=== PATIENT | male | born 1940 | race Caucasian/White ===

== ENCOUNTER 2017-07-24 12:54 | Inpatient (IN) | payer MEDICARE, BC ==
[2017-07-24 13:23] LABS: #Eosinphils 0.1 thou/uL (0.0-0.7); #Lymphocytes 0.9 thou/uL (1.20-3.40); #Monocytes 0.2 thou/uL (0.11-0.59); #Neutrophils 3.3 thou/uL (1.40-6.50); %Basophils 0.4 % (0.0-1.0); %Eosinophils 1.6 % (0.0-10.0); %Lymphocytes 19.2 % (21.0-51.0); %Monocytes 4.7 % (0.0-10.0); %Neutrophils 74.1 % (42.0-75.0); Hemoglobin 14.8 g/dL (14.0-18.0); Mean Corpuscular HGB CONC 33.1 g/dL (32.0-36.0); Mean Corpuscular Hemoglobin 32.1 pg (27.0-31.0); Mean Corpuscular Volume 96.9 fl (80.0-94.0); Platelet Count 197 thou/uL (130-400); RBC Distribution Width 14.1 % (11.5-14.5); Red Blood Cell (RBC) Count 4.61 mill/uL (4.70-6.10); White Blood Cell (WBC) Count 4.5 thou/uL (4.8-10.8)
[2017-07-24 13:32] LABS: INR-International Normal Ratio 1.9; Prothrombin Time 22.5 SEC (12.0-14.7)
[2017-07-24 13:47] LABS: ALT (SGPT) 16 U/L (8-55); AST (SGOT) 19 U/L (5-34); Albumin 3.9 g/dL (3.4-4.8); Alkaline Phosphatase 110 U/L (40-150); Anion Gap 15 mmol/L (10-20); BUN (Urea Nitrogen) 23 mg/dL (8.4-25.7); Bilirubin, Total 0.8 mg/dL (0.2-1.2); Calc. Creatinine Clearance 0 mL/min (70-130); Calcium 9.4 mg/dL (7.8-10.44); Carbon Dioxide 24 mmol/L (23-31); Chloride 103 mmol/L (98-107); Estimated GFR-MDRD 66; Globulin 3.8 g/dL (2.4-3.5); Glucose 106 mg/dL (83-110); Potassium 4.1 mmol/L (3.5-5.1); Protein, Total 7.7 g/dL (5.8-8.1); Sodium 138 mmol/L (136-145)
[2017-07-24] MEDS ORDERED: Phytonadione 10 MG/ML AMP ONE (13:48)
--- NOTE | 2017-07-24 13:53 | RAD ---
AP VIEW PELVIS: FINDINGS: AP view pelvis is obtained. There is a comminuted proximal right femoral fracture. Multiple fracture fragments are seen. The le sser trochanter is avulsed. There is also partially impacted fracture involving the subtrochanteric portion of the right femur. IMPRESSION: Comminuted proximal right femoral fracture. POS: [facility]
--- NOTE | 2017-07-24 13:55 | RAD ---
AP VIEW OF THE CHEST: HISTORY: History of preop. COMPARISON: Prior exam dated 11/01/16. FINDINGS: Nodular opacity within the right upper lobe consistent with patient's known arteriovenous malformatio n is stable. Cardiomegaly persists. Tortuosity of the aorta is similar. The patient's dual-lead pa cemaker is unchanged. Osseous structures are similar. IMPRESSION: 1. Stable exam. There is stable cardiomegaly. 2. Nodular opacity right upper lobe consistent with the patient's known arteriovenous malformation i s stable. POS: [facility]
--- NOTE | 2017-07-24 13:57 | RAD ---
THREE VIEWS OF THE RIGHT FEMUR: INDICATION: Fall with right hip pain. FINDINGS: There is an obliquely oriented comminuted right hip intertrochanteric fracture with apex lateral angu lation at the fracture site. No additional fracture is seen involving the right femur. There is dif fuse osteopenia. There is partial visualization of a right total knee prosthesis. There is scattere d vascular calcification within the adjacent soft tissues. IMPRESSION: Comminuted right intertrochanteric hip fracture. POS: [facility]
--- NOTE | 2017-07-24 13:59 | RAD ---
AP AND FROG LEG VIEWS RIGHT HIP: FINDINGS: AP and frog-leg views right hip demonstrate a comminuted intertrochanteric fracture. The lesser troc hanter is displaced medially. There are some sclerotic changes seen involving the right acetabulum compatible with old healed aceta bular fracture. IMPRESSION: 1. Comminuted displaced intertrochanteric fracture right femur. 2. Old healed right acetabular fracture. POS: [facility]
[2017-07-24] MEDS ORDERED: Morphine 4 MG/ML VIAL ONE (14:17)
[2017-07-24] MEDS ORDERED: HYDROcodone/Acetaminophen 5/325 mg Tablet PO PRN ×2 (15:19)
[2017-07-24] MEDS ORDERED: Ondansetron HCl/PF 4 MG/2 ML Vial IVP PRN ×2 (15:19→15:32)
[2017-07-24] MEDS ORDERED: Ondansetron ODT 4 MG TAB SL PRN (15:19)
[2017-07-24] MEDS ORDERED: Acetaminophen 325 MG TAB PO PRN (15:19)
[2017-07-24] MEDS ORDERED: Sodium Chloride 0.9% 1,000 ML IV SCH (15:19)
[2017-07-24] MEDS ORDERED: Dextrose 50% Abboject 50 ML SYRINGE SLOW IVP PRN (15:32)
[2017-07-24] MEDS ORDERED: hydrALAZINE 20 MG/ML VIAL SLOW IVP PRN (15:32)
[2017-07-24] MEDS ORDERED: Ondansetron ODT 4 MG TAB PO PRN (15:32)
[2017-07-24] MEDS ORDERED: HYDROcodone/Acetaminophen 10/325 mg Tablet PO PRN (15:32)
[2017-07-24] MEDS ORDERED: Dextrose 5% in Water 1,000 ML IV PRN (15:32)
[2017-07-24 15:34] VITALS: BMI 37.4
[2017-07-24] MEDS: HYDROcodone/Acetaminophen 10/325 mg Tablet PO PRN ×2 (16:39→23:19)
--- NOTE | 2017-07-24 16:53 | HP ---
DATE OF ADMISSION: 07/24/2017 REQUESTING PHYSICIAN: Jesse Cowart M.D. ATTENDING PHYSICIAN: Gary Rayo M.D. CONSULTATIONS: Orthopedics, Livan Dumont M.D. HISTORY OF PRESENT ILLNESS: The patient is a 76-year-old man who was going from his house into his g arage when he fell in the doorway. The patient had immediate right hip pain and was unable to get up . He was able to summon help who called 911. The patient was brought by ground EMS to the Emergency Department and was noted to have a right proximal femur fracture, at which time we were asked to amol luate the patient for admission and obtain orthopedic consultation. Of note, patient is on Coumadin. The patient denies chest pain, shortness of breath or dizziness. He states that he just tripped go ing up the door. ALLERGIES: None. CURRENT MEDICATIONS: Amlodipine, lisinopril, allopurinol, warfarin, torsemide, atorvastatin and malika min D3. PAST MEDICAL HISTORY: Atrial fibrillation, coronary artery disease, hyperlipidemia and hypertension. PAST SURGICAL HISTORY: Bilateral knee replacement and cardiac pacemaker placement. FAMILY MEDICAL HISTORY: Hypertension. SOCIAL HISTORY: The patient denies alcohol use. Quit smoking greater than 40 years ago. Denies chela g use. 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 REVIEW OF SYSTEMS: Ten-point review of systems negative, unless otherwise stated. PHYSICAL EXAMINATION: VITAL SIGNS: Blood pressure 114/63, heart rate 67, respirations 14, oxygen saturation is 96% on room air and temperature is 97.6. GENERAL: The patient is resting comfortably in the emergency room bed. He is awake, alert, and orie nted x3. [place] Coma Scale is 15. HEENT: Head is normocephalic and atraumatic. Eyes: Extraocular motion intact. PERRLA bilaterally. Ears are atraumatic without discharge. Nose is atraumatic without discharge. Oropharynx is clear. NECK: Nontender. Trachea is midline. No JVD. CHEST: Clear to auscultation with good inspiratory and expiratory effort. HEART: Regular rate and rhythm. ABDOMEN: Soft, flat and nontender with active bowel sounds. Pelvis is stable with tenderness to the right proximal femur area consistent with his fracture. EXTREMITIES: The patient is noted to have a skin tear on his left fifth metacarpal in the dorsum of his hand. Right upper extremity is unremarkable. Lower extremities show significant skin changes du e to his peripheral vascular disease, which he states is unchanged for many months. The patient has decreased sensation and capillary refill is approximately 4 seconds. Upper extremities are neurovasc ularly intact. BACK: By report is atraumatic and nontender. LABORATORY FINDINGS: White blood cell count 4.5, hemoglobin 14.8, hematocrit 44.6 and platelets 197. Sodium 138, potassium 4.1, chloride 103, CO2 of 24, BUN 23, creatinine is 1.09 and glucose 106. LF Ts are unremarkable. PTT 41, PT 23 and INR 1.9. RADIOGRAPHIC FINDINGS: Right femur radiographs showed a right proximal femur fracture with significa nt displacement. ASSESSMENT AND PLAN: 1. Status post ground level fall. 2. Right proximal femur fracture. 3. History of hypertension. 4. History of atrial fibrillation with pacemaker. 5. History of coronary artery disease and peripheral vascular disease. Plan will be to admit the patient to the surgical floor. He will be placed in bucks traction, made n .p.o. after midnight. We will do pain control, pulmonary toilet, gastritis, mechanical DVT prophylax is. Dr. Dumont has reviewed the case and he will plan on taking the patient to the operating room to sawyer some time. The patient was given vitamin K in the Emergency Department. We will recheck his labs to include his coags in the morning this case. Laboratory radiographic findings were discussed with Dr. Rayo at the time of dictation.
[2017-07-24] MEDS ORDERED: CEFAZOLIN/Water 2 GM/20 ML SYRINGE SLOW IVP SCH (17:30)
[2017-07-24] MEDS: Ketorolac Tromethamine 30 MG/ML VIAL IVP SCH ×2 (18:15→23:21)
[2017-07-24] MEDS: Senokot S 8.6-50 MG TAB PO SCH (19:49)
[2017-07-24] MEDS: Famotidine 20 MG TAB PO SCH (19:49)
[2017-07-24] MEDS: Sodium Chloride 0.9% 1,000 ML IV SCH (23:26)
--- NOTE | 2017-07-25 01:54 | CON ---
DATE OF CONSULTATION: 07/24/2017 REASON FOR CONSULTATION: Right subtrochanteric hip fractures. HISTORY OF PRESENT ILLNESS: This is a very pleasant gentleman well known to me. He was walking to h is garage today, fell, suffering a fracture of his right proximal femur. PAST MEDICAL HISTORY: Significant from orthopedic point of view, where he has pelvis fracture and he has bilateral total knees, currently complains of pain in the proximal femur. He complains of pain with any manipulation of the leg, otherwise he is very comfortable in the bed. PHYSICAL EXAMINATION: On examination today, he has swollen right side, trace palpable pulses, he was visualized with some dependent edema and a mild rotational deformity. Radiographs show a comminuted fracture of the right proximal femur. The proximal fragment is flexed. There is a long spike. The lesser trochanter is off. ASSESSMENT: Subtrochanteric hip fracture. PLAN: Open reduction and internal fixation. I discussed with him at length and I explained use of m etal jose. I explained the risk of infection, stiffness, nerve or blood vessel damage, expected lengt h of healing time. He understands all this and would like to proceed with surgery.
[2017-07-25] MEDS: Sodium Chloride 0.9% 1,000 ML IV SCH ×2 (02:18→19:31)
[2017-07-25 04:53] LABS: INR-International Normal Ratio 1.6; PTT 44.3 SEC (22.9-36.1); Prothrombin Time 19.4 SEC (12.0-14.7)
[2017-07-25 04:58] LABS: #Lymphocytes 0.7 thou/uL (1.20-3.40); #Monocytes 0.3 thou/uL (0.11-0.59); #Neutrophils 3.4 thou/uL (1.40-6.50); %Basophils 0.1 % (0.0-1.0); %Eosinophils 0.8 % (0.0-10.0); %Lymphocytes 16.2 % (21.0-51.0); %Monocytes 6.9 % (0.0-10.0); Mean Corpuscular HGB CONC 34.2 g/dL (32.0-36.0); Mean Corpuscular Hemoglobin 33.3 pg (27.0-31.0); Mean Corpuscular Volume 97.4 fl (80.0-94.0); Mean Platelet Volume 7.2 fL (7.4-10.4); Platelet Count 182 thou/uL (130-400); RBC Distribution Width 13.8 % (11.5-14.5); Red Blood Cell (RBC) Count 3.61 mill/uL (4.70-6.10); White Blood Cell (WBC) Count 4.5 thou/uL (4.8-10.8)
[2017-07-25 05:02] LABS: Anion Gap 6 mmol/L (10-20); BUN (Urea Nitrogen) 26 mg/dL (8.4-25.7); Calc. Creatinine Clearance 110 mL/min (70-130); Calcium 8.5 mg/dL (7.8-10.44); Carbon Dioxide 30 mmol/L (23-31); Chloride 105 mmol/L (98-107); Estimated GFR-MDRD 70; Glucose 108 mg/dL (83-110); Potassium 4.3 mmol/L (3.5-5.1); Sodium 137 mmol/L (136-145)
[2017-07-25] MEDS: Ketorolac Tromethamine 30 MG/ML VIAL IVP SCH ×4 (05:24→23:17)
[2017-07-25] MEDS ORDERED: Sodium Chloride 0.9% 500 ML IV SCH (07:00)
[2017-07-25] MEDS ORDERED: CEFAZOLIN/Water 2 GM/20 ML SYRINGE ONE (09:37)
[2017-07-25] MEDS ORDERED: Ondansetron HCl/PF 4 MG/2 ML Vial IVP PRN ×3 (09:42→10:22)
[2017-07-25] MEDS ORDERED: Fleet Enema 133 ML BOT PR PRN (09:42)
[2017-07-25] MEDS ORDERED: Milk Of Magnesia 30 ML UDCUP PO PRN (09:42)
[2017-07-25] MEDS ORDERED: Cepastat Lozenges 1 LOZ PO PRN (09:42)
[2017-07-25] MEDS ORDERED: Bisacodyl 10 MG SUPP PR PRN (09:42)
[2017-07-25] MEDS ORDERED: Ondansetron ODT 4 MG TAB PO PRN (09:42)
[2017-07-25] MEDS ORDERED: Fentanyl 100 MCG/2 ML VIAL ONE (10:43)
[2017-07-25] MEDS ORDERED: Albumin 25% 100 ML ONE (11:06)
--- NOTE | 2017-07-25 12:28 | RAD ---
SIX FLUOROSCOPIC SPOT IMAGES OF THE RIGHT FEMUR: INDICATION: Open reduction internal fixation. FINDINGS: Since the comparison examination, there has been interval placement of a long cephalomedullary device with associated cerclage bands involving the proximal femur. The instrumentation projects in the ex pected position. Fracture alignment is near anatomic. IMPRESSION: Open reduction internal fixation of comminuted right intertrochanteric hip fracture. POS: [facility]
[2017-07-25] MEDS: Polyethylene Glycol 3350 17 GM Packet PO SCH (12:50)
[2017-07-25] MEDS: Famotidine 20 MG TAB PO SCH ×2 (12:50→20:54)
[2017-07-25] MEDS: Senokot S 8.6-50 MG TAB PO SCH ×2 (12:51→20:54)
[2017-07-25] MEDS ORDERED: Lidocaine 1% PF 5 ML VIAL ONE (15:42)
[2017-07-25] MEDS ORDERED: PROPOFOL 200 MG/20 ML VIAL ONE (15:42)
[2017-07-25] MEDS ORDERED: PHENYLEPHRINE-NS 100 MCG/ML 10 ML SYRINGE ONE (15:42)
--- NOTE | 2017-07-25 16:21 | OP ---
PREOPERATIVE DIAGNOSIS: Fracture of the right femur including the proximal shaft and subtrochanteric region extending proximally. POSTOPERATIVE DIAGNOSIS: Fracture of the right femur including the proximal shaft and subtrochanteri c region extending proximally. SURGEON: Livan Dumont M.D. ANESTHESIA: EVGENY Rose BLOOD LOSS: About 800 mL SPECIMEN: None. DRAINS: None. COMPLICATIONS: None. DESCRIPTION OF PROCEDURE: The patient was taken to the operating room where general anesthesia was i nduced. She was placed on the fracture table, prepped and draped in a usual sterile fashion. The fr acture could not be reduced by close means. I made a separate approach to the femur shaft. I dissec kirill down through the vastus lateralis. I elevated the vastus lateralis off of the lateral intermuscu lar septum and ligated perforating vessels through a combination of traction, reduction, rotation and manipulation, I was able to anatomically reduce the fracture and fixed the fracture using two cercla ge cables. Attention was then turned back up to the proximal femur. A separate incision was made. I made an opening through the skin and fascia, palpated the greater trochanter and entered the femur with awl and then passed a ball-tip guide jose across the fracture, reamed up to sequentially to size 15.5 and put a size 14 mm Synthes trochanteric femoral nail across the fracture and then locked it pr oximally with a 120 mm screw in the head and neck fragment and 80 mm screw distally. Irrigation was performed. Hemostasis was obtained. The vastus was repaired with #2 Vicryl and #2 Quill, subcutaneo us closed with 2-0 Vicryl, and the skin was closed with omari. Distally, omari used to close the locking screw hole and proximally somewhat closure was used. Sterile dressings applied. There were no complications.
[2017-07-25] MEDS: CEFAZOLIN/Water 2 GM/20 ML SYRINGE SLOW IVP SCH (17:40)
[2017-07-25] MEDS ORDERED: Sodium Chloride 0.9% 500 ML IVPB SCH (20:45)
[2017-07-25] MEDS ORDERED: Hydrocortisone Sod Succ/PF 100 mg/2 ml Vial IVP SCH (23:00)
[2017-07-26] MEDS: Sodium Chloride 0.9% 1,000 ML IV SCH ×3 (00:25→18:36)
[2017-07-26] MEDS: CEFAZOLIN/Water 2 GM/20 ML SYRINGE SLOW IVP SCH (01:44)
[2017-07-26 04:32] LABS: #Lymphocytes 0.3 thou/uL (1.20-3.40); #Monocytes 0.2 thou/uL (0.11-0.59); #Neutrophils 4.5 thou/uL (1.40-6.50); %Eosinophils 0.6 % (0.0-10.0); %Lymphocytes 6.8 % (21.0-51.0); %Monocytes 3.8 % (0.0-10.0); %Neutrophils 88.9 % (42.0-75.0); Hemoglobin 9.5 g/dL (14.0-18.0); Mean Corpuscular HGB CONC 33.9 g/dL (32.0-36.0); Mean Corpuscular Hemoglobin 32.6 pg (27.0-31.0); Mean Corpuscular Volume 96.1 fl (80.0-94.0); Platelet Count 153 thou/uL (130-400); RBC Distribution Width 13.7 % (11.5-14.5); White Blood Cell (WBC) Count 5.1 thou/uL (4.8-10.8)
[2017-07-26 04:55] LABS: Anion Gap 11 mmol/L (10-20); BUN (Urea Nitrogen) 31 mg/dL (8.4-25.7); Calc. Creatinine Clearance 94 mL/min (70-130); Calcium 8.1 mg/dL (7.8-10.44); Carbon Dioxide 26 mmol/L (23-31); Chloride 106 mmol/L (98-107); Estimated GFR-MDRD 59; Glucose 149 mg/dL (83-110); Magnesium 2.2 mg/dL (1.6-2.6); Phosphorus 3.5 mg/dL (2.3-4.7); Potassium 4.9 mmol/L (3.5-5.1); Sodium 138 mmol/L (136-145)
[2017-07-26] MEDS: Ketorolac Tromethamine 30 MG/ML VIAL IVP SCH ×3 (05:16→18:38)
--- NOTE | 2017-07-26 07:50 | ADD-HP ---
ADDENDUM This is an addendum to the H&P dictated by Luis Hernandez, Trauma PA. For full details, please see his r eport. HISTORY: Mr. Lin is a 76-year-old man, who fell walking into his garage. He tripped on something landing on his right hip on a hard surface, and had immediate pain in his right hip area. He was un able to get up on his own, so, his called for help and he was brought to the emergency room, whe re he was found to have a right intertrochanteric fracture. Of note, he suffered a fall about a year ago and had an acetabular fracture. He denies any other injuries or any other problems and did not lose consciousness. PHYSICAL EXAMINATION: Complete physical examination was performed by myself. With the exception of pain in his right lateral thigh area, his examination was unremarkable. EXTREMITIES: He does have chronic venous stasis changes of bilateral lower extremities, as well as m [id number] edema, which is chronic. HEART: He has occasional early heart beats. LUNGS: Clear. PAST MEDICAL HISTORY: Notable for atrial fibrillation, for which he takes Coumadin. He also has hyp erlipidemia, heart disease, and high blood pressure, which are well controlled. He has had both knee s replaced and he has a pacemaker. He has distant history of tobacco use, but quit many years ago. DIAGNOSTIC DATA: Images are reviewed and I agree with the written report. He has a healed right melania tabular fracture and a right intertrochanteric fracture. ASSESSMENT: Right intertrochanteric femur fracture. He received vitamin K in the emergency room for an INR of 1.9. He does take Coumadin chronically. We will recheck his coags in the morning. Dr. Karine walker is planning to take him to the operating room for ORIF of his fracture. Following his operatio n, we will plan to mobilize him quickly with physical therapy. I expect he will be able to be discha rged to home, but if inpatient rehabilitation is recommended, then we will refer him for that. Rafael echeverria, his pain is well controlled and his medical issues are all stable.
[2017-07-26] MEDS: Ferrous Gluconate 324 MG TAB PO SCH ×2 (08:53→20:52)
[2017-07-26] MEDS: Senokot S 8.6-50 MG TAB PO SCH ×2 (08:53→20:52)
[2017-07-26] MEDS: Multivitamin W/ Minerals 1 TAB PO SCH (08:53)
[2017-07-26] MEDS: Famotidine 20 MG TAB PO SCH ×2 (08:54→20:53)
[2017-07-26] MEDS: Polyethylene Glycol 3350 17 GM Packet PO SCH (08:54)
[2017-07-26] MEDS: Hydrocortisone Sod Succ/PF 100 mg/2 ml Vial IVP SCH ×2 (08:54→15:16)
[2017-07-26 09:32] LABS: INR-International Normal Ratio 1.5; Prothrombin Time 18.1 SEC (12.0-14.7)
[2017-07-26 09:39] LABS: CKMB 2.1 ng/mL (0-6.6); Troponin I Less than 0.010 ng/mL (< 0.028)
--- NOTE | 2017-07-26 15:59 | PRG ---
DATE OF SERVICE: 07/26/2017 ATTENDING PHYSICIAN: Dr. Vogt. SUBJECTIVE: The patient is a 76-year-old man, who was admitted on 07/24/2017 after suffering a groun d-level fall. He was evaluated and found to have a right proximal femur fracture. Patient was on wa rfarin and so received vitamin K for warfarin reversal. He went to the OR yesterday with Dr. Dumont for surgical fixation of his right hip. Postoperatively, his blood pressure was low. A serum cortis ol was drawn and measured 11.60. He was given 100 mg of hydrocortisone and started on hydrocortisone 50 mg q.8 hours. This morning, his blood pressure has rebounded somewhat and he is stable on the [facility] rg[facility] floor without any complaints. OBJECTIVE: VITAL SIGNS: BP 114/64, pulse 61, temperature 98.5, respirations 16, O2 sat 92% on room air. GENERAL APPEARANCE: Patient is an elderly, obese male, resting in bed. He is in no acute distress. HEENT: Normocephalic and atraumatic. RESPIRATORY: Breath sounds are clear to auscultation bilaterally with normal effort. CARDIOVASCULAR: He has a regular rate and rhythm. ABDOMEN: Soft, nontender, and nondistended. His bowel sounds are somewhat hypoactive. EXTREMITIES: The patient has significant changes to his skin bilaterally in his lower extremities, w hich is consistent with peripheral vascular disease. Sensation and capillary refill are both decreas ed in lower extremities bilaterally. NEUROLOGIC: The patient's GCS is 15 this morning. He has no focal deficits. LABORATORY DATA: Hematology: WBC is 5.1, hemoglobin 9.5, hematocrit 27.8, platelets 153. Coagulati on: PT 18.1 and INR 1.5. Chemistry: Sodium 138, potassium 4.9, chloride 106, bicarbonate 26, BUN 3 1, creatinine 1.20, glucose 149, calcium 8.1, phosphorus 3.5, magnesium 2.2. Cardiac panel, CK-MB 2. 1, troponin I less than 0.010, serum cortisol 11.60. IMAGING: There are no images to review. ASSESSMENT: 1. Status post ground-level fall. 2. Warfarin-induced coagulopathy. 3. Right proximal femur fracture, status post open reduction internal fixation. 4. History of hypertension. 5. History of atrial fibrillation with pacemaker. 6. History of coronary artery disease. 7. History of peripheral vascular disease. 8. Postoperative hypotension. PLAN: 1. Pain control and other supportive care measures. 2. Mobilization with PT and OT. 3. Patient had an EKG and cardiac enzymes drawn this morning to rule out cardiac cause of hypotensio n. The patient's blood pressure has rebounded somewhat since yesterday after administration of hydro cortisone, so I suspect this may be the cause. Continue hydrocortisone 50 mg q.8 hours. 4. Measure INR daily. We will restart warfarin when appropriate per Orthopedic Surgery. 5. Case management following for help with discharge planning, rehab screen today. This patient was seen and examined along with Dr. Juwan Vogt on rounds, who agrees with the assess ment and plan.
[2017-07-26] MEDS ORDERED: Torsemide 10 MG TAB PO SCH (21:45)
[2017-07-27] MEDS: Hydrocortisone Sod Succ/PF 100 mg/2 ml Vial IVP SCH ×2 (00:05→08:49)
--- NOTE | 2017-07-27 01:51 | PRG ---
DATE OF SERVICE: 07/26/2017 SUBJECTIVE: The patient is hospital day #2, postop day #1, status post ground level fall in which he sustained a right hip fracture. The patient underwent open reduction and internal fixation of same and reportedly tolerated this well. The patient has not had any issues today other than a low urine output, which the patient states due to the fact that he has not had his diuretic, specifically his t orsemide. The patient was then tolerating p.o. Denies any nausea and states that his pain is very w ell controlled. PHYSICAL EXAMINATION: VITAL SIGNS: Temperature is 98.5, heart rate 60, blood pressure 112/64, respirations 16, oxygen satu ration 93% on room air. GENERAL: The patient is resting comfortably in bed. He is awake, alert, and oriented x3. [place] c ursula scale is 15. LUNGS: Clear to auscultation bilaterally with good inspiratory and expiratory effort. HEART: Regular rate and rhythm. ABDOMEN: Soft, flat, nontender with active bowel sounds. EXTREMITIES: Neurovascularly intact x4. Right thigh dressing is clean, dry, and intact. ASSESSMENT AND PLAN: 1. Status post ground level fall. 2. Status post open reduction and internal fixation of a right proximal femur fracture. Plan will be to continue supportive care. I will give him half dose torsemide tonight, recheck his u rinary output and repeat labs in the morning. Of note, the patient was started on hydrocortisone whe n it was noted that he was hypotensive and had a low cortisol level. This appears to have improved, but his systolic blood pressure is maintaining in the one teens. The patient will continue physical and occupational therapy and await final placement.
[2017-07-27 05:32] LABS: INR-International Normal Ratio 1.4; Prothrombin Time 17.1 SEC (12.0-14.7)
[2017-07-27 05:34] LABS: #Eosinphils 0.1 thou/uL (0.0-0.7); #Lymphocytes 0.4 thou/uL (1.20-3.40); #Monocytes 0.3 thou/uL (0.11-0.59); #Neutrophils 3.4 thou/uL (1.40-6.50); %Basophils 0.2 % (0.0-1.0); %Eosinophils 1.2 % (0.0-10.0); %Lymphocytes 9.1 % (21.0-51.0); %Neutrophils 83.5 % (42.0-75.0); Hemoglobin 8.2 g/dL (14.0-18.0); Mean Corpuscular HGB CONC 33.6 g/dL (32.0-36.0); Mean Corpuscular Hemoglobin 32.2 pg (27.0-31.0); Mean Corpuscular Volume 95.8 fl (80.0-94.0); Mean Platelet Volume 7.1 fL (7.4-10.4); Platelet Count 140 thou/uL (130-400); RBC Distribution Width 13.8 % (11.5-14.5); Red Blood Cell (RBC) Count 2.53 mill/uL (4.70-6.10); White Blood Cell (WBC) Count 4.1 thou/uL (4.8-10.8)
[2017-07-27 06:17] LABS: Anion Gap 11 mmol/L (10-20); BUN (Urea Nitrogen) 29 mg/dL (8.4-25.7); Calc. Creatinine Clearance 111 mL/min (70-130); Calcium 7.9 mg/dL (7.8-10.44); Carbon Dioxide 24 mmol/L (23-31); Chloride 108 mmol/L (98-107); Estimated GFR-MDRD 71; Glucose 134 mg/dL (83-110); Magnesium 2.2 mg/dL (1.6-2.6); Phosphorus 2.3 mg/dL (2.3-4.7); Potassium 3.9 mmol/L (3.5-5.1); Sodium 139 mmol/L (136-145)
[2017-07-27] MEDS: Polyethylene Glycol 3350 17 GM Packet PO SCH ×2 (08:49→08:55)
[2017-07-27] MEDS: Ferrous Gluconate 324 MG TAB PO SCH (08:50)
[2017-07-27] MEDS: Multivitamin W/ Minerals 1 TAB PO SCH (08:50)
[2017-07-27] MEDS: Senokot S 8.6-50 MG TAB PO SCH (08:51)
[2017-07-27] MEDS ORDERED: Torsemide 10 MG TAB PO SCH (09:00)
[2017-07-27] MEDS: Famotidine 20 MG TAB PO SCH (09:23)
[2017-07-27] MEDS ORDERED: traMADol HCl 50 MG TAB PO PRN (10:36)
[2017-07-27] MEDS: Sodium Chloride 0.9% 1,000 ML IV SCH ×2 (10:40→12:18)
[2017-07-27] MEDS ORDERED: traMADol HCl 50 MG TAB PO SCH (12:00)
[2017-07-27] MEDS ORDERED: Acetaminophen 500 MG TAB PO SCH (12:00)
[2017-07-27 15:53] VITALS: BP 105/64; TEMP 98.5
[2017-07-27] MEDS ORDERED: Warfarin Sodium 7.5 MG TAB PO SCH (17:00)
[2017-07-27] MEDS ORDERED: Lisinopril 20 MG TAB PO SCH (21:00)
[2017-07-27] MEDS ORDERED: Atorvastatin Calcium 20 MG TAB PO SCH (21:00)
[2017-07-28] MEDS ORDERED: Amlodipine 5 MG TAB PO SCH (09:00)
[2017-07-28] MEDS ORDERED: Allopurinol 100 MG TAB PO SCH (09:00)
--- NOTE | 2017-07-28 13:01 | DIS ---
DATE OF ADMISSION: 07/24/2017 DATE OF DISCHARGE: 07/27/2017 ADMITTING PHYSICIAN: Dr. Rayo. DISCHARGING PHYSICIAN: Dr. Vogt. ADMISSION DIAGNOSES: 1. Status post ground-level fall. 2. Right proximal femur fracture. DISCHARGE DIAGNOSES: 1. Status post ground-level fall. 2. Right proximal femur fracture. PROCEDURES PERFORMED: Open reduction and internal fixation of the right proximal and subtrochanteric femur. HOSPITAL COURSE: Patient is a 76-year-old man who was going from his house to his garage when he fel l in the doorway. He landed on his right hip and was unable to get up. He was brought in by ground EMS to the [facility] ED, where he was noted to have a right proximal femur fracture. Orthopedic Irish mikel was consulted and Trauma Services was asked to admit. At the time of injury, the patient was on warfarin with an INR of 1.9. The patient was given vitamin K in the emergency room. The following morning, his INR was rechecked at 1.6. The patient went to the OR with Dr. Dumont on 07/25/2017. Po stoperatively, the patient was transferred to the surgical floor, where he remained hemodynamically s table for the remainder of his stay. He was discharged to inpatient rehab on 07/27/2017 in good cond ition. DISCHARGE MEDICATIONS: The patient was discharged with all of his inpatient medications. Please see electronic medical record for details. ACTIVITY INSTRUCTIONS: Orthopedic limitations including 25% weightbearing on the right leg. NOURISHMENT INSTRUCTIONS: Heart healthy diet with supplemental Ensure high protein. THERAPY INSTRUCTIONS: Physical and occupational therapy. FOLLOWUP INSTRUCTIONS: The patient is instructed to follow up with his primary care doctor in 7 days . The patient also instructed to follow up with Dr. Dumont in 10-14 days.
[2017-07-28] MEDS ORDERED: Warfarin Sodium 5 MG TAB PO SCH (17:00)
--- NOTE | 2017-08-01 08:38 | EKG ---
Test Reason : Blood Pressure : / mmHG Vent. Rate : 080 BPM Atrial Rate : 277 BPM P-R Int : 000 ms QRS Dur : 138 ms QT Int : 134 ms P-R-T Axes : 000 -83 000 degrees QTc Int : 154 ms Demand pacemaker; interpretation is based on intrinsic rhythm Undetermined rhythm Abnormal ECG Confirmed by TIA RICE MD ([id number]) on 08/01/2017 8:37:38 AM Referred By: TOM Confirmed By:TIA RICE MD
== END 2017-07-27 16:00 | DRG 482 ==
LOC: ERS 12:54 → SURG A 13:56
PROVIDERS: ADMIT Surgery; ATTEND Surgery
PROC: 0QS604Z Reposition Right Upper Femur with Internal Fixation Device, Open Approach (ICD-10-PCS; principal; 2017-07-25)
PROC: 0QS804Z Reposition Right Femoral Shaft with Internal Fixation Device, Open Approach (ICD-10-PCS; 2017-07-25)
DX: S72.21XA Displaced subtrochanteric fracture of right femur, initial encounter for closed fracture (principal); I48.91 Unspecified atrial fibrillation; S72.301A Unspecified fracture of shaft of right femur, initial encounter for closed fracture; I10 Essential (primary) hypertension; E78.5 Hyperlipidemia, unspecified; I87.8 Other specified disorders of veins; I25.10 Atherosclerotic heart disease of native coronary artery without angina pectoris; I73.9 Peripheral vascular disease, unspecified; Z87.891 Personal history of nicotine dependence; Z79.01 Long term (current) use of anticoagulants; Z79.899 Other long term (current) drug therapy; Z95.0 Presence of cardiac pacemaker; Z96.653 Presence of artificial knee joint, bilateral; W01.0XXA Fall on same level from slipping, tripping and stumbling without subsequent striking against object, initial encounter; Y92.015 Private garage of single-family (private) house as the place of occurrence of the external cause
CPT/HCPCS: 36415; 71045; 72170; 76001; 80048; 80053; 82533; 82553; 83735; 84100; 84484; 85025; 85610; 85730; 86850; 86900; 86901; 93005; 93010; 96374; 96375; C1713; C1769; G8978-GP-CM; G8979-GP-CI; G8987-GO-CM; G8988-GO-CK; J1720; J1885; J2001; J2270; J2704; J3010; J3430; J7050; P9047; Q0162

== ENCOUNTER 2017-10-21 16:58 | Inpatient (IN) | payer MEDICARE ==
--- NOTE | 2017-10-21 18:55 | RAD ---
FIVE VIEWS OF THE RIGHT HIP 10/21/17 COMPARISON: None. HISTORY: Possible pelvic fracture, prior surgery . FINDINGS: There is evidence of prior open reduction and internal fixation of a proximal right femoral shaft fra cture. This fracture was treated with a screw traversing the femoral neck as well as an intramedullar y jose within the proximal mid and distal right femoral shaft with a distal interlocking screw and two proximal cerclage wires. There is a fracture through the intramedullary ojse at the level of the femo ral neck nail with medial angulation of the distal fracture fragment. This fractured hardware is thro ugh the area of the previously noted femoral fracture, which is thus now not stabilized. IMPRESSION: Fractured intramedullary jose proximally within the right femoral shaft through the area of previously noted femoral fracture. Thus, orthopedic consultation is required as this fracture is now not stabil ized. POS: [facility]
[2017-10-21 20:19] LABS: #Lymphocytes 0.7 thou/uL (1.20-3.40); #Monocytes 0.3 thou/uL (0.11-0.59); #Neutrophils 4.1 thou/uL (1.40-6.50); %Basophils 0.3 % (0.0-1.0); %Eosinophils 0.8 % (0.0-10.0); %Lymphocytes 13.3 % (21.0-51.0); %Monocytes 5.9 % (0.0-10.0); %Neutrophils 79.6 % (42.0-75.0); Hemoglobin 13.6 g/dL (14.0-18.0); Mean Corpuscular HGB CONC 33.7 g/dL (32.0-36.0); Mean Corpuscular Hemoglobin 30.6 pg (27.0-31.0); Mean Corpuscular Volume 90.9 fL (78.0-98.0); Mean Platelet Volume 6.8 fL (7.4-10.4); Platelet Count 184 thou/uL (130-400); RBC Distribution Width 14.9 % (11.5-14.5); Red Blood Cell (RBC) Count 4.45 mill/uL (4.70-6.10); White Blood Cell (WBC) Count 5.2 thou/uL (4.8-10.8)
[2017-10-21 20:29] LABS: INR-International Normal Ratio 1.9; Prothrombin Time 21.8 SEC (12.0-14.7)
[2017-10-21 20:41] LABS: ALT (SGPT) 7 U/L (8-55); AST (SGOT) 11 U/L (5-34); Albumin 3.5 g/dL (3.4-4.8); Alkaline Phosphatase 122 U/L (40-150); Anion Gap 13 mmol/L (10-20); BUN (Urea Nitrogen) 15 mg/dL (8.4-25.7); Bilirubin, Total 1.2 mg/dL (0.2-1.2); Calc. Creatinine Clearance 0 mL/min (70-130); Calcium 9.3 mg/dL (7.8-10.44); Carbon Dioxide 24 mmol/L (23-31); Chloride 105 mmol/L (98-107); Estimated GFR-MDRD 80; Globulin 3.5 g/dL (2.4-3.5); Glucose 99 mg/dL (83-110); Potassium 4.1 mmol/L (3.5-5.1); Sodium 138 mmol/L (136-145)
[2017-10-21] MEDS ORDERED: HYDROcodone/Acetaminophen 10/325 mg Tablet PO PRN ×2 (21:16)
[2017-10-21] MEDS ORDERED: hydrALAZINE 20 MG/ML VIAL SLOW IVP PRN (21:16)
[2017-10-21] MEDS ORDERED: Dextrose 5% in Water 1,000 ML IV PRN (21:16)
[2017-10-21] MEDS ORDERED: Ondansetron HCl/PF 4 MG/2 ML Vial IVP PRN (21:16)
[2017-10-21] MEDS ORDERED: Dextrose 50% Abboject 50 ML SYRINGE SLOW IVP PRN (21:16)
[2017-10-21] MEDS ORDERED: Ondansetron ODT 4 MG TAB PO PRN (21:16)
[2017-10-21] MEDS ORDERED: Phytonadione 10 MG/ML AMP SLOW IVP SCH (22:00)
[2017-10-21 22:16] VITALS: BMI 37.6
[2017-10-21] MEDS ORDERED: Sodium Chloride 0.9% 1,000 ML IV SCH (23:55)
--- NOTE | 2017-10-22 03:42 | CON ---
DATE OF CONSULTATION: 10/21/2017 CHIEF COMPLAINT: Right hip pain. HISTORY OF PRESENT ILLNESS: Mr. Lin is a 76-year-old male who fractured his femur approximately o ne year ago. He sustained a subtrochanteric fracture. He was treated with Dr. Dumont at that time w ith intramedullary nail. He initially did well and has been recovering. He has been living independ [facility] once again. He has been ambulatory with full weightbearing. He initially went to inpatient re habilitation, but has been home since then. He was getting up this morning walking just out of bed w hen he felt a pop and pain. This caused him to fall. He was unable to put full on the leg. He was seen in the [facility] earlier today and was found to have a fracture through his previously injure d area with a fracture of the intramedullary nail. This was thought to be consistent with nonunion. He was transferred over to the emergency department. He has been admitted to the hospital now. REVIEW OF SYSTEMS: Positive for mild right hip pain, otherwise negative 10-point review of systems. PAST MEDICAL HISTORY: Obesity, previous cirrhosis of the liver, coronary artery disease with history of pacemaker placement, hyperlipidemia, hypercholesterolemia, and hypertension. PAST SURGICAL HISTORY: Previous right femur intramedullary nail, bilateral total knee arthroplasty, history of pacemaker placement. SOCIAL HISTORY: The patient denies tobacco, alcohol, or drug use. He does have a remote history of smoking. ALLERGIES: No known drug allergies. PHYSICAL EXAMINATION: VITAL SIGNS: Pulse is 80, respiratory rate 18, 96% on room air, blood pressure 158/89. GENERAL: He is lying supine, alert, oriented, no apparent distress. HEENT: Normocephalic, atraumatic. RESPIRATORY: Breathing comfortably. ABDOMEN: Soft, nontender, nondistended. MUSCULOSKELETAL: The patient's right lower extremity is approximately 2 cm shortened compared to the left. He has a well healed wound laterally on the thigh. No erythema, no warmth. Good range of mo tion passively, although he cannot actively elevate the leg. He has poor skin condition distally wit h venous stasis and some weeping of his skin. Decreased sensation in the foot and ankles. Pulses ar e poorly palpable. IMAGES: X-rays of the right hip and femur demonstrate a fractured intramedullary nail at the subtroc hanteric region of the femur with nonunion of the subtrochanteric femur fracture. He has a total kne e arthroplasty in place distally. 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 PLAN: At this point, the patient had a difficult problem. We will need to take him to surgery to re move his broken hardware. We will need to perform bone graft of his proximal femur and then open red uction and internal fixation of the proximal femur. He will be at risk given his obesity and age for infection, wound problems, further problems with healing such as nonunion and hardware failure. Zhang pérez reviewed this with him. We have ordered the appropriate implants and we will proceed with syedar y once equipment is available. He will have care of his medical problems, pain control and appropria te DVT prophylaxis.
[2017-10-22 04:28] LABS: #Eosinphils 0.1 thou/uL (0.0-0.7); #Lymphocytes 0.6 thou/uL (1.20-3.40); #Monocytes 0.3 thou/uL (0.11-0.59); #Neutrophils 2.7 thou/uL (1.40-6.50); %Basophils 0.4 % (0.0-1.0); %Eosinophils 3.7 % (0.0-10.0); %Monocytes 7.4 % (0.0-10.0); %Neutrophils 72.5 % (42.0-75.0); Hemoglobin 13.2 g/dL (14.0-18.0); Mean Corpuscular HGB CONC 33.5 g/dL (32.0-36.0); Mean Corpuscular Hemoglobin 30.5 pg (27.0-31.0); Mean Corpuscular Volume 91.1 fL (78.0-98.0); Mean Platelet Volume 6.8 fL (7.4-10.4); Platelet Count 177 thou/uL (130-400); Red Blood Cell (RBC) Count 4.31 mill/uL (4.70-6.10); White Blood Cell (WBC) Count 3.8 thou/uL (4.8-10.8)
[2017-10-22 04:34] LABS: INR-International Normal Ratio 1.7; PTT 47.1 SEC (22.9-36.1); Prothrombin Time 20.1 SEC (12.0-14.7)
[2017-10-22 04:49] LABS: Anion Gap 11 mmol/L (10-20); BUN (Urea Nitrogen) 15 mg/dL (8.4-25.7); Calc. Creatinine Clearance 137 mL/min (70-130); Calcium 8.9 mg/dL (7.8-10.44); Carbon Dioxide 25 mmol/L (23-31); Chloride 106 mmol/L (98-107); Estimated GFR-MDRD 90; Glucose 90 mg/dL (83-110); Phosphorus 3.6 mg/dL (2.3-4.7); Potassium 3.9 mmol/L (3.5-5.1); Sodium 138 mmol/L (136-145)
--- NOTE | 2017-10-22 06:01 | HP ---
DATE OF ADMISSION: 10/21/2017 REQUESTING PHYSICIAN: Dr. Kramer. ATTENDING PHYSICIAN: Dr. Vogt. CONSULTATIONS: Orthopedics, Dr. Castle. HISTORY OF PRESENT ILLNESS: Patient is a 76-year-old man who was walking into his house wh en he felt and heard a loud pop in his right hip. He was unable to bear weight at that time. He mad e an appointment to go to the [facility] in [place], where x-rays revealed a periprosthetic prox imal femur fracture. Patient was noted to have fractures along his hip prosthesis from a previous pr oximal femur fracture, at which time, he was sent to the emergency department to undergo evaluation f or admission and obtain Orthopedic consultations. The patient denied hitting his head, loss of consc iousness, dizziness, or syncopal type symptoms associated with his fall. ALLERGIES: None. CURRENT MEDICATIONS: Coumadin, allopurinol, Norvasc, atorvastatin, lisinopril, and torsemide. PAST MEDICAL HISTORY: Hypertension, coronary artery disease, hyperlipidemia, hypercholesterolemia, l iver cirrhosis. PAST SURGICAL HISTORY: Pacemaker placement, right femur IM nail, bilateral total knee arthroplasty. SOCIAL HISTORY: Patient lives at home with his who smoked many many years ago. Denies drug or alcohol use. FAMILY MEDICAL HISTORY: High blood pressure. REVIEW OF SYSTEMS: Ten-point review of systems negative unless otherwise stated. PHYSICAL EXAMINATION: VITAL SIGNS: Blood pressure 158/89, heart rate 80, respiratory rate 18, oxygen saturation is 96% on room air, temperature is 98.5. GENERAL: Patient is resting comfortably in bed. He is awake, alert, and oriented x3. Idania coma scale is 15. HEENT: Normocephalic, atraumatic. Eyes: Extraocular muscles intact. PERRLA bilaterally. Ears are atraumatic without discharge. Oropharynx is clear. NECK: Nontender. Trachea is midline. No JVD. CHEST: Clear to auscultation with good inspiratory and expiratory effort. HEART: Regular rate and rhythm. ABDOMEN: Soft, flat, nontender with active bowel sounds. EXTREMITIES: Neurovascularly intact x4. Bilateral lower extremities showed 2+ pitting edema. Right hip is tender to palpation consistent with his fracture. BACK: By report is atraumatic and nontender. LABORATORY FINDINGS: White blood cell count 5.2, hemoglobin 13.6, hematocrit 40.4, platelets 184. S odium 138, potassium 4.1, chloride 105, CO2 of 24, BUN 15, creatinine 0.92, glucose 93. LFTs are unr emarkable. PT 22, INR 1.9, PTT 46. RADIOGRAPHIC REPORTS: Radiographs of the right hip show a fractured intramedullary jose proximally wi th the right femoral shaft through the area of the previously noted femoral fracture. ASSESSMENT AND PLAN: 1. Status post ground level fall. 2. Right periprosthetic femur fracture. 3. History of coronary artery disease. 4. History of hyperlipidemia. 5. History of hypertension. 6. History of pacemaker placement. 7. Pain secondary to acute trauma. 8. Currently on Coumadin. Plan will be to admit the patient to the surgical floor after consultation with Orthopedics. The pat ient will likely have surgery on Wednesday, we will make him n.p.o. after midnight on Wednesday. We will do his comfort measures, physical and occupational therapy, vitamin K tonight. Repeat labs in the [facility]. The evaluation, examination, laboratory, and radiographic findings were discussed with Dr. Katy yee in the emergency department at the time of the admission.
--- NOTE | 2017-10-22 08:50 | RAD ---
CHEST 1 VIEW: HISTORY: A 76-year-old male for preoperative evaluation. COMPARISON: 07/24/17. FINDINGS: Left ICD. Heart size is borderline. Nodular opacities in the right mid and upper lung zone and full ness of the right hilar and paratracheal region, evidence for known AVM. Stable from 07/24/17. IMPRESSION: Stable-appearing chest. No pneumonia, edema, pleural effusion, or other acute process. POS: TPC
[2017-10-22] MEDS ORDERED: Amlodipine 10 MG TAB PO SCH ×2 (09:00→14:30)
[2017-10-22] MEDS: Famotidine 20 MG TAB PO SCH ×2 (09:28→20:31)
[2017-10-22] MEDS: Lisinopril 20 MG TAB PO SCH ×2 (09:30→20:31)
[2017-10-22] MEDS: Allopurinol 100 MG TAB PO SCH (09:30)
[2017-10-22] MEDS: Torsemide 10 MG TAB PO SCH (09:31)
--- NOTE | 2017-10-22 10:07 | PRG ---
DATE OF SERVICE: 10/22/2017 SUBJECTIVE: This is a 76-year-old male with a past medical history of CHF, CAD, atrial fibrillation status post permanent pacemaker, on chronic Coumadin who was admitted overnight to our service after sustaining a periprosthetic fracture. Per the patient, he was walking and heard a loud pop in his hi p which resulted in right knee pain and discomfort. Patient was recently admitted to our hospital on 07/2017 status post fall and right hip fracture. Orthopedic Surgery has seen and evaluated the carlos ent and plans for operative intervention tomorrow, pending equipment delivery necessary for the surge ry. Upon our evaluation this morning, the patient states that his pain has been well controlled and he vocalized no complaint. OBJECTIVE: VITAL SIGNS: Temperature 98.4, pulse 63, respirations 16, O2 sat 95% on room air, blood pressure 175 /92. GENERAL: Well-developed elderly male in no acute distress, resting in bed. PULMONARY: Normal work of breathing. Symmetric rise. CARDIOVASCULAR: Regular rate and rhythm. GASTROINTESTINAL: Abdomen is soft, nontender and nondistended. MUSCULOSKELETAL: Moves all extremities with range of motion of the right lower extremity limited sec ondary to pain. There is bilateral lower extremity edema. NEUROLOGIC: No focal deficit is noted. LABORATORY DATA: WBC 3.8, hemoglobin 13.2, hematocrit 39.3 and platelet count 177. INR 1.7. Sodium 138, potassium 3.9, chloride 106, carbon dioxide 25, BUN 15, creatinine 0.83, glucose 90, phosphorus 3.6, magnesium 2.0. RADIOGRAPHIC FINDINGS: Chest x-ray with no acute cardiopulmonary process. Stable nodular opacities from 07/2017 secondary to patient's known AVM per radiology read. ASSESSMENT: 1. Right periprosthetic femur fracture. 2. History of coronary artery disease. 3. History of congestive heart failure and pulmonary hypertension on daily diuretics. 4. History of hypertension. 5. History of atrial fibrillation, status post permanent pacemaker, on chronic anticoagulation. 6. Acute traumatic pain. 7. Pulmonary arteriovenous malformation, stable. PLAN: Patient will be n.p.o. after midnight. Postoperative PT and OT. Perioperative pain managemen t with p.o. and IV analgesics. Continue to hold Coumadin at this time. We will order echocardiogram as patient's last echo was over a year ago. The patient has been seen and evaluated this morning wi Dr. Vogt. All questions were answered at the time of this dictation.
[2017-10-22] MEDS: Atorvastatin Calcium 20 MG TAB PO SCH (20:31)
[2017-10-22] MEDS: Lactated Ringer's 1,000 ML IV SCH (23:08)
[2017-10-23] MEDS ORDERED: CEFAZOLIN/Water 2 GM/20 ML SYRINGE SLOW IVP SCH ×2 (08:00→11:45)
[2017-10-23] MEDS ORDERED: Phenylephrine HCL 10 MG/ML VIAL ONE (08:18)
[2017-10-23] MEDS ORDERED: CEFAZOLIN/Water 2 GM/20 ML SYRINGE ONE (08:23)
[2017-10-23] MEDS ORDERED: Fentanyl 100 MCG/2 ML VIAL ONE ×2 (08:26→11:29)
[2017-10-23] MEDS ORDERED: Albumin 5% 0 ML ONE (08:29)
[2017-10-23] MEDS ORDERED: Albumin 25% 100 ML ONE (08:31)
[2017-10-23 08:41] LABS: INR-International Normal Ratio 1.3; PTT 35.9 SEC (22.9-36.1); Prothrombin Time 15.8 SEC (12.0-14.7)
[2017-10-23] MEDS ORDERED: HYDROmorphone 0.5 MG/0.5 ML SYRINGE ONE (12:16)
[2017-10-23] MEDS ORDERED: PROPOFOL 200 MG/20 ML VIAL ONE (13:03)
[2017-10-23] MEDS ORDERED: PHENYLEPHRINE-NS 100 MCG/ML 10 ML SYRINGE ONE (13:03)
[2017-10-23] MEDS ORDERED: Ondansetron HCl/PF 4 MG/2 ML Vial ONE (13:03)
[2017-10-23] MEDS ORDERED: Lidocaine 1% PF 5 ML VIAL ONE (13:03)
[2017-10-23] MEDS ORDERED: Glycopyrrolate 0.2 MG/ML 5 ML SYRINGE ONE (13:03)
[2017-10-23] MEDS ORDERED: Dexamethasone 20 MG/5 ML VIAL ONE (13:03)
[2017-10-23] MEDS: Famotidine 20 MG TAB PO SCH ×2 (16:20→21:04)
[2017-10-23] MEDS: Allopurinol 100 MG TAB PO SCH (16:21)
[2017-10-23] MEDS: Lactated Ringer's 1,000 ML IV SCH ×2 (16:21→22:25)
[2017-10-23] MEDS: Lisinopril 20 MG TAB PO SCH (16:21)
[2017-10-23] MEDS ORDERED: traMADol HCl 50 MG TAB PO PRN (16:36)
[2017-10-23] MEDS ORDERED: Hydrocortisone Sod Succ/PF 100 mg/2 ml Vial IVP SCH (16:45)
[2017-10-23] MEDS: CEFAZOLIN/Water 2 GM/20 ML SYRINGE SLOW IVP SCH ×2 (18:16→23:26)
[2017-10-23] MEDS: Acetaminophen 500 MG TAB PO SCH ×2 (18:17→22:26)
[2017-10-23] MEDS: Ketorolac Tromethamine 30 MG/ML VIAL IVP SCH ×2 (18:17→22:26)
[2017-10-23] MEDS: traMADol HCl 50 MG TAB PO SCH ×2 (18:18→22:27)
[2017-10-23] MEDS: Atorvastatin Calcium 20 MG TAB PO SCH (21:04)
[2017-10-24] MEDS: Acetaminophen 500 MG TAB PO SCH ×4 (04:33→23:39)
[2017-10-24] MEDS: traMADol HCl 50 MG TAB PO SCH ×4 (04:33→23:38)
[2017-10-24] MEDS: Ketorolac Tromethamine 30 MG/ML VIAL IVP SCH ×4 (04:34→23:39)
[2017-10-24 05:24] LABS: #Lymphocytes 0.3 thou/uL (1.20-3.40); #Monocytes 0.3 thou/uL (0.11-0.59); #Neutrophils 5.4 thou/uL (1.40-6.50); %Basophils 0.2 % (0.0-1.0); %Eosinophils 0.1 % (0.0-10.0); %Lymphocytes 5.6 % (21.0-51.0); %Monocytes 5.4 % (0.0-10.0); %Neutrophils 88.8 % (42.0-75.0); Hemoglobin 11.7 g/dL (14.0-18.0); Mean Corpuscular HGB CONC 32.8 g/dL (32.0-36.0); Mean Corpuscular Hemoglobin 29.6 pg (27.0-31.0); Mean Corpuscular Volume 90.1 fL (78.0-98.0); Mean Platelet Volume 6.8 fL (7.4-10.4); Platelet Count 193 thou/uL (130-400); RBC Distribution Width 14.8 % (11.5-14.5); Red Blood Cell (RBC) Count 3.95 mill/uL (4.70-6.10); White Blood Cell (WBC) Count 6.1 thou/uL (4.8-10.8)
[2017-10-24 05:34] LABS: Anion Gap 11 mmol/L (10-20); BUN (Urea Nitrogen) 27 mg/dL (8.4-25.7); Calc. Creatinine Clearance 112 mL/min (70-130); Calcium 8.5 mg/dL (7.8-10.44); Carbon Dioxide 25 mmol/L (23-31); Chloride 104 mmol/L (98-107); Estimated GFR-MDRD 71; Glucose 139 mg/dL (83-110); Magnesium 1.8 mg/dL (1.6-2.6); Phosphorus 4.4 mg/dL (2.3-4.7); Potassium 4.4 mmol/L (3.5-5.1); Sodium 136 mmol/L (136-145)
[2017-10-24] MEDS: Lactated Ringer's 1,000 ML IV SCH (06:29)
[2017-10-24] MEDS: Torsemide 10 MG TAB PO SCH (09:02)
[2017-10-24] MEDS: Polyethylene Glycol 3350 17 GM Packet PO SCH (09:02)
--- NOTE | 2017-10-24 09:02 | PRG ---
DATE OF SERVICE: 10/23/2017 SUBJECTIVE: A 76-year-old male who sustained a periprosthetic fracture while walking. He is now pos top day 0 status post repair. The patient is seen postoperatively and is drowsy, but appropriate. U leslye my evaluation, he vocalized right leg pain that has been controlled with pain medication. OBJECTIVE: VITAL SIGNS: Pulse 60, respirations 14, and blood pressure 107/71. GENERAL: Elderly appearing male in no acute distress, lying in bed. HEENT: Normocephalic, atraumatic. Eyes: Pupils are PERRL. Extraocular movements are intact. NECK: Supple. Trachea is midline. PULMONARY: Normal work of breathing. Symmetric rise. CARDIOVASCULAR: Regular rate and rhythm. GASTROINTESTINAL: Soft, nontender, nondistended. MUSCULOSKELETAL: Moves all extremities x4. NEUROLOGIC: No focal deficit noted. ASSESSMENT: 1. Right periprosthetic femur fracture, postop day 0. 2. History of coronary artery disease. 3. History of congestive heart failure and pulmonary hypertension on daily diuretics. 4. History of hypertension. 5. History of atrial fibrillation, status post permanent pacemaker, on chronic anticoagulation. 6. Acute traumatic pain normal. 7. Pulmonary AV malformation, stable. PLAN: Change analgesics to p.o. The patient has been relatively hypotensive since surgery and has r eceived 2 units of PRBC. He now has a systolic blood pressure of greater than 100; however, he was a drenal insufficiency on his last admission. We will check a random cortisol level and give 100 of hy drocortisone and follow up appropriately. A.m. labs. Follow urine output. PT, OT in the a.m. We wi ll discuss with case management for eventual disposition. Plan of care was discussed with the patien t and family at bedside. All questions were answered at the time of this dictation. The patient was discussed with trauma attending.
[2017-10-24] MEDS: Senokot S 8.6-50 MG TAB PO SCH ×2 (09:03→20:59)
[2017-10-24] MEDS: Allopurinol 100 MG TAB PO SCH (09:03)
[2017-10-24] MEDS: Famotidine 20 MG TAB PO SCH ×2 (09:05→20:59)
--- NOTE | 2017-10-24 11:08 | RAD ---
RIGHT HIP RADIOGRAPHS TWO VIEWS: Date: 10-23-17 Provided Clinical History: ORIF. FINDINGS: Comparison 10-21-17. Interval placement of a dynamic compression screw transfixing a subtrochanteric right proximal femora l fracture. Two spot fluoroscopic images submitted. IMPRESSION: As above. POS: BONY
[2017-10-24] MEDS: Hydrocortisone Sod Succ/PF 100 mg/2 ml Vial IVP SCH ×2 (11:28→17:13)
--- NOTE | 2017-10-24 12:11 | OP ---
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 SURGICAL PROCEDURES: 1. Open reduction and internal fixation with valgus medializing osteotomy for right subtrochanteric femur nonunion. 2. Removal of hardware from right femur. 3. Reamed, irrigated, aspirated bone graft harvest from right femur. ANESTHESIA: General. SURGEON: Jose Guadalupe Cobb M.D. FRUIT PRESERVER: Dr. James. BLOOD LOSS: 300 mL. IMPLANTS: The [employer] DHS system was used with 145-degree 6-hole sideplate and 85-mm hip screw in ad dition to infuse bone morphogenic protein graft as well as cancellous bone chips. COMPLICATIONS: None. DRAINS: None. SPECIMEN: Swab sent for Gram stain culture and sensitivity. OUTCOME: Satisfactory. INDICATIONS: Mr. Lin is a 76-year-old gentleman, status post high subtrochanteric femur fracture, who, unfortunately, has gone on to a nonunion and is now broken the TFN device that was placed follo wing his initial injury. After discussion with patient including risks and benefits, we decided to p roceed with a valgus medializing osteotomy in hopes of improving the biomechanics at the subtrochante naga region in achieving osteosynthesis. Informed consent has been obtained. I believe all questions answered. Risks and benefits have been discussed with risks including, but not limited to bleeding, infection, nerve injury, DVT, PE, nonunion, loss of limb or life. Patient appears to understand and does wish to proceed. PROCEDURE IN DETAIL: The patient was brought to the operating room and a timeout performed followed by induction of general anesthesia. Next, patient was positioned in a left lateral decubitus positio n on a Biju table and then a sterile prep and drape was performed of the right lower extremity. H is 2 previous incisions were incorporated into one long incision extending from proximal to the great er trochanter down to include the proximal third of the femur. A second incision was then made dista lly just lateral to the knee. Through this distal most incision, the distal cross lock screw was rem carmencita from the nail. Next, the proximal incision was further developed through the skin and subcutane ous tissue down to the level of the tensor fascia. The tensor fascia was incised in line with the sk in incision. Next, the vastus lateralis was identified. The fascia also divided and this passed. T his was split to gain access to where the hip screw had been placed. Using blunt dissection through the gluteus, the starting point of the femoral nail, could also be eventually visualized. This was l ocalized with C-arm during the approach. Next, the nonunion site was further developed with fibrinou s exudate, removed with a rongeur. This was then followed by removal of the hip screw. The nail was then removed through this fracture nonunion site with the broken proximal segment removed first foll owed by removal of the nail distally. At the completion of this, there was found to be a spike of ric ne that did extend below the lesser trochanter. The two cables were removed from the spike of bone a nd then the spike of bone was trimmed to allow for valgus alignment of the fracture. Some further de bris was removed laterally and then a swab taken deep to be sent for Gram stain culture and sensitivi ty given the nonunion. Next, an 85-mm hip screw was inserted following the path of the original hip screw from the TFN device. This was then inserted into the femoral neck and head and then attached t o 145-degree sideplate. The sideplate was then affixed to the proximal femur getting compression ux ng the medial calcar and improved biomechanical alignment of the neck, removing it from the more varu s alignment to 145-degree valgus alignment. The plate was then affixed to the proximal femur and the n the compression screw used to further compress the medial calcar. It should be noted that prior to insertion of the DHS, the DALI system was used to harvest bone graft from the intramedullary canal of the right femur for grafting of the nonunion site. Once the hardware had been fully affixed, the RI A graft along with some cancellous chips was mixed together and then packed in the void down to the l evel of the calcar and coming all the way out to the lateral defect of the proximal femur. The great er trochanter was felt to be firmly affixed to the neck fragment and segment and not felt to be in ne ed of surgical stabilization. Following application of the bone graft, the infuse bone morphogenic p rotein was mixed appropriately and then overlaid on top of the nonunion site. It should be noted elle t prior to graft application, the wound was thoroughly irrigated with 3 liters of normal saline using Pulsavac. Following grafting, the wound was closed in layers with the fascia of the vastus laterali s closed with a running #1 Vicryl followed by #1 Vicryl for the fascia debby and tensor fascia followe d by 0 Vicryl for Kathrine's fascia, 2-0 Vicryl subcutaneously, and omari for the skin. A Xeroform g auze tape dressing was applied to the thigh and then patient was transferred to recovery room in stab le condition. There were no complications. He tolerated the procedure well.
--- NOTE | 2017-10-24 15:17 | PRG ---
DATE OF SERVICE: 10/24/2017 SUBJECTIVE: Mr. Lin is a 76-year-old male with periprosthetic femur fracture. There were no acut e overnight events. This morning, the patient's blood pressures in the low 100s. He vocalized the p ain has been well controlled. He worked with physical therapy. OBJECTIVE: VITAL SIGNS: Temperature 97.8, pulse 66, respiration rate 18, O2 sat 93%-95% on room air, blood pres sure 106/67. GENERAL: Elderly appearing male in no acute distress, resting in bed. PULMONARY: Normal work of breathing. Symmetric rise. CARDIOVASCULAR: Regular rate and rhythm. GASTROINTESTINAL: Abdomen is soft, nontender, nondistended. MUSCULOSKELETAL: Moves all extremities x4. NEUROLOGIC: No focal deficit noted. LABORATORY DATA: WBC 6.1, hemoglobin 11.7, hematocrit 35.6, platelet count 193. Sodium 136, potassi um 4.4, chloride 104, carbon dioxide 25, BUN 27, creatinine 1.02, glucose 139. phosphorus 4.4, magne sium 1.8 serum cortisol 14.5. ASSESSMENT: 1. Right periprosthetic femur fracture, postop day #1. 2. History of coronary artery disease. 3. History of congestive heart failure and pulmonary hypertension, on diuretics. 4. History of hypertension, now relatively hypotensive. 5. History of atrial fibrillation on chronic anticoagulation. 6. Acute traumatic pain. 7. Pulmonary AV malformation, stable. 8. Adrenal insufficiency. PLAN: Continue IV steroids for adrenal insufficiency. Hold antihypertensives until systolic pressur e greater than 120. Continue PT and OT. Inpatient rehabilitation eval placed. Continue pain manage ment as ordered. Incentive spirometry and pulmonary toileting. We will need to discuss with the pat ient's risk of anticoagulation in the setting a history of falls. If patient continue anticoagulatio n, we will resume Coumadin. Chemical DVT prophylaxis to be initiated today. Plan of care was discus sed with the patient at bedside. All questions were answered at the time of this dictation. The pat ient has been discussed with trauma attending.
[2017-10-24] MEDS: Atorvastatin Calcium 20 MG TAB PO SCH (20:59)
[2017-10-24] MEDS ORDERED: Enoxaparin Sodium 40 MG/0.4 ML SYRINGE SC SCH (21:00)
[2017-10-25] MEDS: Hydrocortisone Sod Succ/PF 100 mg/2 ml Vial IVP SCH ×3 (02:58→16:56)
[2017-10-25] MEDS: Acetaminophen 500 MG TAB PO SCH ×3 (04:29→16:56)
[2017-10-25] MEDS: traMADol HCl 50 MG TAB PO SCH ×3 (04:29→16:57)
[2017-10-25] MEDS: Ketorolac Tromethamine 30 MG/ML VIAL IVP SCH ×3 (05:58→16:56)
[2017-10-25] MEDS: Torsemide 10 MG TAB PO SCH (08:41)
[2017-10-25] MEDS: Allopurinol 100 MG TAB PO SCH (08:41)
[2017-10-25] MEDS: Famotidine 20 MG TAB PO SCH (08:41)
[2017-10-25] MEDS: Senokot S 8.6-50 MG TAB PO SCH (08:41)
[2017-10-25] MEDS: Polyethylene Glycol 3350 17 GM Packet PO SCH (08:41)
--- NOTE | 2017-10-25 10:54 | PRG ---
DATE OF SERVICE: 10/25/2017 SUBJECTIVE: Clement Lin is a 76-year-old male status post repair of perioperative femur fracture. There were no acute overnight events. The patient has been working with physical therapy, but is s omewhat hesitant given recent fracture while walking. He vocalizes this morning that his pain has be en well controlled. OBJECTIVE: VITAL SIGNS: Temperature 98.2, pulse 61, respirations 22, O2 sat 95% on room air, blood pressure 112 /70. GENERAL: Elderly appearing male in no acute distress. Normal work of breathing. Symmetric rise. CARDIOVASCULAR: Regular rate and rhythm. GASTROINTESTINAL: The abdomen is soft, nontender, nondistended. MUSCULOSKELETAL: Moves all extremities x4. NEUROLOGIC: No focal deficit is noted. ASSESSMENT: 1. Right periprosthetic femur fracture, postop day #1. 2. History of coronary artery disease. 3. History of congestive heart failure and pulmonary hypertension on daily diuretics. 4. History of hypertension, now hypotensive. 5. Adrenal insufficiency. 6. History of atrial fibrillation on chronic anticoagulation. 7. Acute traumatic pain. 8. Pulmonary AV malformation, stable. PLAN: Continue IV steroids for adrenal insufficiency. Continue to hold antihypertensives, but okay to resume daily diuretics. Continue PT and OT. Inpatient rehab evaluation pending. Continue pain m anagement as ordered. Incentive spirometry and pulmonary toileting. Discontinue Sanders. Saline lock . The patient was seen and evaluated with Dr. Vogt. Plan of care was discussed with the patient at [facility]. All questions were answered at the time of this dictation.
--- NOTE | 2017-10-25 12:38 | PQF ---
CLINICAL DOCUMENTATION IMPROVEMENT CLARIFICATION FORM: ICD-10 Updated PLEASE DO AN ADDENDUM TO THE PROGRESS NOTE WITH ANY DOCUMENTATION UPDATES OR ADDITIONS AND CARRY THROUGH TO DC SUMMARY. THANK YOU. DATE: 10/25/17 ATTN: Dr. Vogt Please exercise your independent, professional judgment in responding to the clarification form. Clinical indicators are provided on the bottom of this form for your review Please check appropriate box(s): HEART FAILURE: A. TYPE: [ x] Systolic / HFrEF [ ] Diastolic / HFpEF [ ] Combined Systolic / Diastolic B. ACUITY [ ] Acute [ x] Acute on Chronic [ ] Chronic [ ] Other diagnosis [ ] Unable to determine In addition, please specify: Present on Admission (POA): [ x ] Yes [ ] No [ ] Unable to determine For continuity of documentation, please document condition throughout progress notes and discharge summary. Thank You. CLINICAL INDICATORS - SIGNS / SYMPTOMS / LABS ECHO 10/23: EF VISUALLY ESTIMATED AT 50-55% PN 10/25: HISTORY OF CONGESTIVE HEART FAILURE & PULMONARY HYPERTENSION ON DAILY DIURETICS. RISKS: H&P 10/21: HX HTN, CAD. HX OF PACEMAKER PLACEMENT: PN 10/22: HX OF CONGESTIVE HEART FAILURE & PULMONARY HTN ON DAILY DIURETICS. TREATMENT: CPOE 10/22: ECHO CPOE 10/22: LISINOPRIL 20 MG PO BID CPOE 10/22: DEMADEX 10 MG PO DAILY Thank you, Lela (This form is maintained as a part of the permanent medical record) 2014 [employer]. All Rights Reserved Lela Rodriguez RN, BSN [email or web address] Office: [phone] [facility]
[2017-10-25] MEDS ORDERED: Warfarin Sodium 5 MG TAB PO SCH (17:00)
[2017-10-25 17:10] VITALS: BP 103/63; TEMP 97.8
--- NOTE | 2017-10-26 02:03 | DIS ---
DATE OF ADMISSION: 10/21/2017 DATE OF DISCHARGE: 10/25/2017 ADMISSION DIAGNOSES: 1. Right periprosthetic femur fracture that occurred while walking. 2. History of coronary artery disease. 3. History of atrial fibrillation on chronic anticoagulation. 4. History of hypertension. 5. History of hyperlipidemia. 6. History of pacemaker placement. 7. Acute traumatic pain. DISCHARGE DIAGNOSES: 1. Right periprosthetic femur fracture that occurred while walking. 2. History of coronary artery disease. 3. History of atrial fibrillation on chronic anticoagulation. 4. History of hypertension. 5. History of hyperlipidemia. 6. History of pacemaker placement. 7. Acute traumatic pain. 8. Adrenal insufficiency. CONSULTANTS: Dr. Castle and Dr. Cobb, orthopedic surgery. PROCEDURES: On 10/24/2017, open reduction and internal fixation of periprosthetic fracture with Dr. Cobb and Dr. Castle. HOSPITAL COURSE: This is a 76-year-old male who presented to [place] [facility] after noticing right lowe r extremity pain, after he heard a pop while he was walking. The patient did not fall or have any tr aumatic injury. He was evaluated in the emergency room and found to have the above injury. Given th e patient's anticoagulation status, he was given vitamin K and his INR was reversed. Because of the need for specialized equipment, his surgery was delayed until 10/23/2017. Postoperatively, the patie nt did well; however, he was noted to have relative hypotension in the setting of a history of adrena l insufficiency, which is noted on a previous admission in 07/2017. He was started on IV steroids. His blood pressure stabilized. His antihypertensives were held. Postop day #2, he was restarted on his home Coumadin. He worked with physical therapy and occupational therapy. He was medically stabl e for discharge and accepted to inpatient rehabilitation on 10/25/2017. DISCHARGE DISPOSITION: Inpatient rehabilitation. DISCHARGE CONDITION: Fair. Physical examination as documented in daily progress note dated 10/26/19 18. DISCHARGE INSTRUCTIONS: Discharge instructions were provided to the patient and the accepting facili ty. He is nonweightbearing on the right lower extremity. He should continue to work with physical t herapy and occupational therapy. He should keep his wound clean and dry. DISCHARGE MEDICATIONS: Patient was discharged on medications as documented in the electronic medical record. Of note, an importance of the patient's antihypertensives have been held at this time. As his blood pressure improved, the steroids should be weaned and his home antihypertensives should be r esumed. He was also recently restarted on his Coumadin and will need follow PT and INR for this reas on. FOLLOWUP APPOINTMENTS: Patient should follow up with his primary care provider as needed. He is to follow up with Dr. Castle or Dr. Cobb once discharged from inpatient rehabilitation. He does not need to follow up with Trauma services formally, but may call our office with any questions. Thi s is merely a summary of the patient's hospitalization. For more in depth information, please see ma s medical record in its entirety.
[2017-10-26] MEDS ORDERED: Warfarin Sodium 7.5 MG TAB PO SCH (17:00)
== END 2017-10-25 17:10 | DRG 480 ==
LOC: ERS 16:58 → SURG B 19:39
PROVIDERS: ADMIT Surgery; ATTEND Surgery
PROC: 0QS604Z Reposition Right Upper Femur with Internal Fixation Device, Open Approach (ICD-10-PCS; principal; 2017-10-24)
PROC: 0QU607Z Supplement Right Upper Femur with Autologous Tissue Substitute, Open Approach (ICD-10-PCS; 2017-10-24)
PROC: 0QP604Z Removal of Internal Fixation Device from Right Upper Femur, Open Approach (ICD-10-PCS; 2017-10-24)
DX: S72.21XK Displaced subtrochanteric fracture of right femur, subsequent encounter for closed fracture with nonunion (principal); Q25.72 Congenital pulmonary arteriovenous malformation; I50.23 Acute on chronic systolic (congestive) heart failure; T84.114A Breakdown (mechanical) of internal fixation device of right femur, initial encounter; E27.40 Unspecified adrenocortical insufficiency; I11.0 Hypertensive heart disease with heart failure; Y83.4 Other reconstructive surgery as the cause of abnormal reaction of the patient, or of later complication, without mention of misadventure at the time of the procedure; I25.10 Atherosclerotic heart disease of native coronary artery without angina pectoris; E78.00 Pure hypercholesterolemia, unspecified; K74.60 Unspecified cirrhosis of liver; Z95.0 Presence of cardiac pacemaker; E66.9 Obesity, unspecified; I27.20 Pulmonary hypertension, unspecified; Z87.891 Personal history of nicotine dependence; Z79.01 Long term (current) use of anticoagulants; Z68.37 Body mass index [BMI] 37.0-37.9, adult
CPT/HCPCS: 36415; 36430; 71045; 76001; 80048; 80053; 82533; 83735; 84100; 85025; 85610; 85730; 86850; 86900; 86901; 87070; 87205; 93005; 93306; A4216; C1713; C1769; G8978-GP-CL; G8979-GP-CJ; G8987-GO-CM; G8988-GO-CK; J1100; J1170; J1650; J1720; J1885; J2001; J2370; J2405; J2704; J3010; J3430; P9016; P9045; P9047

== ENCOUNTER 2017-12-14 11:09 | Outpatient (CLI) | payer MEDICARE, BC | END 2017-12-14 11:10 | disposition home or self-care (01) | LOC: BICRAD 11:09 | PROVIDERS: ATTEND Orthopaedic Surgery | DX: S72.21XA Displaced subtrochanteric fracture of right femur, initial encounter for closed fracture (principal); S72.301A Unspecified fracture of shaft of right femur, initial encounter for closed fracture ==

== ENCOUNTER 2018-04-27 07:54 | Outpatient (CLI) | payer MEDICARE, BC ==
--- NOTE | 2018-04-27 10:29 | PRG ---
DATE OF SERVICE: 04/27/2018 HISTORY: Mr. Clement Lin is a very pleasant 77-year-old gentleman, who [facility] for evaluation of a venous ulceration of the left anterior lower leg. The patient states that the ulceration has been present for approximately 2 weeks. The patient states that he is presently receiving physical therapy. Since the patient was last seen in the [facility], Mr. Lin states he fell in July of 2017 and suffered a right femur fracture. The patient, however, required surgery, a second procedure, in October of 2017 for failure of the TFN nail. Mr. Lin has no other complaints today. He denies any fever or chills. Presently, the patient's medications consist of torsemide, amlodipine, atorvastatin, lisinopril, warfarin, and allopurinol. PHYSICAL EXAMINATION: VITAL SIGNS: Temperature 97.7, pulse 90, respirations 21, and blood pressure 149/73. EXTREMITIES: An ulceration of the left anterior lower leg is present, which measures approximately 4.5 x 5.0 cm. Nonviable tissue present within the wound margins was debrided with an excisional full-thickness debridement. No purulent drainage is associated with the wound. No erythema of the skin surrounding the wound is present. No maceration of the skin of the periwound is noted. A dorsalis pedis pulse is palpable on the left. Edema of the left foot and lower leg is present on exam today. Hyperpigmentation of the skin of the left lower leg is present secondary to hemosiderin deposition. ASSESSMENT AND PLAN: 1. Chronic venous hypertension with ulcer. Silverlon, ABD, Webril, and the 3M Coban 2 Layer Compression System will be applied to the ulceration today. No antibiotics will be prescribed today based upon the appearance of the wound. I will see Mr. Lin again in 1 week. 2. Lymphedema tarda. Arrangements will be made for the initiation of in-home lymphedema therapy with a pneumatic pump. 3. Hypertension. 4. Thrombocytopenia. 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 6. History of rheumatic fever as a child. 7. Atrial fibrillation. 8. Diverticular disease. 9. Osteoarthritis. Job ID: [id number]
[2018-04-28] MEDS ORDERED: Sodium Chloride 0.9% 15 ML NEB ONE (13:33)
== END 2018-04-27 07:55 | disposition home or self-care (01) ==
LOC: WCC 07:54
PROVIDERS: ATTEND Family Medicine
DX: I87.312 Chronic venous hypertension (idiopathic) with ulcer of left lower extremity (principal); I89.0 Lymphedema, not elsewhere classified; D69.6 Thrombocytopenia, unspecified; K74.69 Other cirrhosis of liver; K76.6 Portal hypertension; I85.10 Secondary esophageal varices without bleeding; I48.91 Unspecified atrial fibrillation; K57.90 Diverticulosis of intestine, part unspecified, without perforation or abscess without bleeding; M19.90 Unspecified osteoarthritis, unspecified site

== ENCOUNTER 2018-10-26 11:01 | Emergency (ER) | payer MEDICARE, BC ==
--- NOTE | 2018-10-26 12:41 | RAD ---
XR Knee Lt 4 View STANDARD: 10/26/2018 11:40 AM CLINICAL INDICATION: Fall with left knee pain COMPARISON: None. FINDINGS: Bones: There is diffuse osteopenia. No acute fracture or subluxation demonstrated. Joints: There is a left total knee prosthesis in place. The prosthetic components project in the expe cted position.. Soft Tissue: There are moderate vascular calcifications seen involving the visualized vasculature.. IMPRESSION: Left total knee prosthesis. No acute fracture or subluxation demonstrated..
--- NOTE | 2018-10-26 13:28 | RAD ---
EXAM: XR Femur Rt 2 View STANDARD DATE: 10/26/2018 11:41 AM INDICATION: Fall with right leg pain COMPARISON: Right hip radiograph dated December 14, 2017 FINDING: The laterally displaced right-sided trochanteric femur fracture with hip screw and sideplat e instrumentation is unchanged. There is diffuse osteopenia. There are scattered vascular calcifications. There is a right total knee prosthesis. IMPRESSION:No acute osseous abnormality. Stable ununited right subtrochanteric instrumented femur fra cture. There is diffuse osteopenia.
[2018-10-26] MEDS ORDERED: Ketorolac Tromethamine 30 MG/ML VIAL ONE (14:26)
== END 2018-10-26 13:40 | disposition home or self-care (01) ==
LOC: ERS 11:01
DX: S41.112A Laceration without foreign body of left upper arm, initial encounter (principal); M25.462 Effusion, left knee; I25.10 Atherosclerotic heart disease of native coronary artery without angina pectoris; E78.5 Hyperlipidemia, unspecified; I10 Essential (primary) hypertension; Z87.891 Personal history of nicotine dependence; Z79.899 Other long term (current) drug therapy; W19.XXXA Unspecified fall, initial encounter
CPT/HCPCS: 96372; J1885

== ENCOUNTER 2019-10-20 10:00 | Inpatient (IN) | payer MEDICARE, BC ==
[2019-10-20 10:31] LABS: #Basophils 0.1 thou/uL (0.0-0.2); #Eosinphils 0.1 thou/uL (0.0-0.7); #Lymphocytes 0.6 thou/uL (1.20-3.40); #Monocytes 0.4 thou/uL (0.11-0.59); #Neutrophils 7.1 thou/uL (1.40-6.50); %Basophils 0.7 % (0.0-1.0); %Eosinophils 0.7 % (0.0-10.0); %Lymphocytes 6.9 % (21.0-51.0); %Monocytes 5.3 % (0.0-10.0); %Neutrophils 86.3 % (42.0-75.0); Hemoglobin 16.9 g/dL (14.0-18.0); Mean Corpuscular HGB CONC 32.6 g/dL (32.0-36.0); Mean Corpuscular Hemoglobin 31.5 pg (27.0-31.0); Mean Corpuscular Volume 96.8 fL (78.0-98.0); Platelet Count 178 thou/uL (130-400); Red Blood Cell (RBC) Count 5.36 mill/uL (4.70-6.10); White Blood Cell (WBC) Count 8.3 thou/uL (4.8-10.8)
[2019-10-20 10:59] LABS: ALT (SGPT) 19 U/L (8-55); AST (SGOT) 25 U/L (5-34); Albumin 3.9 g/dL (3.4-4.8); Alkaline Phosphatase 98 U/L (40-110); Anion Gap 13 mmol/L (10-20); BUN (Urea Nitrogen) 23 mg/dL (8.4-25.7); Bilirubin, Total 1.6 mg/dL (0.2-1.2); Calc. Creatinine Clearance 0 mL/min (70-130); Calcium 8.9 mg/dL (7.8-10.44); Carbon Dioxide 28 mmol/L (23-31); Chloride 101 mmol/L (98-107); Estimated GFR-MDRD 48; Globulin 3.4 g/dL (2.4-3.5); Glucose 154 mg/dL (83-110); Lipase 38 U/L (8-78); Potassium 3.8 mmol/L (3.5-5.1); Protein, Total 7.3 g/dL (5.8-8.1); Sodium 138 mmol/L (136-145)
--- NOTE | 2019-10-20 11:02 | RAD ---
EXAM: CHEST ONE VIEW HISTORY: Upper abdominal pain with nausea and dizziness. COMPARISON: 10/22/2017 FINDINGS: Dual lead left subclavian cardiac pacemaking device remains in place. Cardiac silhouette is enlarged. Pulmonary vasculature is within normal limits. There are nodular masslike opacities seen in the right hilar region and right midlung zone which appear larger when compared to the prior study, but t his may be projectional as these opacities appear similar in size to a study on 11/02/2016. Patient has known arteriovenous malformations which were seen on CT thorax in 2007. Lungs are otherwise clear . Vascular calcifications are seen in thoracic aorta. No other interval change. IMPRESSION: 1. Stable chest with persistent nodular opacities right lung. Patient is known to have arteriovenous malformations. 2. No acute cardiopulmonary process.
[2019-10-20 11:21] LABS: CKMB 1.1 ng/mL (0-6.6)
--- NOTE | 2019-10-20 13:00 | CT ---
CT ABDOMEN AND PELVIS WITH IV CONTRAST 10/20/2019 CLINICAL INFORMATION: Epigastric and right upper quadrant abdominal pain COMPARISON: 07/28/2010 Technique: Multiple contiguous axial CT images are obtained through the abdomen and pelvis with IV contrast. Cor onal reformatted images are provided. FINDINGS: Lower Chest: Calcified subcarinal and right hilar lymph nodes are identified. Minimal bibasilar atele ctasis is present. Partial visualization of cardiac pacemaking leads are again seen with coronary artery calcifications present as well. Vessels: Vascular calcifications are seen in the abdominal aorta and iliac arteries. Mild focal aneur ysmal dilatation of the infrarenal abdominal aorta is present measuring 3.1 cm. Abdomen: Portal vein:Patent Gallbladder: Within normal limits for CT imaging. Liver: Multiple calcified granulomata. There is a lobulated heterogeneously enhancing mass in the ant erior aspect of the lateral segment left hepatic lobe. This was not seen on prior study and [address] of the thorax in 2007. This could potentially represent a hemangioma, but this is difficult t o definitively determine based on this examination. A follow-up CT scan of the abdomen with 3 phase imaging is recommended for further evaluation of this finding. Spleen: Multiple calcified granulomata are again present. Pancreas: Fatty replaced. Adrenals: within normal limits. Kidneys: Subcentimeter too small to characterize hypodense lesions in the midportion each kidney. The re is no hydronephrosis. Bowel: Colonic diverticulosis with multiple colonic diverticuli seen involving the descending and sig moid colon. Appendix: The appendix is visualized and normal in caliber. Peritoneum: No ascites or free air; no fluid collection. Mesentery and Retroperitoneum: No enlarged mesenteric or retroperitoneal lymph nodes. Abdominal Wall: within normal limits. Pelvis: Reproductive Organs: No pelvic masses. Pelvis within normal limits. Bladder: within normal limits. Bones: Postoperative changes right hip are present. There is a wedge-shaped compression fracture T12 vertebral body with greater than 50% loss of height anteriorly. This compression fracture was seen on a chest x-ray on 05/08/2014, but the degree of height loss anteriorly the appear mildly increased w hen compared to the prior study with greater than 50% height loss involving the anterior T12 vertebral body. Prominent Schmorl's node is seen in the superior endplate of the L4 vertebral body. M ultilevel degenerative changes are seen in the spine. IMPRESSION: 1. Heterogeneously enhancing lobulated mass anterior left hepatic lobe. This may represent a hemangio ma, but this was not seen on prior studies. A follow-up CT abdomen with 3 phase imaging following hemangioma protocol is recommended for further evaluation. 2. Dense atherosclerotic vascular calcifications with a small focal infrarenal abdominal aortic aneur ysm. 3. Colonic diverticulosis. 4. Wedge-shaped compression fracture T12 vertebral body. The degree of height loss does appear slight ly increased from prior exam.
[2019-10-20] MEDS ORDERED: Iopamidol 370 76% 100 ML VIAL ONE (14:32)
[2019-10-20 14:55] LABS: INR-International Normal Ratio 1.4; PTT 36.4 sec (22.9-36.1); Prothrombin Time 17.1 sec (12.0-14.7)
[2019-10-20] MEDS ORDERED: HYDROcodone/Acetaminophen 5/325 mg Tablet PO PRN (14:58)
[2019-10-20] MEDS ORDERED: Acetaminophen 325 MG TAB PO PRN (14:58)
[2019-10-20] MEDS ORDERED: traMADol HCl 50 MG TAB PO PRN (15:02)
--- NOTE | 2019-10-20 15:12 | PDOC.HHP ---
Hospitalist HPI - History of Present Illness Near syncope dizziness History of Present Illness: 78 years old white male with past medical history of hypertension coronary artery disease hyperlipidemia and liver cirrhosis CHF status post pacemaker placement who follows with Dr. Leiva presented to the emergency room with epigastric pain and near syncope at home. According to the patient he follows with his flight attendant last week who recommended cardiac catheterization next week in the outpatient setting however today while he was having a bowel movement he started having epigastric pain which was 5 out of 10 nonradiating however he had symptoms of diaphoresis and and dizziness therefore called EMS who brought him into the emergency room first cardiac enzymes and EKGs unremarkable initially patient did not want to come in however after discussing case with his flight attendant who recommended monitor him over the weekend with cardiac catheterization on Wednesday patient currently denying any chest pain shortness of breath fever chills nausea vomiting fever chills Past medical history hypertension coronary artery disease hyperlipidemia liver cirrhosis and CHF, atrial fibrillation Past surgical history pacemaker placement right femoral nail bilateral total knee arthroplasty Social history patient denies any smoking drugs or alcohol use Allergies none Family history reviewed patient denies any significant family history Hospitalist ROS - Review of Systems All other systems reviewed; all pertinent +/- noted in HPI/Subj - Medication Medications: Medication Instructions Recorded Confirmed Type Atorvastatin Calcium 20 mg PO HS 07/17/13 10/22/17 History Torsemide 10 mg PO DAILY 07/17/13 10/22/17 History Warfarin Sodium 7.5 mg PO ASDIR 10/29/16 10/22/17 History Warfarin Sodium [Coumadin] 1.5 tab PO ASDIR 10/29/16 10/22/17 History Allopurinol 100 mg PO DAILY 10/30/16 10/22/17 History Acetaminophen [Tylenol Extra 1,000 mg PO Q6HR tab 07/27/17 Rx Strength] Famotidine [Pepcid] 20 mg PO BID tab 07/27/17 Rx Ferrous Gluconate [Fergon] 324 mg PO BID tab 07/27/17 Rx Multivitamin W/ Minerals 1 tab PO DAILY tab 07/27/17 Rx [Theragran M] Polyethylene Glycol 3350 [Miralax] 17 gm PO DAILY pk 07/27/17 Rx Sennosides/Docusate Sodium 2 tab PO BID tab 07/27/17 Rx [Senokot S] traMADol HCl [Ultram] 50 mg PO Q6H PRN tab 07/27/17 Rx traMADol HCl [Ultram] 50 mg PO Q6HR tab 07/27/17 Rx Cholecalciferol [Vitamin D3] 1,000 unit PO DAILY 10/22/17 10/22/17 History Hydrocortisone Sod Succ/PF 50 mg IVP Q8H vial 10/25/17 Rx [Solu-Cortef] Polyethylene Glycol 3350 [Miralax] 17 gm PO DAILY pk 10/25/17 Rx Sennosides/Docusate Sodium 2 tab PO BID tab 10/25/17 Rx [Senokot S] - Exam General Appearance: NAD, awake alert Eye: PERRL, anicteric sclera ENT: normocephalic atraumatic Neck: supple, symmetric Heart: RRR, no murmur Respiratory: CTAB, no wheezes Gastrointestinal: soft, non-tender Extremities: no clubbing, clubbing Skin: normal turgor Neurological: cranial nerve grossly intact Musculoskeletal: normal tone, normal strength Psychiatric: normal affect, normal behavior Hospitalist Results - Labs Result Diagrams: 10/20/19 10:22 10/20/19 10:22 Lab results: WBC 8.3 thou/uL (4.8-10.8) 10/20/19 10:22 Hgb 16.9 g/dL (14.0-18.0) 10/20/19 10:22 Hct 51.8 % (42.0-52.0) 10/20/19 10:22 MCV 96.8 fL (78.0-98.0) 10/20/19 10:22 Plt Count 178 thou/uL (130-400) 10/20/19 10:22 Neutrophils % 86.3 % (42.0-75.0) H 10/20/19 10:22 Sodium 138 mmol/L (136-145) 10/20/19 10:22 Potassium 3.8 mmol/L (3.5-5.1) 10/20/19 10:22 Chloride 101 mmol/L (98-107) 10/20/19 10:22 Carbon Dioxide 28 mmol/L (23-31) 10/20/19 10:22 BUN 23 mg/dL (8.4-25.7) 10/20/19 10:22 Creatinine 1.42 mg/dL (0.7-1.3) H 10/20/19 10:22 Glucose 154 mg/dL (83-110) H 10/20/19 10:22 Calcium 8.9 mg/dL (7.8-10.44) 10/20/19 10:22 Total Bilirubin 1.6 mg/dL (0.2-1.2) H 10/20/19 10:22 AST 25 U/L (5-34) 10/20/19 10:22 ALT 19 U/L (8-55) 10/20/19 10:22 Alkaline Phosphatase 98 U/L (40-110) 10/20/19 10:22 CK-MB (CK-2) 1.1 ng/mL (0-6.6) 10/20/19 10:22 Troponin I 0.032 ng/mL (< 0.028) H 10/20/19 10:22 Serum Total Protein 7.3 g/dL (5.8-8.1) 10/20/19 10:22 Albumin 3.9 g/dL (3.4-4.8) 10/20/19 10:22 Lipase 38 U/L (8-78) 10/20/19 10:22 - EKG Interpretation EKG: EKGs reviewed by me showing no acute ST or T wave changes - Radiology Interpretation CT scan - abdomen Status: report reviewed by me Hospitalist H&P A/P - Problem (1) Chest pain Code(s): R07.9 - CHEST PAIN, UNSPECIFIED Status: Acute (2) CAD (coronary artery disease) Code(s): I25.10 - ATHSCL HEART DISEASE OF [place] CORONARY ARTERY W/O ANG PCTRS Status: Acute (3) H/O cardiac pacemaker Code(s): Z95.0 - PRESENCE OF CARDIAC PACEMAKER Status: Chronic (4) Hypertension Code(s): I10 - ESSENTIAL (PRIMARY) HYPERTENSION Status: Chronic (5) Obesity (BMI 30-39.9) Code(s): E66.9 - OBESITY, UNSPECIFIED Status: Chronic - Plan Plan: Patient will be admitted under hospitalist services Chest pain rule out ACS, patient was scheduled for cardiac catheterization next week by his flight attendant After discussing case with cardiology in the emergency room recommendation to admit monitor over the weekend and cardiac cath on Wednesday We will cycle cardiac enzymes and EKGs continue with medical management, during hospitalization Hold on Coumadin as per cardiology recommendations We will send for echocardiogram Check lipid panel and A1c Hypertension: We will restart home medications Hydralazine IV as needed Adjust medication for better control Monitor electrolytes and replace as needed DVT prophylaxis with Lovenox GI prophylaxis Patient is full code Plan discussed with patient and all questions has been answered Patient will be admitted under hospitalist services with alps however patient need to stay till Wednesday for cardiac catheterization as per flight attendant recommendation
[2019-10-20 15:36] LABS: Bilirubin Negative (Negative); Blood, Urine Negative (Negative); Clarity Clear (Clear); Glucose, Urine (Dipstick) Normal (Negative); Ketone, Urine Negative (Negative); Leukocyte Negative Leu/uL (Negative); Nitrite Negative (Negative); Protein, Urine (Dipstick) 20 mg/dL (Neg-Trace)
[2019-10-20 16:07] LABS: Troponin I 0.034 ng/mL (< 0.028)
[2019-10-20 18:56] LABS: Troponin I 0.035 ng/mL (< 0.028)
[2019-10-20] MEDS ORDERED: Atorvastatin Calcium 20 MG TAB PO SCH (21:00)
[2019-10-20] MEDS: Ferrous Gluconate 324 MG TAB PO SCH (21:21)
[2019-10-21 04:46] LABS: #Eosinphils 0.1 thou/uL (0.0-0.7); #Lymphocytes 0.9 thou/uL (1.20-3.40); #Monocytes 0.3 thou/uL (0.11-0.59); #Neutrophils 3.7 thou/uL (1.40-6.50); %Basophils 0.1 % (0.0-1.0); %Lymphocytes 17.8 % (21.0-51.0); %Monocytes 6.8 % (0.0-10.0); %Neutrophils 73.3 % (42.0-75.0); Hemoglobin 16.2 g/dL (14.0-18.0); Mean Corpuscular HGB CONC 33.7 g/dL (32.0-36.0); Mean Corpuscular Hemoglobin 32.6 pg (27.0-31.0); Mean Corpuscular Volume 96.7 fL (78.0-98.0); Mean Platelet Volume 7.9 fL (7.4-10.4); Platelet Count 132 thou/uL (130-400); RBC Distribution Width 13.5 % (11.5-14.5); Red Blood Cell (RBC) Count 4.97 mill/uL (4.70-6.10); White Blood Cell (WBC) Count 5.1 thou/uL (4.8-10.8)
[2019-10-21 04:51] LABS: INR-International Normal Ratio 1.4; Prothrombin Time 16.7 sec (12.0-14.7)
[2019-10-21 04:52] LABS: Hemoglobin A1c 5.5 % (4.0-6.0)
[2019-10-21 05:07] LABS: Anion Gap 12 mmol/L (10-20); BUN (Urea Nitrogen) 18 mg/dL (8.4-25.7); Calc. Creatinine Clearance 113 mL/min (70-130); Calcium 8.7 mg/dL (7.8-10.44); Carbon Dioxide 28 mmol/L (23-31); Chloride 103 mmol/L (98-107); Estimated GFR-MDRD 72; Glucose 99 mg/dL (83-110); Magnesium 2.1 mg/dL (1.6-2.6); Potassium 3.8 mmol/L (3.5-5.1); Sodium 139 mmol/L (136-145)
[2019-10-21] MEDS ORDERED: Enoxaparin Sodium 40 MG/0.4 ML SYRINGE SC SCH (09:00)
[2019-10-21] MEDS: Cholecalciferol 1,000 UNITS (25 MCG) TAB PO SCH (09:27)
[2019-10-21] MEDS: Allopurinol 100 MG TAB PO SCH (09:27)
[2019-10-21] MEDS: Ferrous Gluconate 324 MG TAB PO SCH ×2 (09:27→18:34)
[2019-10-21] MEDS: Aspirin 81 mg Enteric Coated Tablet PO SCH (09:27)
[2019-10-21] MEDS: Polyethylene Glycol 3350 17 GM Packet PO SCH (09:28)
[2019-10-21] MEDS: Torsemide 10 MG TAB PO SCH (09:38)
--- NOTE | 2019-10-21 10:05 | PDOC.HOSPP ---
- Subjective Encounter Date: 10/21/19 Subjective: Patient was seen and examined bedside this morning resting in bed no acute distress denies any chest pain shortness of breath fever chills nausea vomiting no significant overnight events patient currently awaiting cardiac cath on Wednesday - Objective Vital Signs & Weight: Vital Signs (12 hours) Temp Pulse Resp BP Pulse Ox 10/21/19 09:23 98.6 F 80 16 144/79 H 95 10/21/19 05:13 98.1 F 70 16 131/71 94 L 10/20/19 23:58 99.7 F H 65 20 140/63 99 Weight Weight 285 lb 1.6 oz I&O: 10/20/19 10/21/19 10/22/19 06:59 06:59 06:59 Intake Total 300 Output Total 375 Balance -75 Result Diagrams: 10/21/19 04:16 10/21/19 04:16 Hospitalist ROS - Medication Medications: Active Medications Generic Name Dose Route Start Last Admin Trade Name Freq PRN Reason Stop Dose Admin Allopurinol 100 mg 10/21/19 09:00 10/21/19 09:27 Zyloprim PO 100 mg DAILY BRAN Administration Aspirin 81 mg 10/21/19 09:00 10/21/19 09:27 Ecotrin PO 81 mg DAILY BRAN Administration Atorvastatin Calcium 20 mg 10/20/19 21:00 10/20/19 21:21 Lipitor PO 20 mg HS BRAN Administration Cholecalciferol 1,000 units 10/21/19 09:00 10/21/19 09:27 Vitamin D3 PO 1,000 units DAILY BRAN Administration Enoxaparin Sodium 40 mg 10/21/19 09:00 10/21/19 09:27 Lovenox SC 40 mg 899 BRAN Administration Ferrous Gluconate 324 mg 10/20/19 17:00 10/21/19 09:27 Fergon PO 324 mg BID-WM BRAN Administration Metoprolol Succinate 25 mg 10/21/19 09:00 10/21/19 09:27 Toprol Xl PO 25 mg DAILY BRAN Administration Pantoprazole Sodium 40 mg 10/21/19 09:00 10/21/19 09:27 Protonix PO 40 mg DAILY BRAN Administration Polyethylene Glycol 17 gm 10/21/19 09:00 10/21/19 09:28 Miralax PO Not Given DAILY BRAN Torsemide 10 mg 10/21/19 09:00 10/21/19 09:38 Demadex PO 10 mg DAILY BRAN Administration - Exam General Appearance: NAD, awake alert Eye: PERRL ENT: normocephalic atraumatic Neck: supple Heart: RRR Respiratory: CTAB, no wheezes Gastrointestinal: soft Extremities: no cyanosis Skin: normal turgor Psychiatric: normal affect Hosp A/P (1) Chest pain Code(s): R07.9 - CHEST PAIN, UNSPECIFIED Status: Acute (2) CAD (coronary artery disease) Code(s): I25.10 - ATHSCL HEART DISEASE OF [place] CORONARY ARTERY W/O ANG PCTRS Status: Acute (3) H/O cardiac pacemaker Code(s): Z95.0 - PRESENCE OF CARDIAC PACEMAKER Status: Chronic (4) Hypertension Code(s): I10 - ESSENTIAL (PRIMARY) HYPERTENSION Status: Chronic (5) Obesity (BMI 30-39.9) Code(s): E66.9 - OBESITY, UNSPECIFIED Status: Chronic - Plan Patient will be admitted under hospitalist services Chest pain rule out ACS, patient was scheduled for cardiac catheterization next week by his primary care nurse After discussing case with cardiology in the emergency room recommendation to admit monitor over the weekend and cardiac cath on Wednesday No significant spike in troponin patient has remained asymptomatic overnight we will continue telemetry monitoring continue with medical management for now Hold on Coumadin as per cardiology recommendations Echocardiogram pending Hypertension: We will restart home medications Hydralazine IV as needed Adjust medication for better control Monitor electrolytes and replace as needed DVT prophylaxis with Lovenox GI prophylaxis Patient is full code Plan discussed with patient and all questions has been answered Patient patient will remain in hospital until Wednesday for cardiac catheterization
[2019-10-21] MEDS ORDERED: Enoxaparin Sodium 100 MG/ML SYRINGE SC SCH (10:30)
[2019-10-21 10:46] LABS: Troponin I 0.031 ng/mL (< 0.028)
--- NOTE | 2019-10-21 13:33 | CON ---
DATE OF CONSULTATION: 10/21/2019 PRIMARY CARE DOCTOR: PRIMARY OILER HELPER: Dr. Escobar. REASON FOR CARDIOLOGY CONSULT: Chest pain. HISTORY OF PRESENT ILLNESS: Mr. Lin is a 78-year-old, very pleasant male with significant history of chronic atrial fibrillation, peripheral vascular disease, hypertension, hyperlipidemia, CAD, obesity, and status post pacemaker placement and generator change out in 2011. The patient is Dr. Escobar's patient and the patient had a stress test by Dr. Escobar, which was abnormal and the patient is supposed to undergo cardiac catheterization next week Wednesday; however, 3 days ago, when he sneezed very hard, he started having upper bilateral abdominal pain, which was sharp and whenever the patient moves and takes a deep breath, the pain increased. Due to that reason, the patient decided to present to the emergency department for further evaluation and treatment. Actually, the patient denied any actual chest pain or discomfort, heaviness, tightness in the chest or the left upper chest or numbness or tingling to the left extremities. He had chronic shortness of breath, and torsemide was prescribed on October [address] Escobar. Since then, he reports that his breathing status is stable. Now, he can lie on supine position for sleep. The patient denied chest pain, heaviness, tightness, shortness of breath, or any other cardiac complaints at this moment. The patient underwent a stress test on October 09, 2019, which shows large area of myocardium involving anterior apical area at rest and more pronounced with stress, suggested previous injury with coby-infarct ischemia. The patient was recommend to have a cardiac catheterization. The patient had echocardiogram done in August 2018 with EF 55% to 60%, mild LAE, mild tricuspid regurgitation, mildly elevated RVSP, and chronic atrial fibrillation. The patient had a pacemaker placement and generator change in 2011. The patient had a cardiac cath in 2010, with mild nonobstructive CAD with normal EF. PAST MEDICAL HISTORY: 1. Chronic atrial fibrillation. 2. Hemorrhoid bleeding in 2003. 3. Peripheral vascular disease, rheumatic fever at the age of [age] years old, arthritis, hypertension, hyperlipidemia, mild CAD, obesity, bradycardia, sick sinus syndrome with status post pacemaker placement. PAST SURGICAL HISTORY: Pacemaker placement and generator change out in 2011, right GSV ablation in 2010, bilateral cataract surgery, bilateral knee replacement, and right fem fracture and repair. FAMILY HISTORY: The patient's father had medical history of cancer and heart disease. However, according the patient, the patient's father due to complication from EtOH abuse. The patient's brother has stomach cancer, but there is no significant cardiac related family medical history in the maternal side. SOCIAL HISTORY: He is . He is living with his . He has 2 children , who are living well. He is an ex-smoker. He used to smoke 2 packs a day, but quit 30 years ago. He denied EtOH or illicit drug abuse now. Now, he can sleep on the supine position comfortably. He does not exercise due to the chronic pain to the right femur and back pain. ALLERGIES: NO KNOWN DRUG ALLERGIES. MEDICATIONS: 1. Crestor 20 mg once a day. 2. Vitamin D3, 1000 units once a day. 3. Eliquis 5 mg twice a day. 4. Allopurinol 100 mg once a day. 5. Lisinopril 20 mg once a day. 6. Amlodipine 5 mg once a day. REVIEW OF SYSTEMS: A 12-point review of systems negative unless otherwise mentioned in HPI. PHYSICAL EXAMINATION: VITAL SIGNS: Blood pressure 144/79; temperature 98.6; pulse is 80, the patient is in sinus rhythm; respiratory rate 16; O2 saturation 95% on room air. GENERAL: The patient is alert and oriented x4, not in acute distress. HEAD: Normocephalic and atraumatic. EYES: Extraocular muscle movements are intact. He wears eyeglasses. NECK: Supple. Normal range of motion. No JVD. No bruit or thrill at the carotid area. RESPIRATORY: Clear to auscultate bilaterally, but very diminished at the bases. CARDIOVASCULAR: Regular rate and rhythm. Normal S1 and S2. No S3 or S4. No significant murmur, heaves, or thrill noted. 2+ pulses in bilateral upper extremities, but diminished at the bilateral lower extremities. The patient had a discoloration in bilateral lower extremities also, but no edema. ABDOMEN: Soft, nontender. No mass to palpate. Bowel sounds are present. MUSCULOSKELETAL: The patient is able to move all extremities. The patient denied claudication. SKIN: Warm and dry. No lesion, rash, or erythema noted except discoloration in the bilateral lower extremities. The patient had some scar on the left forehead, which patient had the biopsy from possible skin cancer, which was benign. NEUROLOGIC: The patient is alert and oriented x4. Nonfocal. PSYCHIATRIC: The patient's mood is appropriate. LABORATORY DATA: WBCs 5.1, hemoglobin 16.2, hematocrit 48.0, and platelets 132. INR is 1.4. Sodium 138, potassium 3.8, BUN 18, creatinine 1.0, glucose 99. Hemoglobin A1c is 5.5. Calcium 8.7, magnesium 2.1. AST 25, ALT 19. CK-MB is 1.1. Troponin 0.032, 0.034, and 0.035. UA is negative. Chest x-ray showed no acute cardiopulmonary process, and the patient had an abdomen and pelvis CT scan, which shows mid focal aneurysm and dilation of the infrarenal abdominal aorta, measures 3.1 cm, and the patient has a mass in anterior left hepatic lobe and the patient was recommended to have hemangioma protocol recommended for further evaluation, and colonic diverticulosis. ASSESSMENT AND PLAN: 1. Abnormal stress test. The patient will undergo cardiac catheterization this coming Wednesday instead of the next Wednesday by Dr. Escobar. At this moment, the patient can be on the supine position for yhe procedure more than 30 minutes per the patient. At this moment, the patient does not have any chest pain, heaviness, tightness, shortness of breath, or any other cardiac complaints. We would like to continue to monitor on the patient on telemetry. 2. Chronic atrial fibrillation. The patient's dimensional integration engineer has showed the patient is in sinus rhythm with well-controlled heart rate. The patient is on Lovenox instead of Eliquis due to cardiac cath on this coming Wednesday. The patient's Eliquis dose is going to be changed to twice a day for atrial fibrillation prophylactic dose for CVA prevention. 3. Hypertension. The patient's blood pressure has been stable at this moment. He is on metoprolol succinate 25 mg once a day instead of lisinopril 20 mg once a day at this moment. 4. Hyperlipidemia. The patient's Lipitor dosage is going to be changed to 40 from tonight. 5. Possible hemangioma, which we would like to defer to the primary care doctor. The patient might need a GI consult, depends on further evaluation. Thank you very much for Cardiology consult request to participate in the care of this patient. We will follow along the patient's care team and make further recommendations as appropriate. Job ID: [id number]
--- NOTE | 2019-10-21 20:05 | CON ---
DATE OF CONSULTATION: 10/21/2019 INDICATION FOR CONSULTATION: A 78-year-old gentleman with history of known coronary artery disease and recent abnormal stress test, who presented to the hospital emergency room complaining of some abdominal discomfort. However, due to his history of coronary artery disease and abnormal stress test, he was advised to undergo admission and will have a planned cardiac catheterization on Wednesday by Dr. Escobar. He also was found to have some type of liver mass. This will also possibly need to be evaluated. The patient does have a history of chronic atrial fibrillation. He has undergone pacemaker insertion, actually had a change out also in 2011 and this has been doing stable. He denied any recent chest pain. A week or two ago, he was having some chest tightness and some discomfort, but this is no longer been issue. He was given some medication in the office he said and since that time, the pain has improved. However, with his history of abnormal stress test, then he was advised to undergo an admission and cardiac catheterization. Due to his chronic atrial fibrillation, he had been placed on Eliquis. This medication will be held in anticipation of the cardiac catheterization on Wednesday. Otherwise, he has no complaints and I would agree with the assessment and plan by the nurse practitioner, please review her notes. PHYSICAL EXAMINATION: GENERAL: Reveals an elderly gentleman, who is in no acute distress at this time. He is alert. He is oriented. He is very pleasant. VITAL SIGNS: Blood pressure is 132/75, heart rate is 63, shows pacing in the ventricle with underlying atrial fibrillation and occasional PVCs. Respiratory rate is 16, O2 saturation 94%, and temperature is 98.3. HEENT: Shows head to be normocephalic and atraumatic. Carotid pulses are present. I did not hear any bruits. CHEST: Clear to auscultation without rales, rhonchi, or wheezing. CARDIOVASCULAR: Reveals what appears to be a regular rhythm at this time. He has a well-healed surgical incision over the pacemaker site. There were no gross murmurs, heaves, thrills, bruits, or rubs noted. ABDOMEN: Shows morbid obesity. Positive bowel sounds are present. EXTREMITIES: Show no clubbing or cyanosis. He does have some discoloration with chronic skin changes in the lower legs, which is very dark color, which most likely due to previous venous insufficiency. His pedal pulses are difficult to palpate, but popliteal pulses are present. NEUROLOGIC: I do not elicit any gross focal motor deficits. LABORATORY DATA: Shows a WBC of 5.1, hemoglobin 16.2, and hematocrit was 48 with a platelet count of a 132,000. His sodium was 139, potassium is 3.8, his BUN was 18 with a creatinine of 1, and his blood sugar was 99. Hemoglobin A1c was 5.5. Troponin I is actually stable, on admission it was 0.032 and the highest of that was 0.035, it is now today was 0.031. He denies any chest pain. His CPK-MB was only 1.1. His INR was 1.4. IMPRESSION AND PLAN: 1. Coronary artery disease with abnormal stress test. Plan is for him to undergo a cardiac catheterization on Wednesday. We will hold his Eliquis in the meantime, and he can be started on Lovenox subcu, which has already been started at 1 mg/kg. 2. Dyslipidemia. We will continue on his atorvastatin for his cholesterol. 3. Hypertension. We will continue his metoprolol. 4. Lower extremity edema, which is chronic. He is on Demadex. We will continue this medication. We will continue to monitor the patient over the weekend and hopefully, he will remain stable and will undergo cardiac catheterization on Wednesday. We will hold Lovenox after midnight Wednesday. Please refer to the notes dictated by my nurse practitioner. I would agree with the assessment and plan on this patient. Job ID: [id number]
[2019-10-21] MEDS: Enoxaparin Sodium 120 MG/0.8 ML SYRINGE SC SCH (21:01)
[2019-10-21] MEDS: Atorvastatin Calcium 40 MG TAB PO SCH (21:01)
[2019-10-22 04:46] LABS: INR-International Normal Ratio 1.3; Prothrombin Time 15.9 sec (12.0-14.7)
[2019-10-22] MEDS: Ondansetron PF 4 MG/2 ML Vial IVP PRN ×2 (05:06→11:14)
[2019-10-22] MEDS ORDERED: Metoclopramide HCl 10 MG/2 ML VIAL IVP PRN ×2 (08:32→11:25)
[2019-10-22] MEDS: Cholecalciferol 1,000 UNITS (25 MCG) TAB PO SCH (08:48)
[2019-10-22] MEDS: Aspirin 81 mg Enteric Coated Tablet PO SCH (08:48)
[2019-10-22] MEDS: Allopurinol 100 MG TAB PO SCH (08:48)
[2019-10-22] MEDS: Torsemide 10 MG TAB PO SCH (08:48)
[2019-10-22] MEDS: Ferrous Gluconate 324 MG TAB PO SCH ×2 (08:48→17:13)
[2019-10-22] MEDS: Enoxaparin Sodium 120 MG/0.8 ML SYRINGE SC SCH (08:49)
[2019-10-22] MEDS: Polyethylene Glycol 3350 17 GM Packet PO SCH ×2 (08:49→09:34)
[2019-10-22 10:46] LABS: Hemoglobin 17.2 g/dL (14.0-18.0); Platelet Count 179 thou/uL (130-400)
[2019-10-22] MEDS ORDERED: Sodium Chloride 0.9% 1,000 ML IV SCH ×2 (11:15→20:08)
--- NOTE | 2019-10-22 11:18 | PDOC.HOSPP ---
- Subjective Encounter Date: 10/22/19 (f/u vomiting) Encounter Time: 11:17 Subjective: Pt admitted for abd pain - possible chest pain with a known recent abnormal stress test. He was evaluated by Cardiology with plan for catheterization tomorrow. Pt reports he's been nauseous and vomiting since last night. Last BM yesterday , denies flatus today. He denies any abd pain, chest pain or difficulty breathing - Objective Vital Signs & Weight: Vital Signs (12 hours) Temp Pulse Resp BP Pulse Ox 10/22/19 11:07 97.8 F 60 16 146/76 H 93 L 10/22/19 07:37 98 F 60 14 143/67 H 10/22/19 04:00 98.3 F 64 20 156/83 H 92 L Weight Weight 283 lb 8 oz I&O: 10/21/19 10/22/19 10/23/19 06:59 06:59 06:59 Intake Total 300 800 Output Total 375 1155 Balance -75 -355 Result Diagrams: 10/22/19 10:14 10/22/19 11:35 EKG Reviewed by me: Yes (tele - v paced with underlying a fib, rate 68, occ pvc) Hospitalist ROS - Medication Medications: Active Medications Generic Name Dose Route Start Last Admin Trade Name Freq PRN Reason Stop Dose Admin Allopurinol 100 mg 10/21/19 09:00 10/22/19 08:48 Zyloprim PO 100 mg DAILY BRAN Administration Aspirin 81 mg 10/21/19 09:00 10/22/19 08:48 Ecotrin PO 81 mg DAILY BRAN Administration Atorvastatin Calcium 40 mg 10/21/19 21:00 10/21/19 21:01 Lipitor PO 40 mg HS BRAN Administration Cholecalciferol 1,000 units 10/21/19 09:00 10/22/19 08:48 Vitamin D3 PO 1,000 units DAILY BRAN Administration Enoxaparin Sodium 120 mg 10/21/19 21:00 10/22/19 08:49 Lovenox SC 120 mg 0900,2100 BRAN Administration Ferrous Gluconate 324 mg 10/20/19 17:00 10/22/19 08:48 Fergon PO 324 mg BID-WM BRAN Administration Metoclopramide HCl 5 mg 10/22/19 08:32 10/22/19 08:47 Reglan IVP 5 mg Q6H PRN Administration Nausea/Vomiting Metoprolol Succinate 25 mg 10/21/19 09:00 10/22/19 08:48 Toprol Xl PO 25 mg DAILY BRAN Administration Ondansetron HCl 4 mg 10/22/19 04:44 10/22/19 11:14 Zofran IVP 4 mg Q6H PRN Administration Nausea/Vomiting Pantoprazole Sodium 40 mg 10/21/19 09:00 10/22/19 08:48 Protonix PO 40 mg DAILY BRAN Administration Polyethylene Glycol 17 gm 10/21/19 09:00 10/22/19 09:34 Miralax PO Not Given DAILY BRAN Torsemide 10 mg 10/21/19 09:00 10/22/19 08:48 Demadex PO 10 mg DAILY BRAN Administration - Exam General Appearance: NAD Heart: RRR, no murmur Respiratory - other findings: faint left basilar rales, no audible wheezing/ rhonchi Gastrointestinal: soft, non-tender Gastrointestinal - other findings: absent bowel sounds, protuberant abd but not distended by exam Extremities - other findings: hyperpigmentation/thickened skin of LE bilateral distal to knee, no edema Psychiatric: normal affect Hosp A/P (1) Nausea and vomiting Code(s): R11.2 - NAUSEA WITH VOMITING, UNSPECIFIED Status: Acute Qualifiers: Vomiting type: bilious vomiting Qualified Code(s): R11.14 - Bilious vomiting (2) Chest pain Code(s): R07.9 - CHEST PAIN, UNSPECIFIED Status: Acute (3) CAD (coronary artery disease) Code(s): I25.10 - ATHSCL HEART DISEASE OF [place] CORONARY ARTERY W/O ANG PCTRS Status: Chronic (4) Dyslipidemia Code(s): E78.5 - HYPERLIPIDEMIA, UNSPECIFIED Status: Chronic (5) H/O cardiac pacemaker Code(s): Z95.0 - PRESENCE OF CARDIAC PACEMAKER Status: Chronic (6) Hypertension Code(s): I10 - ESSENTIAL (PRIMARY) HYPERTENSION Status: Chronic (7) Obesity (BMI 30-39.9) Code(s): E66.9 - OBESITY, UNSPECIFIED Status: Chronic - Plan New onset N/V - reviewed CT a/p on October 19 - no acute significant findings - f/ u CT is needed to re-evaluate liver - check AAS - consider NGT if persists or obstruction/ileus on imaging - continue anti-emetics as needed - check labs including a set of troponins - NPO and start IVF for hydration - CAD with abnormal stress test - Cardiology following with plan for stress test tomorrow Atrial fibrillation - on full dose lovenox for stroke risk reduction and to plan for cath dvt prophy - fully anticoagulated with lovenox gi prophy - on PPI.at home - this has been continued code status full reviewed plan of care with patient/nurse, no questions or further needs at end of eval. Addendum - both images and report reviewed for AAS - no obstruction, mildly dilated stomach with air-fluid levels. Requested RN offer and NGT to help relieve the intractable n/v that has been ongoing since last night. Due to these sx, pt will be placed in inpatient status - he is not safe to go home, the n/v are not relieved by medications.
[2019-10-22 12:12] LABS: ALT (SGPT) 18 U/L (8-55); AST (SGOT) 24 U/L (5-34); Albumin 3.9 g/dL (3.4-4.8); Alkaline Phosphatase 104 U/L (40-110); Anion Gap 20 mmol/L (10-20); BUN (Urea Nitrogen) 25 mg/dL (8.4-25.7); Bilirubin, Total 1.8 mg/dL (0.2-1.2); Calc. Creatinine Clearance 91 mL/min (70-130); Calcium 9.3 mg/dL (7.8-10.44); Carbon Dioxide 22 mmol/L (23-31); Chloride 101 mmol/L (98-107); Estimated GFR-MDRD 57; Globulin 3.9 g/dL (2.4-3.5); Glucose 122 mg/dL (83-110); Protein, Total 7.8 g/dL (5.8-8.1); Sodium 139 mmol/L (136-145)
[2019-10-22 12:15] LABS: Troponin I 0.033 ng/mL (< 0.028)
--- NOTE | 2019-10-22 12:26 | RAD ---
RADIOGRAPH CHEST ONE VIEW RADIOGRAPH ABDOMEN 2 VIEWS: DATE: 10/22/2019 HISTORY: 78-year-old male with nausea and vomiting COMPARISON: 10/20/2019 Chest radiograph FINDINGS: Air-fluid level in mildly dilated stomach. Large amount of gas in ascending and transverse colon. Sca ttered gas in nondilated small bowel loops. No pneumoperitoneum. ORIF hardware fixating a significantly displaced right intertrochanteric fracture, with dynamic compression screw at femoral h ead and metallic sideplate with multiple screws at shaft. No signs of organomegaly. Right hilar mass and several right upper lobe pulmonary masses. No consolidation, cardiomegaly, pulmo nary edema, or pneumothorax. No interval change in the chest. Left subclavian pacemaker. IMPRESSION: 1) air and fluid-filled stomach. 2.) No convincing evidence of small bowel obstruction. 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 4) no acute intrathoracic findings.
--- NOTE | 2019-10-22 14:55 | RAD ---
ABDOMEN ONE VIEW: History: Verify NG tube placement. Comparison: 10-22-2019 prior exam. FINDINGS: The tip of the NG tube extends just into the fundus of the stomach. This should probably be advanced 8-10 cm to more completely enter the stomach. Minimal increased markings in the visualized lower lung zones. IMPRESSION: NG tube tip in the fundus of the stomach although the side hole is above the GE junction. This should be advanced somewhat to allow the side hole to completely enter into the stomach. POS: [facility]
--- NOTE | 2019-10-22 15:35 | PDOC.CPN ---
- Subjective Date: 10/22/19 Time: 15:43 Interval history: The pt seen and examined. No overnight events. No cardiac complaints. - Objective Allergies/Adverse Reactions: Allergies Allergy/AdvReac Type Severity Reaction Status Date / Time No Known Allergies Allergy Verified 10/20/19 21:50 Visit Medications: Current Medications Acetaminophen (Tylenol) 650 mg PO Q4H PRN PRN Reason: Headache/Fever/Mild Pain (1-3) Hydrocodone Bitart/Acetaminophen ([place] 5/325) 1 tab PO Q4H PRN PRN Reason: Moderate Pain (4-6) Allopurinol (Zyloprim) 100 mg PO DAILY [facility] Last Admin: 10/22/19 08:48 Dose: 100 mg Aspirin (Ecotrin) 81 mg PO DAILY [facility] Last Admin: 10/22/19 08:48 Dose: 81 mg Atorvastatin Calcium (Lipitor) 40 mg PO HS [facility] Last Admin: 10/21/19 21:01 Dose: 40 mg Cholecalciferol (Vitamin D3) 1,000 units PO DAILY [facility] Last Admin: 10/22/19 08:48 Dose: 1,000 units Enoxaparin Sodium (Lovenox) 120 mg SC 0900,2100 [facility] Last Admin: 10/22/19 08:49 Dose: 120 mg Ferrous Gluconate (Fergon) 324 mg PO BID-WM [facility] Last Admin: 10/22/19 08:48 Dose: 324 mg Sodium Chloride (Normal Saline 0.9%) 1,000 mls @ 100 mls/hr IV .Q10H [facility] Last Admin: 10/22/19 12:26 Dose: 1,000 mls Metoclopramide HCl (Reglan) 10 mg IVP Q6H PRN PRN Reason: Nausea/Vomiting Metoprolol Succinate (Toprol Xl) 25 mg PO DAILY [facility] Last Admin: 10/22/19 08:48 Dose: 25 mg Ondansetron HCl (Zofran) 4 mg IVP Q6H PRN PRN Reason: Nausea/Vomiting Last Admin: 10/22/19 11:14 Dose: 4 mg Pantoprazole Sodium (Protonix) 40 mg IVP DAILY [facility] Polyethylene Glycol (Miralax) 17 gm PO DAILY [facility] Last Admin: 10/22/19 09:34 Dose: Not Given Sodium Chloride (Flush - Normal Saline) 10 ml IVF Q12HR [facility] Sodium Chloride (Flush - Normal Saline) 10 ml IVF PRN PRN PRN Reason: Saline Flush Torsemide (Demadex) 10 mg PO DAILY [facility]AN Last Admin: 10/22/19 08:48 Dose: 10 mg Tramadol HCl (Ultram) 50 mg PO Q6H PRN PRN Reason: Breakthrough Pain Vital Signs & Weight: Vital Signs Temp Pulse Resp BP Pulse Ox 10/22/19 11:07 97.8 F 60 16 146/76 H 93 L 10/22/19 07:37 98 F 60 14 143/67 H 10/22/19 04:00 98.3 F 64 20 156/83 H 92 L Weight 283 lb 8 oz - Physical Exam General: alert & oriented x3 HEENT: mucus membranes moist Neck: supple neck Cardiac: regular rate and rhythm, S1/S2 Lungs: decreased breath sounds Extremities: no edema - Labs Result Diagrams: 10/22/19 10:14 10/22/19 11:35 Troponin/CKMB CK-MB (CK-2) 1.1 ng/mL (0-6.6) 10/20/19 10:22 Troponin I 0.033 ng/mL (< 0.028) H 10/22/19 11:35 - Telemetry Sinus rhythms and dysrhythmias: sinus rhythm - Assessment/Plan Assessment/Plan: 1. abnormal stress test - plan for cardiac cath on 10/23/[address] Escobar 2. N&V 3. Chronic Afib 4. HTN 5. HLD 6. possible hemangioma 7. Hx of PM placement 8. Obese MAR reviewed * the pt stated Dr Escobar explained to the pt about the procedure and the risk of Cardiac cath. He denied any questions or concerns at this time. * Dr Dr Escobar's pt Pt. seen and eval. by me. I agree with the A/P by the AIRFIELD ENGINEER OFFICER. NG tube draining 500ml of bilious fluid. Chest clear. Regular paced rhythm. Pt. was scheduled for cath in AM. Will inform Dr. Escobar of GI problem. [facility]
[2019-10-22] MEDS ORDERED: Communication Order-Pharmacy FS SCH (15:45)
[2019-10-22 16:20] LABS: Troponin I 0.038 ng/mL (< 0.028)
--- NOTE | 2019-10-22 17:20 | RAD ---
KUB: Date: 10-22-2019 Comparison: Prior study, 10-22-2019. History: Evaluate nasogastric tube. FINDINGS: Supine imaging of the upper abdomen provided, limiting assessment for bowel obstruction and for intra peritoneal air. The nasogastric tube is difficult to definitely visualize on this examination. There are two lines horizontally oriented overlying the upper abdomen, which may represent monitoring leads . The cephalad wire may represent the nasogastric tube. If so, it overlies the gastric fundus. Recomm end advancing the nasogastric tube and repeat imaging. IMPRESSION: Supine radiographic abdomen as above. POS: [facility]
--- NOTE | 2019-10-22 17:31 | PDOC.EVN ---
Event Note - Event Note Event Note: Recent report and imaging after re-positioning of NG tube - does not appear to be in the correct position. D/w Charge nurse [place] - requested assistance with repositioning and re-imaging prior to change of shift. Addendum 18:39 - pt re-evaluated and he reports feeling better. Stomach feels flatter, he's had a small amount of flatus, no bm's. He denies any further n/v , and continues to deniy abd pain. NG tube output 500 ml of dark brown/green material. Abd exam - present bowel sounds, no ttp, heart - no audible murmurs. spoke with Radiologist/Dr. Zuñiga about abd xray taken at 17:29 - NG tube in gastric fundus - appropriate placement Assessment - intractable n/v with small amount of gastric distension on initial AAS, now sx resolved with NGT. Recommend having this in place overnight and re- assess in AM both sx, and any further NG tube output-> may need repeat imaging. Discussed plan of care with patient, no questions or further needs at end of evaluation. given no obstruciton on initial XR - NGT can be removed tonight if discomfort or any other concerns.
--- NOTE | 2019-10-22 18:55 | RAD ---
KUB: Date: 10-22-2019 History: Evaluate nasogastric tube. FINDINGS: Radiograph centered over the lower chest and upper abdomen demonstrates a nasogastric tube extending into the region of the gastric fundus within the left upper quadrant. There is pulmonary vascular con gestion and perihilar interstitial prominence. The supine nature of the exam and field of view limits assessment for free intraperitoneal air and bowel obstruction. IMPRESSION: Nasogastric tube in place, terminating over the left upper quadrant, likely in the region of the melissa naga fundus. POS: [facility]
[2019-10-22 19:27] LABS: Troponin I 0.052 ng/mL (< 0.028)
[2019-10-22] MEDS: Atorvastatin Calcium 40 MG TAB PO SCH (22:02)
[2019-10-23 04:33] LABS: #Basophils 0.1 thou/uL (0.0-0.2); #Eosinphils 0.1 thou/uL (0.0-0.7); #Lymphocytes 0.9 thou/uL (1.20-3.40); #Monocytes 0.5 thou/uL (0.11-0.59); #Neutrophils 4.8 thou/uL (1.40-6.50); %Basophils 0.8 % (0.0-1.0); %Eosinophils 1.1 % (0.0-10.0); %Lymphocytes 14.2 % (21.0-51.0); %Monocytes 7.3 % (0.0-10.0); %Neutrophils 76.6 % (42.0-75.0); Hemoglobin 16.2 g/dL (14.0-18.0); Mean Corpuscular HGB CONC 33.1 g/dL (32.0-36.0); Mean Corpuscular Hemoglobin 32.3 pg (27.0-31.0); Mean Corpuscular Volume 97.4 fL (78.0-98.0); Mean Platelet Volume 7.9 fL (7.4-10.4); Platelet Count 176 thou/uL (130-400); RBC Distribution Width 13.7 % (11.5-14.5); Red Blood Cell (RBC) Count 5.02 mill/uL (4.70-6.10); White Blood Cell (WBC) Count 6.2 thou/uL (4.8-10.8)
[2019-10-23 04:40] LABS: INR-International Normal Ratio 1.2; Prothrombin Time 14.9 sec (12.0-14.7)
[2019-10-23 04:53] LABS: Anion Gap 14 mmol/L (10-20); BUN (Urea Nitrogen) 33 mg/dL (8.4-25.7); Calc. Creatinine Clearance 88 mL/min (70-130); Calcium 8.7 mg/dL (7.8-10.44); Carbon Dioxide 24 mmol/L (23-31); Chloride 104 mmol/L (98-107); Estimated GFR-MDRD 54; Glucose 92 mg/dL (83-110); Potassium 3.8 mmol/L (3.5-5.1); Sodium 138 mmol/L (136-145)
[2019-10-23] MEDS: Pantoprazole 40 MG VIAL IVP SCH (08:12)
[2019-10-23] MEDS: Allopurinol 100 MG TAB PO SCH (08:18)
[2019-10-23] MEDS: Ferrous Gluconate 324 MG TAB PO SCH ×2 (08:18→16:08)
[2019-10-23] MEDS: Aspirin 81 mg Enteric Coated Tablet PO SCH (08:20)
[2019-10-23] MEDS: Cholecalciferol 1,000 UNITS (25 MCG) TAB PO SCH (08:21)
[2019-10-23] MEDS: Polyethylene Glycol 3350 17 GM Packet PO SCH (08:22)
[2019-10-23] MEDS ORDERED: Sodium Chloride 0.9% 1,000 ML IV SCH ×2 (08:30→10:44)
[2019-10-23] MEDS ORDERED: Communication Order-Pharmacy FS SCH (08:30)
[2019-10-23] MEDS ORDERED: Sodium Chloride 0.9% 200 ML IV PRN (10:44)
[2019-10-23] MEDS ORDERED: Nitroglycerin 0.4 MG TAB (25 Tab Bottle) SL PRN (10:44)
[2019-10-23] MEDS ORDERED: Acetaminophen/Codeine 30-300mg Tablet PO PRN ×2 (10:44)
[2019-10-23 12:58] LABS: Lactic Acid 1.1 mmol/L (0.5-2.2)
[2019-10-23 13:05] LABS: ALT (SGPT) 17 U/L (8-55); AST (SGOT) 20 U/L (5-34); Albumin 3.5 g/dL (3.4-4.8); Alkaline Phosphatase 90 U/L (40-110); Anion Gap 17 mmol/L (10-20); Bilirubin, Total 1.8 mg/dL (0.2-1.2); Carbon Dioxide 23 mmol/L (23-31); Chloride 103 mmol/L (98-107); Lipase 49 U/L (8-78); Potassium 3.7 mmol/L (3.5-5.1); Protein, Total 6.8 g/dL (5.8-8.1); Sodium 139 mmol/L (136-145)
--- NOTE | 2019-10-23 16:16 | PDOC.HOSPP ---
- Subjective Encounter Date: 10/23/19 Encounter Time: 14:13 Subjective: Patient states he has no new complaints and no issues overnight. Reports mouth dryness due to being NPO. He does continue with bilious output via NGT. Denies any abdominal pain aside from right sided abdominal discomfort that is superficial which is what brought him to the ED initially. Patient states he had sneezed and felt a sudden severe pain to the RUQ that radiating across the abdomen. Since then he has had a localized superficial numbness to the RUQ. States the vomiting happened once while he was at home and persisted until he had the NGT placed. - Objective Vital Signs & Weight: Vital Signs (12 hours) Temp Pulse Resp BP BP Pulse Ox 10/23/19 16:06 98 F 77 14 151/72 H 94 L 10/23/19 12:00 97.8 F 63 15 130/69 93 L 10/23/19 10:50 98.1 F 67 16 134/67 92 L 10/23/19 08:18 93 L 10/23/19 07:11 98.1 F 62 14 132/68 93 L 10/23/19 05:30 94 L Weight Weight 283 lb 8 oz I&O: 10/22/19 10/23/19 10/24/19 06:59 06:59 06:59 Intake Total 800 1261 Output Total 1155 1575 Balance -355 -314 Result Diagrams: 10/23/19 03:58 10/23/19 12:24 Radiology Reviewed by me: Yes EKG Reviewed by me: Yes Hospitalist ROS - Review of Systems Constitutional: denies: fever, chills, sweats, weakness, malaise, other Eyes: denies: pain, vision change, conjunctivae inflammation, eyelid inflammation, redness, other ENT: reports: other (dry mouth). denies: ear pain, ear discharge, nose pain, nose discharge, nose congestion, mouth pain, mouth swelling, throat pain, throat swelling Respiratory: denies: cough, dry, shortness of breath, hemoptysis, SOB with excertion, pleuritic pain, sputum, wheezing, other Cardiovascular: denies: chest pain, palpitations, orthopnea, paroxysmal noc. dyspnea, edema, light headedness, other Gastrointestinal: reports: vomiting (has settled with NGT), abdominal pain ( mikal area of superficial firmness with mild tenderness in the RUQ abdominal wall ). denies: nausea, diarrhea, constipation, melena, hematochezia, other Genitourinary: denies: dysuria, frequency, incontinence, hematuria, retention, other Musculoskeletal: denies: neck pain, shoulder pain, arm pain, back pain, hand pain, leg pain, foot pain, other Skin: denies: rash, lesions, siria, bruising, other Neurological: denies: weakness, numbness, incoordination, change in speech, confusion, seizures, other - Medication Medications: Active Medications Generic Name Dose Route Start Last Admin Trade Name Freq PRN Reason Stop Dose Admin Allopurinol 100 mg 10/21/19 09:00 10/23/19 08:18 Zyloprim PO Not Given DAILY [facility] Aspirin 81 mg 10/21/19 09:00 10/23/19 08:20 Ecotrin PO 81 mg DAILY BRAN Administration Atorvastatin Calcium 40 mg 10/21/19 21:00 10/22/19 22:02 Lipitor PO Not Given HS [facility] Cholecalciferol 1,000 units 10/21/19 09:00 10/23/19 08:21 Vitamin D3 PO Not Given DAILY [facility] Ferrous Gluconate 324 mg 10/20/19 17:00 10/23/19 16:08 Fergon PO Not Given BID-WM [facility] Metoprolol Succinate 25 mg 10/21/19 09:00 10/23/19 08:21 Toprol Xl PO Not Given DAILY [facility] Ondansetron HCl 4 mg 10/22/19 04:44 10/22/19 11:14 Zofran IVP 4 mg Q6H PRN Administration Nausea/Vomiting Pantoprazole Sodium 40 mg 10/23/19 09:00 10/23/19 08:12 Protonix IVP 40 mg DAILY [facility] Administration Polyethylene Glycol 17 gm 10/21/19 09:00 10/23/19 08:22 Miralax PO Not Given DAILY [facility] Sodium Chloride 10 ml 10/22/19 21:00 10/23/19 08:22 Flush - Normal Saline IVF Not Given Q12HR [facility] Torsemide 10 mg 10/21/19 09:00 10/22/19 08:48 Demadex PO 10 mg DAILY BRAN Administration - Exam General Appearance: NAD, awake alert (resting comfortably while in bed) Eye: PERRL, anicteric sclera ENT: normocephalic atraumatic, no oropharyngeal lesions, moist mucosa Neck: supple, symmetric, no lymphadenopathy Heart: RRR, no murmur, no gallops, no rubs Heart - other findings: Faint pedal pulses Respiratory: CTAB, no wheezes, normal chest expansion, no tachypnea Gastrointestinal: soft, normal bowel sounds Gastrointestinal - other findings: obese, small area of firmness over RUQ that is mildly tender, no guarding, Extremities - other findings: Chronic skin hyperpigmentation due to peripheral vascular disease Skin: normal turgor, no rashes Neurological: cranial nerve grossly intact, normal sensation to touch, no weakness Musculoskeletal: normal tone, normal strength, no muscle wasting Psychiatric: normal affect, normal behavior, A&O x 3 Hosp A/P (1) Abnormal stress test Status: Acute (2) CAD (coronary artery disease) Code(s): I25.10 - ATHSCL HEART DISEASE OF [place] CORONARY ARTERY W/O ANG PCTRS Status: Chronic (3) Hyperlipidemia Code(s): E78.5 - HYPERLIPIDEMIA, UNSPECIFIED Status: Chronic (4) Liver hemangioma Code(s): D18.03 - HEMANGIOMA OF INTRA-ABDOMINAL STRUCTURES Status: Suspected (5) Nausea and vomiting Code(s): R11.2 - NAUSEA WITH VOMITING, UNSPECIFIED Status: Suspected Qualifiers: Vomiting type: bilious vomiting Qualified Code(s): R11.14 - Bilious vomiting (6) Physical deconditioning Code(s): R53.81 - OTHER MALAISE Status: Acute (7) Atrial fibrillation Code(s): I48.91 - UNSPECIFIED ATRIAL FIBRILLATION Status: Chronic (8) Chronic anticoagulation Code(s): Z79.01 - BULB INSPECTOR (CURRENT) USE OF ANTICOAGULANTS Status: Chronic (9) Dyslipidemia Code(s): E78.5 - HYPERLIPIDEMIA, UNSPECIFIED Status: Chronic (10) H/O cardiac pacemaker Code(s): Z95.0 - PRESENCE OF CARDIAC PACEMAKER Status: Chronic (11) Hypertension Code(s): I10 - ESSENTIAL (PRIMARY) HYPERTENSION Status: Chronic (12) DANIEL (obstructive sleep apnea) Code(s): G47.33 - OBSTRUCTIVE SLEEP APNEA (ADULT) (PEDIATRIC) Status: Chronic (13) Obesity (BMI 30-39.9) Code(s): E66.9 - OBESITY, UNSPECIFIED Status: Chronic - Plan old records reviewed/req Status post cardiac cath, continue as per Cardiology team. Awaiting results. Repeat KUB, upright once able, to assess for bowel obstruction. Repeat LFTs including direct bili mcmanus. Obtain RUQ US. Continue NGT for now. ADDENDUM: RUQ US limited due to gas/distention. KUB no obstruction. GI consult placed, as per discussion with Dr. Escobar. Patient s/p cath, will need CABG.
[2019-10-23] MEDS ORDERED: Iopamidol 370 76% 50 ML VIAL FS ONE (16:22)
[2019-10-23] MEDS ORDERED: Iopamidol 370 76% 100 ML VIAL ONE (16:22)
--- NOTE | 2019-10-23 17:34 | RAD ---
KUB: History: Small bowel obstruction. Comparison: 10-22-2019 FINDINGS: There is air within both small and large bowel. No definite evidence for an obstruction. An NG tube i s present, the tip in the fundus of the stomach. Bones are demineralized. Atherosclerotic change is s een. IMPRESSION: Air in both small and large bowel without signs of obstruction. Residual contrast from a previous CT is present within the bladder. POS: [facility]
[2019-10-23] MEDS: Sodium Chloride 0.9% 1,000 ML IV SCH (17:39)
--- NOTE | 2019-10-23 18:30 | ULT ---
GALLBLADDER ULTRASOUND: History: Elevated bilirubin. Nausea, vomiting, and abdominal pain. FINDINGS: Real-time imaging of the upper abdomen was performed. There is gas which obscures detail. The gallbla dder shows no definite signs of any gallstones. Technologist describes a negative ultrasound Garduno's sign. The common duct is 5 mm. Visualized liver parenchyma shows no focal findings. The right kidney is not obstructed. The pancreas is completely obscured. IMPRESSION: Somewhat limited examination due to bowel gas. No gallstones demonstrated. POS: [facility]
[2019-10-23] MEDS: Atorvastatin Calcium 40 MG TAB PO SCH (21:38)
[2019-10-24] MEDS: Sodium Chloride 0.9% 1,000 ML IV SCH ×2 (03:22→14:19)
[2019-10-24] MEDS: Pantoprazole 40 MG VIAL IVP SCH (08:51)
[2019-10-24] MEDS ORDERED: Bisacodyl 10 MG SUPP PR SCH (09:00)
--- NOTE | 2019-10-24 09:08 | PRG ---
DATE OF SERVICE: 10/24/2019 SUBJECTIVE: Mr. Lin underwent cardiac catheterization today revealing single-vessel coronary artery disease with a proximal LAD lesion, which was severe with a heavily calcified vessel. The patient still has a lot of NG output, which looks like bile. OBJECTIVE: VITAL SIGNS: Blood pressure 147/71, pulse 70 and it is currently regular, it is paced on the monitor. LUNGS: Clear. CARDIAC: No new murmur, rub, or gallop. ABDOMEN: Obese, nontender. Dr. Payton saw the patient this morning and apparently ordered some suppositories. ASSESSMENT: 1. Abdominal pain with increased nasogastric output. 2. Coronary artery disease. At some point, will need to have a single-vessel bypass surgery. 3. Chronic atrial fibrillation. PLAN: We will go back on Lovenox, at least a reduced dose this morning prior to going back to full dose tomorrow. We will continue to follow up with you. Job ID: [id number]
[2019-10-24] MEDS: Aspirin 81 mg Enteric Coated Tablet PO SCH (09:42)
[2019-10-24] MEDS: Allopurinol 100 MG TAB PO SCH (09:42)
[2019-10-24] MEDS: Cholecalciferol 1,000 UNITS (25 MCG) TAB PO SCH (09:43)
[2019-10-24] MEDS: Polyethylene Glycol 3350 17 GM Packet PO SCH (09:44)
[2019-10-24] MEDS: Metoclopramide HCl 10 MG/2 ML VIAL IVP SCH ×3 (09:48→21:17)
[2019-10-24] MEDS: Ferrous Gluconate 324 MG TAB PO SCH (09:59)
--- NOTE | 2019-10-24 12:41 | RAD ---
XR Small Bowel STANDARD History: Nausea and vomiting Comparison: CT examination October 20, 2019 Findings: Patient was given Gastrografin contrast to the enteric tube. Contrast transited throughout the small bowel into the transverse and descending colon after one hour. Impression: Rapid transit of contrast. No evidence for bowel obstruction.
--- NOTE | 2019-10-24 14:36 | PDOC.HOSPP ---
- Subjective Encounter Date: 10/24/19 Subjective: Denies nausea or vomiting. The patient had a bowel movement today. - Objective Vital Signs & Weight: Vital Signs (12 hours) Temp Pulse Resp BP BP Pulse Ox 10/24/19 12:50 97.1 F L 62 20 136/65 93 L 10/24/19 08:55 93 L 10/24/19 08:00 98.3 F 68 18 147/71 H 93 L 10/24/19 03:16 98.2 F 72 16 130/68 96 Weight Weight 283 lb 8 oz I&O: 10/23/19 10/24/19 10/25/19 06:59 06:59 06:59 Intake Total 1261 1628 Output Total 1575 1625 550 Balance -314 3 -550 Result Diagrams: 10/23/19 03:58 10/23/19 12:24 Hospitalist ROS - Medication Medications: Active Medications Generic Name Dose Route Start Last Admin Trade Name Freq PRN Reason Stop Dose Admin Allopurinol 100 mg 10/21/19 09:00 10/24/19 09:42 Zyloprim PO Not Given DAILY [facility] Aspirin 81 mg 10/21/19 09:00 10/24/19 09:42 Ecotrin PO Not Given DAILY BRAN Atorvastatin Calcium 40 mg 10/21/19 21:00 10/23/19 21:38 Lipitor PO Not Given HS BRAN Bisacodyl 10 mg 10/24/19 09:00 10/24/19 09:48 Dulcolax GA 10 mg Q8H BRAN Administration Cholecalciferol 1,000 units 10/21/19 09:00 10/24/19 09:43 Vitamin D3 PO Not Given DAILY [facility] Sodium Chloride 1,000 mls @ 100 mls/hr 10/23/19 17:30 10/24/19 14:19 Normal Saline 0.9% IV Not Given .Q10H BRAN Metoclopramide HCl 10 mg 10/24/19 09:00 10/24/19 09:48 Reglan IVP 10 mg 0300,0900,1500,2100 BRAN Administration Metoprolol Succinate 25 mg 10/21/19 09:00 10/24/19 09:44 Toprol Xl PO Not Given DAILY BRAN Ondansetron HCl 4 mg 10/22/19 04:44 10/22/19 11:14 Zofran IVP 4 mg Q6H PRN Administration Nausea/Vomiting Pantoprazole Sodium 40 mg 10/23/19 09:00 10/24/19 08:51 Protonix IVP 40 mg DAILY BRAN Administration Polyethylene Glycol 17 gm 10/21/19 09:00 10/24/19 09:44 Miralax PO Not Given DAILY BRAN Sodium Chloride 10 ml 10/22/19 21:00 10/24/19 09:44 Flush - Normal Saline IVF Not Given Q12HR BRAN Torsemide 10 mg 10/21/19 09:00 10/22/19 08:48 Demadex PO 10 mg DAILY BRAN Administration - Exam General Appearance: awake alert ENT: normocephalic atraumatic Neck: supple, no JVD Heart: RRR Respiratory: normal chest expansion, no tachypnea Neurological: cranial nerve grossly intact, no focal deficits Hosp A/P (1) CAD (coronary artery disease) Code(s): I25.10 - ATHSCL HEART DISEASE OF [place] CORONARY ARTERY W/O ANG PCTRS Status: Chronic (2) Nausea and vomiting Code(s): R11.2 - NAUSEA WITH VOMITING, UNSPECIFIED Status: Suspected Qualifiers: Vomiting type: bilious vomiting Qualified Code(s): R11.14 - Bilious vomiting (3) Atrial fibrillation Code(s): I48.91 - UNSPECIFIED ATRIAL FIBRILLATION Status: Chronic (4) DANIEL (obstructive sleep apnea) Code(s): G47.33 - OBSTRUCTIVE SLEEP APNEA (ADULT) (PEDIATRIC) Status: Chronic (5) Obesity (BMI 30-39.9) Code(s): E66.9 - OBESITY, UNSPECIFIED Status: Chronic - Plan No evidence of bowel obstruction on small bowel series today. The patient had multiple bowel movements after returning from the x-ray. No nausea or vomiting. Tolerating clear liquid diet. Coronary artery disease. CV surgery planning CABG at some point. GI on board. Atrial fibrillation is rate controlled and currently on anticoagulation.
[2019-10-24] MEDS ORDERED: MD-Gastroview 120 ML BOT ONE (16:39)
[2019-10-24] MEDS ORDERED: Enoxaparin Sodium 40 MG/0.4 ML SYRINGE SC SCH (21:00)
[2019-10-24] MEDS: Enoxaparin Sodium 120 MG/0.8 ML SYRINGE SC SCH (21:15)
[2019-10-24] MEDS: Atorvastatin Calcium 40 MG TAB PO SCH (21:17)
[2019-10-25 04:26] LABS: #Eosinphils 0.1 thou/uL (0.0-0.7); #Lymphocytes 0.6 thou/uL (1.20-3.40); #Monocytes 0.4 thou/uL (0.11-0.59); #Neutrophils 4.5 thou/uL (1.40-6.50); %Basophils 0.3 % (0.0-1.0); %Eosinophils 1.6 % (0.0-10.0); %Lymphocytes 11.1 % (21.0-51.0); %Monocytes 7.4 % (0.0-10.0); %Neutrophils 79.5 % (42.0-75.0); Hemoglobin 15.1 g/dL (14.0-18.0); Mean Corpuscular Hemoglobin 31.6 pg (27.0-31.0); Mean Corpuscular Volume 98.6 fL (78.0-98.0); Mean Platelet Volume 8.1 fL (7.4-10.4); Platelet Count 159 thou/uL (130-400); RBC Distribution Width 13.6 % (11.5-14.5); White Blood Cell (WBC) Count 5.6 thou/uL (4.8-10.8)
[2019-10-25 04:41] LABS: Anion Gap 12 mmol/L (10-20); BUN (Urea Nitrogen) 23 mg/dL (8.4-25.7); Calc. Creatinine Clearance 104 mL/min (70-130); Calcium 8.7 mg/dL (7.8-10.44); Carbon Dioxide 26 mmol/L (23-31); Chloride 108 mmol/L (98-107); Estimated GFR-MDRD 66; Glucose 106 mg/dL (83-110); Potassium 3.4 mmol/L (3.5-5.1); Sodium 143 mmol/L (136-145)
[2019-10-25] MEDS: Metoclopramide HCl 10 MG/2 ML VIAL IVP SCH ×4 (06:17→20:48)
--- NOTE | 2019-10-25 06:23 | CON ---
DATE OF CONSULTATION: ADDITIONAL REFERRING PHYSICIAN: Ms. Irene. REASON FOR CONSULTATION: Abdominal pain, nausea, and vomiting. HISTORY OF PRESENT ILLNESS: Clement Lin is a very pleasant 78-year-old male with hypertension, coronary artery disease, obesity, and history of cryptogenic cirrhosis. The patient does not drink any alcohol. The patient was diagnosed with liver cirrhosis probably about 15 years ago. In fact he had esophageal varices and has been banded at least 3 or 4 times. The patient has a history of colon polyp , polypectomy. Last colonoscopy done in 2013. The patient apparently has been having some chest discomfort off and on, which is . The symptoms are relieved with nitroglycerin. The patient was scheduled to have a cardiac cath on 10/20/2019 and was supposed to see Dr. Melodie Escobar. The patient apparently had abnormal stress testing done in the past. The patient was sneezing very hard on Wednesday and he felt something really pulling away and rupturing in the upper abdomen. The pain was across the abdomen. The pain was very severe. Apparently, he sneezed very violently before the pain started. The pain got slowly better and better, but has not completely gone. He came to the ER because of abdominal pain. An abdominal CAT scan done showed a lobulated liver mass. The radiologist felt that he should have triphasic CAT scan to rule out hemangioma/advanced cholesteatoma. The patient had no nausea or vomiting on admission. Apparently, starting in the evening, he started having severe nausea and vomiting and vomited large amount of bilious material. It went on through the night. Subsequently, an NG tube inserted, which drained bilious material. Abdominal series done on the weekend showed no evidence of bowel obstruction. CAT scan of abdomen done normal. No evidence of bowel obstruction. The patient has had no prior abdominal surgery. The patient is having abdominal pain, but it is more of an NG aspirate putting a large amount of bilious material. When I saw him this morning at 9:00, he had about 300 mL of clear bile in the canister. As per nurses, he put out 300 mL overnight. He is not passing any flatus. He is not passing any stool. The last BM was probably on Wednesday. However, he has had nothing to eat or drink a whole lot over the past three days. He appears very comfortable. He has no distress. Denies any abdominal pain. He is not passing any flatus. He had no chest pain, no dyspnea at the present time. He has no relevant history. ALLERGIES: NONE. SOCIAL HISTORY: He is . 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 Does not smoke or drink alcohol. MEDICAL ILLNESS: 1. Obesity. 2. Hypertension. 3. Cardiac arrhythmia, status post pacemaker placement. 4. Liver cirrhosis, felt to be cryptogenic. 5. Esophageal varices banding in the past, many years ago. 6. Colon polyp. 7. Constipation. PAST SURGICAL HISTORY: 1. Pacemaker placement. 2. Cardiac cath. 3. Has had femoral neck fracture on the right side and surgery x2, one in [address] Dumont, another time by Dr. Cobb subsequently. FAMILY HISTORY: Father had cancer and heart disease. Brother with stomach cancer. MEDICATIONS: List reviewed, this includes; 1. Crestor. 2. Vitamin D3. 3. Eliquis. 4. Allopurinol. 5. Lisinopril. 6. Amlodipine. REVIEW OF SYSTEMS: A 10-point system reviewed. CONSTITUTIONAL: He has had no weight loss. No fever or chills. His exercise tolerance is not well known as he is not ambulating because of the fractures and surgeries. He was having physical therapy to ambulate before the COVID pandemic. Due to COVID pandemic, he is not actually walking around. HEAD: No chronic headache. EYES: No diplopia. No impaired vision. EARS: No hearing loss. No discharge. NOSE: No nose bleed. THROAT: No sore throat. No dysphagia. NECK: No stiffness or limitation of movement. CARDIOVASCULAR: Chest pain, relieved with nitroglycerin and has had a cardiac cath showing 90% occlusion. No dyspnea. No palpitation. No orthopnea or PND. LUNGS: No chronic coughing. No hemoptysis. No dyspnea. ABDOMEN: Abdominal pain, which has resolved. History of nausea and vomiting, which seemed to be resolved since the NG insertion. History of constipation. No hematochezia. No melena. GENITOURINARY: No dysuria, hematuria, or frequency of urination. MUSCULOSKELETAL: History of hip pain and knee pains. NEUROLOGIC: No weakness or any neurological symptoms. NEUROPSYCHIATRY: No depression or anxiety. PHYSICAL EXAMINATION: GENERAL: He is obese, appears comfortable, in no acute distress. VITAL SIGNS: Actually very stable. Afebrile. Pulse is 62, blood pressure is 136/68. HEENT: Conjunctivae are clear. NECK: Supple. No adenitis or thyromegaly noted. CARDIOVASCULAR: First and second heart sounds are normal. LUNGS: Clear to auscultation. ABDOMEN: Soft and nondistended. Abdomen is actually nontender except slightly over the epigastric area . There is some induration or some fullness noted in the upper abdomen close to the epigastric area. No organomegaly. No masses. Bowel sounds are active. EXTREMITIES: Revealed stasis dermatitis. No edema. LABORATORY DATA: Show CBC with WBC is 6200, hemoglobin 16.2, hematocrit 48.9, MCV is 97.4, platelet count is 176,000, polymorphs 76, lymphocytes 14. Serum chemistries, lytes are normal. BUN is 33 on admission, creatinine is 1.28, glucose 92. Bilirubin 1.8 total, direct is 1; AST 20; ALT 17, alkaline phosphatase 90. Troponin 0.052. Albumin 3.5. AFP done today is markedly elevated to 1757.5. Abdominal CAT scan did show a lobulated mass in the liver, which is something new. He also has lung AVMs. Abdominal CAT scan reviewed with Dr. Murray Perez and also abdominal series reviewed. Abdominal series did not show any evidence of bowel obstruction. The CAT scan of abdomen did show a liver mass, possibly hepatoma versus hemangioma. CLINICAL IMPRESSION: 1. Nausea and vomiting, most likely representing ileus, has had no evidence of bowel obstruction at this time on the CAT scan or x-ray studies. 2. Liver mass, pending evaluation, needs repeat triphasic CAT scan. 3. I ordered alpha fetoprotein level this morning, which already came back, showing a very high level. 4. Obesity. 5. Atrial fibrillation. 6. Coronary artery disease, pending coronary artery bypass graft. 7. Liver cirrhosis, status post banding many years ago. 8. Colon polyp. RECOMMENDATIONS: Order alpha fetoprotein level, I will go ahead and order a small bowel series to see whether he has any bowel obstruction._ If the small bowel series comes negative, we will recommend removing the NG tube and starting p.o. fluids. He probably needs a triphasic abdominal CAT scan for further evaluation. Job ID: [id number] MTDD
[2019-10-25 09:01] LABS: Hemoglobin 15.6 g/dL (14.0-18.0); Platelet Count 144 thou/uL (130-400)
[2019-10-25] MEDS: Polyethylene Glycol 3350 17 GM Packet PO SCH (09:16)
[2019-10-25] MEDS: Allopurinol 100 MG TAB PO SCH (09:17)
[2019-10-25] MEDS: Enoxaparin Sodium 120 MG/0.8 ML SYRINGE SC SCH ×2 (09:17→20:48)
[2019-10-25] MEDS: Aspirin 81 mg Enteric Coated Tablet PO SCH (09:17)
[2019-10-25] MEDS: Cholecalciferol 1,000 UNITS (25 MCG) TAB PO SCH (09:17)
[2019-10-25] MEDS: Pantoprazole 40 MG VIAL IVP SCH (09:18)
[2019-10-25] MEDS ORDERED: Communication Order-Pharmacy FS SCH (11:14)
--- NOTE | 2019-10-25 11:41 | PRG ---
DATE OF SERVICE: 10/25/2019 SUBJECTIVE: Mr. Lin is overall doing better. He said he had a bowel movement. The small bowel follow-through showed no obstruction. He feels much better. He is back on Lovenox. OBJECTIVE: VITAL SIGNS: Blood pressure 136/70, pulse 70, it is paced. LUNGS: Clear. CARDIAC: Normal S1, normal S2. ABDOMEN: Obese and nontender. ASSESSMENT: 1. Single-vessel coronary artery disease with calcified proximal left anterior descending artery with critical lesion. 2. Atrial fibrillation, longstanding, persistent. 3. Previous pacemaker. PLAN: Proceed with surgery soon. Dr. Mcgrath will see the patient. He is back on Lovenox. Job ID: [id number]
--- NOTE | 2019-10-25 12:26 | CON ---
DATE OF CONSULTATION: HISTORY OF PRESENT ILLNESS: This is a 78-year-old gentleman followed by Dr. Escobar for many years for atrial fibrillation. He was admitted at this time for right-sided abdominal pain that may or may have not been related to pulling a muscle, but was associated with some nausea and vomiting. The patient had an NG tube placed and had significant NG output; however, a small-bowel follow-through was normal and the patient's symptoms abated and he is back eating. In regard to his cardiac history, he did have a recent stress test done last month showing a large area of anterior ischemia and he was to have cardiac catheterization prior to this unexpected admission. His most recent echo was a year ago showing normal systolic function. He had a pacemaker and had a generator change in the past. He has history of peripheral vascular disease. He has a history of right femur fracture and then recurrent fracture being treated locally as well as bilateral knee replacements. He may have had a greater saphenous vein ablation in 2010. SOCIAL HISTORY: He is , living with his for 51 years. He is a nonsmoker at the present time having stopped 30 years ago. He does not drink. He does not exercise regularly, but does walk around his house. He did do rehab after his second femur fracture repair. HOME MEDICATIONS: 1. Crestor. 2. Eliquis. 3. Allopurinol. 4. Lisinopril. 5. Amlodipine. He was also placed on torsemide by Dr. Escobar recently for shortness of breath, which seemed to have improved his breathing. His current echo shows probably normal left ventricular systolic function with severely dilated left atrium and pacemaker leads. LABORATORY VALUES: Include hemoglobin of 15, creatinine of 1.08. He has also had an alpha fetoprotein of 1800. PHYSICAL EXAMINATION: VITAL SIGNS: Overweight gentleman at 285 pounds. NECK: No carotid bruits. CARDIAC: His heart sounds are distant. I do not appreciate any murmurs. ABDOMEN: He does have obese abdomen that is nontender with normal bowel sounds. EXTREMITIES: He has bilateral skin pigmentation changes in his lower legs consistent with chronic venous insufficiency. He has no palpable pedal pulses, but does have popliteal pulses as well as scars over his knees. PLAN: At this time is for coronary bypass grafting to the LAD. He has a probably normal Jaime's test on the left arm. If that vessel was needed for possible obtuse marginal, and he does have potentially saphenous veins in his thighs, although I will have to discuss further with Dr. Escobar, whether both were only single greater saphenous vein ablation was carried out. Job ID: [id number]
--- NOTE | 2019-10-25 14:11 | PDOC.HOSPP ---
- Subjective Encounter Date: 10/25/19 Subjective: The patient was seen and examined. He denies chest pain, shortness of breath, or abdominal pain. - Objective Vital Signs & Weight: Vital Signs (12 hours) Temp Pulse Resp BP BP Pulse Ox 10/25/19 11:31 97.5 F L 62 18 137/70 100 10/25/19 07:22 98.0 F 69 19 136/70 99 10/25/19 04:00 98.2 F 83 19 136/80 98 Weight Weight 283 lb 8 oz I&O: 10/24/19 10/25/19 10/26/19 06:59 06:59 06:59 Intake Total 1628 2374 Output Total 1625 1110 Balance 3 1264 Result Diagrams: 10/25/19 08:29 10/25/19 08:28 Hospitalist ROS - Medication Medications: Active Medications Generic Name Dose Route Start Last Admin Trade Name Freq PRN Reason Stop Dose Admin Allopurinol 100 mg 10/21/19 09:00 10/25/19 09:17 Zyloprim PO 100 mg DAILY BRAN Administration Aspirin 81 mg 10/21/19 09:00 10/25/19 09:17 Ecotrin PO 81 mg DAILY BRAN Administration Atorvastatin Calcium 40 mg 10/21/19 21:00 10/24/19 21:17 Lipitor PO Not Given HS BRAN Cholecalciferol 1,000 units 10/21/19 09:00 10/25/19 09:17 Vitamin D3 PO 1,000 units DAILY BRAN Administration Enoxaparin Sodium 120 mg 10/24/19 21:00 10/25/19 09:17 Lovenox SC 120 mg 0900,2100 BRAN Administration Metoclopramide HCl 10 mg 10/24/19 09:00 10/25/19 09:17 Reglan IVP 10 mg 0300,0900,1500,2100 BRAN Administration Metoprolol Succinate 25 mg 10/21/19 09:00 10/25/19 09:18 Toprol Xl PO 25 mg DAILY BRAN Administration Ondansetron HCl 4 mg 10/22/19 04:44 10/22/19 11:14 Zofran IVP 4 mg Q6H PRN Administration Nausea/Vomiting Pantoprazole Sodium 40 mg 10/23/19 09:00 10/25/19 09:18 Protonix IVP 40 mg DAILY BRAN Administration Polyethylene Glycol 17 gm 10/21/19 09:00 10/25/19 09:16 Miralax PO Not Given DAILY BRAN Sodium Chloride 10 ml 10/22/19 21:00 10/25/19 09:18 Flush - Normal Saline IVF 10 ml Q12HR BRAN Administration Torsemide 10 mg 10/21/19 09:00 10/22/19 08:48 Demadex PO 10 mg DAILY BRAN Administration - Exam General Appearance: awake alert ENT: normocephalic atraumatic Neck: supple Respiratory: normal chest expansion, no tachypnea Neurological: cranial nerve grossly intact, no focal deficits Hosp A/P (1) CAD (coronary artery disease) Code(s): I25.10 - ATHSCL HEART DISEASE OF [place] CORONARY ARTERY W/O ANG PCTRS Status: Chronic (2) Nausea and vomiting Code(s): R11.2 - NAUSEA WITH VOMITING, UNSPECIFIED Status: Suspected Qualifiers: Vomiting type: bilious vomiting Qualified Code(s): R11.14 - Bilious vomiting (3) Atrial fibrillation Code(s): I48.91 - UNSPECIFIED ATRIAL FIBRILLATION Status: Chronic (4) DANIEL (obstructive sleep apnea) Code(s): G47.33 - OBSTRUCTIVE SLEEP APNEA (ADULT) (PEDIATRIC) Status: Chronic (5) Obesity (BMI 30-39.9) Code(s): E66.9 - OBESITY, UNSPECIFIED Status: Chronic - Plan No evidence of bowel obstruction on small bowel series today. The patient had multiple bowel movements after returning from the x-ray. No nausea or vomiting. Tolerating clear liquid diet. Coronary artery disease. CV surgery planning CABG at some point. Triphasic CT planned tomorrow to assess the liver lesion. Atrial fibrillation is rate controlled and currently on anticoagulation.
[2019-10-25] MEDS ORDERED: Potassium Chloride 20 MEQ TAB PO SCH (14:15)
--- NOTE | 2019-10-25 15:32 | RAD ---
Radiograph abdomen one view: 10/25/2019 HISTORY: 78-year-old male with nausea and vomiting. FINDINGS: The enteric contrast material from yesterday's small bowel series is no longer visualized in the smal l intestine. Residual contrast is present throughout the entire colon, now reaching the rectum. Numerous diverticula throughout sigmoid: And some in the descending colon. IMPRESSION: 1. Sigmoid colonic diverticulosis. 2. No bowel obstruction.
[2019-10-25] MEDS: Atorvastatin Calcium 40 MG TAB PO SCH (20:49)
[2019-10-26] MEDS: Metoclopramide HCl 10 MG/2 ML VIAL IVP SCH ×4 (02:36→21:30)
[2019-10-26 04:48] LABS: #Eosinphils 0.1 thou/uL (0.0-0.7); #Lymphocytes 0.8 thou/uL (1.20-3.40); #Monocytes 0.3 thou/uL (0.11-0.59); #Neutrophils 3.8 thou/uL (1.40-6.50); %Basophils 0.3 % (0.0-1.0); %Eosinophils 2.7 % (0.0-10.0); %Lymphocytes 15.4 % (21.0-51.0); %Monocytes 5.8 % (0.0-10.0); %Neutrophils 75.9 % (42.0-75.0); Hemoglobin 14.9 g/dL (14.0-18.0); Mean Corpuscular Hemoglobin 32.2 pg (27.0-31.0); Mean Corpuscular Volume 97.5 fL (78.0-98.0); Mean Platelet Volume 8.2 fL (7.4-10.4); Platelet Count 154 thou/uL (130-400); RBC Distribution Width 13.5 % (11.5-14.5); Red Blood Cell (RBC) Count 4.63 mill/uL (4.70-6.10)
[2019-10-26 05:15] LABS: Anion Gap 10 mmol/L (10-20); BUN (Urea Nitrogen) 16 mg/dL (8.4-25.7); Calc. Creatinine Clearance 125 mL/min (70-130); Calcium 8.2 mg/dL (7.8-10.44); Carbon Dioxide 28 mmol/L (23-31); Chloride 104 mmol/L (98-107); Estimated GFR-MDRD 82; Glucose 103 mg/dL (83-110); Potassium 3.5 mmol/L (3.5-5.1); Sodium 138 mmol/L (136-145)
--- NOTE | 2019-10-26 08:22 | RAD ---
XR Abdomen 1 View/KUB HISTORY: Liver mass, evaluate contrast in bowel COMPARISON: Previous day FINDINGS: There is residual contrast in the colon and rectum with the numerous sigmoid diverticula. An angular compression device is again noted in the right proximal femur
[2019-10-26] MEDS: Polyethylene Glycol 3350 17 GM Packet PO SCH (09:03)
[2019-10-26] MEDS: Torsemide 10 MG TAB PO SCH (09:03)
[2019-10-26] MEDS: Cholecalciferol 1,000 UNITS (25 MCG) TAB PO SCH (09:04)
[2019-10-26] MEDS: Aspirin 81 mg Enteric Coated Tablet PO SCH (09:04)
[2019-10-26] MEDS: Enoxaparin Sodium 120 MG/0.8 ML SYRINGE SC SCH ×2 (09:04→21:30)
[2019-10-26] MEDS: Allopurinol 100 MG TAB PO SCH (09:04)
[2019-10-26] MEDS: Pantoprazole 40 MG VIAL IVP SCH (09:05)
--- NOTE | 2019-10-26 09:44 | PRG ---
DATE OF SERVICE: 10/25/2019 SUBJECTIVE: This is a 78-year-old male hospitalized with abdominal pain on Wednesday and abdominal CAT scan. The CAT scan showed a lobulated liver mass over the left lobe of liver. The patient has had previous CAT scan, which revealed no pathology. Liver mass is something new. Dr. Armstrong_ Radiology, felt he should have a repeat CAT scan with liver mass protocol. The patient had a Gastrografin study yesterday. The Gastrografin study showed no small bowel obstruction_ and the NG was removed. He is on clear liquid diet. I will order a serum alpha-fetoprotein level to make a very high suspicion for hepatoma. The patient is tolerating clear liquid diet. There is no nausea or vomiting. After Gastrografin study, he had multiple watery stools. He had one stool this morning. PHYSICAL EXAMINATION: GENERAL: He is obese, appears very comfortable. VITAL SIGNS: Stable. HEENT: Conjunctivae are clear. CARDIOVASCULAR: Normal heart sounds on auscultation. LUNGS: Clear to auscultation. ABDOMEN: Soft. Abdomen is nondistended. Abdomen does show some fullness _ over the right upper quadrant toward the epigastric area. There is maybe something in the abdominal muscle most likely. His serum alpha-fetoprotein level is more than 1700. The patient has 90% occlusion of the coronary artery and the plan was being made to do a bypass surgery. Because of liver mass, Dr. Mcgrath is not really sure. He said he needed [facility]. I did discuss with Dr. Melodie Escobar, his collarette separator. Liver lesion is actually localized and not very big, mostly in left lobe of liver. Other liver tissue appeared normal . I did discuss with Dr. Melodie Escobar and he felt once the patient had a stent placement, he has to be on anticoagulation and it may affect having further workup for the liver mass. It was decided to repeat a CAT scan of the abdomen tomorrow for a liver mass protocol. I believe if there are no new changes, may proceed with bypass surgery and wait for a month and he can be transferred to a liver transplant program after one month of surgery. This was discussed with the patient and also discussed with Dr. Melodie Escobar. I will also talk with Mrs. Lin and explain to her about the plan of treatment. I will go and order the KUB study today to make sure there is no contrast in the colon. If there is no residual contrast in the bowel, may consider a repeat CAT scan of abdomen, liver mass protocol. Job ID: [id number] MTDD
--- NOTE | 2019-10-26 15:01 | PDOC.HOSPP ---
- Subjective Encounter Date: 10/26/19 Subjective: The patient has no new complaints today. He is tolerating oral intake. - Objective Vital Signs & Weight: Vital Signs (12 hours) Temp Pulse Resp BP Pulse Ox 10/26/19 11:28 97.8 F 64 16 113/70 96 10/26/19 07:23 98.6 F 64 16 103/56 L 99 10/26/19 04:00 98.8 F 62 20 112/61 95 Weight Weight 283 lb 8 oz I&O: 10/25/19 10/26/19 10/27/19 06:59 06:59 06:59 Intake Total 2374 1000 Output Total 1110 860 Balance 1264 140 Result Diagrams: 10/26/19 04:38 10/26/19 04:38 Hospitalist ROS - Medication Medications: Active Medications Generic Name Dose Route Start Last Admin Trade Name Freq PRN Reason Stop Dose Admin Allopurinol 100 mg 10/21/19 09:00 10/26/19 09:04 Zyloprim PO 100 mg DAILY BRAN Administration Aspirin 81 mg 10/21/19 09:00 10/26/19 09:04 Ecotrin PO 81 mg DAILY BRAN Administration Atorvastatin Calcium 40 mg 10/21/19 21:00 10/25/19 20:49 Lipitor PO 40 mg HS BRAN Administration Cholecalciferol 1,000 units 10/21/19 09:00 10/26/19 09:04 Vitamin D3 PO 1,000 units DAILY BRAN Administration Enoxaparin Sodium 120 mg 10/24/19 21:00 10/26/19 09:04 Lovenox SC 120 mg 0900,2100 BRAN Administration Metoclopramide HCl 10 mg 10/24/19 09:00 10/26/19 14:56 Reglan IVP 10 mg 0300,0900,1500,2100 BRAN Administration Metoprolol Succinate 25 mg 10/21/19 09:00 10/26/19 09:03 Toprol Xl PO Not Given DAILY BRAN Ondansetron HCl 4 mg 10/22/19 04:44 10/22/19 11:14 Zofran IVP 4 mg Q6H PRN Administration Nausea/Vomiting Pantoprazole Sodium 40 mg 10/23/19 09:00 10/26/19 09:05 Protonix IVP 40 mg DAILY BRAN Administration Polyethylene Glycol 17 gm 10/21/19 09:00 10/26/19 09:03 Miralax PO Not Given DAILY BRAN Sodium Chloride 10 ml 10/22/19 21:00 10/26/19 09:05 Flush - Normal Saline IVF 10 ml Q12HR BRAN Administration Torsemide 10 mg 10/21/19 09:00 10/26/19 09:03 Demadex PO Not Given DAILY BRAN - Exam General Appearance: awake alert ENT: normocephalic atraumatic Neck: supple Respiratory: normal chest expansion, no tachypnea Neurological: cranial nerve grossly intact, no focal deficits Hosp A/P (1) CAD (coronary artery disease) Code(s): I25.10 - ATHSCL HEART DISEASE OF [place] CORONARY ARTERY W/O ANG PCTRS Status: Chronic (2) Nausea and vomiting Code(s): R11.2 - NAUSEA WITH VOMITING, UNSPECIFIED Status: Suspected Qualifiers: Vomiting type: bilious vomiting Qualified Code(s): R11.14 - Bilious vomiting (3) Atrial fibrillation Code(s): I48.91 - UNSPECIFIED ATRIAL FIBRILLATION Status: Chronic (4) DANIEL (obstructive sleep apnea) Code(s): G47.33 - OBSTRUCTIVE SLEEP APNEA (ADULT) (PEDIATRIC) Status: Chronic (5) Obesity (BMI 30-39.9) Code(s): E66.9 - OBESITY, UNSPECIFIED Status: Chronic (6) Liver mass Code(s): R16.0 - HEPATOMEGALY, NOT ELSEWHERE CLASSIFIED Status: Acute - Plan No evidence of bowel obstruction on small bowel series. Awaiting clearance of the contrast from his abdomen prior to proceeding with triphasic CT scan of the abdomen to better clarify the liver mass. No nausea or vomiting. Tolerating clear liquid diet. Coronary artery disease. CV surgery planning CABG at some point. Atrial fibrillation is rate controlled and currently on anticoagulation.
[2019-10-26] MEDS: Atorvastatin Calcium 40 MG TAB PO SCH (21:30)
[2019-10-27] MEDS: Metoclopramide HCl 10 MG/2 ML VIAL IVP SCH ×2 (02:10→09:37)
[2019-10-27 04:27] LABS: #Eosinphils 0.2 thou/uL (0.0-0.7); #Monocytes 0.4 thou/uL (0.11-0.59); #Neutrophils 4.3 thou/uL (1.40-6.50); %Basophils 0.4 % (0.0-1.0); %Eosinophils 3.3 % (0.0-10.0); %Lymphocytes 17.6 % (21.0-51.0); %Monocytes 6.1 % (0.0-10.0); %Neutrophils 72.6 % (42.0-75.0); Hemoglobin 15.1 g/dL (14.0-18.0); Mean Corpuscular HGB CONC 33.1 g/dL (32.0-36.0); Mean Corpuscular Hemoglobin 32.2 pg (27.0-31.0); Mean Corpuscular Volume 97.3 fL (78.0-98.0); Mean Platelet Volume 8.1 fL (7.4-10.4); Platelet Count 165 thou/uL (130-400); RBC Distribution Width 13.4 % (11.5-14.5); White Blood Cell (WBC) Count 5.9 thou/uL (4.8-10.8)
[2019-10-27 04:48] LABS: Anion Gap 12 mmol/L (10-20); BUN (Urea Nitrogen) 13 mg/dL (8.4-25.7); Calc. Creatinine Clearance 115 mL/min (70-130); Calcium 8.2 mg/dL (7.8-10.44); Carbon Dioxide 27 mmol/L (23-31); Chloride 102 mmol/L (98-107); Estimated GFR-MDRD 74; Glucose 103 mg/dL (83-110); Potassium 3.6 mmol/L (3.5-5.1); Sodium 137 mmol/L (136-145)
[2019-10-27] MEDS ORDERED: Enoxaparin Sodium 120 MG/0.8 ML SYRINGE SC SCH (07:56)
--- NOTE | 2019-10-27 08:19 | PRG ---
DATE OF SERVICE: 10/27/2019 SUBJECTIVE: Mr. Lin has no chest pain or pressure. He has been having bowel movements. OBJECTIVE: VITAL SIGNS: Blood pressure is 120/70, pulse 60. LUNGS: Clear. ABDOMEN: Soft, nontender. EXTREMITIES: Mild edema as before. ASSESSMENT: 1. Coronary artery disease with calcified proximal left anterior descending. 2. Liver mass appears to be most likely hepatocellular carcinoma. PLAN: CT scan to further delineate the size of the mass. If it looks like it is small, the recommendation is to proceed to surgery of his coronary artery and then which recovered for surgery for his hepatic mass. In view of the recent catheterization, we are going to reduce enoxaparin to 100 mg twice a day subcu. Consider oversewing of the left atrial appendage at the time of surgery. Job ID: [id number]
--- NOTE | 2019-10-27 08:38 | RAD ---
XR Abdomen 1 View/KUB History: Contrast evaluation Comparison: Radiograph prior day Findings: Continues to be a large without contrast although is improving. Majority of the contrast wi thin the left colon. Impression: Moderate contrast in the left colon. Repeat radiograph around noon is recommended. If the re is continued decrease of contrast within the right hemicolon at that time, the liver protocol examination could then be performed.
[2019-10-27] MEDS: Aspirin 81 mg Enteric Coated Tablet PO SCH (09:36)
[2019-10-27] MEDS: Pantoprazole 40 MG VIAL IVP SCH (09:36)
[2019-10-27] MEDS: Torsemide 10 MG TAB PO SCH (09:36)
[2019-10-27] MEDS: Cholecalciferol 1,000 UNITS (25 MCG) TAB PO SCH (09:36)
[2019-10-27] MEDS: Enoxaparin Sodium 100 MG/ML SYRINGE SC SCH ×2 (09:38→21:08)
[2019-10-27] MEDS: Allopurinol 100 MG TAB PO SCH (09:38)
[2019-10-27] MEDS: Polyethylene Glycol 3350 17 GM Packet PO SCH (09:38)
[2019-10-27] MEDS ORDERED: GoLYTELY 4,000 ml Bottle PO SCH (11:00)
--- NOTE | 2019-10-27 13:36 | PDOC.HOSPP ---
- Subjective Encounter Date: 10/27/19 Subjective: The patient does not have any new complaints today. His abdominal x-ray revealed that the contrast still present in the colon and hence CT scan of the liver could not be performed. - Objective Vital Signs & Weight: Vital Signs (12 hours) Temp Pulse Resp BP Pulse Ox 10/27/19 11:50 98.5 F 67 20 114/65 95 10/27/19 08:15 98.6 F 69 20 125/57 L 94 L 10/27/19 03:20 98.6 F 61 18 122/71 94 L Weight Weight 283 lb 8 oz I&O: 10/26/19 10/27/19 10/28/19 06:59 06:59 06:59 Intake Total 1000 1000 Output Total 860 800 Balance 140 200 Result Diagrams: 10/27/19 04:12 10/27/19 04:12 Hospitalist ROS - Medication Medications: Active Medications Generic Name Dose Route Start Last Admin Trade Name Freq PRN Reason Stop Dose Admin Allopurinol 100 mg 10/21/19 09:00 10/27/19 09:38 Zyloprim PO 100 mg DAILY BRAN Administration Aspirin 81 mg 10/21/19 09:00 10/27/19 09:36 Ecotrin PO 81 mg DAILY BRAN Administration Atorvastatin Calcium 40 mg 10/21/19 21:00 10/26/19 21:30 Lipitor PO 40 mg HS BRAN Administration Cholecalciferol 1,000 units 10/21/19 09:00 10/27/19 09:36 Vitamin D3 PO 1,000 units DAILY BRAN Administration Enoxaparin Sodium 100 mg 10/27/19 09:00 10/27/19 09:38 Lovenox SC Not Given [facility] Metoprolol Succinate 25 mg 10/21/19 09:00 10/27/19 09:49 Toprol Xl PO Not Given DAILY [facility] Ondansetron HCl 4 mg 10/22/19 04:44 10/22/19 11:14 Zofran IVP 4 mg Q6H PRN Administration Nausea/Vomiting Pantoprazole Sodium 40 mg 10/23/19 09:00 10/27/19 09:36 Protonix IVP 40 mg DAILY BRAN Administration Polyethylene Glycol 17 gm 10/21/19 09:00 10/27/19 09:38 Miralax PO Not Given DAILY [facility] Polyethylene Glycol/Electrolytes 4,000 ml 10/27/19 11:00 10/27/19 11:53 Golytely PO 10/27/19 23:00 4,000 ml NOW BRAN Administration Sodium Chloride 10 ml 10/22/19 21:00 10/27/19 09:38 Flush - Normal Saline IVF 10 ml Q12HR BRAN Administration Torsemide 10 mg 10/21/19 09:00 10/27/19 09:36 Demadex PO 10 mg DAILY BRAN Administration - Exam General Appearance: awake alert ENT: normocephalic atraumatic Neck: supple Respiratory: normal chest expansion, no tachypnea Gastrointestinal: soft Neurological: cranial nerve grossly intact, no focal deficits Hosp A/P (1) CAD (coronary artery disease) Code(s): I25.10 - ATHSCL HEART DISEASE OF [place] CORONARY ARTERY W/O ANG PCTRS Status: Chronic (2) Liver mass Code(s): R16.0 - HEPATOMEGALY, NOT ELSEWHERE CLASSIFIED Status: Acute (3) Nausea and vomiting Code(s): R11.2 - NAUSEA WITH VOMITING, UNSPECIFIED Status: Suspected Qualifiers: Vomiting type: bilious vomiting Qualified Code(s): R11.14 - Bilious vomiting (4) Atrial fibrillation Code(s): I48.91 - UNSPECIFIED ATRIAL FIBRILLATION Status: Chronic (5) DANIEL (obstructive sleep apnea) Code(s): G47.33 - OBSTRUCTIVE SLEEP APNEA (ADULT) (PEDIATRIC) Status: Chronic (6) Obesity (BMI 30-39.9) Code(s): E66.9 - OBESITY, UNSPECIFIED Status: Chronic - Plan No evidence of bowel obstruction on small bowel series. Awaiting clearance of the contrast from his abdomen prior to proceeding with triphasic CT scan of the abdomen to better clarify the liver mass prior to deciding on the timing of the CABAG. No nausea or vomiting. Tolerating clear liquid diet. Golytley given today to help clear the contrast. Atrial fibrillation is rate controlled and currently on anticoagulation.
--- NOTE | 2019-10-27 14:05 | PRG ---
DATE OF SERVICE: 10/27/2019 SUBJECTIVE: This is a 78-year-old male with obesity, coronary artery disease with critical stenosis of LAD. It has 90% occlusion and stenting s ot possible__. The patient had abdominal pain on admission and had abdominal CAT scan. The CAT scan showed a liver mass over the left lobe of liver. His alpha-fetoprotein level is very high indicative of possible hepatoma. Recommended Radiology to have a triple phase CAT scan again. Unfortunately, it cannot be done yesterday and today because of retained thick contrast in bowel. He has had a flat plate yesterday and day before noon today. He all the time showed retained contrast. The patient is tolerating diet and has no abdominal pain. No nausea or vomiting. He has passed small amount of stool. He offers no complaints. PHYSICAL EXAMINATION: GENERAL: He is obese. VITAL SIGNS: Pulse is 70, blood pressure 130/76. CARDIOVASCULAR SYSTEM: Normal heart sounds. LUNGS: Clear to auscultation. ABDOMEN: Soft and nontender. No organomegaly. RECOMMENDATION: We will give a dose of GoLYTELY this morning to clean out the bowel and hopefully the CAT scan can be done later on today or tomorrow morning. This was discussed with Riley, and he has agreed to do a GoLYTELY. I will give GoLYTELY this morning and hopefully a CAT scan can be done today or tomorrow morning. Job ID: [id number] MTDD
--- NOTE | 2019-10-27 14:49 | RAD ---
XR Abdomen 1 View/KUB History: Evaluate for contrast transit Comparison: Radiograph same day Findings: The large bowel contrast has transited from the ascending and transverse colon to the desce nding colon. Impression: No significant contrast around the liver. Liver protocol CT can now be performed.
--- NOTE | 2019-10-27 16:04 | CT ---
CT Abdomen W WO Con History: Liver mass Comparison: CT of the abdomen October 20, 2019 Findings: Lung bases are relatively clear. No pericardial effusion. The common hepatic artery originates off the celiac trunk directly. This vessel is seen on the arteri al phase feeding a hypervascular mass within hepatic segment 4A. On the arterial phase there is some central arterial enhancement with mild internal washout centrally which on the portal venous pha se there is peripheral enhancement. This mass does not hold onto contrast on the delayed phase. Overall this mass is very heterogeneous and measures approximately 4.5 cm in transverse with AP dimen bertin of 3.4 cm in a craniocaudal dimension of 3.2 cm. The hepatic contour slightly nodular. Multiple calcified splenic granulomas. Mild altered focal ectasia infrarenal abdominal aorta. Mild pancreatic atrophy. Intramuscular hematoma, small, the right rectus muscle. Similar appearance of the compression deformities of L4 superior endplate as well as T12 vertebral ric dy. Small hypodensities of the kidneys likely cysts. Impression: Mass of hepatic segment 4A has imaging characteristics more of hepatocellular carcinoma r ather than hemangioma, especially given the background nodular appearance of the liver. Ordering physician was Campo Texted at 4:00 PM
[2019-10-27] MEDS: Atorvastatin Calcium 40 MG TAB PO SCH (21:08)
[2019-10-28 04:28] LABS: #Eosinphils 0.1 thou/uL (0.0-0.7); #Lymphocytes 0.7 thou/uL (1.20-3.40); #Monocytes 0.3 thou/uL (0.11-0.59); #Neutrophils 3.5 thou/uL (1.40-6.50); %Basophils 0.4 % (0.0-1.0); %Eosinophils 2.9 % (0.0-10.0); %Lymphocytes 15.6 % (21.0-51.0); %Monocytes 6.3 % (0.0-10.0); %Neutrophils 74.8 % (42.0-75.0); Hemoglobin 14.4 g/dL (14.0-18.0); Mean Corpuscular HGB CONC 32.4 g/dL (32.0-36.0); Mean Corpuscular Hemoglobin 31.4 pg (27.0-31.0); Mean Corpuscular Volume 96.8 fL (78.0-98.0); Mean Platelet Volume 8.2 fL (7.4-10.4); Platelet Count 147 thou/uL (130-400); RBC Distribution Width 13.8 % (11.5-14.5); White Blood Cell (WBC) Count 4.7 thou/uL (4.8-10.8)
[2019-10-28 05:02] LABS: Anion Gap 11 mmol/L (10-20); BUN (Urea Nitrogen) 12 mg/dL (8.4-25.7); Calc. Creatinine Clearance 111 mL/min (70-130); Calcium 8.3 mg/dL (7.8-10.44); Carbon Dioxide 28 mmol/L (23-31); Chloride 102 mmol/L (98-107); Estimated GFR-MDRD 72; Glucose 96 mg/dL (83-110); Potassium 3.5 mmol/L (3.5-5.1); Sodium 137 mmol/L (136-145)
[2019-10-28] MEDS: Aspirin 81 mg Enteric Coated Tablet PO SCH (08:31)
[2019-10-28] MEDS: Pantoprazole 40 MG VIAL IVP SCH (08:31)
[2019-10-28] MEDS: Enoxaparin Sodium 100 MG/ML SYRINGE SC SCH ×2 (08:31→21:44)
[2019-10-28] MEDS: Allopurinol 100 MG TAB PO SCH (08:32)
[2019-10-28] MEDS: Cholecalciferol 1,000 UNITS (25 MCG) TAB PO SCH (08:32)
[2019-10-28] MEDS: Torsemide 10 MG TAB PO SCH (08:32)
[2019-10-28] MEDS: Polyethylene Glycol 3350 17 GM Packet PO SCH (08:38)
--- NOTE | 2019-10-28 12:18 | PDOC.HOSPP ---
- Subjective Encounter Date: 10/28/19 Encounter Time: 09:30 Subjective: no sob or chest pain no nausea or abd pain had a rough night due to golytely otherwise feels good - Objective Vital Signs & Weight: Vital Signs (12 hours) Temp Pulse Resp BP BP Pulse Ox 10/28/19 11:10 98.1 F 62 20 101/61 94 L 10/28/19 08:38 69 122/64 10/28/19 07:12 98.4 F 64 20 119/67 94 L 10/28/19 03:34 99.6 F 59 L 16 126/71 94 L Weight Weight 283 lb 8 oz I&O: 10/27/19 10/28/19 10/29/19 06:59 06:59 06:59 Intake Total 1000 1285 Output Total 800 975 Balance 200 310 Result Diagrams: 10/28/19 04:10 10/28/19 04:10 Hospitalist ROS - Medication Medications: Active Medications Generic Name Dose Route Start Last Admin Trade Name Freq PRN Reason Stop Dose Admin Allopurinol 100 mg 10/21/19 09:00 10/28/19 08:32 Zyloprim PO 100 mg DAILY BRAN Administration Aspirin 81 mg 10/21/19 09:00 10/28/19 08:31 Ecotrin PO 81 mg DAILY BRAN Administration Atorvastatin Calcium 40 mg 10/21/19 21:00 10/27/19 21:08 Lipitor PO 40 mg HS BRAN Administration Cholecalciferol 1,000 units 10/21/19 09:00 10/28/19 08:32 Vitamin D3 PO 1,000 units DAILY BRAN Administration Enoxaparin Sodium 100 mg 10/27/19 09:00 10/28/19 08:31 Lovenox SC 100 mg 0900,2100 BRAN Administration Metoprolol Succinate 25 mg 10/21/19 09:00 10/28/19 08:32 Toprol Xl PO 25 mg DAILY BRAN Administration Ondansetron HCl 4 mg 10/22/19 04:44 10/22/19 11:14 Zofran IVP 4 mg Q6H PRN Administration Nausea/Vomiting Pantoprazole Sodium 40 mg 10/23/19 09:00 10/28/19 08:31 Protonix IVP 40 mg DAILY BRNA Administration Polyethylene Glycol 17 gm 10/21/19 09:00 10/28/19 08:38 Miralax PO Not Given DAILY BRAN Sodium Chloride 10 ml 10/22/19 21:00 10/28/19 08:31 Flush - Normal Saline IVF 10 ml Q12HR BRAN Administration Torsemide 10 mg 10/21/19 09:00 10/28/19 08:32 Demadex PO 10 mg DAILY BRAN Administration - Exam General Appearance: awake alert Eye: PERRL, anicteric sclera ENT: no oropharyngeal lesions, moist mucosa Neck: supple, no JVD Heart: RRR, no murmur Respiratory: no wheezes, no rales Gastrointestinal: soft, non-tender, non-distended, normal bowel sounds Extremities: 1+ LE edema Extremities - other findings: chronic pigmentation of LE Neurological: cranial nerve grossly intact, no focal deficits Psychiatric: normal affect, A&O x 3 Hosp A/P (1) Liver mass Code(s): R16.0 - HEPATOMEGALY, NOT ELSEWHERE CLASSIFIED Status: Acute (2) CAD (coronary artery disease) Code(s): I25.10 - ATHSCL HEART DISEASE OF [place] CORONARY ARTERY W/O ANG PCTRS Status: Chronic Qualifiers: Coronary Disease-Associated Artery/Lesion type: [place] artery [place] vs. transplanted heart: [place] heart (3) Nausea and vomiting Code(s): R11.2 - NAUSEA WITH VOMITING, UNSPECIFIED Status: Resolved (4) Atrial fibrillation Code(s): I48.91 - UNSPECIFIED ATRIAL FIBRILLATION Status: Chronic (5) Dyslipidemia Code(s): E78.5 - HYPERLIPIDEMIA, UNSPECIFIED Status: Chronic (6) H/O cardiac pacemaker Code(s): Z95.0 - PRESENCE OF CARDIAC PACEMAKER Status: Chronic (7) Hypertension Code(s): I10 - ESSENTIAL (PRIMARY) HYPERTENSION Status: Chronic Qualifiers: Hypertension type: essential hypertension Qualified Code(s): I10 - Essential (primary) hypertension (8) DANIEL (obstructive sleep apnea) Code(s): G47.33 - OBSTRUCTIVE SLEEP APNEA (ADULT) (PEDIATRIC) Status: Chronic (9) Obesity (BMI 30-39.9) Code(s): E66.9 - OBESITY, UNSPECIFIED Status: Chronic - Plan has liver mass highly suspicious for hepatoma with elevated AFP has cad, ?stenting of LAD (suspected calcified vessel) has isolated mass in liver, not sure if the size is resectable, await GI opinion continue asp, lipitor, full dose lovenox, toprol xl, demadex and allopurinol hemostable
--- NOTE | 2019-10-28 19:05 | PRG ---
DATE OF SERVICE: 10/28/2019 SUBJECTIVE: This is a 78-year-old male, hospitalized with severe abdominal pain. Abdominal CAT scan done on admission showed a liver mass over the left lobe of the liver. The patient's abdominal pain is resolved. He also had severe ileus for a few days and was resolved after a Gastrografin study. Finally, he was able to get a CAT scan of the abdomen done yesterday after 3 days of wait because of retained contrast in the bowel. The CAT scan showed a lesion in the left lobe of the liver measuring approximately 4.5 cm. There is no other lesion seen in the liver. The liver lesion is_ isolated and only one lesion seen. His alpha-fetoprotein level is high indicative of possible hepatoma. The patient has history of liver cirrhosis and he has done well over the last 15+ years. Apparently, he has had a positive stress testing and EP study and coronary angiogram revealed 90% occlusion of the left main. The patient was seen by Dr. Abe Mcgrath and he is planning for surgery. From GI standpoint, he had no abdominal pain, no nausea or vomiting. He is tolerating diet. I did talk to Dr. Randolph, the radiologist, who read the CAT scan and he feels this is probably hepatoma. OBJECTIVE: VITAL SIGNS: Stable. CARDIOVASCULAR: Within normal limits. LUNGS: Within normal limits. ABDOMEN: Soft. No organomegaly. No tenderness. No masses. PLAN: Coronary artery bypass graft by Dr. Abe Mcgrath and after he recovers from the surgery, we will refer to facility worker in [place] for treatment of liver mass. Based on the CAT scan findings, it appears it can be resected. I did talk to Mr. Lin and I spoke to Mrs. Lin and explained about the plan of treatment. I will sign off from today and if any problems, please call us back. Job ID: [id number] MTDD
[2019-10-28] MEDS: Atorvastatin Calcium 40 MG TAB PO SCH (21:44)
[2019-10-29] MEDS ORDERED: Communication Order-Pharmacy FS SCH (08:06)
[2019-10-29] MEDS: Pantoprazole 40 MG VIAL IVP SCH (08:37)
[2019-10-29] MEDS: Cholecalciferol 1,000 UNITS (25 MCG) TAB PO SCH (08:37)
[2019-10-29] MEDS: Aspirin 81 mg Enteric Coated Tablet PO SCH (08:37)
[2019-10-29] MEDS: Torsemide 10 MG TAB PO SCH (08:37)
[2019-10-29] MEDS: Enoxaparin Sodium 100 MG/ML SYRINGE SC SCH (08:37)
[2019-10-29] MEDS: Allopurinol 100 MG TAB PO SCH (08:37)
[2019-10-29] MEDS: Polyethylene Glycol 3350 17 GM Packet PO SCH (08:44)
[2019-10-29] MEDS ORDERED: Bacitracin 1 PK TOP PRN (10:11)
--- NOTE | 2019-10-29 11:00 | PDOC.HOSPP ---
- Subjective Encounter Date: 10/29/19 Encounter Time: 09:40 Subjective: no sob or nausea feels better says he is mobilizing a bit at bedside - Objective Vital Signs & Weight: Vital Signs (12 hours) Temp Pulse Resp BP Pulse Ox 10/29/19 08:40 72 125/72 10/29/19 07:18 98.0 F 69 20 117/70 95 10/29/19 04:00 97.9 F 66 20 110/72 95 Weight Weight 283 lb 8 oz I&O: 10/28/19 10/29/19 10/30/19 06:59 06:59 06:59 Intake Total 1285 1220 Output Total 975 1150 Balance 310 70 Result Diagrams: 10/28/19 04:10 10/28/19 04:10 Hospitalist ROS - Medication Medications: Active Medications Generic Name Dose Route Start Last Admin Trade Name Freq PRN Reason Stop Dose Admin Allopurinol 100 mg 10/21/19 09:00 10/29/19 08:37 Zyloprim PO 100 mg DAILY BRAN Administration Aspirin 81 mg 10/21/19 09:00 10/29/19 08:37 Ecotrin PO 81 mg DAILY BRAN Administration Atorvastatin Calcium 40 mg 10/21/19 21:00 10/28/19 21:44 Lipitor PO 40 mg HS BRAN Administration Cholecalciferol 1,000 units 10/21/19 09:00 10/29/19 08:37 Vitamin D3 PO 1,000 units DAILY BRAN Administration Enoxaparin Sodium 100 mg 10/27/19 09:00 10/29/19 08:37 Lovenox SC 10/29/19 13:00 100 mg 0900,2100 BRAN Administration Metoprolol Succinate 25 mg 10/21/19 09:00 10/29/19 08:37 Toprol Xl PO 25 mg DAILY BRAN Administration Ondansetron HCl 4 mg 10/22/19 04:44 10/22/19 11:14 Zofran IVP 4 mg Q6H PRN Administration Nausea/Vomiting Polyethylene Glycol 17 gm 10/21/19 09:00 10/29/19 08:44 Miralax PO Not Given DAILY BRAN Sodium Chloride 10 ml 10/22/19 21:00 10/29/19 08:37 Flush - Normal Saline IVF 10 ml Q12HR BRAN Administration Torsemide 10 mg 10/21/19 09:00 10/29/19 08:37 Demadex PO 10 mg DAILY BRAN Administration - Exam General Appearance: awake alert Eye: PERRL, anicteric sclera ENT: no oropharyngeal lesions, moist mucosa Neck: supple, no JVD Heart: RRR, no murmur Respiratory: no wheezes, no rales, rhonchi Gastrointestinal: soft, non-tender, non-distended, normal bowel sounds Extremities: no cyanosis, no edema Neurological: cranial nerve grossly intact, no focal deficits Psychiatric: normal affect, A&O x 3 Hosp A/P (1) Liver mass Code(s): R16.0 - HEPATOMEGALY, NOT ELSEWHERE CLASSIFIED Status: Acute (2) CAD (coronary artery disease) Code(s): I25.10 - ATHSCL HEART DISEASE OF [place] CORONARY ARTERY W/O ANG PCTRS Status: Chronic Qualifiers: Coronary Disease-Associated Artery/Lesion type: [place] artery [place] vs. transplanted heart: [place] heart (3) Nausea and vomiting Code(s): R11.2 - NAUSEA WITH VOMITING, UNSPECIFIED Status: Resolved (4) Atrial fibrillation Code(s): I48.91 - UNSPECIFIED ATRIAL FIBRILLATION Status: Chronic (5) Dyslipidemia Code(s): E78.5 - HYPERLIPIDEMIA, UNSPECIFIED Status: Chronic (6) H/O cardiac pacemaker Code(s): Z95.0 - PRESENCE OF CARDIAC PACEMAKER Status: Chronic (7) Hypertension Code(s): I10 - ESSENTIAL (PRIMARY) HYPERTENSION Status: Chronic Qualifiers: Hypertension type: essential hypertension Qualified Code(s): I10 - Essential (primary) hypertension (8) DANIEL (obstructive sleep apnea) Code(s): G47.33 - OBSTRUCTIVE SLEEP APNEA (ADULT) (PEDIATRIC) Status: Chronic (9) Obesity (BMI 30-39.9) Code(s): E66.9 - OBESITY, UNSPECIFIED Status: Chronic - Plan has liver mass highly suspicious for hepatoma with elevated AFP has cad, for cabg in am has isolated mass in liver, is resectable per GI opinion, he will have outpt referral once he recovers from cabg continue asp, lipitor, full dose lovenox, toprol xl, demadex and allopurinol hemostable may hold lovenox this evening if he is going for cabg in am PT to mobilize as tolerated, incentive spirometry
[2019-10-29] MEDS: Atorvastatin Calcium 40 MG TAB PO SCH (20:35)
[2019-10-30] MEDS ORDERED: Albumin 5% 500 ML ONE (07:47)
[2019-10-30] MEDS ORDERED: CEFAZOLIN 2 GM in Premix Bag 1 BAG IVPB SCH (08:15)
[2019-10-30] MEDS ORDERED: Fentanyl 100 MCG/2 ML VIAL ONE (08:49)
[2019-10-30] MEDS ORDERED: Midazolam HCl 2 mg/2 ml Vial ONE (08:49)
[2019-10-30] MEDS ORDERED: Dexmedetomidine 200 MCG/2 ML VIAL ONE (08:49)
[2019-10-30] MEDS ORDERED: Midazolam HCl 5 mg/5 ml Vial ONE (08:49)
[2019-10-30] MEDS ORDERED: Vecuronium 10 MG VIAL ONE ×3 (08:49→11:48)
--- NOTE | 2019-10-30 09:17 | PDOC.HOSPP ---
- Subjective Encounter Date: 10/30/19 Encounter Time: 15:00 non-verbal Subjective: Patient back from CABG, extubated but not yet waking up. BP running a bit low and nurse starting the albumin and levophed right now. - Objective Vital Signs & Weight: Vital Signs (12 hours) Temp Pulse Resp BP Pulse Ox 10/30/19 08:00 98.4 F 60 18 119/71 95 10/30/19 03:53 98.8 F 64 18 121/72 Weight Weight 283 lb 8 oz I&O: 10/29/19 10/30/19 10/31/19 06:59 06:59 06:59 Intake Total 1220 1220 Output Total 1150 1050 Balance 70 170 Result Diagrams: 10/30/19 14:35 10/30/19 14:35 Hospitalist ROS - Review of Systems ROS unobtainable: due to mental status - Medication Medications: Active Medications Generic Name Dose Route Start Last Admin Trade Name Freq PRN Reason Stop Dose Admin Allopurinol 100 mg 10/21/19 09:00 10/29/19 08:37 Zyloprim PO 100 mg DAILY BRAN Administration Aspirin 81 mg 10/21/19 09:00 10/29/19 08:37 Ecotrin PO 81 mg DAILY BRAN Administration Atorvastatin Calcium 40 mg 10/21/19 21:00 10/29/19 20:35 Lipitor PO 40 mg HS BRAN Administration Cholecalciferol 1,000 units 10/21/19 09:00 10/29/19 08:37 Vitamin D3 PO 1,000 units DAILY BRAN Administration Metoprolol Succinate 25 mg 10/21/19 09:00 10/30/19 07:29 Toprol Xl PO 25 mg DAILY BRAN Administration Ondansetron HCl 4 mg 10/22/19 04:44 10/22/19 11:14 Zofran IVP 4 mg Q6H PRN Administration Nausea/Vomiting Polyethylene Glycol 17 gm 10/21/19 09:00 10/29/19 08:44 Miralax PO Not Given DAILY BRAN Sodium Chloride 10 ml 10/22/19 21:00 10/29/19 20:40 Flush - Normal Saline IVF 10 ml Q12HR BRAN Administration Torsemide 10 mg 10/21/19 09:00 10/29/19 08:37 Demadex PO 10 mg DAILY BRAN Administration - Exam General - other findings: sleepy, in no distress ENT: moist mucosa Heart: RRR, no murmur, no gallops, no rubs Heart - other findings: sternotomy with dressing in place Respiratory: CTAB, no wheezes, no rales, no ronchi Respiratory - other findings: chest tube in place Gastrointestinal: soft, non-tender, non-distended, normal bowel sounds Neurological: no focal deficits Psychiatric: somnolent Hosp A/P (1) CAD (coronary artery disease) Code(s): I25.10 - ATHSCL HEART DISEASE OF [place] CORONARY ARTERY W/O ANG PCTRS Status: Chronic Qualifiers: Coronary Disease-Associated Artery/Lesion type: [place] artery [place] vs. transplanted heart: [place] heart (2) Liver mass Code(s): R16.0 - HEPATOMEGALY, NOT ELSEWHERE CLASSIFIED Status: Acute (3) Nausea and vomiting Code(s): R11.2 - NAUSEA WITH VOMITING, UNSPECIFIED Status: Resolved (4) Atrial fibrillation Code(s): I48.91 - UNSPECIFIED ATRIAL FIBRILLATION Status: Chronic (5) Dyslipidemia Code(s): E78.5 - HYPERLIPIDEMIA, UNSPECIFIED Status: Chronic (6) H/O cardiac pacemaker Code(s): Z95.0 - PRESENCE OF CARDIAC PACEMAKER Status: Chronic (7) Hypertension Code(s): I10 - ESSENTIAL (PRIMARY) HYPERTENSION Status: Chronic Qualifiers: Hypertension type: essential hypertension Qualified Code(s): I10 - Essential (primary) hypertension (8) DANIEL (obstructive sleep apnea) Code(s): G47.33 - OBSTRUCTIVE SLEEP APNEA (ADULT) (PEDIATRIC) Status: Chronic (9) Obesity (BMI 30-39.9) Code(s): E66.9 - OBESITY, UNSPECIFIED Status: Chronic - Plan has liver mass highly suspicious for hepatoma with elevated AFP has cad, for cabg done today has isolated mass in liver, is resectable per GI opinion, he will have outpt referral once he recovers from cabg continue asp, lipitor, full dose lovenox, toprol xl, demadex and allopurinol hemostable cardiac rehab following CABG
[2019-10-30] MEDS ORDERED: Heparin 10,000 UNITS/1 ML VIAL 30,000 UNITS in Sodium Chloride 0.9% 1,000 ML FS SCH (09:45)
[2019-10-30] MEDS ORDERED: Aminocaproic Acid 5 GM/20 ML VIAL ONE (11:48)
[2019-10-30] MEDS ORDERED: Dexamethasone 20 MG/5 ML VIAL ONE (11:48)
[2019-10-30] MEDS ORDERED: PHENYLEPHRINE-NS 100 MCG/ML 10 ML SYRINGE ONE ×3 (11:48→12:00)
[2019-10-30] MEDS ORDERED: Cardioplegic Soln 1,000 ML BAG ONE (11:48)
[2019-10-30] MEDS ORDERED: Sodium Bicarb 50 MEQ/50 ML Abboject 8.4% SYRINGE ONE (11:48)
[2019-10-30] MEDS ORDERED: Ketorolac Tromethamine 30 MG/ML VIAL ONE (11:48)
[2019-10-30] MEDS ORDERED: Calcium Chloride 1 GM/10 ML Abboject SYRINGE ONE (11:48)
[2019-10-30] MEDS ORDERED: Lidocaine 2% PF 5 ML VIAL ONE (11:48)
[2019-10-30] MEDS ORDERED: Heparin 5,000 UNITS/ML VIAL ONE (11:48)
[2019-10-30] MEDS ORDERED: Protamine Sulfate 250 MG/25 ML VIAL ONE (11:48)
[2019-10-30] MEDS ORDERED: Heparin 30,000 units/30 ml VIAL ONE (11:48)
[2019-10-30] MEDS ORDERED: Lidocaine 1% PF 5 ML VIAL ONE (11:48)
[2019-10-30] MEDS ORDERED: Potassium Chloride 60 MEQ/30 ML VIAL ONE (11:48)
[2019-10-30] MEDS ORDERED: EPHEDRINE 25 MG/5 ML SYRINGE ONE ×2 (11:48)
[2019-10-30] MEDS ORDERED: Ondansetron PF 4 MG/2 ML Vial ONE (11:48)
[2019-10-30] MEDS ORDERED: Nitroglycerin 50 MG/250 ML BOT ONE (11:48)
[2019-10-30] MEDS ORDERED: Papaverine 60 MG/2 ML VIAL ONE (11:48)
[2019-10-30] MEDS ORDERED: Magnesium Sulfate 1 GM/2 ML VIAL ONE (11:48)
[2019-10-30] MEDS ORDERED: Thrombin 5000 UNITS/5 ML VIAL ONE (11:48)
[2019-10-30] MEDS ORDERED: Glycopyrrolate 0.2 MG/ML 5 ML SYRINGE ONE (11:48)
[2019-10-30] MEDS ORDERED: hydrALAZINE 20 MG/ML VIAL SLOW IVP PRN (14:25)
[2019-10-30] MEDS ORDERED: Mag-Al 1200 mg/1200 mg/30 ML UDCUP PO PRN (14:25)
[2019-10-30] MEDS ORDERED: Nitroglycerin 50 MG/250 ML BOT 250 ML IVPB PRN (14:25)
[2019-10-30] MEDS ORDERED: Fentanyl 100 MCG/2 ML VIAL SLOW IVP PRN ×2 (14:25)
[2019-10-30] MEDS ORDERED: Potassium Chloride 20 MEQ/100 ML PREMIX BAG IVPB PRN (14:25)
[2019-10-30] MEDS ORDERED: Guaifenesin DM 100-10/5 ML UDCUP PO PRN (14:25)
[2019-10-30] MEDS ORDERED: Post-Op Insulin Drip Protocol IVPB ONE (14:25)
[2019-10-30] MEDS ORDERED: Acetaminophen 325 MG TAB PO PRN (14:25)
[2019-10-30] MEDS ORDERED: Bisacodyl 10 MG SUPP PR PRN (14:25)
[2019-10-30] MEDS ORDERED: Promethazine HCl 25 MG/ML VIAL IM PRN (14:25)
[2019-10-30] MEDS ORDERED: niCARdipine 25 MG in Sodium Chloride 0.9% 250 ML 250 ML IVPB PRN (14:25)
[2019-10-30] MEDS ORDERED: Ondansetron PF 4 MG/2 ML Vial IVP PRN (14:25)
[2019-10-30] MEDS ORDERED: DOPamine 400 MG/D5W 250 ML 250 ML IVPB PRN (14:25)
[2019-10-30] MEDS ORDERED: Norepinephrine 8 MG/0.9% NS 250 ML IVPB PRN (14:25)
[2019-10-30] MEDS ORDERED: Bisacodyl 5 MG TAB PO PRN (14:25)
[2019-10-30] MEDS ORDERED: Morphine 2 MG/ML VIAL SLOW IVP PRN (14:25)
[2019-10-30] MEDS ORDERED: Hetastarch 6% 500 ML 500 ML IVPB PRN (14:25)
[2019-10-30] MEDS ORDERED: Insulin Regular 300 UNITS/3 ML VIAL SC PRN (14:39)
[2019-10-30] MEDS ORDERED: HUMULIN R 100 UNITS in Sodium Chloride 0.9% 100 ML IVPB SCH (14:39)
[2019-10-30] MEDS ORDERED: Dextrose 5% in Water 1,000 ML IV PRN (14:39)
[2019-10-30] MEDS ORDERED: Dextrose 50% Abboject 50 ML SYRINGE SLOW IVP PRN (14:39)
[2019-10-30 14:43] LABS: #Eosinphils 0.1 thou/uL (0.0-0.7); #Lymphocytes 0.5 thou/uL (1.20-3.40); #Monocytes 0.3 thou/uL (0.11-0.59); #Neutrophils 11.4 thou/uL (1.40-6.50); %Eosinophils 0.4 % (0.0-10.0); %Lymphocytes 4.1 % (21.0-51.0); %Monocytes 2.5 % (0.0-10.0); Mean Corpuscular HGB CONC 33.8 g/dL (32.0-36.0); Mean Corpuscular Hemoglobin 33.1 pg (27.0-31.0); Mean Corpuscular Volume 97.8 fL (78.0-98.0); Mean Platelet Volume 8.7 fL (7.4-10.4); Platelet Count 136 thou/uL (130-400); RBC Distribution Width 13.9 % (11.5-14.5); Red Blood Cell (RBC) Count 4.22 mill/uL (4.70-6.10); White Blood Cell (WBC) Count 12.3 thou/uL (4.8-10.8)
[2019-10-30] MEDS ORDERED: Magnesium 2 GM/50 ML 2 GM in Premix Bag 1 BAG IVPB SCH (14:45)
--- NOTE | 2019-10-30 14:54 | RAD ---
EXAM: Single view of the chest HISTORY: Status post open heart surgery COMPARISON: 10/20/2019 FINDINGS: Single view of the chest shows an enlarged but stable cardiomediastinal silhouette. The pa tient is status post sternotomy. The pacemaker is unchanged in position. A right subclavian central venous catheter seen with its tip in the superior vena cava. A mediastinal drain is seen. Stable opac ities are seen projecting over the right lung. The bones are unremarkable IMPRESSION: Appropriate position of lines and tubes status post sternotomy
[2019-10-30] MEDS: Lactated Ringer's 1,000 ML IV SCH (15:00)
[2019-10-30 15:06] LABS: Anion Gap 13 mmol/L (10-20); BUN (Urea Nitrogen) 12 mg/dL (8.4-25.7); Calc. Creatinine Clearance 122 mL/min (70-130); Calcium 7.8 mg/dL (7.8-10.44); Carbon Dioxide 23 mmol/L (23-31); Chloride 105 mmol/L (98-107); Estimated GFR-MDRD 80; Glucose 172 mg/dL (83-110); Potassium 4.4 mmol/L (3.5-5.1); Sodium 137 mmol/L (136-145)
[2019-10-30 15:20] LABS: INR-International Normal Ratio 1.3; PTT 37.5 sec (22.9-36.1); Prothrombin Time 16.1 sec (12.0-14.7)
[2019-10-30] MEDS: Allopurinol 100 MG TAB PO SCH (15:26)
[2019-10-30] MEDS: Cholecalciferol 1,000 UNITS (25 MCG) TAB PO SCH (15:26)
[2019-10-30] MEDS: Polyethylene Glycol 3350 17 GM Packet PO SCH (15:26)
[2019-10-30] MEDS: Aspirin 81 mg Enteric Coated Tablet PO SCH (15:26)
[2019-10-30] MEDS: Torsemide 10 MG TAB PO SCH (15:26)
[2019-10-30] MEDS: CEFAZOLIN 2 GM in Premix Bag 1 BAG IVPB SCH (17:28)
[2019-10-30 20:05] LABS: Hemoglobin 14.4 g/dL (14.0-18.0)
[2019-10-30 20:24] LABS: Potassium 4.3 mmol/L (3.5-5.1)
[2019-10-30] MEDS: Atorvastatin Calcium 40 MG TAB PO SCH (20:30)
[2019-10-30] MEDS ORDERED: Famotidine/PF 20 mg/2ml Vial SLOW IVP SCH (21:00)
[2019-10-31] MEDS: CEFAZOLIN 2 GM in Premix Bag 1 BAG IVPB SCH ×2 (01:09→08:18)
[2019-10-31 03:06] LABS: #Basophils 0.1 thou/uL (0.0-0.2); #Lymphocytes 0.2 thou/uL (1.20-3.40); #Monocytes 0.4 thou/uL (0.11-0.59); #Neutrophils 8.2 thou/uL (1.40-6.50); %Basophils 1.5 % (0.0-1.0); %Eosinophils 0.2 % (0.0-10.0); %Lymphocytes 2.3 % (21.0-51.0); %Monocytes 4.7 % (0.0-10.0); %Neutrophils 91.3 % (42.0-75.0); Hemoglobin 12.9 g/dL (14.0-18.0); Mean Corpuscular HGB CONC 34.1 g/dL (32.0-36.0); Mean Corpuscular Hemoglobin 33.4 pg (27.0-31.0); Mean Corpuscular Volume 97.7 fL (78.0-98.0); Mean Platelet Volume 8.1 fL (7.4-10.4); Platelet Count 137 thou/uL (130-400); Red Blood Cell (RBC) Count 3.88 mill/uL (4.70-6.10)
[2019-10-31 04:09] LABS: Anion Gap 10 mmol/L (10-20); BUN (Urea Nitrogen) 13 mg/dL (8.4-25.7); Calc. Creatinine Clearance 124 mL/min (70-130); Calcium 8.2 mg/dL (7.8-10.44); Carbon Dioxide 25 mmol/L (23-31); Chloride 106 mmol/L (98-107); Estimated GFR-MDRD 81; Glucose 118 mg/dL (83-110); Potassium 4.4 mmol/L (3.5-5.1); Sodium 137 mmol/L (136-145)
[2019-10-31] MEDS: Lactated Ringer's 1,000 ML IV SCH (04:50)
[2019-10-31] MEDS ORDERED: Nitroglycerin 0.4 MG TAB (25 Tab Bottle) SL PRN (06:51)
[2019-10-31] MEDS ORDERED: Mineral Oil ENEMA PR PRN (06:51)
--- NOTE | 2019-10-31 07:12 | PDOC.BPN ---
- Brief Progress Note Pt appeared in no distress. He denied any pain, CP, SOB, N/V. No other complaints were stated at this point.
--- NOTE | 2019-10-31 08:05 | RAD ---
PORTABLE CHEST: HISTORY: Postop open heart surgery. COMPARISON: Prior day's study. FINDINGS: Heart size is enlarged. Postop sternotomy changes and pacemaker are present. Left subclavian line i s unchanged. Parenchymal lung changes in the right hilar and mid lung field are stable. IMPRESSION: Stable overall exam. POS: DORIS
[2019-10-31] MEDS: Famotidine 20 MG TAB PO SCH ×2 (08:17→20:16)
[2019-10-31] MEDS: Aspirin Chewable 81 MG TAB PO SCH (08:17)
[2019-10-31] MEDS: Polyethylene Glycol 3350 17 GM Packet PO SCH (08:17)
[2019-10-31] MEDS: HYDROcodone/Acetaminophen 5/325 mg Tablet PO PRN ×3 (10:45→20:16)
--- NOTE | 2019-10-31 12:13 | OP ---
DATE OF PROCEDURE: 10/30/2019 PREOPERATIVE DIAGNOSES: 1. Coronary artery disease. 2. Atrial fibrillation. 3. Hepatoma. POSTOPERATIVE DIAGNOSES: 1. Coronary artery disease. 2. Atrial fibrillation. 3. Hepatoma. PROCEDURES PERFORMED: 1. Coronary artery bypass graft x2; saphenous vein graft to a 1.25 to 1.5 mm OM, good quality; ANDUJAR to a 2.5 mm LAD. 2. Left atrial appendage ligation. RECONCILIATION ANALYST: Wai Kay MD TRANSFUSION: None. DESCRIPTION OF PROCEDURE: After adequate anesthesia had been obtained, Dr. Kay performed an open left thigh vein harvest. I performed a simultaneous sternotomy and opening the chest and then harvesting the left internal mammary artery. The patient was heparinized. Mammary divided distally and passed posterior to the thymus gland through a hole in the pericardium. Aorta and right atrium were cannulated and cardiopulmonary bypass begun. Following this, the aorta was crossclamped and a liter of cold blood cardioplegia was given. Left atrial appendage was oversewn with a double layer of 4-0 Prolene suture. The obtuse marginal was then opened near the AV groove and saphenous vein anastomosis performed here. Following completion of this, the LAD and ANDUJAR graft was completed and the cross-clamp was removed and the partial occluding clamp placed. Single anastomosis performed and marked with a ring. Following this, the patient was weaned from cardiopulmonary bypass. Cannula was removed and protamine given systemically. It should be noted that atrial cannulation proceeded without identifying the atrial lead. Aortic cannulation site was oversewn with a 4-0 Prolene suture, following which mediastinal drains x2 were placed. Sternum was then reapproximated with #7 interrupted wire as well as a zip ties x3. Subcutaneous tissue and skin were closed in layers. Job ID: [id number]
--- NOTE | 2019-10-31 13:48 | PDOC.HOSPP ---
- Subjective Encounter Date: 10/31/19 Encounter Time: 12:00 Subjective: Patient doing well overnight. Kind of tired from sitting up in the chair all morning. Otherwise without complaint. - Objective Vital Signs & Weight: Vital Signs (12 hours) Temp Pulse Pulse BP BP Pulse Ox Pulse Ox 10/31/19 12:00 97.4 F L 10/31/19 09:00 65 69 108/65 110/66 94 L 10/31/19 08:00 98.2 F 97 Weight Admit Weight 285 lb 1.6 oz Weight 291 lb 3.69 oz Most Recent Monitor Data Heart Rate from ECG 60 NIBP 153/85 NIBP BP-Mean 107 Respiration from ECG 23 SpO2 94 I&O: 10/30/19 10/31/19 11/01/19 06:59 06:59 06:59 Intake Total 1220 1784.0 870 Output Total 1050 775 275 Balance 170 1009.0 595 Result Diagrams: 10/31/19 03:00 10/31/19 03:00 Additional Labs: Accuchecks 10/30/19 10/30/19 10/30/19 21:59 21:04 20:06 POC Glucose 134 H 152 H 131 H 10/30/19 10/30/19 10/30/19 14:09 13:09 10:52 POC Glucose 161 H 133 H 133 H Hospitalist ROS - Review of Systems Constitutional: reports: other (fatigue). denies: fever, chills Respiratory: denies: cough, shortness of breath Cardiovascular: denies: chest pain, palpitations Gastrointestinal: denies: nausea, vomiting, abdominal pain - Medication Medications: Active Medications Generic Name Dose Route Start Last Admin Trade Name Freq PRN Reason Stop Dose Admin Hydrocodone Bitart/Acetaminophen 1 tab 10/30/19 14:25 10/31/19 10:45 [place] 5/325 PO 1 tab Q4H PRN Administration Moderate Pain (4-6) Aspirin 81 mg 10/31/19 09:00 10/31/19 08:17 Aspirin Chewable PO 81 mg DAILY BRAN Administration Atorvastatin Calcium 40 mg 10/21/19 21:00 10/30/19 20:30 Lipitor PO Not Given HS BRAN Famotidine 20 mg 10/31/19 09:00 10/31/19 08:17 Pepcid PO 20 mg BID BRAN Administration Polyethylene Glycol 17 gm 10/31/19 09:00 10/31/19 08:17 Miralax PO 17 gm DAILY BRAN Administration - Exam General Appearance: NAD, awake alert ENT: moist mucosa Heart: RRR, no murmur, no gallops, no rubs Respiratory: CTAB, no wheezes, no rales, no ronchi Respiratory - other findings: sternotomy dressing c/d/i, chest tube in place Gastrointestinal: soft, non-tender, non-distended, normal bowel sounds Musculoskeletal: normal tone, normal strength Psychiatric: normal affect, normal behavior, A&O x 3 Hosp A/P (1) CAD (coronary artery disease) Code(s): I25.10 - ATHSCL HEART DISEASE OF [place] CORONARY ARTERY W/O ANG PCTRS Status: Chronic Qualifiers: Coronary Disease-Associated Artery/Lesion type: [place] artery [place] vs. transplanted heart: [place] heart (2) Liver mass Code(s): R16.0 - HEPATOMEGALY, NOT ELSEWHERE CLASSIFIED Status: Acute (3) Nausea and vomiting Code(s): R11.2 - NAUSEA WITH VOMITING, UNSPECIFIED Status: Resolved (4) Atrial fibrillation Code(s): I48.91 - UNSPECIFIED ATRIAL FIBRILLATION Status: Chronic (5) Dyslipidemia Code(s): E78.5 - HYPERLIPIDEMIA, UNSPECIFIED Status: Chronic (6) H/O cardiac pacemaker Code(s): Z95.0 - PRESENCE OF CARDIAC PACEMAKER Status: Chronic (7) Hypertension Code(s): I10 - ESSENTIAL (PRIMARY) HYPERTENSION Status: Chronic Qualifiers: Hypertension type: essential hypertension Qualified Code(s): I10 - Essential (primary) hypertension (8) DANIEL (obstructive sleep apnea) Code(s): G47.33 - OBSTRUCTIVE SLEEP APNEA (ADULT) (PEDIATRIC) Status: Chronic (9) Obesity (BMI 30-39.9) Code(s): E66.9 - OBESITY, UNSPECIFIED Status: Chronic - Plan has liver mass highly suspicious for hepatoma with elevated AFP has cad, for cabg done 10/30/2019 has isolated mass in liver, is resectable per GI opinion, he will have outpt referral once he recovers from cabg [facility] following CABG
--- NOTE | 2019-10-31 17:49 | PRG ---
DATE OF SERVICE: 10/31/2019 SUBJECTIVE: Mr. Lin is doing well. No anginal chest pain. He is not short of breath. OBJECTIVE: VITAL SIGNS: Blood pressure 115/65. Pulse in the 60s, it is atrial fibrillation with ventricular pacing. LUNGS: Clear. CARDIAC: Normal S1, normal S2. ABDOMEN: Soft and nontender. EXTREMITIES: There is mild edema. ASSESSMENT: 1. Status post bypass surgery. 2. Atrial fibrillation. 3. Status post over-sewing of the left atrial appendage. PLAN: 1. Continue current medical regimen. 2. We will start low-dose Lovenox when feasible from a postoperative standpoint. 3. Increase ambulation. Job ID: [id number]
[2019-10-31] MEDS: Atorvastatin Calcium 40 MG TAB PO SCH (20:16)
--- NOTE | 2019-11-01 08:16 | PDOC.HOSPP ---
- Subjective Encounter Date: 11/01/19 Encounter Time: 10:40 Subjective: Patient states he isn't feeling that great. Mild cough. Mostly just fatigued. No chest pain. No appetite. - Objective Vital Signs & Weight: Vital Signs (12 hours) Temp Pulse Resp BP Pulse Ox 11/01/19 07:20 92 L 11/01/19 07:15 97.8 F 63 18 141/71 H 92 L 11/01/19 04:00 98.4 F 60 18 154/67 H 90 L Weight Admit Weight 285 lb 1.6 oz Weight 295 lb 4.8 oz Most Recent Monitor Data Heart Rate from ECG 60 NIBP 153/85 NIBP BP-Mean 107 Respiration from ECG 23 SpO2 94 I&O: 10/31/19 11/01/19 11/02/19 06:59 06:59 06:59 Intake Total 1784.0 1690 Output Total 775 1030 Balance 1009.0 660 Result Diagrams: 10/31/19 03:00 10/31/19 03:00 Additional Labs: Accuchecks 10/31/19 10/31/19 10/31/19 06:26 05:24 04:40 POC Glucose 118 H 120 H 108 10/31/19 10/31/19 10/31/19 02:59 02:00 00:57 POC Glucose 108 120 H 123 H 10/30/19 10/30/19 10/30/19 23:58 23:04 19:22 POC Glucose 119 H 120 H 142 H 10/30/19 10/30/19 10/30/19 18:27 17:39 16:32 POC Glucose 146 H 160 H 137 H 10/30/19 14:42 POC Glucose 164 H Hospitalist ROS - Review of Systems Constitutional: denies: fever, chills Respiratory: reports: cough. denies: shortness of breath Cardiovascular: denies: chest pain, palpitations, orthopnea Gastrointestinal: denies: nausea, vomiting, abdominal pain - Medication Medications: Active Medications Generic Name Dose Route Start Last Admin Trade Name Freq PRN Reason Stop Dose Admin Hydrocodone Bitart/Acetaminophen 1 tab 10/30/19 14:25 10/31/19 20:16 [place] 5/325 PO 1 tab Q4H PRN Administration Moderate Pain (4-6) Aspirin 81 mg 10/31/19 09:00 10/31/19 08:17 Aspirin Chewable PO 81 mg DAILY BRAN Administration Atorvastatin Calcium 40 mg 10/21/19 21:00 10/31/19 20:16 Lipitor PO 40 mg HS BRAN Administration Famotidine 20 mg 10/31/19 09:00 10/31/19 20:16 Pepcid PO 20 mg BID BRAN Administration Polyethylene Glycol 17 gm 10/31/19 09:00 10/31/19 08:17 Miralax PO 17 gm DAILY BRAN Administration - Exam General Appearance: NAD, awake alert ENT: moist mucosa Heart: RRR, no murmur, no gallops, no rubs Respiratory: CTAB, no wheezes, no rales, no ronchi Respiratory - other findings: sternotomy incision with dressing c/d/i Gastrointestinal: soft, non-tender, non-distended, normal bowel sounds Psychiatric: normal affect, normal behavior, A&O x 3 Hosp A/P (1) CAD (coronary artery disease) Code(s): I25.10 - ATHSCL HEART DISEASE OF [place] CORONARY ARTERY W/O ANG PCTRS Status: Chronic Qualifiers: Coronary Disease-Associated Artery/Lesion type: [place] artery [place] vs. transplanted heart: [place] heart (2) Liver mass Code(s): R16.0 - HEPATOMEGALY, NOT ELSEWHERE CLASSIFIED Status: Acute (3) Nausea and vomiting Code(s): R11.2 - NAUSEA WITH VOMITING, UNSPECIFIED Status: Resolved (4) Atrial fibrillation Code(s): I48.91 - UNSPECIFIED ATRIAL FIBRILLATION Status: Chronic (5) Dyslipidemia Code(s): E78.5 - HYPERLIPIDEMIA, UNSPECIFIED Status: Chronic (6) H/O cardiac pacemaker Code(s): Z95.0 - PRESENCE OF CARDIAC PACEMAKER Status: Chronic (7) Hypertension Code(s): I10 - ESSENTIAL (PRIMARY) HYPERTENSION Status: Chronic Qualifiers: Hypertension type: essential hypertension Qualified Code(s): I10 - Essential (primary) hypertension (8) DANIEL (obstructive sleep apnea) Code(s): G47.33 - OBSTRUCTIVE SLEEP APNEA (ADULT) (PEDIATRIC) Status: Chronic (9) Obesity (BMI 30-39.9) Code(s): E66.9 - OBESITY, UNSPECIFIED Status: Chronic - Plan has liver mass highly suspicious for hepatoma with elevated AFP has cad, for cabg done 10/30/2019 has isolated mass in liver, is resectable per GI opinion, he will have outpt referral once he recovers from cabg [facility] following CABG
[2019-11-01] MEDS ORDERED: Furosemide 40 MG TAB PO SCH (09:00)
--- NOTE | 2019-11-01 09:27 | PRG ---
DATE OF SERVICE: 11/01/2019 SUBJECTIVE: Mr. Lin feels more sore today, more fatigued. OBJECTIVE: VITAL SIGNS: His blood pressure 140/70 and pulse 60. LUNGS: Clear. CARDIAC: Normal S1, normal S2. ABDOMEN: Obese, nontender. EXTREMITIES: There is [id number] edema. LABORATORY DATA: Hemoglobin is 12.9. ASSESSMENT: 1. Status post bypass surgery. 2. Atrial fibrillation, chronic. 3. Previous pacemaker insertion. PLAN: 1. Try to increase ambulation today. 2. He is on low-dose Lovenox. Job ID: [id number]
[2019-11-01] MEDS: Famotidine 20 MG TAB PO SCH ×2 (09:48→20:24)
[2019-11-01] MEDS: Potassium Chloride 10 MEQ TAB PO SCH (09:48)
[2019-11-01] MEDS: Aspirin Chewable 81 MG TAB PO SCH (09:48)
[2019-11-01] MEDS: Enoxaparin Sodium 40 MG/0.4 ML SYRINGE SC SCH (09:49)
[2019-11-01] MEDS: Polyethylene Glycol 3350 17 GM Packet PO SCH (11:25)
[2019-11-01] MEDS: Rosuvastatin 20 MG TAB PO SCH (20:24)
[2019-11-02] MEDS ORDERED: Furosemide 40 MG/4 ML VIAL SLOW IVP SCH (06:30)
--- NOTE | 2019-11-02 07:43 | PDOC.HOSPP ---
- Subjective Encounter Date: 11/02/19 Encounter Time: 09:50 Subjective: Patient weak, moving a bit more with PT and strength mildly improved from yesterday. No other complaints. - Objective Vital Signs & Weight: Vital Signs (12 hours) Temp Pulse Resp BP Pulse Ox 11/02/19 03:18 98.3 F 66 22 H 127/64 93 L 11/01/19 23:52 99.2 F Weight Admit Weight 285 lb 1.6 oz Weight 291 lb 4.8 oz Most Recent Monitor Data Heart Rate from ECG 60 NIBP 153/85 NIBP BP-Mean 107 Respiration from ECG 23 SpO2 94 I&O: 11/01/19 11/02/19 11/03/19 06:59 06:59 06:59 Intake Total 1690 1070 Output Total 1030 1095 Balance 660 -25 Result Diagrams: 10/31/19 03:00 10/31/19 03:00 Hospitalist ROS - Review of Systems Constitutional: denies: fever, chills Respiratory: denies: cough, shortness of breath Cardiovascular: denies: chest pain, palpitations Gastrointestinal: denies: nausea, vomiting, abdominal pain Neurological: reports: weakness - Medication Medications: Active Medications Generic Name Dose Route Start Last Admin Trade Name Freq PRN Reason Stop Dose Admin Hydrocodone Bitart/Acetaminophen 1 tab 10/30/19 14:25 10/31/19 20:16 [place] 5/325 PO 1 tab Q4H PRN Administration Moderate Pain (4-6) Aspirin 81 mg 10/31/19 09:00 11/01/19 09:48 Aspirin Chewable PO 81 mg DAILY BRAN Administration Enoxaparin Sodium 40 mg 11/01/19 09:00 11/01/19 09:49 Lovenox SC 40 mg 0900 BRAN Administration Famotidine 20 mg 10/31/19 09:00 11/01/19 20:24 Pepcid PO 20 mg BID BRAN Administration Furosemide 40 mg 11/02/19 06:30 11/02/19 07:28 Lasix SLOW IVP 11/02/19 08:30 40 mg NOW BRAN Administration Polyethylene Glycol 17 gm 10/31/19 09:00 11/01/19 11:25 Miralax PO 17 gm DAILY BRAN Administration Potassium Chloride 10 meq 11/01/19 08:00 11/01/19 09:48 Klor-Con 10 PO 10 meq QAM-WM BRAN Administration Rosuvastatin Calcium 20 mg 11/01/19 21:00 11/01/19 20:24 Crestor PO 20 mg HS BRAN Administration Sodium Chloride 10 ml 11/01/19 09:00 11/01/19 20:24 Flush - Normal Saline IVF 10 ml Q12HR BRAN Administration - Exam General Appearance: NAD, awake alert ENT: moist mucosa Heart: RRR, no murmur, no gallops, no rubs Respiratory: CTAB, no wheezes, no rales, no ronchi Respiratory - other findings: sternotomy incision with dressing c/d/i Gastrointestinal: soft, non-tender, non-distended, normal bowel sounds Psychiatric: normal affect, normal behavior, A&O x 3 Hosp A/P (1) CAD (coronary artery disease) Code(s): I25.10 - ATHSCL HEART DISEASE OF [place] CORONARY ARTERY W/O ANG PCTRS Status: Chronic Qualifiers: Coronary Disease-Associated Artery/Lesion type: [place] artery [place] vs. transplanted heart: [place] heart (2) Liver mass Code(s): R16.0 - HEPATOMEGALY, NOT ELSEWHERE CLASSIFIED Status: Acute (3) Nausea and vomiting Code(s): R11.2 - NAUSEA WITH VOMITING, UNSPECIFIED Status: Resolved (4) Atrial fibrillation Code(s): I48.91 - UNSPECIFIED ATRIAL FIBRILLATION Status: Chronic (5) Dyslipidemia Code(s): E78.5 - HYPERLIPIDEMIA, UNSPECIFIED Status: Chronic (6) H/O cardiac pacemaker Code(s): Z95.0 - PRESENCE OF CARDIAC PACEMAKER Status: Chronic (7) Hypertension Code(s): I10 - ESSENTIAL (PRIMARY) HYPERTENSION Status: Chronic Qualifiers: Hypertension type: essential hypertension Qualified Code(s): I10 - Essential (primary) hypertension (8) DANIEL (obstructive sleep apnea) Code(s): G47.33 - OBSTRUCTIVE SLEEP APNEA (ADULT) (PEDIATRIC) Status: Chronic (9) Obesity (BMI 30-39.9) Code(s): E66.9 - OBESITY, UNSPECIFIED Status: Chronic - Plan has liver mass highly suspicious for hepatoma with elevated AFP has cad, for cabg done 10/30/2019 has isolated mass in liver, is resectable per GI opinion, he will have outpt referral once he recovers from cabg [facility] following CABG, will need inpatient rehab placement
[2019-11-02] MEDS: Polyethylene Glycol 3350 17 GM Packet PO SCH (09:07)
[2019-11-02] MEDS: Famotidine 20 MG TAB PO SCH ×2 (09:08→20:39)
[2019-11-02] MEDS: Potassium Chloride 10 MEQ TAB PO SCH (09:08)
[2019-11-02] MEDS: Aspirin Chewable 81 MG TAB PO SCH (09:08)
[2019-11-02] MEDS: Enoxaparin Sodium 40 MG/0.4 ML SYRINGE SC SCH (09:08)
[2019-11-02] MEDS: Furosemide 40 MG TAB PO SCH ×2 (09:08→15:45)
[2019-11-02 13:33] VITALS: BMI 39.4
[2019-11-02] MEDS: Rosuvastatin 20 MG TAB PO SCH (20:39)
[2019-11-03 04:31] LABS: #Eosinphils 0.1 thou/uL (0.0-0.7); #Lymphocytes 0.5 thou/uL (1.20-3.40); #Monocytes 0.6 thou/uL (0.11-0.59); %Basophils 0.3 % (0.0-1.0); %Eosinophils 1.8 % (0.0-10.0); %Lymphocytes 7.3 % (21.0-51.0); %Monocytes 7.9 % (0.0-10.0); %Neutrophils 82.7 % (42.0-75.0); Hemoglobin 12.7 g/dL (14.0-18.0); Mean Corpuscular Hemoglobin 32.9 pg (27.0-31.0); Mean Corpuscular Volume 99.7 fL (78.0-98.0); Mean Platelet Volume 8.7 fL (7.4-10.4); Platelet Count 167 thou/uL (130-400); Red Blood Cell (RBC) Count 3.85 mill/uL (4.70-6.10); White Blood Cell (WBC) Count 7.2 thou/uL (4.8-10.8)
[2019-11-03 04:50] LABS: Anion Gap 13 mmol/L (10-20); BUN (Urea Nitrogen) 14 mg/dL (8.4-25.7); Calc. Creatinine Clearance 105 mL/min (70-130); Calcium 8.4 mg/dL (7.8-10.44); Carbon Dioxide 25 mmol/L (23-31); Chloride 99 mmol/L (98-107); Estimated GFR-MDRD 65; Glucose 130 mg/dL (83-110); Potassium 4.1 mmol/L (3.5-5.1); Sodium 133 mmol/L (136-145)
--- NOTE | 2019-11-03 07:19 | PDOC.HOSPP ---
- Subjective Encounter Date: 11/03/19 Encounter Time: 09:30 Subjective: Patient without complaints. Per nursing patient is not making effort with rehab and is now urinary incontinent. Concern for possible depression. - Objective Vital Signs & Weight: Vital Signs (12 hours) Temp Pulse Resp BP BP Pulse Ox 11/03/19 04:00 99.3 F 64 18 136/70 95 11/02/19 19:30 98.7 F 61 20 134/74 95 Weight Admit Weight 285 lb 1.6 oz Weight 291 lb 4.8 oz Most Recent Monitor Data Heart Rate from ECG 60 NIBP 153/85 NIBP BP-Mean 107 Respiration from ECG 23 SpO2 94 I&O: 11/02/19 11/03/19 11/04/19 06:59 06:59 06:59 Intake Total 1070 960 Output Total 1095 750 Balance -25 210 Result Diagrams: 11/03/19 03:49 11/03/19 03:49 Hospitalist ROS - Review of Systems Constitutional: denies: fever, chills Respiratory: denies: cough, shortness of breath Cardiovascular: denies: chest pain, palpitations Gastrointestinal: denies: nausea, vomiting, abdominal pain - Medication Medications: Active Medications Generic Name Dose Route Start Last Admin Trade Name Freq PRN Reason Stop Dose Admin Hydrocodone Bitart/Acetaminophen 1 tab 10/30/19 14:25 10/31/19 20:16 [place] 5/325 PO 1 tab Q4H PRN Administration Moderate Pain (4-6) Aspirin 81 mg 10/31/19 09:00 11/02/19 09:08 Aspirin Chewable PO 81 mg DAILY BRAN Administration Enoxaparin Sodium 40 mg 11/01/19 09:00 11/02/19 09:08 Lovenox SC 40 mg 0900 BRAN Administration Famotidine 20 mg 10/31/19 09:00 11/02/19 20:39 Pepcid PO 20 mg BID BRAN Administration Furosemide 40 mg 11/02/19 09:00 11/02/19 15:45 Lasix PO 40 mg 0900,1400 BRAN Administration Polyethylene Glycol 17 gm 10/31/19 09:00 11/02/19 09:07 Miralax PO Not Given DAILY BRAN Potassium Chloride 10 meq 11/01/19 08:00 11/02/19 09:08 Klor-Con 10 PO 10 meq QAM-WM BRAN Administration Rosuvastatin Calcium 20 mg 11/01/19 21:00 11/02/19 20:39 Crestor PO 20 mg HS BRAN Administration Sodium Chloride 10 ml 11/01/19 09:00 11/02/19 20:39 Flush - Normal Saline IVF 10 ml Q12HR BRAN Administration - Exam General Appearance: NAD, awake alert ENT: moist mucosa Heart: RRR, no murmur, no gallops, no rubs Respiratory: CTAB, no wheezes, no rales, no ronchi Respiratory - other findings: sternotomy wound well approximated, healing well Gastrointestinal: soft, non-tender, non-distended, normal bowel sounds Psychiatric: normal behavior, A&O x 3 Psychiatric - other findings: depressed affect Hosp A/P (1) CAD (coronary artery disease) Code(s): I25.10 - ATHSCL HEART DISEASE OF [place] CORONARY ARTERY W/O ANG PCTRS Status: Chronic Qualifiers: Coronary Disease-Associated Artery/Lesion type: [place] artery [place] vs. transplanted heart: [place] heart (2) Liver mass Code(s): R16.0 - HEPATOMEGALY, NOT ELSEWHERE CLASSIFIED Status: Acute (3) Nausea and vomiting Code(s): R11.2 - NAUSEA WITH VOMITING, UNSPECIFIED Status: Resolved (4) Atrial fibrillation Code(s): I48.91 - UNSPECIFIED ATRIAL FIBRILLATION Status: Chronic (5) Dyslipidemia Code(s): E78.5 - HYPERLIPIDEMIA, UNSPECIFIED Status: Chronic (6) H/O cardiac pacemaker Code(s): Z95.0 - PRESENCE OF CARDIAC PACEMAKER Status: Chronic (7) Hypertension Code(s): I10 - ESSENTIAL (PRIMARY) HYPERTENSION Status: Chronic Qualifiers: Hypertension type: essential hypertension Qualified Code(s): I10 - Essential (primary) hypertension (8) DANIEL (obstructive sleep apnea) Code(s): G47.33 - OBSTRUCTIVE SLEEP APNEA (ADULT) (PEDIATRIC) Status: Chronic (9) Obesity (BMI 30-39.9) Code(s): E66.9 - OBESITY, UNSPECIFIED Status: Chronic - Plan has liver mass highly suspicious for hepatoma with elevated AFP has cad, for cabg done 10/30/2019 has isolated mass in liver, is resectable per GI opinion, he will have outpt referral once he recovers from cabg [facility] following CABG, will need inpatient rehab placement, awaiting rehab and insurance approval Patient needs to participate more in PT if he is to recover
[2019-11-03] MEDS: Enoxaparin Sodium 40 MG/0.4 ML SYRINGE SC SCH (08:24)
[2019-11-03] MEDS: Famotidine 20 MG TAB PO SCH (08:25)
[2019-11-03] MEDS: Aspirin Chewable 81 MG TAB PO SCH (08:25)
[2019-11-03] MEDS: Furosemide 40 MG TAB PO SCH ×2 (08:25→14:46)
[2019-11-03] MEDS: Potassium Chloride 10 MEQ TAB PO SCH (08:25)
[2019-11-03] MEDS: Polyethylene Glycol 3350 17 GM Packet PO SCH (08:30)
[2019-11-03 15:05] VITALS: TEMP 97.9
--- NOTE | 2019-11-03 16:28 | PRG ---
DATE OF SERVICE: 11/03/2019 SUBJECTIVE: Mr. Lin is getting up and around slowly. He is still slow to rehab. He did sit up in a chair quite a bit. No angina. No shortness of breath. OBJECTIVE: VITAL SIGNS: Blood pressure 154/76, pulse 60. LUNGS: Clear. CARDIAC: Normal S1, normal S2. ABDOMEN: Obese, nontender. EXTREMITIES: Mild edema. ASSESSMENT: 1. Status post bypass surgery. 2. Normal left ventricular function. 3. Chronic atrial fibrillation. 4. Left atrial appendage oversewing. PLAN: 1. Resume NIHARIKA inhibitors. 2. No reason for beta-blockers with normal left ventricular function. 3. We will increase Lovenox to twice a day with recent left atrial appendage ligation. I do not wish to fully anticoagulate him, I think the bleeding risk would be high. Job ID: [id number]
[2019-11-03 20:24] VITALS: BP 122/68
[2019-11-03] MEDS ORDERED: Enoxaparin Sodium 40 MG/0.4 ML SYRINGE SC SCH (21:00)
[2019-11-04] MEDS ORDERED: Lisinopril 5 MG TAB PO SCH ×2 (09:00)
--- NOTE | 2019-11-06 11:07 | DIS ---
DATE OF ADMISSION: 10/22/2019 DATE OF DISCHARGE: 11/03/2019 PRIMARY CARE PHYSICIAN: Dr. Jen Walters. REASON FOR ADMISSION: Chest pain and near syncope. DIAGNOSES AT DISCHARGE: 1. Coronary artery disease, status post coronary artery bypass grafting. 2. Liver mass. 3. Atrial fibrillation. 4. Dyslipidemia. 5. Hypertension. 6. Obstructive sleep apnea. 7. Obesity. PROCEDURES: 1. CT of the abdomen and pelvis with contrast showing a heterogenously enhancing lobulated mass in anterior left hepatic lobe, not seen on prior studies. Dense atherosclerotic vascular calcifications with a small foci, infrarenal abdominal aortic aneurysm, colonic diverticulosis, and a wedge-shaped compression fracture of T12, slightly worse than on previous exam. 2. Echocardiogram showing ejection fraction of 30% to 35%, technically difficult exam. 3. Acute abdominal series showing an air and fluid-filled stomach without any evidence of small bowel obstruction. 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 4. Abdominal ultrasound showing a poor exam due to bowel gas, but no gallstones visualized and a normal-size common bile duct. 5. Repeat CT of the abdomen with and without contrast showing a mass of the hepatic segment 4A having imaging characteristics consistent with hepatocellular carcinoma along with a background nodular appearance to the liver. 6. Coronary artery bypass grafting x2 with saphenous vein graft to OM and ANDUJAR to the LAD and left atrial appendage ligation. 7. Cardiac catheterization showing a critical lesion of the LAD. CONSULTATIONS: 1. Cardiology, Dr. Oliveira. 2. Gastroenterology, Dr. Payton. 3. CT surgery, Dr. Mcgrath. SUMMARY OF HOSPITAL COURSE: This is a 78-year-old white male with a history of obesity, hypertension, coronary artery disease, hyperlipidemia, CHF and cirrhosis of the liver who has had a pacemaker placed before, who was supposed to get a cardiac catheterization, came into the emergency room with near syncope along with epigastric pain while he was having a bowel movement and diaphoresis. He was seen in the emergency room, evaluated and placed in the hospital. He did have some nausea and vomiting and because of the abdominal pain, he had imaging done of his stomach, this did find a suspicious lesion in the liver, likely hepatocellular carcinoma given his cirrhosis history. The patient did have some significant nausea and vomiting in the hospital and had to have an NG tube placed at one point and had GI consult. This resolved and the NG tube was able to be removed. After cardiac catheterization, Dr. Mcgrath was consulted and a CABG was done. The patient has been doing poorly with physical therapy after the CABG. He has not been eating much and had very little energy and not been working really well with physical therapy, but he has been moving around a little bit more and he has been accepted to inpatient rehab and is being discharged there today. DISCHARGE MANAGEMENT: Discharged to inpatient rehab at [facility]. ACTIVITY: As tolerated. DIET: Healthy heart diet. THERAPY: Occupational and physical therapy. FOLLOW UP: With cardiac rehab after inpatient rehab with Dr. Rm at rehab, with Dr. Payton after rehab for referral to sales and marketing specialist in [place] and with Dr. Escobar as indicated. DISCHARGE MEDICATIONS: 1. Acetaminophen as needed for pain or fever. 2. Maalox as needed for acid reflux. 3. Aspirin 81 mg daily. 4. Dulcolax oral or suppository as needed for constipation. 5. Famotidine 20 mg twice a day. 6. Furosemide 40 mg twice a day. 7. Robitussin as needed for cough. 8. Hydrocodone as needed for pain. 9. DuoNeb as needed for cough and wheezing, shortness of breath. 10. Lisinopril 10 mg daily. 11. Fleet mineral oil enema as needed. 12. Nitroglycerin as needed. 13. Zofran as needed. 14. MiraLAX 17 g p.o. daily. 15. Potassium chloride 10 mEq daily. 16. Rosuvastatin 20 mg daily. 17. Eliquis 5 mg twice a day. Arranging the details of this discharge took 35 minutes. Job ID: [id number]
== END 2019-11-03 19:30 | DRG 234 ==
LOC: ERS 10:00 → 2NO 14:52 → OBSVTOIN 10-22 13:13 → CCU 10-30 10:34 → 2NO 10-31 14:27
PROVIDERS: ADMIT Internal Medicine; ATTEND Internal Medicine
PROC: 4A023N7 Measurement of Cardiac Sampling and Pressure, Left Heart, Percutaneous Approach (ICD-10-PCS; 2019-10-24)
PROC: 021009W Bypass Coronary Artery, One Artery from Aorta with Autologous Venous Tissue, Open Approach (ICD-10-PCS; principal; 2019-10-30)
PROC: 02100Z9 Bypass Coronary Artery, One Artery from Left Internal Mammary, Open Approach (ICD-10-PCS; 2019-10-30)
PROC: 06BQ0ZZ Excision of Left Saphenous Vein, Open Approach (ICD-10-PCS; 2019-10-30)
PROC: 5A1221Z Performance of Cardiac Output, Continuous (ICD-10-PCS; 2019-10-30)
PROC: 02L70ZK Occlusion of Left Atrial Appendage, Open Approach (ICD-10-PCS; 2019-10-30)
DX: I25.10 Atherosclerotic heart disease of native coronary artery without angina pectoris (principal); I48.20 Chronic atrial fibrillation, unspecified; C22.0 Liver cell carcinoma; I10 Essential (primary) hypertension; E78.5 Hyperlipidemia, unspecified; E66.9 Obesity, unspecified; Z96.653 Presence of artificial knee joint, bilateral; I73.9 Peripheral vascular disease, unspecified; M19.90 Unspecified osteoarthritis, unspecified site; R94.39 Abnormal result of other cardiovascular function study; R60.0 Localized edema; K31.89 Other diseases of stomach and duodenum; R53.81 Other malaise; K63.5 Polyp of colon; R11.14 Bilious vomiting; G47.33 Obstructive sleep apnea (adult) (pediatric); Z95.0 Presence of cardiac pacemaker; Z79.01 Long term (current) use of anticoagulants; Z79.899 Other long term (current) drug therapy; Z68.39 Body mass index [BMI] 39.0-39.9, adult; Z87.891 Personal history of nicotine dependence
CPT/HCPCS: 36415; 36416; 36430; 71045; 74018; 74022; 74170; 74177; 74250; 76705; 80048; 80053; 80076; 81003; 82105; 82553; 82565; 82805; 83036; 83605; 83690; 83735; 84484; 85014; 85018; 85025; 85049; 85610; 85730; 86850; 86900; 86901; 93005; 93010; 93306; 93458; 96372; 96375; 96376; 97139; C9113; G0378; J0690; J1100; J1642; J1644; J1650; J1815; J1885; J1940; J2250; J2405; J2440; J2720; J2765; J3010; J3370; J3475; J3480; J3490; P9045; Q9963; Q9967; S0017; S0028

== ENCOUNTER 2019-12-10 17:03 | Inpatient (IN) | payer MEDICARE, BC, OTHER ==
[~2019-12-10 17:03] MED LIST: Heparin 1,000 UNITS/ML VIAL ONE; Iopamidol-370 76% 500 ML 1 ML ONE
[2019-12-10 17:43] LABS: #Lymphocytes 0.7 thou/uL (1.20-3.40); #Monocytes 0.4 thou/uL (0.11-0.59); #Neutrophils 6.8 thou/uL (1.40-6.50); %Eosinophils 0.2 % (0.0-10.0); %Lymphocytes 8.9 % (21.0-51.0); %Monocytes 4.7 % (0.0-10.0); %Neutrophils 86.2 % (42.0-75.0); Mean Corpuscular Hemoglobin 33.5 pg (27.0-31.0); Mean Platelet Volume 8.3 fL (7.4-10.4); Platelet Count 160 thou/uL (130-400); RBC Distribution Width 14.6 % (11.5-14.5); Red Blood Cell (RBC) Count 4.47 mill/uL (4.70-6.10); White Blood Cell (WBC) Count 7.8 thou/uL (4.8-10.8)
[2019-12-10] MEDS ORDERED: Acetaminophen 500 MG TAB ONE (17:45)
[2019-12-10] MEDS ORDERED: Azithromycin 500 MG VIAL ONE (17:45)
[2019-12-10 18:06] LABS: ALT (SGPT) 11 U/L (8-55); AST (SGOT) 14 U/L (5-34); Albumin 3.4 g/dL (3.4-4.8); Alkaline Phosphatase 116 U/L (40-110); Anion Gap 17 mmol/L (10-20); BUN (Urea Nitrogen) 13 mg/dL (8.4-25.7); Bilirubin, Total 1.4 mg/dL (0.2-1.2); Calc. Creatinine Clearance 0 mL/min (70-130); Calcium 8.5 mg/dL (7.8-10.44); Carbon Dioxide 21 mmol/L (23-31); Chloride 104 mmol/L (98-107); Estimated GFR-MDRD 65; Globulin 3.4 g/dL (2.4-3.5); Glucose 170 mg/dL (83-110); Potassium 3.9 mmol/L (3.5-5.1); Protein, Total 6.8 g/dL (5.8-8.1); Sodium 138 mmol/L (136-145)
--- NOTE | 2019-12-10 18:46 | RAD ---
PORTABLE CHEST: Date: 12-10-2019 PROVIDED CLINICAL HISTORY: Fever FINDINGS: Comparison 11-15-2019. Evaluate is limited by patient body habitus. The cardiac silhouette appears markedly enlarged. The left lung bases is obscured such that left basi lar pleural and/or parenchymal opacity could not be excluded. Median sternotomy changes and left subc lavian cardiac pacing device are re-demonstrated, as is atherosclerosis. Mass-like right perihilar de nsity and patchy surrounding consolidation appears similar to prior. IMPRESSION: 1. Left basilar pleural and/or parenchymal opacity. 2. Some of the right hemithoracic density present is stable as compared to prior, and has been shown to be stable from multiple prior examinations. However, there is a component of airspace disease at t he right lung base that is felt to be acute and could reflect pneumonia. POS: SIMA
--- NOTE | 2019-12-10 19:13 | CT ---
CT ANGIOGRAM OF THE CHEST: History: Shortness of breath. Recent surgery. Comparison: None Technique: CT angiogram of the chest was performed in the axial plane. 3D reformatted images are subm itted for interpretation. FINDINGS: Mediastinum: Non-enlarged mediastinal lymph nodes. No masses or lymphadenopathy. Heart: Upper normal cardiac silhouette. There are coronary artery calcifications. There is a small am ount of pericardial fluid. Aorta: Elongation of the descending thoracic aorta. No aneurysm, dissection, or periaortic fat strand ing. Subdiaphragmatic structures: Hepatomegaly. No acute abnormality. Trachea and central bronchi: Patent. Small bilateral effusions. Ground glass opacities in the left lower lobe with more focal consolidatio n likely represents passive atelectasis secondary to adjacent pleural fluid. Aspiration and/or pneumo dalila cannot be entirely excluded given the presence of ground glass opacities. There is increased density in the posterior right mediastinum which may represent change from previou s attempted intervention for what appears to be an arterial venous malformation in the right upper lo be. Arterial venous malformation appears to be patient. Malformation appears to be supplied by the [facility] upper lobe and middle lobe arterial system. Venous drainage is via the two superior right pulmona ry veins. Adequate contrast opacification of the pulmonary arterial system at the level of the lobar arteries. No filling defect to suggest thromboembolism. Limited evaluation of the segmental and subsegmental ar teries. No lytic or blastic lesions in the osseous structures. Remote compression fracture in the distal thor acic spine is incompletely evaluated. IMPRESSION: 1. Bilateral pleural effusions. Lung parenchymal change in the left lower lobe may represent atelecta sis. Aspiration and/or pneumonia cannot be excluded. 2. 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 3. No evidence of pulmonary artery embolism to the level of the lobar arteries. POS: PPP
[2019-12-10] MEDS ORDERED: Vancomycin 1 GM/200 ML BAG ONE (19:41)
--- NOTE | 2019-12-10 19:44 | PDOC.HHP ---
Hospitalist HPI - History of Present Illness sob History of Present Illness: Case of an 79y/o male with pmhx of hypercholesterolemia, hyperlipidemia, cirrohisis, hepatocellular carcinoma and cad s/p cabg on october in which he stayed hospitalize for 3 weeks, who comes to hospital due to sob. patient refers he was rehab and for the last couple of days has been having worsening sob. Patient denies any associated chest pain or cough, patient also denies any fever but was febrile at 101 at initial evaluation. No contacts with COVID exposures. Hospitalist ROS - Review of Systems All other systems reviewed; all pertinent +/- noted in HPI/Subj Hospitalist History - Family History Family History: reports: hypertension - Social History Smoking Status: Former smoker Alcohol: reports: None Drugs: reports: none - Exam General Appearance: NAD, awake alert Eye: PERRL, anicteric sclera ENT: normocephalic atraumatic, no oropharyngeal lesions Neck: supple, symmetric, no JVD Heart: RRR, no murmur, no gallops Respiratory: CTAB, no wheezes, no rales Gastrointestinal: soft, non-tender, non-distended Extremities: no cyanosis, no clubbing, no edema Skin: normal turgor, no lesions, no rashes Neurological: cranial nerve grossly intact, normal sensation to touch Musculoskeletal: normal tone, normal strength, no muscle wasting Psychiatric: normal affect, normal behavior, A&O x 3 Hospitalist Results - Labs Result Diagrams: 12/10/19 17:17 12/10/19 17:17 Lab results: WBC 7.8 thou/uL (4.8-10.8) 12/10/19 17:17 Hgb 15.0 g/dL (14.0-18.0) 12/10/19 17:17 Hct 45.4 % (42.0-52.0) 12/10/19 17:17 MCV 101.0 fL (78.0-98.0) H 12/10/19 17:17 Plt Count 160 thou/uL (130-400) 12/10/19 17:17 Neutrophils % 86.2 % (42.0-75.0) H 12/10/19 17:17 Sodium 138 mmol/L (136-145) 12/10/19 17:17 Potassium 3.9 mmol/L (3.5-5.1) 12/10/19 17:17 Chloride 104 mmol/L (98-107) 12/10/19 17:17 Carbon Dioxide 21 mmol/L (23-31) L 12/10/19 17:17 BUN 13 mg/dL (8.4-25.7) 12/10/19 17:17 Creatinine 1.10 mg/dL (0.7-1.3) 12/10/19 17:17 Glucose 170 mg/dL (83-110) H 12/10/19 17:17 Lactic Acid 2.7 mmol/L (0.5-2.2) H 12/10/19 17:33 Calcium 8.5 mg/dL (7.8-10.44) 12/10/19 17:17 Total Bilirubin 1.4 mg/dL (0.2-1.2) H 12/10/19 17:17 AST 14 U/L (5-34) 12/10/19 17:17 ALT 11 U/L (8-55) 12/10/19 17:17 Alkaline Phosphatase 116 U/L (40-110) H 12/10/19 17:17 CK-MB (CK-2) 1.0 ng/mL (0-6.6) 12/10/19 17:17 Troponin I 0.035 ng/mL (< 0.028) H 12/10/19 17:17 B-Natriuretic Peptide 230.6 pg/mL (0-100) H 12/10/19 17:17 Serum Total Protein 6.8 g/dL (5.8-8.1) 12/10/19 17:17 Albumin 3.4 g/dL (3.4-4.8) 12/10/19 17:17 Hospitalist H&P A/P - Problem (1) Septic shock Code(s): A41.9 - SEPSIS, UNSPECIFIED ORGANISM; R65.21 - SEVERE SEPSIS WITH SEPTIC SHOCK Status: Acute (2) Pneumonia Code(s): J18.9 - PNEUMONIA, UNSPECIFIED ORGANISM Status: Acute (3) Elevated troponin Code(s): R79.89 - OTHER SPECIFIED ABNORMAL FINDINGS OF BLOOD CHEMISTRY Status : Acute (4) Atrial fibrillation Code(s): I48.91 - UNSPECIFIED ATRIAL FIBRILLATION Status: Chronic (5) CAD (coronary artery disease) Code(s): I25.10 - ATHSCL HEART DISEASE OF [place] CORONARY ARTERY W/O ANG PCTRS Status: Chronic Qualifiers: Coronary Disease-Associated Artery/Lesion type: teller artery [place] vs. transplanted heart: teller heart (6) Dyslipidemia Code(s): E78.5 - HYPERLIPIDEMIA, UNSPECIFIED Status: Chronic (7) H/O cardiac pacemaker Code(s): Z95.0 - PRESENCE OF CARDIAC PACEMAKER Status: Chronic (8) Hypertension Code(s): I10 - ESSENTIAL (PRIMARY) HYPERTENSION Status: Chronic Qualifiers: Hypertension type: essential hypertension Qualified Code(s): I10 - Essential (primary) hypertension (9) Cirrhosis Code(s): K74.60 - UNSPECIFIED CIRRHOSIS OF LIVER Status: Acute (10) Hepatocellular carcinoma Code(s): C22.0 - LIVER CELL CARCINOMA Status: Acute - Plan Plan: 79y/o male with the stated pmhx who present with pneumonia septic shock / pneumonia - responded initally to ivfs, became hypotensive afterwards, started on levophed - tachycardia with fever and elevated RR - LA 2.7 now 2 - sepsis bundles started with ivfs, cultures and abx - on cefepime vs vanc - f/u cultures htn - holding medication for now hypercholesterolemia / hyperlipidemia / cad - continue home meds atrial fibrillation - continue manjeet
[2019-12-10] MEDS ORDERED: Norepinephrine 8 MG/0.9% NS 250 ML ONE (21:21)
[2019-12-10 21:52] LABS: SARS-CoV-2 NAA Rapid Test Not Detected (NotDetected)
[2019-12-10] MEDS ORDERED: Acetaminophen 650 MG Suppository PR PRN (23:09)
[2019-12-10] MEDS ORDERED: Bisacodyl 10 MG SUPP PR PRN (23:09)
[2019-12-10] MEDS ORDERED: Ondansetron PF 4 MG/2 ML Vial IVP PRN (23:09)
[2019-12-10] MEDS ORDERED: Bisacodyl 5 MG TAB PO PRN (23:09)
[2019-12-10] MEDS ORDERED: HYDROcodone/Acetaminophen 5/325 mg Tablet PO PRN (23:09)
[2019-12-10] MEDS ORDERED: Calcium Carbonate 500 MG ChewTAB PO PRN (23:09)
[2019-12-10] MEDS ORDERED: Acetaminophen 325 MG TAB PO PRN (23:09)
[2019-12-10] MEDS ORDERED: Ondansetron ODT 4 MG TAB PO PRN (23:09)
[2019-12-10] MEDS ORDERED: Norepinephrine 8 MG/0.9% NS 250 ML IVPB SCH (23:15)
[2019-12-10] MEDS ORDERED: Cefepime 2 GM in Sodium Chloride 0.9% 100 ML IVPB SCH (23:59)
[2019-12-11] MEDS: Sodium Chloride 0.9% 1,000 ML IV SCH ×2 (01:24→21:29)
[2019-12-11 02:33] LABS: Troponin I 0.053 ng/mL (< 0.028)
[2019-12-11 04:04] LABS: ALT (SGPT) 8 U/L (8-55); AST (SGOT) 15 U/L (5-34); Albumin 2.8 g/dL (3.4-4.8); Alkaline Phosphatase 92 U/L (40-110); Anion Gap 10 mmol/L (10-20); BUN (Urea Nitrogen) 11 mg/dL (8.4-25.7); Band 1 % (5-11); Bilirubin, Total 1.6 mg/dL (0.2-1.2); Calc. Creatinine Clearance 139 mL/min (70-130); Calcium 7.8 mg/dL (7.8-10.44); Carbon Dioxide 23 mmol/L (23-31); Chloride 109 mmol/L (98-107); Estimated GFR-MDRD Greater than 90; Glucose 135 mg/dL (83-110); Hemoglobin 12.9 g/dL (14.0-18.0); Lymphocytes 10 % (21-51); MDiff Complete? YES; Mean Corpuscular HGB CONC 33.5 g/dL (32.0-36.0); Mean Corpuscular Hemoglobin 33.9 pg (27.0-31.0); Mean Platelet Volume 7.9 fL (7.4-10.4); Monocytes 5 % (0-10); Neutrophil 84 % (42-75); Platelet Count 111 thou/uL (130-400); Platelet Morphology Comment Appears Decreased; Potassium 3.8 mmol/L (3.5-5.1); Protein, Total 5.8 g/dL (5.8-8.1); RBC Distribution Width 14.6 % (11.5-14.5); Red Blood Cell (RBC) Count 3.79 mill/uL (4.70-6.10); Sodium 138 mmol/L (136-145); Toxic Granulation SLIGHT; White Blood Cell (WBC) Count 5.1 thou/uL (4.8-10.8)
[2019-12-11 04:29] LABS: Troponin I 0.056 ng/mL (< 0.028)
--- NOTE | 2019-12-11 07:32 | RAD ---
PORTABLE CHEST: Date: 12/10/2019 PROVIDED CLINICAL HISTORY: Fever and shortness of breath. FINDINGS: Comparison made with the examination performed earlier same date. Interval placement of right IJ central line, the tip of which terminates in the region of the right a trium. Additional significant interval change with respect to prior is not evident. IMPRESSION: As above. POS: SIMA
[2019-12-11] MEDS: Apixaban 5 MG TAB PO SCH ×3 (09:59→23:06)
[2019-12-11] MEDS: Rosuvastatin 20 MG TAB PO SCH (09:59)
[2019-12-11] MEDS: Aspirin Chewable 81 MG TAB PO SCH (09:59)
[2019-12-11] MEDS ORDERED: Cefepime 2 GM in Sodium Chloride 0.9% 100 ML IVPB SCH (12:00)
[2019-12-11] MEDS ORDERED: Bacitracin 1 PK TOP PRN (15:06)
[2019-12-11] MEDS ORDERED: Nitroglycerin 0.4 MG TAB (25 Tab Bottle) SL PRN (19:06)
[2019-12-11] MEDS ORDERED: Acetaminophen 325 MG TAB PO PRN (19:06)
--- NOTE | 2019-12-11 19:23 | PDOC.HOSPP ---
- Subjective Encounter Date: 12/11/19 Encounter Time: 09:00 Subjective: no overnight events. this morning, hemodynamically stable of levophed, no shortness of breath on nasal cannula. BCx growing MSSA, changed to cefazolin - Objective Vital Signs & Weight: Vital Signs (12 hours) Temp Pulse Resp BP Pulse Ox 12/11/19 18:12 98.6 F 62 24 H 111/62 93 L 12/11/19 08:00 98.3 F Weight Admit Weight 280 lb Weight 280 lb 13.903 oz Most Recent Monitor Data Heart Rate from ECG 62 NIBP 107/60 NIBP BP-Mean 82 Respiration from ECG 28 SpO2 100 I&O: 12/10/19 12/11/19 12/12/19 06:59 06:59 06:59 Intake Total 57.5 660 Output Total 0 450 Balance 57.5 210 Result Diagrams: 12/11/19 03:18 12/11/19 03:18 Hospitalist ROS - Review of Systems Constitutional: denies: chills, sweats Respiratory: denies: cough, shortness of breath, pleuritic pain, sputum Cardiovascular: denies: chest pain, palpitations, orthopnea, paroxysmal noc. dyspnea Gastrointestinal: denies: nausea, vomiting, abdominal pain Genitourinary: denies: dysuria, frequency, hematuria - Medication Medications: Active Medications Generic Name Dose Route Start Last Admin Trade Name Freq PRN Reason Stop Dose Admin Apixaban 5 mg 12/11/19 09:00 12/11/19 09:59 Eliquis PO 5 mg BID BRAN Administration Aspirin 81 mg 12/11/19 09:00 12/11/19 09:59 Aspirin Chewable PO 81 mg DAILY BRAN Administration Sodium Chloride 1,000 mls @ 50 mls/hr 12/10/19 23:15 12/11/19 01:24 Normal Saline 0.9% IV Not Given .Q20H BRAN Rosuvastatin Calcium 20 mg 12/11/19 09:00 12/11/19 09:59 Crestor PO 20 mg DAILY BRAN Administration - Exam General Appearance: NAD, awake alert Neck - other findings: R IJ in place Heart: RRR, no murmur, no gallops, no rubs Heart - other findings: midsternal healing scar with small dehisenses, diffusely attenuated sounds Respiratory: CTAB, no wheezes, no rales, no ronchi Gastrointestinal: soft, non-tender, non-distended, normal bowel sounds Extremities: no edema Psychiatric: normal affect, normal behavior, A&O x 3 Hosp A/P - Plan #CAP #MSSA bacteremia -changed antibiotic to cefazolin -continue 50cc/hr NS with total fluid restriction 1.8L/day #CABG wound deiscence -surrounding erythema but no purulent discharge -wound care consulted -if purulent discharge, culture Full code ELOS: 2 nights
[2019-12-11] MEDS: CEFAZOLIN 2 GM in Premix Bag 1 BAG IVPB SCH (21:39)
[2019-12-11] MEDS ORDERED: CEFAZOLIN 1 GM VIAL SLOW IVP SCH (22:00)
--- NOTE | 2019-12-12 00:42 | CON ---
DATE OF CONSULTATION: 12/11/2019 HISTORY OF PRESENT ILLNESS: Mr. Lin is a 79-year-old male, who was admitted to the intensive care unit yesterday evening. He had coronary artery bypass grafting over a month ago. He required almost a month to hospitalization. He was in rehab, but apparently he has only been home for one day and was readmitted with complaints of shortness of breath. Apparently, he was febrile in the emergency room, but has been afebrile since he has been in the ICU. PAST MEDICAL HISTORY: Remarkable for; 1. History of lipid disorder. 2. History of chronic anticoagulation. 3. History of hypertension. 4. History of pacemaker. 5. History of peripheral vascular disease. 6. History of femur fracture. 7. History of bilateral knee replacements. 8. History of vein ablation in 2010. 9. History of normal left ventricular systolic function with severely dilated left atrium. 10. History of pacemaker generator change, I believe in 2011. Family history is negative for lung disease in early age. Nonsmoker and nondrinker. 11. History of obesity. 12. Chronic severe lower extremity stasis changes. 13. History of colon polyp resection. 14. History of diverticulosis. REVIEW OF SYSTEMS: Otherwise negative. PHYSICAL EXAMINATION: GENERAL: He is in no distress. Says he is feeling better. VITAL SIGNS: Blood pressure has been stable throughout the morning and in the afternoon. Respiratory rate in the teens. His heart rate is currently 60. HEENT: Pupils are equal. Sclerae are anicteric. NECK: Supple. LUNGS: Remarkable for crackles at both lung bases and fine. HEART: Regular rhythm. Sternal wound was superficially at the bottom of this incision. I talked to Dr. Mcgrath about this and he saw this well. It does not appear erythematous and certainly has not draining any purulent exudate. S1 and S2 are normal. ABDOMEN: Soft and nontender. EXTREMITIES: Without clubbing or cyanosis. He does have severe stasis changes in both lower extremities and has some small abrasions on both lower extremities. LABORATORY STUDIES: Chest x-ray is hazy at both bases. Blood cultures are growing 2/2, penicillin sensitive Staph. White count 5.1, hemoglobin 12.9, and platelets 111,000. Electrolytes are unremarkable. IMPRESSION AND PLAN: Staph bacteremia. I feel it is more likely that he has Staph bacteremia secondary to a skin lesion involving both lower extremities and then infection of his sternum. Dr. Mcgrath has reviewed this and does not feel at this time that his sternum is infected. My concern now becomes colonization of his pacer wires in the setting of a staph bacteremia and the possibility of endocarditis as well. He has been switched to Ancef today. I will be happy to follow with the other physicians caring for him. He certainly could have a Staph aureus pneumonia, but his history is not really suggestive of that. Deconditioning, obesity, and his shortness of breath. He has a fairly unimpressive chest x-ray, although it is hazy at both lung bases. He had a CT scan of his chest after his chest x-ray, which looked more like atelectasis than pneumonia, but I will be happy to follow along with the other physicians and adjust antibiotics if it becomes clinically necessary. This is a 50 min visit with greater than 50% of time spent on unit with coordination of care. Job ID: [id number] MTDD
[2019-12-12 04:20] LABS: #Lymphocytes 0.3 thou/uL (1.20-3.40); #Monocytes 0.2 thou/uL (0.11-0.59); #Neutrophils 2.7 thou/uL (1.40-6.50); %Eosinophils 0.9 % (0.0-10.0); %Lymphocytes 8.4 % (21.0-51.0); %Monocytes 6.2 % (0.0-10.0); %Neutrophils 84.5 % (42.0-75.0); Mean Corpuscular HGB CONC 32.3 g/dL (32.0-36.0); Mean Corpuscular Hemoglobin 32.5 pg (27.0-31.0); Mean Platelet Volume 9.2 fL (7.4-10.4); Platelet Count 103 thou/uL (130-400); RBC Distribution Width 14.6 % (11.5-14.5); Red Blood Cell (RBC) Count 3.71 mill/uL (4.70-6.10); White Blood Cell (WBC) Count 3.2 thou/uL (4.8-10.8)
[2019-12-12 04:26] LABS: Anion Gap 11 mmol/L (10-20); BUN (Urea Nitrogen) 10 mg/dL (8.4-25.7); Calc. Creatinine Clearance 139 mL/min (70-130); Calcium 7.8 mg/dL (7.8-10.44); Carbon Dioxide 21 mmol/L (23-31); Chloride 107 mmol/L (98-107); Estimated GFR-MDRD Greater than 90; Glucose 97 mg/dL (83-110); Potassium 4.5 mmol/L (3.5-5.1); Sodium 134 mmol/L (136-145)
[2019-12-12] MEDS: CEFAZOLIN 2 GM in Premix Bag 1 BAG IVPB SCH ×3 (06:05→21:08)
[2019-12-12] MEDS: Folic Acid/Vit B Comp W-C PO SCH (08:44)
[2019-12-12] MEDS: Aspirin Chewable 81 MG TAB PO SCH (08:44)
[2019-12-12] MEDS: Apixaban 5 MG TAB PO SCH ×2 (08:44→21:07)
[2019-12-12] MEDS: Rosuvastatin 20 MG TAB PO SCH (08:44)
--- NOTE | 2019-12-12 16:18 | PRG ---
DATE OF SERVICE: 12/12/2019 SUBJECTIVE: Clement Lin remains stable. OBJECTIVE: VITAL SIGNS: He is afebrile, heart rate 62, respiratory rate is 18, oximetry is 99, and blood pressure 128/71. LUNGS: Unchanged. HEART: Unchanged. ABDOMEN: Unchanged. LABORATORY DATA: White count 3.2, hemoglobin 12.0, and platelets 103,000. Electrolytes are unremarkable. IMPRESSION: Staph bacteremia. certain risk for colonization of pacemaker leads. utilization coordinator. Infectious Disease might be an option for their input and long-term antimicrobial recommendations. Job ID: [id number]
--- NOTE | 2019-12-12 16:29 | PQF ---
CLINICAL DOCUMENTATION CLARIFICATION FORM: Dear Dr. Bogdan HICKS Date: 12/12/2019 1608, 12/13/2019 1033 Please exercise your independent, professional judgment in responding to the clarification form. Clinical indicators are provided on the bottom of this form for your review. Please check appropriate box(es [ ] SEPTIC SHOCK is a complication of recent surgery [x ] SEPTIC SHOCK is not a complication of current/recent surgery [ ] Other diagnosis [ ] Unable to determine In addition, please specify: Present on Admission (POA): [ x ] Yes [ ] No [ ] Unable to determine For continuity of documentation, please document condition throughout progress notes and discharge summary. Thank You. To be completed by CDI/Coding staff for physician review: CLINICAL INDICATORS - SIGNS / SYMPTOMS / LABS / RESULTS AND LOCATION IN MR 12/09 ED REPORT: TEMP 102.9, RESP 34, 96% 4L/NC; PT PRESENTS FOR EVALUATION OF SOB, DENIES ANY FEVER BUT IS FEBRILE ON EXAM, PATIENT STATES THAT HE DID HAVE A CABG THE FIRST WEEK OF OCTOBER AND WAS ADMITTED FOR 3 WEEKS. PATIENT DENIES ANY CONTACTS WITH COVID EXPOSURES. PHYSICIAN FINAL DX: PNEUMONIA, SEPSIS 12/09 H&P (JASPAL) A/P: A). SEPTIC SHOCK, 2). PNEUMONIA 12/09 BLOOD CULTURES X 2 : STAPHYLOCOCCUS SPECIES 12/10 CONSULT (DAHIANA) IMPRESSION AND PLAN: STAPH BACTEREMIA. I FEEL IT IS MORE LIKELY THAT HE HAS STAPH BACTEREMIA SECONDARY TO A SKIN LESION INVOLVING BOTH LOWER EXTREMITIES AND THEN INFECTION OF HIS STERNUM. DR. CHAVEZ HAS REVIEWED THIS AND DOES NOT FEEL AT THIS TIME THAT HIS STERNUM IS INFECTED. MY CONCERN NOW BECOMES COLONIZATION OF HIS PACER WIRES IN THE SETTING OF A STAPH BACTEREMIA AND THE POSSIBILITY OF ENDOCARDITIS WELL. 12/10 PN (SHEMESH) A/P: CAP, MSSA BACTEREMIA, CABG WOUND DEHISCENCE, RISK FACTORS / RESULTS AND LOCATION IN MR RECENT CABG (OCTOBER) , MSSA BACTEREMIA, CABG WOUND DEHISCENCE ( SHEMESH/PN ) 12/10 TREATMENT / RESULTS AND LOCATION IN MR BLOOD CULTURES 12/09 ANCEF IV 12/10 - PRESENT THANK YOU! CDS Signature: MANNY BIRCH RN Phone #: [phone] Date : 12/12/2019 This is a permanent part of the Medical Record [facility]
--- NOTE | 2019-12-12 16:56 | PQF ---
CLINICAL DOCUMENTATION CLARIFICATION FORM: RoxyFrancisco KURT Date: 12/12/2019 1633, 12/13/2019 1033 Please exercise your independent, professional judgment in responding to the clarification form. Clinical indicators are provided on the bottom of this form for your review. Please check appropriate box(es): [ x ] Acute Respiratory Failure: [ x ] with Hypoxia [ ] with Hypercapnia [ ] Acute On Chronic Respiratory Failure: [ ] with Hypoxia [ ] with Hypercapnia [ ] Acute Respiratory Failure due to: (etiology) [ ] Chronic Respiratory Failure only [ ] with Hypoxia [ ] with Hypercapnia [ ] Hypoxia [ ] Other diagnosis [ ] Unable to determine In addition, please specify: Present on Admission (POA): [ x ] Yes [ ] No [ ] Unable to determine For continuity of documentation, please document condition throughout progress notes and discharge summary. Thank You. To be completed by CDI/Coding staff for physician review: CLINICAL INDICATORS - SIGNS / SYMPTOMS / LABS / RESULTS AND LOCATION IN 12/09 ED REPORT: RESPIRATIONS 34, O2 SATURATION 96% ON 4L/NC// PT APPEARS IN RESPIRATORY DISTRESS, PT COMPLAINS OF SOB, ASSOCIATED WITH DYSPNEA W EXERTION, WITH POSITION CHANGE, RESPIRATORY ASSESSMENT FINDINGS INCLUDE RESPIRATORY EFFORT LABORED, SHALLOW, IRREGULAR. PT STATES THAT HE DOES NOT USE OXYGEN AT HOME BUT IS REQUIRING OXYGEN TODAY WELL. -ED FINAL PHYSICIAN DX: PNEUMONIA, SEPSIS 12/10 PN (KURT) NO SHORTNESS OF BREATH ON NASAL CANULA. RISK FACTOR / RESULTS AND LOCATION IN 12/09 DX : PNEUMONIA, SEPTIC SHOCK (H&P / SANDERSON-JAKE) 12/10 TREATMENTS / RESULTS AND LOCATION IN OXYGEN SUPPLEMENTATION (12/09- PRESENT) Acute Respiratory Failure: ABG pH < 7.35 or > 7.45; Decreased oxygen saturation (<90% room air or < 95% on oxygen); PCO2 > 50 mm Hg; PO2 < 60 mm Hg; Labored or rapid respirations ARDS: Dx Criteria [[place] ARDS]: Respiratory symptoms within one week of a known clinical insult (e.g. shock, infection, surgery, trauma) Bilateral opacities in CXR/Chest CT not due to CHF or fluid THANK YOU! CDS Signature: Kenya Osborn RN Phone #: [phone] Date : 10/23/2019 This is a permanent part of the Medical Record [facility]
--- NOTE | 2019-12-12 17:05 | PDOC.HOSPP ---
- Subjective Encounter Date: 12/12/19 Encounter Time: 08:00 Subjective: no overnight events. this morning, feeling well and has no complaints. Satting mid-low 90s on RA. repeated blood culture, pending echo, [facility] - Objective Vital Signs & Weight: Vital Signs (12 hours) Temp Pulse Resp BP Pulse Ox 12/12/19 12:48 96.5 F L 62 18 128/71 99 12/12/19 09:00 98.4 F 70 20 129/73 96 12/12/19 08:45 98 12/12/19 08:00 96 Weight Admit Weight 280 lb Weight 293 lb 3.437 oz Most Recent Monitor Data Heart Rate from ECG 62 NIBP 107/60 NIBP BP-Mean 82 Respiration from ECG 28 SpO2 100 I&O: 12/11/19 12/12/19 12/13/19 06:59 06:59 06:59 Intake Total 57.5 2378 240 Output Total 0 1450 Balance 57.5 928 240 Result Diagrams: 12/12/19 03:37 12/12/19 03:37 Hospitalist ROS - Review of Systems Constitutional: denies: chills, sweats Respiratory: denies: cough, shortness of breath, pleuritic pain, sputum Cardiovascular: denies: chest pain, palpitations, orthopnea Gastrointestinal: denies: nausea, vomiting, abdominal pain, diarrhea Genitourinary: denies: dysuria, frequency, hematuria - Medication Medications: Active Medications Generic Name Dose Route Start Last Admin Trade Name Freq PRN Reason Stop Dose Admin Apixaban 5 mg 12/11/19 09:00 12/12/19 08:44 Eliquis PO 5 mg BID BRAN Administration Aspirin 81 mg 12/11/19 09:00 12/12/19 08:44 Aspirin Chewable PO 81 mg DAILY BRAN Administration Sodium Chloride 1,000 mls @ 50 mls/hr 12/10/19 23:15 12/11/19 21:29 Normal Saline 0.9% IV 1,000 mls .Q20H BRAN Administration Cefazolin Sodium/Dextrose 2 gm 50 mls @ 100 mls/hr 12/11/19 22:00 12/12/19 14 :48 / Device IVPB 50 mls Q8HR BRAN Administration Pantoprazole Sodium 40 mg 12/12/19 09:00 12/12/19 08:44 Protonix PO 40 mg DAILY BRAN Administration Rosuvastatin Calcium 20 mg 12/11/19 09:00 12/12/19 08:44 Crestor PO 20 mg DAILY BRAN Administration Vitamin B Complex/Vit C/Folic Acid 1 tab 12/12/19 09:00 12/12/19 08:44 Nephro-Paramjit Tablet PO 1 tab DAILY BRAN Administration - Exam General Appearance: NAD, awake alert Neck: no JVD Heart: RRR, no murmur, no gallops, no rubs Respiratory: CTAB, no wheezes, no rales, no ronchi Gastrointestinal: soft, non-tender, non-distended, normal bowel sounds Extremities: no edema Psychiatric: normal affect, normal behavior, A&O x 3 Hosp A/P - Plan #CAP #MSSA bacteremia #Pacemaker -changed antibiotic to cefazolin (12/10) -continue 50cc/hr NS with total fluid restriction 1.8L/day -PCCM onboard, consulted ID #[id number] wound deiscence -surrounding erythema but no purulent drainage -wound care onboard -if purulent discharge, culture Full code ELOS: 1 nights
--- NOTE | 2019-12-12 18:27 | PRG ---
DATE OF SERVICE: The patient has been afebrile today and was moved out of the ICU to the telemetry unit. He has no complaints, feeling well. He has yet to get out of bed and I have proceeded to ask Physical therapy to begin seeing him tomorrow. His white count is decreased to 3200. The dressing that I placed on his sternum yesterday is intact and dry and his sternum remains solid with no cellulitis or any other signs to suggest a deep sternal wound infection. The left thigh dressing also was from yesterday morning and it is also dry with no surrounding cellulitis and no tenderness. At this time, the patient does have a positive blood culture for Staphylococcus species yet to be identified, and if this turns out to be Staph aureus, site of origin is determined, but does not appear to be coming from his sternum. Urinalysis has not yet been done, although this would probably be an unusual organism for his urinary tract. In any event, we will continue to watch his sternum, but at this time, no evidence for deep sternal wound infection, now about 5 weeks postop. Still suspect though post cabg with positive blood cultures Job ID: [id number] [facility]
[2019-12-12] MEDS: Sodium Chloride 0.9% 1,000 ML IV SCH (18:59)
[2019-12-12] MEDS: Triamcinolone 0.1% Cream 15 GM TUBE TOP SCH (21:08)
[2019-12-13] MEDS: CEFAZOLIN 2 GM in Premix Bag 1 BAG IVPB SCH ×3 (06:45→22:12)
[2019-12-13] MEDS: Folic Acid/Vit B Comp W-C PO SCH (09:59)
[2019-12-13] MEDS: Aspirin Chewable 81 MG TAB PO SCH (09:59)
[2019-12-13] MEDS: Triamcinolone 0.1% Cream 15 GM TUBE TOP SCH ×2 (09:59→21:05)
[2019-12-13] MEDS: Apixaban 5 MG TAB PO SCH ×2 (09:59→21:05)
[2019-12-13] MEDS: Rosuvastatin 20 MG TAB PO SCH (09:59)
[2019-12-13] MEDS ORDERED: Furosemide 100 MG/10 ML VIAL SLOW IVP SCH (13:45)
[2019-12-13] MEDS ORDERED: Furosemide 40 MG/4 ML VIAL SLOW IVP SCH (14:00)
[2019-12-13] MEDS: Sodium Chloride 0.9% 1,000 ML IV SCH (15:37)
--- NOTE | 2019-12-13 17:08 | CON ---
DATE OF CONSULTATION: 12/13/2019 REASON FOR CONSULTATION: Bacteremia. HISTORY OF PRESENT ILLNESS: A 79-year-old with history of coronary artery disease, sick sinus syndrome, pacemaker placement many years ago and replacement a few years ago, also history of liver cirrhosis of uncertain etiology, possibly steatohepatitis with a known hepatic mass in the right lobe diagnosed recently. The patient had coronary artery bypass graft surgery in the first week of October and has not had a chance of visiting with a prepress proofer in [place] to evaluate the liver mass. The liver mass has characteristics that are suggestive of hepatocellular carcinoma. So, he was recovering from his bypass graft surgery and doing relatively well until Wednesday evening when he noticed inability to ambulate after having gone to the restroom. He usually normally uses a walker for ambulation, but even with a walker, he had a marked difficulty in ambulation, had to lean over the walker and call help. His brought neighbors who propped him in, in the bed and the EMS was then activated and he was brought over to the hospital. He had no evidence of headaches. No visual symptoms, sore throat, odynophagia, or dysphagia. No vomiting or bleeding. No diarrhea. No genitourinary symptoms. He also does not recall any fever, chills, back pain or any other pain for that matter. PAST MEDICAL HISTORY: 1. Liver cirrhosis, probably steatohepatitis. 2. Coronary artery disease, bypass graft surgery recently. 3. Hyperlipidemia. 4. Sick sinus syndrome with pacemaker for many decades. 5. Hypertension. 6. Obesity. 7. He has had bilateral knee replacements. 8. Fracture of the right femur, which had to be fixed. SOCIAL HISTORY: He is retired. Lives in [place]. He is a former smoker, quit more than 10 years ago. No alcoholic beverage use. FAMILY HISTORY: Noncontributory. ALLERGIES: NONE. CURRENT MEDICATIONS: Include: 1. Acetaminophen. 2. Eliquis. 3. Dulcolax. 4. Tums. 5. [place]. 6. Zofran. 7. Protonix. 8. Crestor. 9. Cefazolin 2 g q.8. PHYSICAL EXAMINATION: VITAL SIGNS: T-max 99.8, blood pressure 140/80, pulse 61, respirations 18, and O2 saturation 98 on 2 L. GENERAL: He appears acutely ill, but in no acute distress. He is awake, oriented, fairly decent recollection of events. Speech appears to be normal, although a little bit difficult due to his dyspnea. SKIN: Multiple areas of skin abrasions and deep tissue injury stage II, mostly in the dependent areas. He has evidence of stasis dermatitis with hyperpigmentation and bruising in the lower extremities and some areas of superficial laceration in the legs as well. There is an ulcerated area in the anterior right leg, measures about 8 cm. There is an area of abrasion at the tip of the right side hallux with sort of a linear area of ulceration at the tip. Epidermolysis noted at the tip of the left hallux. He has no lymphadenopathy. HEENT: Ocular movements conjugate. Sclerae white. Pupils are equal. Conjunctivae somewhat pale. Oral cavity with a few missing teeth, gum disease as expected, but not severe gum disease, just mild to moderate. Oral mucosa is normal and moist. NECK: Supple. No jugular vein distention. LUNGS: Symmetric air entry with no obvious crackles or wheezing. HEART: S1 and S2 without murmurs. No S3 or S4. Pacer pocket site without inflammatory changes. ABDOMEN: Protuberant, but not tender. No ascites. No bladder distention. He is voiding in the urinal. No joint inflammatory activity. He is able to move extremities, but hard time flexing the knees particularly on the right side. Pulses 1+ in dorsalis pedis. Plantar responses are flexor. Moves extremities otherwise symmetrically, but he is diffusely weak. NEUROLOGIC: He is awake and oriented, follows commands. Speech appears to be normal, a little sluggish in replies. LABORATORY DATA: White cell count 7.8 and now 3.2, hemoglobin 15 and 12, MCV 101, platelets 160 and now 103, neutrophil percentage 86 and now 84. Chemistry with a sodium 138 and creatinine 1.1. Transaminases normal, bilirubin 1.4, and albumin 3.4. COVID was not detected. Two sets of blood cultures obtained on admission with methicillin-sensitive Staph aureus, 2 more sets two days later, thus far no growth. IMAGING STUDIES: A CT angio of chest, which showed small bilateral effusions, ground-glass opacities of left lower lobe with more focal consolidation probably passive atelectasis due to adjacent pleural fluid. 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 ASSESSMENT: 1. Coronary artery disease, bypass graft surgery. 2. Likely hepatocellular carcinoma in right liver lobe, not yet addressed. 3. Pacemaker in situ. 4. Methicillin sensitive Staphylococcus aureus bacteremia, which appears to be a community-acquired event. DISCUSSION: Differential diagnosis includes pacemaker lead colonization with endocarditis as the more likely scenario. Early pneumonitis is possible, but not yet confirmed. There is no evidence of bone or joint involvement at this point. Specifically, no back pain that would suggest that typically spinal infections are associated with significant amount of pain. The areas of concern also include the bilateral TKRs and the area of open reduction and fixation of the right femur and those areas will have to continue to be monitored as well as his spine. For the time being, he will need a transesophageal echocardiogram to rule out colonization of the pacemaker leads. The sternotomy infection appears to be okay. There is no evidence of inflammatory changes, so it does not appear that the sternotomy site is a concern at the moment. His last urinalysis is from 11/13 and that was essentially normal, but again the pacer leads are the more likely culprit here. Job ID: [id number]
--- NOTE | 2019-12-13 18:03 | CON ---
DATE OF CONSULTATION: 12/13/2019 REASON FOR CONSULTATION: Diastolic heart failure, chronic atrial fibrillation, Staph bacteremia. HISTORY OF PRESENT ILLNESS: Mr. Lin is a 79-year-old gentleman, recently was admitted to the hospital with angina pectoris, found to have a severe stenosis in his proximal left anterior descending artery and a calcified vessel. The patient underwent successful bypass surgery by Dr. Mcgrath. The patient does have a history of diastolic congestive heart failure as well. Readmitted to the hospital with shortness of breath, peripheral edema. He has been found to have positive blood cultures. The patient also has been having increasing amounts of lower extremity edema. The patient is very immobile. ALLERGIES: NONE KNOWN. MEDICATIONS: He takes; 1. Apixaban. 2. Rosuvastatin. 3. Aspirin. 4. Amlodipine. 5. Lisinopril. REVIEW OF SYSTEMS: CONSTITUTIONAL: Positive for weakness and fatigue. VISION: No changes. HEARING: No changes. PULMONARY: Positive for shortness of breath. CARDIAC: Positive for shortness of breath and edema of lower extremities. GI: No nausea, vomiting, or diarrhea. SKIN: He has discoloration of his lower extremities. PHYSICAL EXAMINATION: GENERAL: This is a 6 feet tall, 290 pounds gentleman. VITAL SIGNS: Blood pressure 140/80, pulse 70s. LUNGS: Clear. CARDIAC: Normal S1, normal S2. ABDOMEN: Obese, nontender. EXTREMITIES: No clubbing or cyanosis. There is moderate to severe edema with chronic venous stasis changes. PERTINENT LABORATORY DATA: Sodium is 134, creatinine is 4.5. Troponin indeterminate at 0.056. EKG revealed 100% ventricular paced rhythm. Past history is positive for single-chamber pacemaker, he has chronic atrial fibrillation. He has 2 blood cultures positive for Staph aureus. The BNP is elevated at 230.6. The ejection fraction on echocardiogram was thought to be approximately 50%. Unfortunately, cardiac catheterization note has not been transferred from the [facility] system into the [facility] system at the present time and we will ask that to be done by Medical Records. ASSESSMENT: 1. Diastolic congestive heart failure. 2. Staph bacteremia for concern with the pacemaker lead infection. 3. Obesity. 4. Status post bypass surgery. 5. Also, thought to have liver cancer, we will need surgery for that. PLAN: 1. We will give intravenous diuretics. 2. We will ask the [employer] insurance account representative to see how pacemaker dependent he is. 3. He is on antibiotics. 4. We will follow with you. Job ID: [id number] [facility]
--- NOTE | 2019-12-13 18:03 | PRG ---
DATE OF SERVICE: SUBJECTIVE: Mr. Lin is doing well overnight. He was seen by Dr. Escobar today. He has started physical therapy. He is not febrile. OBJECTIVE: VITAL SIGNS: Stable. LUNGS: Clear. HEART: Regular rhythm. ABDOMEN: Soft. IMPRESSION: 1. Congestive heart failure. 2. Recent coronary artery bypass surgery. 3. Staphylococcus aureus bacteremia. My guess is this is from one of his lower extremity chronic stasis lesions and he seeded his pacer wires. He does not clinically appear to have any surgery wound infections at this time. We will obviously need a long course of IV antibiotics. Dr. Gutierrez has been consulted. Dr. Escobar is following him as well. Job ID: [id number]
[2019-12-13] MEDS: Spironolactone 25 MG TAB PO SCH (18:14)
--- NOTE | 2019-12-13 19:50 | PDOC.HOSPP ---
- Subjective Encounter Date: 12/13/19 Encounter Time: 09:00 Subjective: no overnight events. this morning, feeling well and has no complaints. - Objective Vital Signs & Weight: Vital Signs (12 hours) Temp Pulse Pulse Pulse Resp BP BP 12/13/19 16:00 96.8 F L 60 20 12/13/19 12:00 97.2 F L 65 20 12/13/19 10:58 12/13/19 08:48 61 82 128/66 140/83 12/13/19 08:00 97.4 F L 88 20 BP Pulse Ox 12/13/19 16:00 138/60 98 12/13/19 12:00 146/83 H 96 12/13/19 10:58 98 12/13/19 08:48 12/13/19 08:00 121/71 96 Weight Admit Weight 280 lb Weight 290 lb 12.635 oz Most Recent Monitor Data Heart Rate from ECG 62 NIBP 107/60 NIBP BP-Mean 82 Respiration from ECG 28 SpO2 100 I&O: 12/12/19 12/13/19 12/14/19 06:59 06:59 06:59 Intake Total 2378 1230 200 Output Total 1450 Balance 928 1230 200 Result Diagrams: 12/12/19 03:37 12/12/19 03:37 Hospitalist ROS - Review of Systems Constitutional: denies: chills, sweats Respiratory: denies: cough, shortness of breath, pleuritic pain Cardiovascular: reports: edema. denies: chest pain, palpitations, orthopnea, paroxysmal noc. dyspnea Gastrointestinal: denies: nausea, vomiting, abdominal pain - Medication Medications: Active Medications Generic Name Dose Route Start Last Admin Trade Name Freq PRN Reason Stop Dose Admin Apixaban 5 mg 12/11/19 09:00 12/13/19 09:59 Eliquis PO 5 mg BID BRAN Administration Aspirin 81 mg 12/11/19 09:00 12/13/19 09:59 Aspirin Chewable PO 81 mg DAILY BRAN Administration Cefazolin Sodium/Dextrose 2 gm 50 mls @ 100 mls/hr 12/11/19 22:00 12/13/19 15 :35 / Device IVPB 50 mls Q8HR BRAN Administration Pantoprazole Sodium 40 mg 12/12/19 09:00 12/13/19 09:59 Protonix PO 40 mg DAILY BRAN Administration Rosuvastatin Calcium 20 mg 12/11/19 09:00 12/13/19 09:59 Crestor PO 20 mg DAILY BRAN Administration Spironolactone 25 mg 12/13/19 17:00 12/13/19 18:14 Aldactone PO 25 mg BID-WM BRAN Administration Triamcinolone Acetonide 0 gm 12/12/19 21:00 12/13/19 09:59 Kenalog 0.1% Cream TOP 1 applic BID BRAN Administration Vitamin B Complex/Vit C/Folic Acid 1 tab 12/12/19 09:00 12/13/19 09:59 Nephro-Paramjit Tablet PO 1 tab DAILY BRAN Administration - Exam General Appearance: NAD, awake alert Neck: no JVD Heart: RRR, no murmur, no gallops, no rubs Respiratory: CTAB, no wheezes, no rales, no ronchi Gastrointestinal: soft, non-tender, non-distended, normal bowel sounds Extremities: 2+ LE edema Extremities - other findings: stasis dermatitis Psychiatric: normal affect, normal behavior, A&O x 3 Hosp A/P - Plan #CAP #MSSA bacteremia #Pacemaker -continue cefazolin (12/10) -PCCM onboard, consulted ID; pending transesophageal echo #CABG wound deiscence -surrounding erythema but no purulent drainage -wound care onboard -if purulent discharge, culture #HFpEF -stopped fluids, lasix as per cardiology #Stasis dermatitis -continue triamcinolone #HCC -Child Anthony 4-5 based on recent labs and imaging -consulted surgery Full code ELOS: 3 nights
[2019-12-14] MEDS: CEFAZOLIN 2 GM in Premix Bag 1 BAG IVPB SCH ×3 (05:51→21:34)
[2019-12-14] MEDS: Furosemide 40 MG/4 ML VIAL SLOW IVP SCH ×2 (05:52→13:38)
[2019-12-14 07:41] LABS: Anion Gap 12 mmol/L (10-20); BUN (Urea Nitrogen) 10 mg/dL (8.4-25.7); Calc. Creatinine Clearance 116 mL/min (70-130); Calcium 8.4 mg/dL (7.8-10.44); Carbon Dioxide 32 mmol/L (23-31); Chloride 99 mmol/L (98-107); Estimated GFR-MDRD 74; Glucose 106 mg/dL (83-110); Magnesium 1.9 mg/dL (1.6-2.6); Potassium 3.2 mmol/L (3.5-5.1); Sodium 140 mmol/L (136-145)
[2019-12-14] MEDS ORDERED: Albuterol Sulfate 1.25 MG/3 ML NEB ONE (08:07)
[2019-12-14] MEDS ORDERED: Midazolam HCl 2 mg/2 ml Vial ONE (08:08)
[2019-12-14] MEDS ORDERED: Ketamine 50 MG/ML (10ML VIAL) ONE (08:08)
[2019-12-14] MEDS: Apixaban 5 MG TAB PO SCH (10:02)
[2019-12-14] MEDS: Aspirin Chewable 81 MG TAB PO SCH (10:02)
[2019-12-14] MEDS: Rosuvastatin 20 MG TAB PO SCH (10:02)
[2019-12-14] MEDS: Spironolactone 25 MG TAB PO SCH ×2 (10:02→17:52)
[2019-12-14] MEDS: Folic Acid/Vit B Comp W-C PO SCH (10:02)
[2019-12-14] MEDS: Triamcinolone 0.1% Cream 15 GM TUBE TOP SCH ×2 (10:03→20:43)
[2019-12-14] MEDS ORDERED: PROPOFOL 200 MG/20 ML VIAL ONE (11:09)
[2019-12-14] MEDS ORDERED: Glycopyrrolate 0.2 MG/ML 5 ML SYRINGE ONE (11:09)
--- NOTE | 2019-12-14 12:49 | PRG ---
DATE OF SERVICE: 12/14/2019 SUBJECTIVE: Mr. Lin is scheduled for transesophageal echocardiogram today. OBJECTIVE: VITAL SIGNS: He is afebrile. Heart rate 63, respiratory rate is 18, oximetry is 98% on 2 L, blood pressure 123/79. LUNGS: Otherwise unchanged. HEART: Otherwise unchanged. ABDOMEN: Otherwise unchanged. IMPRESSION: Staph aureus bacteremia. We are awaiting transesophageal echocardiogram. Job ID: [id number]
[2019-12-14] MEDS ORDERED: Potassium Chloride 20 MEQ TAB PO SCH ×2 (14:00→16:45)
--- NOTE | 2019-12-14 14:01 | PRG ---
DATE OF SERVICE: 12/14/2019 SUBJECTIVE: Mr. Lin started to drain purulent exudate from the middle of his sternotomy wound site, which did not appear involved earlier. There is florid or profuse amounts of purulent exudate expressed out of the area. I have submitted a sample for culture. Otherwise, does not appear in distress. He had a GEOVANNA done, which did not show any evidence of pacemaker lead involvement. OBJECTIVE: VITAL SIGNS: His temperature is normal, blood pressure 120/79, pulse 63, respirations 18, and O2 saturation 98%. GENERAL: Does not appear in distress. The middle of the sternotomy incision has an erythematous changes in the skin, they are more obvious at this time with an opening draining purulent exudate in profuse amounts. There is moderate tenderness associated with it. ABDOMEN: Soft, not distended or tender. EXTREMITIES: No back tenderness. No joint inflammatory activity. LABORATORY DATA: White cell count 3.2, hemoglobin 12, platelets 103, 84% neutrophils. Creatinine 0.98. He is currently receiving cefazolin. ASSESSMENT AND DISCUSSION: Coronary artery disease, likely have hepatocellular carcinoma in right liver lobe, not yet addressed, pacemaker, and methicillin-sensitive Staphylococcus aureus bacteremia. No obvious inflammatory process with purulent drainage at the sternotomy site. We will contact the cardiothoracic surgeon for re-evaluation. Continue cefazolin. The pacemaker leads seem to be okay for now. He will need long-term administration of antimicrobial therapy, probably 6 weeks, and will need the sternotomy site revised. He may need a quite extensive surgery or not depending on what Dr. Mcgrath finds. Job ID: [id number] [facility]
--- NOTE | 2019-12-14 14:14 | PRG ---
DATE OF SERVICE: 12/14/2019 SUBJECTIVE: Mr. Lin has no chest pain or pressure. He is otherwise feeling well. He has good diuresis. OBJECTIVE: VITAL SIGNS: Blood pressure 123/79, pulse 60. LUNGS: Clear. CARDIAC: Normal S1, normal S2. ABDOMEN: Obese, nontender. EXTREMITIES: Moderate edema, but better than yesterday. PERTINENT LABORATORY DATA: Potassium is 3.2. I's and O's minus 1.3 L. ASSESSMENT AND PLAN: 1. Diastolic congestive heart failure, improving. 2. Transesophageal echo showed no evidence of any vegetation on the valves or leads. 3. Nurse tells me that there is concern that the sternal wound maybe infected. Job ID: [id number] [facility]
--- NOTE | 2019-12-14 16:11 | PDOC.HOSPP ---
- Subjective Encounter Date: 12/14/19 Encounter Time: 08:00 Subjective: no overnight events. this morning feeling well and has no complaints. - Objective Vital Signs & Weight: Vital Signs (12 hours) Temp Pulse Resp BP Pulse Ox 12/14/19 09:36 97.0 F L 63 18 123/79 98 12/14/19 07:35 97.7 F 60 18 128/61 99 Weight Admit Weight 280 lb Weight 290 lb 12.635 oz Most Recent Monitor Data Heart Rate from ECG 62 NIBP 107/60 NIBP BP-Mean 82 Respiration from ECG 28 SpO2 100 I&O: 12/13/19 12/14/19 12/15/19 06:59 06:59 06:59 Intake Total 1230 540 Output Total 1875 Balance 1230 -1335 Result Diagrams: 12/12/19 03:37 12/14/19 07:11 Hospitalist ROS - Review of Systems Constitutional: denies: chills, sweats Respiratory: denies: cough, shortness of breath, pleuritic pain Cardiovascular: reports: edema. denies: chest pain, palpitations Gastrointestinal: denies: nausea, vomiting, abdominal pain, diarrhea Genitourinary: denies: dysuria, hematuria - Medication Medications: Active Medications Generic Name Dose Route Start Last Admin Trade Name Freq PRN Reason Stop Dose Admin Apixaban 5 mg 12/11/19 09:00 12/14/19 10:02 Eliquis PO 5 mg BID BRAN Administration Aspirin 81 mg 12/11/19 09:00 12/14/19 10:02 Aspirin Chewable PO 81 mg DAILY BRAN Administration Furosemide 40 mg 12/14/19 06:00 12/14/19 13:38 Lasix SLOW IVP 40 mg 0600,1400 BRAN Administration Cefazolin Sodium/Dextrose 2 gm 50 mls @ 100 mls/hr 12/11/19 22:00 12/14/19 13 :38 / Device IVPB 50 mls Q8HR BRAN Administration Pantoprazole Sodium 40 mg 12/12/19 09:00 12/14/19 10:02 Protonix PO 40 mg DAILY BRAN Administration Rosuvastatin Calcium 20 mg 12/11/19 09:00 12/14/19 10:02 Crestor PO 20 mg DAILY BRAN Administration Spironolactone 25 mg 12/13/19 17:00 12/14/19 10:02 Aldactone PO 25 mg BID-WM BRAN Administration Triamcinolone Acetonide 0 gm 12/12/19 21:00 12/14/19 10:03 Kenalog 0.1% Cream TOP 1 applic BID BRAN Administration Vitamin B Complex/Vit C/Folic Acid 1 tab 12/12/19 09:00 12/14/19 10:02 Nephro-Paramjit Tablet PO 1 tab DAILY BRAN Administration - Exam General Appearance: NAD, awake alert ENT: normocephalic atraumatic, moist mucosa Heart: RRR Heart - other findings: midline incision draining pus (worse); surrounding erythema unchanged Respiratory: CTAB, no wheezes, no rales, no ronchi Gastrointestinal: soft, non-tender, non-distended, normal bowel sounds Extremities: 2+ LE edema Extremities - other findings: stasis dermatitis Psychiatric: normal affect, normal behavior, A&O x 3 Hosp A/P - Plan #CAP #MSSA bacteremia #Pacemaker -tranesophageal echo showing no lead vegetation -PCCM onboard, ID onboard -continue cefazolin (12/10) -6 weeks total Abx on discharge #CABG wound dehiscence -surrounding erythema but no purulent drainage (12/11) -this morning, Dr. Gutierrez evaluated and reported significant purulent drainage () -Wound care onboard -contacted Dr. Mcgrath for reevaluation -wound cultured #HFpEF -severely dilated L atrium on Echo -stopped fluids; lasix as per cardiology #Stasis dermatitis -continue triamcinolone #HCC -Child Anthony 4-5 based on recent labs and imaging -consulted surgery but per verbal communication, no hepatic surgical team available; will require referral Full code ELOS: 1-2 nights
[2019-12-15] MEDS: Furosemide 40 MG/4 ML VIAL SLOW IVP SCH ×2 (05:40→13:16)
[2019-12-15] MEDS: CEFAZOLIN 2 GM in Premix Bag 1 BAG IVPB SCH ×3 (05:40→22:34)
[2019-12-15 05:53] LABS: #Eosinphils 0.1 thou/uL (0.0-0.7); #Lymphocytes 0.6 thou/uL (1.20-3.40); #Monocytes 0.3 thou/uL (0.11-0.59); #Neutrophils 2.9 thou/uL (1.40-6.50); %Basophils 0.4 % (0.0-1.0); %Eosinophils 2.3 % (0.0-10.0); %Monocytes 8.5 % (0.0-10.0); %Neutrophils 73.7 % (42.0-75.0); Hemoglobin 13.3 g/dL (14.0-18.0); Mean Corpuscular HGB CONC 31.4 g/dL (32.0-36.0); Mean Corpuscular Hemoglobin 31.2 pg (27.0-31.0); Mean Corpuscular Volume 99.6 fL (78.0-98.0); Mean Platelet Volume 7.7 fL (7.4-10.4); Platelet Count 155 thou/uL (130-400); RBC Distribution Width 14.2 % (11.5-14.5); Red Blood Cell (RBC) Count 4.25 mill/uL (4.70-6.10)
[2019-12-15 06:08] LABS: Anion Gap 12 mmol/L (10-20); BUN (Urea Nitrogen) 14 mg/dL (8.4-25.7); Calc. Creatinine Clearance 126 mL/min (70-130); Calcium 8.4 mg/dL (7.8-10.44); Carbon Dioxide 33 mmol/L (23-31); Chloride 98 mmol/L (98-107); Estimated GFR-MDRD 82; Glucose 112 mg/dL (83-110); Magnesium 1.8 mg/dL (1.6-2.6); Sodium 139 mmol/L (136-145)
[2019-12-15] MEDS: Spironolactone 25 MG TAB PO SCH ×2 (08:00→17:01)
[2019-12-15] MEDS ORDERED: Ketamine 50 MG/ML (10ML VIAL) ONE (08:45)
[2019-12-15] MEDS ORDERED: Famotidine/PF 20 mg/2ml Vial ONE (08:46)
[2019-12-15] MEDS: Rosuvastatin 20 MG TAB PO SCH (09:00)
[2019-12-15] MEDS: Aspirin Chewable 81 MG TAB PO SCH (09:00)
[2019-12-15] MEDS ORDERED: Potassium Chloride 20 MEQ TAB PO SCH (09:00)
[2019-12-15] MEDS: Folic Acid/Vit B Comp W-C PO SCH (09:00)
[2019-12-15] MEDS: Triamcinolone 0.1% Cream 15 GM TUBE TOP SCH ×2 (09:00→22:34)
[2019-12-15] MEDS ORDERED: Glycopyrrolate 0.2 MG/ML 5 ML SYRINGE ONE (09:17)
[2019-12-15] MEDS ORDERED: EPHEDRINE 25 MG/5 ML SYRINGE ONE (09:17)
[2019-12-15] MEDS ORDERED: Lidocaine 1% PF 5 ML VIAL ONE (09:17)
[2019-12-15] MEDS ORDERED: Succinylcholine Chloride 20 MG/ML 10 ml SYRINGE FS ONE (09:17)
[2019-12-15] MEDS ORDERED: PHENYLEPHRINE-NS 100 MCG/ML 10 ML SYRINGE ONE (09:17)
[2019-12-15] MEDS ORDERED: Ondansetron PF 4 MG/2 ML Vial ONE (09:17)
--- NOTE | 2019-12-15 09:44 | OP ---
DATE OF PROCEDURE: 12/14/2019 PROCEDURE PERFORMED: Transesophageal echocardiogram. INDICATION: A 79-year-old gentleman with staphylococcal sepsis. DESCRIPTION OF PROCEDURE: The patient was taken to the PACU. The patient was sedated by Anesthesiology. A transesophageal probe was placed into the distal esophagus and stomach. Echocardiographic images were obtained. FINDINGS: 1. Marked decrease in left ventricular systolic function. 2. Left atrial enlargement. 3. Spontaneous contrast noted in the left atrium. 4. The aortic valve leaflets are mildly thickened. 5. The mitral valve leaflets appear to be normal. 6. Mild mitral regurgitation. 7. [id number] tricuspid regurgitation. 8. No obvious vegetations were noted on the cardiac valves. 9. Pacemaker wire is noted in the right ventricle with no obvious vegetations noted to the pacemaker wire. 10. Atherosclerotic debris in the descending aorta. IMPRESSION: No obvious vegetation noted on the cardiac valves or pacemaker wire. Job ID: [id number]
--- NOTE | 2019-12-15 11:37 | OP ---
DATE OF PROCEDURE: 12/15/2019 PREOPERATIVE DIAGNOSIS: Sternal wound infection. POSTOPERATIVE DIAGNOSIS: Sternal wound infection. PROCEDURE PERFORMED: I and D of superficial sternal wound. ANESTHESIA: General. ESTIMATED BLOOD LOSS: Minimal. DESCRIPTION OF PROCEDURE: After adequate anesthesia had been obtained, the patient was prepped and draped. A hemostat was inserted into the draining sinus and incised cephalad. There was a localized cavity anterior to the sternum with one zip tie exposed. The zip tie was removed. A curette was used to clean the cavity. There were no other tracts extending in any direction with a lateral extension being the most significant on each side. There was no purulent drainage with compression in any other spots and the wound was then irrigated and a wound VAC placed. Cultures were not taken as they had been taken the day prior. Job ID: [id number]
--- NOTE | 2019-12-15 18:53 | PRG ---
DATE OF SERVICE: 12/15/2019 SUBJECTIVE: Mr. Lin had a wound VAC placed on his sternum. OBJECTIVE: VITAL SIGNS: He is afebrile, heart rate is 60, respiratory rates in the teens, oximetry is 100%, blood pressure 107/64. LUNGS: Clear. HEART: Regular rhythm. ABDOMEN: Soft. IMPRESSION: He apparently had a very localized infection, reviewing the operative report. Overall, he appears to be stable. Job ID: [id number]
--- NOTE | 2019-12-15 21:23 | PDOC.HOSPP ---
- Subjective Encounter Date: 12/15/19 Encounter Time: 10:00 Subjective: no overnight events. sternal wound growing staph aureus. S/p I&D and wound vac. - Objective Vital Signs & Weight: Vital Signs (12 hours) Temp Pulse Resp BP BP Pulse Ox 12/15/19 21:00 97.6 F 64 20 113/75 95 12/15/19 13:23 60 18 107/64 100 12/15/19 12:00 60 18 104/71 100 12/15/19 11:14 98 12/15/19 11:10 97.6 F 68 18 109/71 98 Weight Admit Weight 280 lb Weight 290 lb 12.635 oz Most Recent Monitor Data Heart Rate from ECG 62 NIBP 107/60 NIBP BP-Mean 82 Respiration from ECG 28 SpO2 100 I&O: 12/14/19 12/15/19 12/16/19 06:59 06:59 06:59 Intake Total 540 1070 900 Output Total 1875 1600 Balance -1335 -530 900 Result Diagrams: 12/15/19 05:25 12/15/19 05:25 Hospitalist ROS - Review of Systems Constitutional: denies: chills, sweats Cardiovascular: denies: chest pain, palpitations, orthopnea Gastrointestinal: denies: nausea, vomiting, abdominal pain Genitourinary: denies: dysuria, frequency, hematuria - Medication Medications: Active Medications Generic Name Dose Route Start Last Admin Trade Name Freq PRN Reason Stop Dose Admin Furosemide 40 mg 12/14/19 06:00 12/15/19 13:16 Lasix SLOW IVP 40 mg 0600,1400 BRAN Administration Cefazolin Sodium/Dextrose 2 gm 50 mls @ 100 mls/hr 12/11/19 22:00 12/15/19 13 :17 / Device IVPB 50 mls Q8HR BRAN Administration Pantoprazole Sodium 40 mg 12/12/19 09:00 12/15/19 09:00 Protonix PO Not Given DAILY BRAN Rosuvastatin Calcium 20 mg 12/11/19 09:00 12/15/19 09:00 Crestor PO Not Given DAILY BRAN Spironolactone 25 mg 12/13/19 17:00 12/15/19 17:01 Aldactone PO 25 mg BID- BRAN Administration Triamcinolone Acetonide 0 gm 12/12/19 21:00 12/15/19 09:00 Kenalog 0.1% Cream TOP Not Given BID [facility] Vitamin B Complex/Vit C/Folic Acid 1 tab 12/12/19 09:00 12/15/19 09:00 Nephro-Paramjit Tablet PO Not Given DAILY BRAN - Exam General Appearance: NAD, awake alert Neck: no JVD Heart: RRR, no murmur, no gallops, no rubs Heart - other findings: wound vac on sternal wound Respiratory: CTAB, no wheezes, no rales, no ronchi Gastrointestinal: soft, non-tender, non-distended, normal bowel sounds Extremities: 2+ LE edema Extremities - other findings: stasis dermatitis Psychiatric: normal affect, normal behavior, A&O x 3 Hosp A/P - Plan #MSSA bacteremia #Pacemaker #superficial sternal wound s/p I&D (12/14); wound culture growing s.aureus -tranesophageal echo showing no lead vegetation -PCCM onboard, ID onboard -continue cefazolin (12/10) -6 weeks total Abx on discharge per ID #HFpEF -severely dilated L atrium on Echo -stopped fluids; lasix as per cardiology #Stasis dermatitis -continue triamcinolone #HCC -Child Anthony 4-5 based on recent labs and imaging -consulted surgery but per verbal communication, no hepatic surgical team available; will require referral Full code ELOS: 1 night
[2019-12-16] MEDS: CEFAZOLIN 2 GM in Premix Bag 1 BAG IVPB SCH ×3 (06:00→21:34)
[2019-12-16] MEDS: Furosemide 40 MG/4 ML VIAL SLOW IVP SCH ×2 (06:00→13:22)
[2019-12-16 06:16] LABS: Anion Gap 12 mmol/L (10-20); BUN (Urea Nitrogen) 16 mg/dL (8.4-25.7); Calc. Creatinine Clearance 126 mL/min (70-130); Calcium 8.6 mg/dL (7.8-10.44); Carbon Dioxide 35 mmol/L (23-31); Chloride 94 mmol/L (98-107); Estimated GFR-MDRD 82; Glucose 119 mg/dL (83-110); Magnesium 1.9 mg/dL (1.6-2.6); Sodium 137 mmol/L (136-145)
[2019-12-16] MEDS: Spironolactone 25 MG TAB PO SCH ×2 (08:18→17:16)
[2019-12-16] MEDS: Rosuvastatin 20 MG TAB PO SCH (08:18)
[2019-12-16] MEDS: Potassium Chloride 20 MEQ TAB PO SCH (08:18)
[2019-12-16] MEDS: Folic Acid/Vit B Comp W-C PO SCH (08:19)
[2019-12-16] MEDS: Polyethylene Glycol 3350 17 GM Packet PO SCH (08:48)
[2019-12-16] MEDS: Triamcinolone 0.1% Cream 15 GM TUBE TOP SCH ×2 (08:49→21:34)
[2019-12-16] MEDS ORDERED: Apixaban 5 MG TAB PO SCH (09:00)
--- NOTE | 2019-12-16 13:03 | PDOC.HOSPP ---
- Subjective Encounter Date: 12/16/19 Encounter Time: 10:10 Subjective: Just finished his hygiene cleaned off -- his sternal wound in dressing. He is more alert oriented. He states he lives with his . - Objective Vital Signs & Weight: Vital Signs (12 hours) Temp Pulse Resp BP BP Pulse Ox 12/16/19 11:00 98.1 F 65 16 129/87 98 12/16/19 08:00 96 12/16/19 07:29 98.2 F 64 18 118/81 96 12/16/19 04:00 98.0 F 63 18 113/76 95 Weight Admit Weight 280 lb Weight 290 lb 12.635 oz Most Recent Monitor Data Heart Rate from ECG 62 NIBP 107/60 NIBP BP-Mean 82 Respiration from ECG 28 SpO2 100 I&O: 12/15/19 12/16/19 12/17/19 06:59 06:59 06:59 Intake Total 1070 1240 Output Total 1600 700 Balance -530 540 Result Diagrams: 12/15/19 05:25 12/16/19 05:37 Hospitalist ROS - Medication Medications: Active Medications Generic Name Dose Route Start Last Admin Trade Name Freq PRN Reason Stop Dose Admin Furosemide 40 mg 12/14/19 06:00 12/16/19 06:00 Lasix SLOW IVP 40 mg 0600,1400 BRAN Administration Cefazolin Sodium/Dextrose 2 gm 50 mls @ 100 mls/hr 12/11/19 22:00 12/16/19 06 :00 / Device IVPB 50 mls Q8HR BRAN Administration Pantoprazole Sodium 40 mg 12/12/19 09:00 12/16/19 08:18 Protonix PO 40 mg DAILY BRAN Administration Polyethylene Glycol 17 gm 12/16/19 09:00 12/16/19 08:48 Miralax PO Not Given DAILY BRAN Potassium Chloride 20 meq 12/16/19 08:00 12/16/19 08:18 K-Dur PO 20 meq QAM-WM BRAN Administration Rosuvastatin Calcium 20 mg 12/11/19 09:00 12/16/19 08:18 Crestor PO 20 mg DAILY BRAN Administration Spironolactone 25 mg 12/13/19 17:00 12/16/19 08:18 Aldactone PO 25 mg BID-WM BRAN Administration Triamcinolone Acetonide 0 gm 12/12/19 21:00 12/16/19 08:49 Kenalog 0.1% Cream TOP 1 applic BID BRAN Administration Vitamin B Complex/Vit C/Folic Acid 1 tab 12/12/19 09:00 12/16/19 08:19 Nephro-Paramjit Tablet PO 1 tab DAILY BRAN Administration - Exam General Appearance: NAD, awake alert Eye: PERRL, anicteric sclera ENT: normocephalic atraumatic Neck - other findings: Sternal area wound Respiratory: CTAB Gastrointestinal: soft, normal bowel sounds Extremities: 1+ LE edema Neurological: cranial nerve grossly intact Psychiatric: A&O x 3 Hosp A/P - Plan #MSSA bacteremia #Pacemaker #superficial sternal wound s/p I&D (12/14); wound culture growing s.aureus -tranesophageal echo showing no lead vegetation -continue cefazolin (12/10) -6 weeks total Abx on discharge per ID #HFpEF -severely dilated L atrium on Echo -on lasix #Stasis dermatitis -continue triamcinolone #HCC -Child Anthony 4-5 -outpt referral for co founder and chief strategy officer appreciete the help from CCM and ID
--- NOTE | 2019-12-16 17:03 | PRG ---
DATE OF SERVICE: 12/16/2019 SUBJECTIVE: The patient has some pain in the sternal area. He has mild dyspnea. No abdominal pain. No diarrhea. He is voiding in the urinal. OBJECTIVE: VITAL SIGNS: T-max 98.2, blood pressure 110/76, heart rate 72, respiratory rate 16, O2 saturation 95 on 2 L. SKIN: Sternotomy wound has been evaluated, and this is fresh wound with serosanguineous bloody exudate at the base. Erythema is less. No purulence. LUNGS: Symmetric air entry. HEART: S1 and S2 regular rate. ABDOMEN: Soft, not distended. LABORATORY DATA: White cell count 4.0, hemoglobin 13, and platelets 155, which was improved. Creatinine 0.9. Cultures from the sternum with Staph aureus. Repeat blood cultures negative from December 11. ASSESSMENT/DISCUSSION: Coronary artery disease, hepatocellular carcinoma likely, but not yet addressed due to intervening problems, pacemaker, methicillin-susceptible Staphylococcus aureus bacteremia with sternotomy site infection, status post limited debridement. No need for more extensive procedure. He will need long-term antimicrobial therapy administration. He is currently receiving cefazolin, which will be continued. We need a PICC line placement and protracted IV antimicrobial therapy. Job ID: [id number]
[2019-12-17] MEDS: CEFAZOLIN 2 GM in Premix Bag 1 BAG IVPB SCH ×3 (06:12→21:15)
[2019-12-17] MEDS: Furosemide 40 MG/4 ML VIAL SLOW IVP SCH ×2 (06:12→13:51)
[2019-12-17] MEDS: Potassium Chloride 20 MEQ TAB PO SCH (08:37)
[2019-12-17] MEDS: Rosuvastatin 20 MG TAB PO SCH (08:37)
[2019-12-17] MEDS: Folic Acid/Vit B Comp W-C PO SCH (08:37)
[2019-12-17] MEDS: Spironolactone 25 MG TAB PO SCH ×2 (08:37→17:47)
[2019-12-17] MEDS: Polyethylene Glycol 3350 17 GM Packet PO SCH (08:41)
--- NOTE | 2019-12-17 10:10 | PRG ---
DATE OF SERVICE: 12/17/2019 SUBJECTIVE: Clement Lin says he is feeling well. His wound VAC is off. His wound is packed with 4x4s. He is afebrile. Heart rates in the 70s, respiratory rate is 20, oximetry is 98, blood pressure is 117/78. He says his wound VAC had been on for the last couple of days. OBJECTIVE: LUNGS: Clear. HEART: Regular rhythm. ABDOMEN: Soft. IMPRESSION: 1. Localized sternal wound infection, they finally cleared itself. 2. Hepatic carcinoma. 3. Coronary artery disease with recent bypass grafting. 4. Pacemaker in place. 5. Staph aureus bacteremia. Initial cultures are positive. Followup cultures have been negative need a PICC line at some point. We will continue to follow. Job ID: [id number]
--- NOTE | 2019-12-17 12:47 | PDOC.HOSPP ---
- Subjective Encounter Date: 12/17/19 Encounter Time: 09:40 Subjective: Patient is doing well. His right great toe has small stage I ulcer. He has a right IV axis where he is getting IV antibiotics. He needs a PICC line talk to the RN. Order placed. No acute complaints from the patient. - Objective Vital Signs & Weight: Vital Signs (12 hours) Temp Pulse Resp BP Pulse Ox 12/17/19 08:00 97.8 F 75 20 117/78 98 12/17/19 04:00 98.3 F 67 16 126/80 96 Weight Admit Weight 280 lb Weight 290 lb 12.635 oz Most Recent Monitor Data Heart Rate from ECG 62 NIBP 107/60 NIBP BP-Mean 82 Respiration from ECG 28 SpO2 100 I&O: 12/16/19 12/17/19 12/18/19 06:59 06:59 06:59 Intake Total 1240 750 Output Total 700 Balance 540 750 Result Diagrams: 12/15/19 05:25 12/16/19 05:37 Hospitalist ROS - Medication Medications: Active Medications Generic Name Dose Route Start Last Admin Trade Name Freq PRN Reason Stop Dose Admin Furosemide 40 mg 12/14/19 06:00 12/17/19 06:12 Lasix SLOW IVP 40 mg 0600,1400 BRAN Administration Cefazolin Sodium/Dextrose 2 gm 50 mls @ 100 mls/hr 12/11/19 22:00 12/17/19 06 :12 / Device IVPB 50 mls Q8HR BRAN Administration Pantoprazole Sodium 40 mg 12/12/19 09:00 12/17/19 08:37 Protonix PO 40 mg DAILY BRAN Administration Polyethylene Glycol 17 gm 12/16/19 09:00 12/17/19 08:41 Miralax PO Not Given DAILY BRAN Potassium Chloride 20 meq 12/16/19 08:00 12/17/19 08:37 K-Dur PO 20 meq QAM-WM BRAN Administration Rosuvastatin Calcium 20 mg 12/11/19 09:00 12/17/19 08:37 Crestor PO 20 mg DAILY BRAN Administration Spironolactone 25 mg 12/13/19 17:00 12/17/19 08:37 Aldactone PO 25 mg BID-WM BRAN Administration Triamcinolone Acetonide 0 gm 12/12/19 21:00 12/16/19 21:34 Kenalog 0.1% Cream TOP 1 applic BID BRAN Administration Vitamin B Complex/Vit C/Folic Acid 1 tab 12/12/19 09:00 12/17/19 08:37 Nephro-Paramjit Tablet PO 1 tab DAILY BRAN Administration - Exam General Appearance: NAD, awake alert Eye: PERRL ENT: normocephalic atraumatic Neck: supple Heart: RRR Respiratory: CTAB, normal chest expansion Gastrointestinal: soft, normal bowel sounds Neurological: cranial nerve grossly intact Musculoskeletal - other findings: He has a right peripheral IV axis Psychiatric: A&O x 3 Hosp A/P - Plan #MSSA bacteremia #Pacemaker #superficial sternal wound s/p I&D (12/14); wound culture growing s.aureus -tranesophageal echo showing no lead vegetation -continue cefazolin () -6 weeks total Abx on discharge per ID #HFpEF -severely dilated L atrium on Echo -on lasix #Stasis dermatitis -continue triamcinolone #HCC -Child Anthony 4-5 -outpt referral for newspaper reporter appreciete the help from CCM and ID 6th Sternal wound culture grew staph aureus Blood cultures of December 12 no growth for 48 hours so we will go ahead and get the PICC line. PICC ordered.
[2019-12-17] MEDS: Triamcinolone 0.1% Cream 15 GM TUBE TOP SCH ×2 (13:51→21:16)
[2019-12-18] MEDS: CEFAZOLIN 2 GM in Premix Bag 1 BAG IVPB SCH ×3 (06:26→21:29)
[2019-12-18] MEDS: Furosemide 40 MG/4 ML VIAL SLOW IVP SCH (06:26)
[2019-12-18] MEDS: Folic Acid/Vit B Comp W-C PO SCH (08:54)
[2019-12-18] MEDS: Potassium Chloride 20 MEQ TAB PO SCH (08:54)
[2019-12-18] MEDS: Rosuvastatin 20 MG TAB PO SCH (08:54)
[2019-12-18] MEDS: Spironolactone 25 MG TAB PO SCH ×2 (08:54→15:37)
[2019-12-18] MEDS: Triamcinolone 0.1% Cream 15 GM TUBE TOP SCH ×2 (08:55→21:29)
[2019-12-18] MEDS: Polyethylene Glycol 3350 17 GM Packet PO SCH (08:55)
--- NOTE | 2019-12-18 12:04 | PDOC.HOSPP ---
- Objective Vital Signs & Weight: Vital Signs (12 hours) Temp Pulse Resp BP Pulse Ox 12/18/19 08:00 97.7 F 59 L 20 118/80 98 Weight Admit Weight 280 lb Weight 290 lb Most Recent Monitor Data Heart Rate from ECG 62 NIBP 107/60 NIBP BP-Mean 82 Respiration from ECG 28 SpO2 100 I&O: 12/17/19 12/18/19 12/19/19 06:59 06:59 06:59 Intake Total 750 Balance 750 Result Diagrams: 12/15/19 05:25 12/16/19 05:37 Hospitalist ROS - Medication Medications: Active Medications Generic Name Dose Route Start Last Admin Trade Name Freq PRN Reason Stop Dose Admin Furosemide 40 mg 12/14/19 06:00 12/18/19 06:26 Lasix SLOW IVP 40 mg 0600,1400 BRAN Administration Cefazolin Sodium/Dextrose 2 gm 50 mls @ 100 mls/hr 12/11/19 22:00 12/18/19 06 :26 / Device IVPB 50 mls Q8HR BRAN Administration Pantoprazole Sodium 40 mg 12/12/19 09:00 12/18/19 08:54 Protonix PO 40 mg DAILY BRAN Administration Polyethylene Glycol 17 gm 12/16/19 09:00 12/18/19 08:55 Miralax PO Not Given DAILY BRAN Potassium Chloride 20 meq 12/16/19 08:00 12/18/19 08:54 K-Dur PO 20 meq QAM-WM BRAN Administration Rosuvastatin Calcium 20 mg 12/11/19 09:00 12/18/19 08:54 Crestor PO 20 mg DAILY BRAN Administration Spironolactone 25 mg 12/13/19 17:00 12/18/19 08:54 Aldactone PO 25 mg BID-WM BRAN Administration Triamcinolone Acetonide 0 gm 12/12/19 21:00 12/18/19 08:55 Kenalog 0.1% Cream TOP 1 applic BID BRAN Administration Vitamin B Complex/Vit C/Folic Acid 1 tab 12/12/19 09:00 12/18/19 08:54 Nephro-Paramjit Tablet PO 1 tab DAILY BRAN Administration Hosp A/P - Plan #MSSA bacteremia #Pacemaker #superficial sternal wound s/p I&D (12/14); wound culture growing s.aureus -tranesophageal echo showing no lead vegetation -continue cefazolin () -6 weeks total Abx on discharge per ID #HFpEF -severely dilated L atrium on Echo -on lasix --switch to p.o. Lasix and monitor closely He is on torsemide as a home regimen Recent CABG by Dr. Mcgrath Chronic atrial fibrillation -S sternal wound looks good we may be able to start him back on Eliquis which is on hold #Stasis dermatitis -continue triamcinolone #HCC -Child Anthony 4-5 -outpt referral for industrial relations manager appreciete the help from CCM and ID 6th Sternal wound culture grew staph aureus Blood cultures of December 12 no growth for 48 hours so we will go ahead and get the PICC line. PICC ordered. 7th He is still getting IV Lasix --I will switch that to p.o. He had a transesophageal echo recently with and no vegetation It should be okay to start back on Eliquis but will cehck with Dr. Mcgrath before starting him back.
[2019-12-18] MEDS: Furosemide 40 MG TAB PO SCH (15:37)
--- NOTE | 2019-12-18 16:32 | PRG ---
DATE OF SERVICE: 12/18/2019 SUBJECTIVE: The patient had been bleeding intermittently from the sternotomy site. Other than that, his patient has not had any other issues. Minimal pain and no abdominal symptoms, no diarrhea, and voiding in the urinal. OBJECTIVE: VITAL SIGNS: He has been afebrile, O2 saturations 98% on 2 L nasal cannula, blood pressure 118/80, heart rate 60, respiratory rate 20. GENERAL: Fresh wound of the sternotomy site. LUNGS: Clear. CARDIOVASCULAR: S1 and S2, regular rate. ABDOMEN: Soft, not distended or tender. He will need insertion of a PICC line. The disposition probably will eventually involve transfer to rehab. The PICC placement has been scheduled probably if tomorrow will be done. ASSESSMENT AND DISCUSSION: Coronary artery disease, recent bypass graft surgery, likely hepatocellular carcinoma, not yet addressed due to intervening problems, pacemaker or that has not been demonstrated to be infected at the moment. Methicillin-susceptible Staph aureus bacteremia from sternotomy site infection status post limited debridement. The patient to continue on cefazolin for protracted period of time. End date of therapy is estimated around January 24. Weekly labs including CBC, CRP, and CMP. He still may develop colonization of pacemaker, so we will have to keep monitoring this in the near future. Job ID: [id number]
[2019-12-19 05:51] LABS: #Eosinphils 0.2 thou/uL (0.0-0.7); #Lymphocytes 0.9 thou/uL (1.20-3.40); #Monocytes 0.4 thou/uL (0.11-0.59); #Neutrophils 4.4 thou/uL (1.40-6.50); %Basophils 0.5 % (0.0-1.0); %Lymphocytes 15.7 % (21.0-51.0); %Monocytes 7.3 % (0.0-10.0); %Neutrophils 73.5 % (42.0-75.0); Hemoglobin 13.9 g/dL (14.0-18.0); Mean Corpuscular HGB CONC 31.7 g/dL (32.0-36.0); Mean Corpuscular Hemoglobin 31.3 pg (27.0-31.0); Mean Corpuscular Volume 98.8 fL (78.0-98.0); Mean Platelet Volume 7.8 fL (7.4-10.4); Platelet Count 210 thou/uL (130-400); RBC Distribution Width 14.3 % (11.5-14.5); Red Blood Cell (RBC) Count 4.43 mill/uL (4.70-6.10); White Blood Cell (WBC) Count 5.9 thou/uL (4.8-10.8)
[2019-12-19 05:57] LABS: INR-International Normal Ratio 1.1; Prothrombin Time 13.7 sec (12.0-14.7)
[2019-12-19] MEDS: CEFAZOLIN 2 GM in Premix Bag 1 BAG IVPB SCH ×3 (06:00→22:01)
[2019-12-19 06:13] LABS: Anion Gap 14 mmol/L (10-20); BUN (Urea Nitrogen) 20 mg/dL (8.4-25.7); Calc. Creatinine Clearance 117 mL/min (70-130); Calcium 8.8 mg/dL (7.8-10.44); Carbon Dioxide 30 mmol/L (23-31); Chloride 92 mmol/L (98-107); Estimated GFR-MDRD 75; Glucose 112 mg/dL (83-110); Potassium 4.1 mmol/L (3.5-5.1); Sodium 132 mmol/L (136-145)
[2019-12-19] MEDS: Potassium Chloride 20 MEQ TAB PO SCH (08:20)
[2019-12-19] MEDS: Furosemide 40 MG TAB PO SCH ×2 (08:20→14:11)
[2019-12-19] MEDS: Folic Acid/Vit B Comp W-C PO SCH (08:20)
[2019-12-19] MEDS: Spironolactone 25 MG TAB PO SCH ×2 (08:20→17:15)
[2019-12-19] MEDS: Rosuvastatin 20 MG TAB PO SCH (08:20)
[2019-12-19] MEDS: Polyethylene Glycol 3350 17 GM Packet PO SCH (08:20)
[2019-12-19] MEDS: Triamcinolone 0.1% Cream 15 GM TUBE TOP SCH ×2 (08:20→20:19)
[2019-12-19] MEDS ORDERED: Apixaban 5 MG TAB PO SCH (09:00)
--- NOTE | 2019-12-19 09:39 | PRG ---
DATE OF SERVICE: 12/19/2019 SUBJECTIVE: Mr. Lin is doing well. No chest pain. No shortness of breath. Look like he has had a good diuresis. OBJECTIVE: VITAL SIGNS: His blood pressure 111/74 and pulse is 60. Lungs: Clear. CARDIAC: Normal S1. Normal S2. ABDOMEN: Soft and nontender. EXTREMITIES: Only mild edema. LABORATORY DATA: Creatinine is 0.97. Hemoglobin is 13.9. ASSESSMENT: 1. Diastolic heart failure, stable. 2. Previous bypass surgery. 3. Atrial fibrillation. 4. Previous pacemaker insertion. 5. Left atrial appendage oversewing. PLAN: 1. Resume apixaban at this time until we have documented if the atrium appendage is occluded. 2. Resume aspirin. 3. Plan continue as outlined above. Please notify me if any problems. Otherwise, we will sign off at this time. Job ID: [id number]
--- NOTE | 2019-12-19 11:44 | SPC ---
Right upper extremity PICC sonographic guided HISTORY: Infection. Long-term antibiotics. FINDINGS: After explaining the procedure and answering all questions, the right upper extremity was p repped and draped in usual sterile fashion. Sterile technique, buffered local anesthesia, sonographic guidance, and a 22-gauge needle were used t o carefully access the right brachial vein. Standard technique was used to place the tip of a 5 Czech single lumen PICC so that the tip lies at the level of the superior vena cava. Catheter was flushed and secured externally. Patient tolerated the procedure well and was returned in unchanged condition. Fluoroscopy time 1.1 minute. IMPRESSION : Right upper extremity PICC is ready for use.
--- NOTE | 2019-12-19 12:54 | PDOC.HOSPP ---
- Subjective Encounter Date: 12/19/19 Encounter Time: 11:20 Subjective: Patient doing well. No sternal wound bleeding noted today. He also has a wound VAC in the for the sternal wound. He has a right PICC line placed this morning. Restarting Eliquis per Dr. Mcgrath has I talked to him yesterday. Concern for rebleed on the sternal wound. - Objective Vital Signs & Weight: Vital Signs (12 hours) Temp Pulse Resp BP Pulse Ox 12/19/19 07:34 98.7 F 61 20 111/74 96 Weight Admit Weight 280 lb Weight 292 lb 8.583 oz Most Recent Monitor Data Heart Rate from ECG 62 NIBP 107/60 NIBP BP-Mean 82 Respiration from ECG 28 SpO2 100 Result Diagrams: 12/19/19 05:30 12/19/19 05:30 Hospitalist ROS - Medication Medications: Active Medications Generic Name Dose Route Start Last Admin Trade Name Freq PRN Reason Stop Dose Admin Apixaban 5 mg 12/19/19 09:00 12/19/19 11:27 Eliquis PO 5 mg BID BRAN Administration Furosemide 40 mg 12/18/19 14:00 12/19/19 08:20 Lasix PO 40 mg 0900,1400 BRAN Administration Cefazolin Sodium/Dextrose 2 gm 50 mls @ 100 mls/hr 12/11/19 22:00 12/19/19 06 :00 / Device IVPB 50 mls Q8HR BRAN Administration Pantoprazole Sodium 40 mg 12/12/19 09:00 12/19/19 08:20 Protonix PO 40 mg DAILY BRAN Administration Polyethylene Glycol 17 gm 12/16/19 09:00 12/19/19 08:20 Miralax PO Not Given DAILY BRAN Potassium Chloride 20 meq 12/16/19 08:00 12/19/19 08:20 K-Dur PO 20 meq QAM-WM BRAN Administration Rosuvastatin Calcium 20 mg 12/11/19 09:00 12/19/19 08:20 Crestor PO 20 mg DAILY BRAN Administration Spironolactone 25 mg 12/13/19 17:00 12/19/19 08:20 Aldactone PO 25 mg BID-WM BRAN Administration Triamcinolone Acetonide 0 gm 12/12/19 21:00 12/19/19 08:20 Kenalog 0.1% Cream TOP 1 applic BID BRAN Administration Vitamin B Complex/Vit C/Folic Acid 1 tab 12/12/19 09:00 12/19/19 08:20 Nephro-Paramjit Tablet PO 1 tab DAILY BRAN Administration - Exam General Appearance: NAD, awake alert General - other findings: Sternal wound area with wound VAC. He has a right PICC line Eye: PERRL ENT: normocephalic atraumatic Neck: supple Heart: RRR, normal peripheral pulses Respiratory: CTAB Gastrointestinal: soft, normal bowel sounds Neurological: cranial nerve grossly intact, no focal deficits Psychiatric: A&O x 3 Hosp A/P - Plan #MSSA bacteremia #Pacemaker #superficial sternal wound s/p I&D (12/14); wound culture growing s.aureus -tranesophageal echo showing no lead vegetation -continue cefazolin () -6 weeks total Abx on discharge per ID #HFpEF -severely dilated L atrium on Echo -on lasix --switch to p.o. Lasix and monitor closely He is on torsemide as a home regimen Recent CABG by Dr. Mcgrath Chronic atrial fibrillation -S sternal wound looks good we may be able to start him back on Eliquis which is on hold #Stasis dermatitis -continue triamcinolone #HCC -Child Anthony 4-5 -outpt referral for rubbish collector appreciete the help from CCM and ID 6th Sternal wound culture grew staph aureus Blood cultures of December 12 no growth for 48 hours so we will go ahead and get the PICC line. PICC ordered. 7th He is still getting IV Lasix --I will switch that to p.o. He had a transesophageal echo recently with and no vegetation It should be okay to start back on Eliquis but will cehck with Dr. Mcgrath before starting him back. 8th Will check with Dr. Mcclain is concern for sternal wound bleed regarding restart on Eliquis. He has a right PICC line for IV antibiotics that will be continued until end of this month. After we start Eliquis we need to monitor closely for a day or 2 before transferring him to rehab facility given the risk for sternal wound bleed. Currently he is hemoglobin at 13.1.
[2019-12-19] MEDS ORDERED: Sodium Chloride 0.9% 500 ML IV SCH (17:00)
[2019-12-20] MEDS: CEFAZOLIN 2 GM in Premix Bag 1 BAG IVPB SCH ×3 (06:05→21:11)
[2019-12-20] MEDS: Aspirin 81 mg Enteric Coated Tablet PO SCH (08:34)
[2019-12-20] MEDS: Folic Acid/Vit B Comp W-C PO SCH (08:34)
[2019-12-20] MEDS: Rosuvastatin 20 MG TAB PO SCH (08:34)
[2019-12-20] MEDS: Potassium Chloride 20 MEQ TAB PO SCH (08:35)
[2019-12-20] MEDS: Polyethylene Glycol 3350 17 GM Packet PO SCH (08:35)
[2019-12-20] MEDS: Furosemide 20 MG TAB PO SCH ×2 (08:35→14:02)
[2019-12-20] MEDS: Spironolactone 25 MG TAB PO SCH ×2 (08:35→17:41)
[2019-12-20] MEDS: Triamcinolone 0.1% Cream 15 GM TUBE TOP SCH ×2 (08:36→21:11)
--- NOTE | 2019-12-20 12:47 | PDOC.HOSPP ---
- Subjective Encounter Date: 12/20/19 Encounter Time: 10:40 Subjective: Patient doing well. He has no acute complaints. He has wound VAC on his chest. No noticeable bleed around the sternal wound site. Wound care is following. I talked to the son this morning at [phone] and updated the clinical course. Talk to the community case manager possible swing bed placement when medically able. - Objective Vital Signs & Weight: Vital Signs (12 hours) Temp Pulse Resp BP Pulse Ox 12/20/19 08:35 96 12/20/19 07:43 97.5 F L 64 18 118/81 96 12/20/19 05:21 95 Weight Admit Weight 280 lb Weight 292 lb 8.583 oz Most Recent Monitor Data Heart Rate from ECG 62 NIBP 107/60 NIBP BP-Mean 82 Respiration from ECG 28 SpO2 100 I&O: 12/19/19 12/20/19 12/21/19 06:59 06:59 06:59 Intake Total 360 597 Output Total 825 Balance -465 597 Result Diagrams: 12/19/19 05:30 12/19/19 05:30 Hospitalist ROS - Medication Medications: Active Medications Generic Name Dose Route Start Last Admin Trade Name Freq PRN Reason Stop Dose Admin Aspirin 81 mg 12/20/19 09:00 12/20/19 08:34 Ecotrin PO 81 mg DAILY BRAN Administration Furosemide 20 mg 12/20/19 09:00 12/20/19 08:35 Lasix PO 20 mg 0900,1400 BRAN Administration Cefazolin Sodium/Dextrose 2 gm 50 mls @ 100 mls/hr 12/11/19 22:00 12/20/19 06 :05 / Device IVPB 50 mls Q8HR BRAN Administration Pantoprazole Sodium 40 mg 12/12/19 09:00 12/20/19 08:35 Protonix PO 40 mg DAILY BRAN Administration Polyethylene Glycol 17 gm 12/16/19 09:00 12/20/19 08:35 Miralax PO Not Given DAILY RBAN Potassium Chloride 20 meq 12/16/19 08:00 12/20/19 08:35 K-Dur PO 20 meq QAM-WM BRAN Administration Rosuvastatin Calcium 20 mg 12/11/19 09:00 12/20/19 08:34 Crestor PO 20 mg DAILY BRAN Administration Spironolactone 25 mg 12/13/19 17:00 12/20/19 08:35 Aldactone PO 25 mg BID-WM BRAN Administration Triamcinolone Acetonide 0 gm 12/12/19 21:00 12/20/19 08:36 Kenalog 0.1% Cream TOP 1 applic BID BRAN Administration Vitamin B Complex/Vit C/Folic Acid 1 tab 12/12/19 09:00 12/20/19 08:34 Nephro-Paramjit Tablet PO 1 tab DAILY BRAN Administration - Exam General Appearance: NAD, awake alert General - other findings: Sternal wound on wound VAC no noticeable bleed. Eye: PERRL ENT: normocephalic atraumatic Neck: supple Heart: RRR Respiratory: CTAB, normal chest expansion Gastrointestinal: soft, normal bowel sounds Psychiatric: A&O x 3 Hosp A/P - Plan #MSSA bacteremia #Pacemaker #superficial sternal wound s/p I&D (12/14); wound culture growing s.aureus -tranesophageal echo showing no lead vegetation -continue cefazolin () -6 weeks total Abx on discharge per ID #HFpEF -severely dilated L atrium on Echo -on lasix --switch to p.o. Lasix and monitor closely He is on torsemide as a home regimen Recent CABG by Dr. Mcgrath Chronic atrial fibrillation -S sternal wound looks good we may be able to start him back on Eliquis which is on hold #Stasis dermatitis -continue triamcinolone #HCC -Child Anthony 4-5 -outpt referral for superintendent stevedoring appreciete the help from CCM and ID 6th Sternal wound culture grew staph aureus Blood cultures of December 12 no growth for 48 hours so we will go ahead and get the PICC line. PICC ordered. 7th He is still getting IV Lasix --I will switch that to p.o. He had a transesophageal echo recently with and no vegetation It should be okay to start back on Eliquis but will cehck with Dr. Mcgrath before starting him back. 8th Will check with Dr. Mcgrath is concern for sternal wound bleed regarding restart on Eliquis. He has a right PICC line for IV antibiotics that will be continued until end of this month. After we start Eliquis we need to monitor closely for a day or 2 before transferring him to rehab facility given the risk for sternal wound bleed. Currently he is hemoglobin at 13.1. 9th I talked to the son this morning at [phone] and updated the clinical course. Since he has no bleed for the last 48 hours we will start him back on Eliquis. Checked with Dr. Mcgrath. Will monitor closely for the next 1 to 2 days for sternal wound bleed, which is on wound vac. . modeling manager is working with the family on swing bed placement which likely early next week.
--- NOTE | 2019-12-20 16:25 | PRG ---
DATE OF SERVICE: 12/20/2019 SUBJECTIVE: He looks better today. He does not like the food in the hospital, but otherwise his appetite is pretty good. No chest pain. No abdominal pain. Voiding in the urinal. He is able to walk all the way to the nursing station today from his bed. OBJECTIVE: VITAL SIGNS: Temperature max 98.7, BP 118/81, heart rate 64, respiratory rate 18, and O2 saturation 96 on 2 L. GENERAL: He does not appear in distress, awake and oriented, pleasant. LUNGS: Symmetric, clear breath sounds. SKIN: Mid anterior chest, negative pressure dressing. No erythema or tenderness. PICC line in the right upper extremity. ABDOMEN: Soft abdomen. No bladder distention. EXTREMITIES: Stasis dermatitis in the anterior legs. No edema. LABORATORY DATA: White cell count 5.9, hemoglobin 13, platelets 210, and 73% neutrophils. Sodium 132 and creatinine 0.97. Procalcitonin 0.27. ASSESSMENT AND DISCUSSION: Coronary artery disease, recent bypass graft surgery, likely hepatocellular carcinoma, not yet addressed due to intervening problems, pacemaker without evidence of pacemaker lead colonization at the moment after GEOVANNA. MSSA or methicillin-susceptible Staph aureus bacteremia secondary to sternotomy site infection status post limited debridement. The patient to continue on cefazolin, end date of therapy is 01/24. Weekly labs. Looks like he is going to be transferred to [facility]. Job ID: [id number]
[2019-12-20] MEDS: Apixaban 5 MG TAB PO SCH (21:11)
[2019-12-21] MEDS: CEFAZOLIN 2 GM in Premix Bag 1 BAG IVPB SCH ×3 (05:57→21:05)
[2019-12-21 06:59] LABS: #Basophils 0.1 thou/uL (0.0-0.2); #Eosinphils 0.1 thou/uL (0.0-0.7); #Lymphocytes 0.9 thou/uL (1.20-3.40); #Monocytes 0.4 thou/uL (0.11-0.59); #Neutrophils 4.5 thou/uL (1.40-6.50); %Basophils 1.1 % (0.0-1.0); %Eosinophils 2.5 % (0.0-10.0); %Lymphocytes 14.9 % (21.0-51.0); %Monocytes 6.3 % (0.0-10.0); %Neutrophils 75.2 % (42.0-75.0); Hemoglobin 13.9 g/dL (14.0-18.0); Mean Corpuscular HGB CONC 32.2 g/dL (32.0-36.0); Mean Corpuscular Hemoglobin 31.6 pg (27.0-31.0); Mean Corpuscular Volume 98.1 fL (78.0-98.0); Mean Platelet Volume 8.2 fL (7.4-10.4); Platelet Count 194 thou/uL (130-400); RBC Distribution Width 14.2 % (11.5-14.5); Red Blood Cell (RBC) Count 4.42 mill/uL (4.70-6.10)
[2019-12-21 07:32] LABS: Anion Gap 15 mmol/L (10-20); BUN (Urea Nitrogen) 23 mg/dL (8.4-25.7); Calc. Creatinine Clearance 108 mL/min (70-130); Calcium 8.9 mg/dL (7.8-10.44); Carbon Dioxide 28 mmol/L (23-31); Chloride 93 mmol/L (98-107); Estimated GFR-MDRD 69; Glucose 110 mg/dL (83-110); Potassium 4.1 mmol/L (3.5-5.1); Sodium 132 mmol/L (136-145)
[2019-12-21] MEDS: Aspirin 81 mg Enteric Coated Tablet PO SCH (08:17)
[2019-12-21] MEDS: Potassium Chloride 20 MEQ TAB PO SCH (08:18)
[2019-12-21] MEDS: Polyethylene Glycol 3350 17 GM Packet PO SCH (08:18)
[2019-12-21] MEDS: Folic Acid/Vit B Comp W-C PO SCH (08:18)
[2019-12-21] MEDS: Triamcinolone 0.1% Cream 15 GM TUBE TOP SCH ×2 (08:18→21:06)
[2019-12-21] MEDS: Spironolactone 25 MG TAB PO SCH ×2 (08:18→16:38)
[2019-12-21] MEDS: Furosemide 20 MG TAB PO SCH ×2 (08:18→13:24)
[2019-12-21] MEDS: Apixaban 5 MG TAB PO SCH ×2 (08:18→21:05)
[2019-12-21] MEDS: Rosuvastatin 20 MG TAB PO SCH (08:18)
[2019-12-21 10:28] VITALS: BMI 32.1
--- NOTE | 2019-12-21 13:16 | PDOC.HOSPP ---
- Subjective Encounter Date: 12/21/19 Encounter Time: 09:10 Subjective: Patient is stable. I have examined the wound VAC area in the sternum. And it looks good. And no sign of any bleed around the site. Eliquis started last evening. Updated the son yesterday. Swing bed placement pending. - Objective Vital Signs & Weight: Vital Signs (12 hours) Pulse Resp BP Pulse Ox 12/21/19 08:00 97 12/21/19 07:52 59 L 20 116/79 97 Weight Admit Weight 280 lb Weight 237 lb Most Recent Monitor Data Heart Rate from ECG 62 NIBP 107/60 NIBP BP-Mean 82 Respiration from ECG 28 SpO2 100 I&O: 12/20/19 12/21/19 12/22/19 06:59 06:59 06:59 Intake Total 360 3233 Output Total 825 825 Balance -465 2408 Result Diagrams: 12/21/19 06:35 12/21/19 06:35 Hospitalist ROS - Medication Medications: Active Medications Generic Name Dose Route Start Last Admin Trade Name Freq PRN Reason Stop Dose Admin Apixaban 5 mg 12/20/19 21:00 12/21/19 08:18 Eliquis PO 5 mg BID BRAN Administration Aspirin 81 mg 12/20/19 09:00 12/21/19 08:17 Ecotrin PO 81 mg DAILY BRAN Administration Bacitracin 1 pk 12/11/19 15:06 12/20/19 17:41 Bacitracin TOP 1 pk DAILYPRN PRN Administration Wound Care Furosemide 20 mg 12/20/19 09:00 12/21/19 08:18 Lasix PO 20 mg 0900,1400 BRAN Administration Cefazolin Sodium/Dextrose 2 gm 50 mls @ 100 mls/hr 12/11/19 22:00 12/21/19 05 :57 / Device IVPB 50 mls Q8HR BRAN Administration Pantoprazole Sodium 40 mg 12/12/19 09:00 12/21/19 08:18 Protonix PO 40 mg DAILY BRAN Administration Polyethylene Glycol 17 gm 12/16/19 09:00 12/21/19 08:18 Miralax PO Not Given DAILY BRAN Potassium Chloride 20 meq 12/16/19 08:00 12/21/19 08:18 K-Dur PO 20 meq QAM-WM BRAN Administration Rosuvastatin Calcium 20 mg 12/11/19 09:00 12/21/19 08:18 Crestor PO 20 mg DAILY BRAN Administration Spironolactone 25 mg 12/13/19 17:00 12/21/19 08:18 Aldactone PO 25 mg BID-WM BRAN Administration Triamcinolone Acetonide 0 gm 12/12/19 21:00 12/21/19 08:18 Kenalog 0.1% Cream TOP 1 applic BID BRAN Administration Vitamin B Complex/Vit C/Folic Acid 1 tab 12/12/19 09:00 12/21/19 08:18 Nephro-Paramjit Tablet PO 1 tab DAILY BRAN Administration - Exam General Appearance: NAD, awake alert General - other findings: Sternal wound with wound VAC looks good. ENT: normocephalic atraumatic Neck: supple Heart: RRR, normal peripheral pulses Respiratory: CTAB, normal chest expansion Gastrointestinal: soft, normal bowel sounds Neurological: no focal deficits Psychiatric: A&O x 3 Hosp A/P - Plan #MSSA bacteremia #Pacemaker #superficial sternal wound s/p I&D (12/14); wound culture growing s.aureus -tranesophageal echo showing no lead vegetation -continue cefazolin () -6 weeks total Abx on discharge per ID #HFpEF -severely dilated L atrium on Echo -on lasix --switch to p.o. Lasix and monitor closely He is on torsemide as a home regimen Recent CABG by Dr. Mcgrath Chronic atrial fibrillation -S sternal wound looks good we may be able to start him back on Eliquis which is on hold #Stasis dermatitis -continue triamcinolone #HCC -Child Anthony 4-5 -outpt referral for vocational rehab consultant appreciete the help from CCM and ID 6th Sternal wound culture grew staph aureus Blood cultures of December 12 no growth for 48 hours so we will go ahead and get the PICC line. PICC ordered. 7th He is still getting IV Lasix --I will switch that to p.o. He had a transesophageal echo recently with and no vegetation It should be okay to start back on Eliquis but will cehck with Dr. Mcgrath before starting him back. 8th Will check with Dr. Mcgrath is concern for sternal wound bleed regarding restart on Eliquis. He has a right PICC line for IV antibiotics that will be continued until end of this month. After we start Eliquis we need to monitor closely for a day or 2 before transferring him to rehab facility given the risk for sternal wound bleed. Currently he is hemoglobin at 13.1. 9th I talked to the son this morning at [phone] and updated the clinical course. Since he has no bleed for the last 48 hours we will start him back on Eliquis. Checked with Dr. Mcgrath. Will monitor closely for the next 1 to 2 days for sternal wound bleed, which is on wound vac. . catering sales manager is working with the family on swing bed placement which likely early next week. GEOVANNA without evidence of pacemaker lead colonization Methicillin susceptible staph aureus bacteremia secondary to sternotomy site infection Status post limited debridement of the sternal wound. 10th Eliquis started last evening. No bleeding sign. Updated the son yesterday. Cefazolin to be completed on January 24. Swing bed placement pending.
[2019-12-22 05:14] LABS: #Eosinphils 0.1 thou/uL (0.0-0.7); #Lymphocytes 0.8 thou/uL (1.20-3.40); #Monocytes 0.3 thou/uL (0.11-0.59); #Neutrophils 5.5 thou/uL (1.40-6.50); %Basophils 0.3 % (0.0-1.0); %Eosinophils 2.1 % (0.0-10.0); %Lymphocytes 11.7 % (21.0-51.0); %Neutrophils 80.9 % (42.0-75.0); Hemoglobin 14.4 g/dL (14.0-18.0); Mean Corpuscular HGB CONC 31.8 g/dL (32.0-36.0); Mean Corpuscular Hemoglobin 31.7 pg (27.0-31.0); Mean Corpuscular Volume 99.5 fL (78.0-98.0); Mean Platelet Volume 7.8 fL (7.4-10.4); Platelet Count 193 thou/uL (130-400); RBC Distribution Width 14.3 % (11.5-14.5); Red Blood Cell (RBC) Count 4.56 mill/uL (4.70-6.10); White Blood Cell (WBC) Count 6.8 thou/uL (4.8-10.8)
[2019-12-22 05:40] LABS: Anion Gap 14 mmol/L (10-20); BUN (Urea Nitrogen) 25 mg/dL (8.4-25.7); Calc. Creatinine Clearance 88 mL/min (70-130); Carbon Dioxide 31 mmol/L (23-31); Chloride 91 mmol/L (98-107); Estimated GFR-MDRD 68; Glucose 98 mg/dL (83-110); Potassium 4.4 mmol/L (3.5-5.1); Sodium 132 mmol/L (136-145)
[2019-12-22] MEDS: CEFAZOLIN 2 GM in Premix Bag 1 BAG IVPB SCH (05:40)
[2019-12-22 08:01] VITALS: BP 119/81; TEMP 98.5
[2019-12-22] MEDS: Apixaban 5 MG TAB PO SCH (08:01)
[2019-12-22] MEDS: Spironolactone 25 MG TAB PO SCH ×2 (08:01→16:59)
[2019-12-22] MEDS: Potassium Chloride 20 MEQ TAB PO SCH (08:01)
[2019-12-22] MEDS: Folic Acid/Vit B Comp W-C PO SCH (08:01)
[2019-12-22] MEDS: Aspirin 81 mg Enteric Coated Tablet PO SCH (08:01)
[2019-12-22] MEDS: Furosemide 20 MG TAB PO SCH (08:01)
[2019-12-22] MEDS: Rosuvastatin 20 MG TAB PO SCH (08:01)
[2019-12-22] MEDS: Polyethylene Glycol 3350 17 GM Packet PO SCH (08:02)
[2019-12-22] MEDS: Triamcinolone 0.1% Cream 15 GM TUBE TOP SCH (08:02)
--- NOTE | 2019-12-22 12:50 | PDOC.HOSPP ---
- Subjective Encounter Date: 12/22/19 Encounter Time: 11:20 Subjective: Patient has no complaints. His sodium is consistently 132. Will give a short course of NS. hlding Lasix for today. Repeat BMP scheduled. I talked to the manager of case management. The plan is to send him to the swing bed. Try to reach Dr. Sethi who would accept once the insurance approves. I tried to reach him at [phone]. He is not answering the phone. Will try later in the day for pt hand soft. Sternal wound has no bleed. Has a wound VAC. It is not draining much. This has to be addressed with Dr. Mcgrath and wound care whether he needs to have a wound VAC going to swing bed and for how long. - Objective Vital Signs & Weight: Vital Signs (12 hours) Temp Pulse Resp BP Pulse Ox 12/22/19 08:00 98.5 F 66 20 119/81 98 Weight Admit Weight 280 lb Weight 237 lb Most Recent Monitor Data Heart Rate from ECG 62 NIBP 107/60 NIBP BP-Mean 82 Respiration from ECG 28 SpO2 100 I&O: 12/21/19 12/22/19 12/23/19 06:59 06:59 06:59 Intake Total 3233 Output Total 825 100 Balance 2408 -100 Result Diagrams: 12/22/19 04:57 12/22/19 04:57 Hospitalist ROS - Medication Medications: Active Medications Generic Name Dose Route Start Last Admin Trade Name Freq PRN Reason Stop Dose Admin Apixaban 5 mg 12/20/19 21:00 12/22/19 08:01 Eliquis PO 5 mg BID BRAN Administration Aspirin 81 mg 12/20/19 09:00 12/22/19 08:01 Ecotrin PO 81 mg DAILY BRAN Administration Furosemide 20 mg 12/20/19 09:00 12/22/19 08:01 Lasix PO 20 mg 0900,1400 BRAN Administration Pantoprazole Sodium 40 mg 12/12/19 09:00 12/22/19 08:01 Protonix PO 40 mg DAILY BRAN Administration Polyethylene Glycol 17 gm 12/16/19 09:00 12/22/19 08:02 Miralax PO Not Given DAILY BRAN Potassium Chloride 20 meq 12/16/19 08:00 12/22/19 08:01 K-Dur PO 20 meq QAM-WM BRAN Administration Rosuvastatin Calcium 20 mg 12/11/19 09:00 12/22/19 08:01 Crestor PO 20 mg DAILY BARN Administration Spironolactone 25 mg 12/13/19 17:00 12/22/19 08:01 Aldactone PO 25 mg BID-WM BRAN Administration Triamcinolone Acetonide 0 gm 12/12/19 21:00 12/22/19 08:02 Kenalog 0.1% Cream TOP 1 applic BID BRAN Administration Vitamin B Complex/Vit C/Folic Acid 1 tab 12/12/19 09:00 12/22/19 08:01 Nephro-Paramjit Tablet PO 1 tab DAILY BRAN Administration - Exam General Appearance: NAD, awake alert General - other findings: Sternal wound with wound VAC no sign of bleed no drain. Eye: PERRL ENT: normocephalic atraumatic Neck: supple Heart: RRR Respiratory: CTAB, normal chest expansion Gastrointestinal: soft, normal bowel sounds Neurological: no focal deficits Psychiatric: A&O x 3 Hosp A/P - Plan #MSSA bacteremia #Pacemaker #superficial sternal wound s/p I&D (12/14); wound culture growing s.aureus -tranesophageal echo showing no lead vegetation -continue cefazolin () -6 weeks total Abx on discharge per ID #HFpEF -severely dilated L atrium on Echo -on lasix --switch to p.o. Lasix and monitor closely He is on torsemide as a home regimen Recent CABG by Dr. Mcgrath Chronic atrial fibrillation -S sternal wound looks good we may be able to start him back on Eliquis which is on hold #Stasis dermatitis -continue triamcinolone #HCC -Child Anthony 4-5 -outpt referral for cloth booker appreciete the help from CCM and ID 6th Sternal wound culture grew staph aureus Blood cultures of December 12 no growth for 48 hours so we will go ahead and get the PICC line. R. PICC I talked to the sonat [phone] and updated the clinical course. GEOVANNA without evidence of pacemaker lead colonization Methicillin susceptible staph aureus bacteremia secondary to sternotomy site infection Status post limited debridement of the sternal wound. Eliquis started last evening. No bleeding sign. Updated the son yesterday. Cefazolin to be completed on January 24. Swing bed placement pending. His sodium is consistently 132. Will give a short course of NS. hlding Lasix for today. Repeat BMP scheduled. I talked to the manager of case management. The plan is to send him to the swing bed. Try to reach Dr. Sethi who would accept once the insurance approves. I tried to reach him at [phone]. He is not answering the phone. Will try later in the day for pt hand soft. Sternal wound has no bleed. Has a wound VAC. It is not draining much. This has to be addressed with Dr. Mcgrath and wound care how long he needs to be on wound VAC and how he is going to follow with wound care.
[2019-12-22] MEDS ORDERED: Sodium Chloride 0.9% 1,000 ML IV SCH (13:00)
[2019-12-22] MEDS ORDERED: CEFAZOLIN 2 GM in Premix Bag 1 BAG IVPB SCH (14:00)
--- NOTE | 2019-12-23 11:52 | PQF ---
CLINICAL DOCUMENTATION CLARIFICATION FORM: Dear : Campbell Carolina Date / Time: 12/23/2019 Please exercise your independent, professional judgment in responding to the clarification form. Clinical indicators are provided on the bottom of this form for your review Please check appropriate box(es): Conflicting documentation was noted in the Medical Record; please clarify if patient is being treated/monitored for: [ ] MSSA bacteremia/sepsis is due to sternotomy site infection [ ] MSSA bacteremia/sepsis is not due to sternotomy site infection [ ] Other diagnosis [ x] Unable to determine In addition, please specify: Present on Admission (POA): [ ] Yes [ ] No [ ] Unable to determine To be completed by CDI/Coding staff for physician review: Present Clinical Indicators - Signs / Symptoms / Labs Results and Location in Medical Record [ x ] Methicillin susceptible staph aureus bacteremia secondary to site infection, status post limited debridement of the sternal wound Progress note 12/21 by Campbell Carolina MD [ x ] Septic shock is not complication of current/recent surgery Physician query answered by Bhupendra Garza MD [ x ] I feel it is more likely that staph bacteremia secondary to skin lesion involving both lower extremities and then infection of his sternum Consultation 12/10 by Tyrone Carrera MD [ x ] CABG wound dehiscence, surrounding erythema. Wound care consulted, if purulent discharge culture Progress note 12/10 by Bhupendra Garza MD Present Risk Factors Results and Location in Medical Record [ x ] Recent pacemaker placement, recent CABG placement with wound dehiscence, pneumonia Progress note 12/11 by Bhupendra Garza MD Present Treatments Results and Location in Medical Record [ x ] IV Levophed, IV Azithromycin, IV cefepime and IV Ancef Medications [ x ] IV fluids Medications [ x ] I and D of sternal wound 12/14 by Abe Mcgrath MD Operative notes 12/14 CDS/Product Management Manager Signature: SJ1 Phone #: Date/Time: 12/23/2019 This is a permanent part of the Medical Record [facility]
--- NOTE | 2019-12-25 06:47 | DIS ---
DATE OF ADMISSION: 12/10/2019 DATE OF DISCHARGE: 12/22/2019 DISCHARGE DIAGNOSES: 1. Methicillin-resistant Staphylococcus aureus bacteremia, status post pacemaker placement. 2. Superficial sternal wound, culture growing Staph aureus. 3. Transesophageal echo without any vegetation. 4. Heart failure with preserved EF and severely dilated left atrium. 5. Recent coronary artery bypass grafting by Dr. Mcgrath. 6. Chronic atrial fibrillation, on Eliquis. 7. Stasis dermatitis. 8. 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 DISCHARGE MEDICATIONS: 1. Cefazolin 2 g q.8 hours, to be stopped on January 24. 2. Aspirin 81 mg daily. 3. Eliquis 5 mg twice a day. 4. Protonix 40 mg daily. 5. Crestor 20 mg daily. 6. Spironolactone 25 mg twice a day. Please refer to history and physical and daily progress notes including today's notes for more details. CONSULTS: Dr. Gutierrez and Vascular Surgery with Dr. Mcgrath. HOSPITAL COURSE: A 79-year-old male with recent CABG, presented with sternal wound infection. He has gone through I and D of superficial sternal wound. He had mild bleed from the wound site as being on Eliquis and that was on hold. He improved well, and his hemoglobin on the day of discharge is 14.4. He did not require any transfusion during the stay. Eliquis was restarted. Last 2 to 3 days, the patient being on Eliquis, no rebleed occurred from the sternal site. He also has a wound VAC at sternal site, which will be followed at swing bed by Wound Care. He is expected to follow up with Dr. Mcgrath in 1 to 2 weeks. He will be transferred back to the swing bed. DISCHARGE INSTRUCTIONS: Activity as tolerated. Healthy heart diet. Follow up with Dr. Mcgrath in 1 to 2 weeks. Wound VAC management per Wound Care at swing bed. TIME SPENT: Discharge time took over 35 minutes. Job ID: [id number] MTDD
--- NOTE | 2019-12-30 11:27 | EKG ---
Test Reason : SOB Blood Pressure : / mmHG Vent. Rate : 071 BPM Atrial Rate : 070 BPM P-R Int : 000 ms QRS Dur : 094 ms QT Int : 390 ms P-R-T Axes : 000 -28 260 degrees QTc Int : 423 ms Slow atrial fibrillation with occasional Premature ventricular complexes Abnormal ECG Confirmed by GRACE MULLINS, ALESSANDRA Quintana ([id number]), newspaper editor managing KSENIA TREVINO ([id number]) on 12/30/2019 11:27:00 AM Referred By: Confirmed By:ALESSANDRA EDWARDS MD
== END 2019-12-22 17:42 | disposition swing bed (61) | DRG 853 ==
LOC: ERS 17:03 → CCU 20:02 → 2NO 12-11 18:28 → T4-A 12-13 19:31
PROVIDERS: ADMIT Internal Medicine; ATTEND Internal Medicine
PROC: 3E033XZ Introduction of Vasopressor into Peripheral Vein, Percutaneous Approach (ICD-10-PCS; principal; 2019-12-10)
PROC: B24BZZ4 Ultrasonography of Heart with Aorta, Transesophageal (ICD-10-PCS; 2019-12-14)
PROC: 0P900ZZ Drainage of Sternum, Open Approach (ICD-10-PCS; 2019-12-15)
PROC: 02HV33Z Insertion of Infusion Device into Superior Vena Cava, Percutaneous Approach (ICD-10-PCS; 2019-12-19)
PROC: B518YZA Fluoroscopy of Superior Vena Cava using Other Contrast, Guidance (ICD-10-PCS; 2019-12-19)
PROC: B548ZZA Ultrasonography of Superior Vena Cava, Guidance (ICD-10-PCS; 2019-12-19)
DX: A41.01 Sepsis due to Methicillin susceptible Staphylococcus aureus (principal); R65.21 Severe sepsis with septic shock; J18.9 Pneumonia, unspecified organism; J96.01 Acute respiratory failure with hypoxia; I48.20 Chronic atrial fibrillation, unspecified; C22.0 Liver cell carcinoma; T81.31XA Disruption of external operation (surgical) wound, not elsewhere classified, initial encounter; I50.30 Unspecified diastolic (congestive) heart failure; Z20.828 Contact with and (suspected) exposure to other viral communicable diseases; E78.5 Hyperlipidemia, unspecified; I25.10 Atherosclerotic heart disease of native coronary artery without angina pectoris; R79.89 Other specified abnormal findings of blood chemistry; I87.2 Venous insufficiency (chronic) (peripheral); I11.0 Hypertensive heart disease with heart failure; E66.9 Obesity, unspecified; K74.60 Unspecified cirrhosis of liver; Z96.653 Presence of artificial knee joint, bilateral; Y83.2 Surgical operation with anastomosis, bypass or graft as the cause of abnormal reaction of the patient, or of later complication, without mention of misadventure at the time of the procedure; Z95.1 Presence of aortocoronary bypass graft; Z87.891 Personal history of nicotine dependence; Z95.0 Presence of cardiac pacemaker; Z68.32 Body mass index [BMI] 32.0-32.9, adult
CPT/HCPCS: 36415; 36556; 36569; 71045; 71275; 80048; 80053; 82553; 83605; 83735; 83880; 84145; 84484; 85007; 85025; 85027; 85610; 87040; 87070; 87077; 87149; 87186; 87205; 93005; 93306; 93312; 94660; 94760; 96360; 96361; 96365; 96367; C1751; J0456; J0690; J0692; J1644; J1940; J2250; J2405; J2704; J3370; J3490; Q9967; S0028; U0002

== ENCOUNTER 2020-11-19 10:37 | Emergency (ER) | payer MEDICARE, BC | END 2020-11-19 11:39 | disposition home or self-care (01) | LOC: ERS 10:37 | DX: S81.802A Unspecified open wound, left lower leg, initial encounter (principal); S81.801A Unspecified open wound, right lower leg, initial encounter; I87.8 Other specified disorders of veins; I25.10 Atherosclerotic heart disease of native coronary artery without angina pectoris; I10 Essential (primary) hypertension; E78.5 Hyperlipidemia, unspecified; E78.00 Pure hypercholesterolemia, unspecified; Z87.891 Personal history of nicotine dependence; X58.XXXA Exposure to other specified factors, initial encounter | CPT/HCPCS: 99283 ==

== ENCOUNTER 2021-04-30 09:43 | Inpatient (IN) | payer MEDICARE, BC ==
[2021-04-30 11:25] LABS: #Basophils 0.1 thou/uL (0.0-0.2); #Lymphocytes 0.3 thou/uL (1.20-3.40); #Monocytes 0.3 thou/uL (0.11-0.59); #Neutrophils 4.5 thou/uL (1.40-6.50); %Basophils 1.8 % (0.0-1.0); %Eosinophils 0.1 % (0.0-10.0); %Lymphocytes 5.5 % (21.0-51.0); %Monocytes 6.6 % (0.0-10.0); %Neutrophils 85.9 % (42.0-75.0); Hemoglobin 10.9 g/dL (14.0-18.0); Mean Corpuscular HGB CONC 29.6 g/dL (32.0-36.0); Mean Corpuscular Hemoglobin 24.9 pg (27.0-31.0); Mean Corpuscular Volume 84.2 fL (78.0-98.0); Mean Platelet Volume 8.7 fL (7.4-10.4); Platelet Count 160 thou/uL (130-400); RBC Distribution Width 20.1 % (11.5-14.5); Red Blood Cell (RBC) Count 4.37 mill/uL (4.70-6.10); White Blood Cell (WBC) Count 5.2 thou/uL (4.8-10.8)
[2021-04-30 11:39] LABS: ALT (SGPT) 31 U/L (8-55); AST (SGOT) 61 U/L (5-34); Albumin 3.1 g/dL (3.4-4.8); Alkaline Phosphatase 188 U/L (40-110); Anion Gap 13 mmol/L (10-20); BUN (Urea Nitrogen) 26 mg/dL (8.4-25.7); Bilirubin, Total 1.9 mg/dL (0.2-1.2); Calc. Creatinine Clearance 0 mL/min (70-130); Calcium 8.7 mg/dL (7.8-10.44); Carbon Dioxide 26 mmol/L (23-31); Chloride 100 mmol/L (98-107); Globulin 4.8 g/dL (2.4-3.5); Glucose 109 mg/dL (83-110); Potassium 3.6 mmol/L (3.5-5.1); Protein, Total 7.9 g/dL (5.8-8.1); Sodium 135 mmol/L (136-145)
[2021-04-30 12:43] LABS: Anisocytosis SLIGHT = 6-15 cells (100X) (0-5/hpf); Hypochromia SLIGHT = 6-15 cells (100X) (0-5/hpf); MDiff Complete? YES; Platelet Morphology Comment Appears Adequate; Polychromasia SLIGHT = 2-3 cells (100X) (0-2/hpf)
[2021-04-30] MEDS ORDERED: Acetaminophen 325 MG TAB PO PRN (13:10)
[2021-04-30] MEDS ORDERED: Ondansetron PF 4 MG/2 ML Vial IVP PRN (13:10)
[2021-04-30] MEDS ORDERED: Sodium Chloride 0.9% 1,000 ML IV SCH (13:15)
[2021-04-30] MEDS ORDERED: Cefepime 2 GM VIAL ONE (13:30)
[2021-04-30 14:50] LABS: CKMB 0.8 ng/mL (0-6.6)
[2021-04-30] MEDS ORDERED: Vancomycin 1 GM/200 ML BAG ONE (15:04)
[2021-04-30 17:18] LABS: Troponin I 0.029 ng/mL (< 0.028)
[2021-04-30 20:19] LABS: Troponin I 0.039 ng/mL (< 0.028)
[2021-04-30] MEDS: Rosuvastatin 20 MG TAB PO SCH (20:26)
[2021-04-30] MEDS: Albumin 25% 25 GM/100 ML BOT IVPB SCH (20:26)
[2021-05-01] MEDS: Albumin 25% 25 GM/100 ML BOT IVPB SCH ×3 (01:14→11:35)
[2021-05-01] MEDS: VANCOMYCIN 2 GRAM/400 ML BAG 2 GM in Premix Bag 1 BAG IVPB SCH (04:14)
[2021-05-01 05:29] LABS: #Lymphocytes 0.4 thou/uL (1.20-3.40); #Monocytes 0.2 thou/uL (0.11-0.59); #Neutrophils 2.6 thou/uL (1.40-6.50); %Basophils 0.7 % (0.0-1.0); %Eosinophils 0.9 % (0.0-10.0); %Lymphocytes 12.7 % (21.0-51.0); %Monocytes 7.3 % (0.0-10.0); %Neutrophils 78.5 % (42.0-75.0); Mean Corpuscular HGB CONC 30.7 g/dL (32.0-36.0); Mean Corpuscular Hemoglobin 25.9 pg (27.0-31.0); Mean Corpuscular Volume 84.4 fL (78.0-98.0); Platelet Count 127 thou/uL (130-400); RBC Distribution Width 20.4 % (11.5-14.5); Red Blood Cell (RBC) Count 3.87 mill/uL (4.70-6.10); White Blood Cell (WBC) Count 3.4 thou/uL (4.8-10.8)
[2021-05-01 05:42] LABS: Phosphorus 3.4 mg/dL (2.3-4.7)
[2021-05-01 05:54] LABS: Anion Gap 15 mmol/L (10-20); BUN (Urea Nitrogen) 29 mg/dL (8.4-25.7); Calc. Creatinine Clearance 72 mL/min (70-130); Calcium 8.5 mg/dL (7.8-10.44); Carbon Dioxide 23 mmol/L (23-31); Chloride 101 mmol/L (98-107); Glucose 78 mg/dL (83-110); Magnesium 2.1 mg/dL (1.6-2.6); Potassium 3.7 mmol/L (3.5-5.1); Sodium 135 mmol/L (136-145)
[2021-05-01] MEDS: Aspirin 81 mg Enteric Coated Tablet PO SCH (08:10)
[2021-05-01] MEDS: Allopurinol 100 MG TAB PO SCH (08:10)
[2021-05-01] MEDS ORDERED: Furosemide 100 MG/10 ML VIAL SLOW IVP SCH (08:45)
[2021-05-01] MEDS: Empagliflozin 10 MG TAB PO SCH (09:27)
[2021-05-01 12:29] LABS: SARS-CoV-2 PCR by NAA Not Detected (NotDetected)
[2021-05-01] MEDS: Cefepime 2 GM in Sodium Chloride 0.9% 100 ML IVPB SCH (15:08)
[2021-05-01] MEDS ORDERED: Furosemide 40 MG/4 ML VIAL SLOW IVP SCH (18:30)
[2021-05-01] MEDS: Rosuvastatin 20 MG TAB PO SCH (21:51)
[2021-05-02 03:31] LABS: Vancomycin, Trough 19.8 ug/mL
[2021-05-02 03:42] LABS: Chloride 100 mmol/L (98-107); Potassium 3.5 mmol/L (3.5-5.1); Sodium 137 mmol/L (136-145)
[2021-05-02 03:43] LABS: Calcium 8.5 mg/dL (7.8-10.44); Glucose 100 mg/dL (83-110)
[2021-05-02 03:45] LABS: Anion Gap 17 mmol/L (10-20); Carbon Dioxide 24 mmol/L (23-31)
[2021-05-02 03:47] LABS: BUN (Urea Nitrogen) 34 mg/dL (8.4-25.7); Calc. Creatinine Clearance 63 mL/min (70-130)
[2021-05-02] MEDS: VANCOMYCIN 2 GRAM/400 ML BAG 2 GM in Premix Bag 1 BAG IVPB SCH (04:13)
[2021-05-02] MEDS ORDERED: Furosemide 40 MG/4 ML VIAL SLOW IVP SCH (06:00)
[2021-05-02] MEDS: Albumin 25% 25 GM/100 ML BOT IVPB SCH ×3 (09:18→20:14)
[2021-05-02] MEDS: Allopurinol 100 MG TAB PO SCH (09:18)
[2021-05-02] MEDS: Empagliflozin 10 MG TAB PO SCH (09:18)
[2021-05-02] MEDS: Aspirin 81 mg Enteric Coated Tablet PO SCH (09:18)
[2021-05-02] MEDS ORDERED: Potassium Chloride 20 MEQ TAB PO SCH (12:00)
[2021-05-02] MEDS: Cefepime 2 GM in Sodium Chloride 0.9% 100 ML IVPB SCH (14:20)
[2021-05-02] MEDS: Apixaban 5 MG TAB PO SCH (20:14)
[2021-05-02] MEDS: Rosuvastatin 20 MG TAB PO SCH (20:14)
[2021-05-03] MEDS: Albumin 25% 25 GM/100 ML BOT IVPB SCH ×4 (03:26→23:18)
[2021-05-03] MEDS ORDERED: VANCOMYCIN 1.75 GM/350 ML BAG 1.75 GM in Premix Bag 1 BAG IVPB SCH (04:00)
[2021-05-03] MEDS: Furosemide 40 MG/4 ML VIAL SLOW IVP SCH ×2 (05:40→14:32)
[2021-05-03 07:22] LABS: INR-International Normal Ratio 1.6; Prothrombin Time 19.3 sec (12.0-14.7)
[2021-05-03 07:23] LABS: PTT 47.2 sec (22.9-36.1)
[2021-05-03 07:30] LABS: ALT (SGPT) 22 U/L (8-55); AST (SGOT) 42 U/L (5-34); Albumin 3.7 g/dL (3.4-4.8); Alkaline Phosphatase 150 U/L (40-110); Anion Gap 17 mmol/L (10-20); BUN (Urea Nitrogen) 32 mg/dL (8.4-25.7); Bilirubin, Total 1.5 mg/dL (0.2-1.2); CRP (Inflammatory) 4.93 mg/dL (= or < 0.5); Calc. Creatinine Clearance 62 mL/min (70-130); Calcium 8.9 mg/dL (7.8-10.44); Carbon Dioxide 23 mmol/L (23-31); Chloride 102 mmol/L (98-107); Globulin 3.7 g/dL (2.4-3.5); Glucose 129 mg/dL (83-110); Magnesium 2.2 mg/dL (1.6-2.6); Potassium 3.5 mmol/L (3.5-5.1); Protein, Total 7.4 g/dL (5.8-8.1); Sodium 138 mmol/L (136-145)
[2021-05-03] MEDS: Spironolactone 100 MG TAB PO SCH (09:44)
[2021-05-03] MEDS: Aspirin 81 mg Enteric Coated Tablet PO SCH (09:45)
[2021-05-03] MEDS: Empagliflozin 10 MG TAB PO SCH (09:45)
[2021-05-03] MEDS: Apixaban 5 MG TAB PO SCH ×2 (09:45→20:34)
[2021-05-03] MEDS: Allopurinol 100 MG TAB PO SCH (09:45)
[2021-05-03] MEDS: Senokot S 8.6-50 MG TAB PO SCH ×2 (09:45→20:39)
[2021-05-03 13:11] LABS: Iron 19 ug/dL (65-175); Iron Binding Capacity, Total 204 mcg/dL (261-462)
[2021-05-03 13:29] LABS: Hep C IgG Ab Non-Reactive (NonReactive); Hep C Index 0.23 S/CO (0-0.79)
[2021-05-03 13:35] LABS: Vitamin B12 418 pg/mL (211-911)
[2021-05-03] MEDS: Cefepime 2 GM in Sodium Chloride 0.9% 100 ML IVPB SCH (14:31)
[2021-05-03] MEDS: cefTRIAXone\\ROCEPHIN 2 GM in Sodium Chloride 0.9% 100 ML IVPB SCH (18:17)
[2021-05-03] MEDS: Multivit, Therapeutic 1 TAB PO SCH (20:34)
[2021-05-03] MEDS: Rosuvastatin 20 MG TAB PO SCH (20:34)
[2021-05-04 05:31] LABS: #Lymphocytes 0.4 thou/uL (1.20-3.40); #Monocytes 0.3 thou/uL (0.11-0.59); #Neutrophils 1.4 thou/uL (1.40-6.50); %Eosinophils 1.1 % (0.0-10.0); %Lymphocytes 17.4 % (21.0-51.0); %Monocytes 13.7 % (0.0-10.0); %Neutrophils 66.8 % (42.0-75.0); Hemoglobin 9.9 g/dL (14.0-18.0); Mean Corpuscular HGB CONC 29.8 g/dL (32.0-36.0); Mean Corpuscular Hemoglobin 24.9 pg (27.0-31.0); Mean Corpuscular Volume 83.7 fL (78.0-98.0); Mean Platelet Volume 9.5 fL (7.4-10.4); Platelet Count 136 thou/uL (130-400); Red Blood Cell (RBC) Count 3.97 mill/uL (4.70-6.10); White Blood Cell (WBC) Count 2.2 thou/uL (4.8-10.8)
[2021-05-04 05:49] LABS: Anion Gap 15 mmol/L (10-20); BUN (Urea Nitrogen) 31 mg/dL (8.4-25.7); Calc. Creatinine Clearance 68 mL/min (70-130); Calcium 8.7 mg/dL (7.8-10.44); Carbon Dioxide 23 mmol/L (23-31); Chloride 103 mmol/L (98-107); Glucose 85 mg/dL (83-110); Potassium 3.3 mmol/L (3.5-5.1); Sodium 138 mmol/L (136-145)
[2021-05-04] MEDS: Albumin 25% 25 GM/100 ML BOT IVPB SCH ×3 (05:57→16:22)
[2021-05-04] MEDS: Furosemide 40 MG/4 ML VIAL SLOW IVP SCH (05:57)
[2021-05-04] MEDS ORDERED: Polyethylene Glycol 3350 17 GM Packet PO PRN (10:25)
[2021-05-04] MEDS: Allopurinol 100 MG TAB PO SCH (10:28)
[2021-05-04] MEDS: Spironolactone 100 MG TAB PO SCH (10:28)
[2021-05-04] MEDS: Aspirin 81 mg Enteric Coated Tablet PO SCH (10:28)
[2021-05-04] MEDS: Senokot S 8.6-50 MG TAB PO SCH ×2 (10:28→20:38)
[2021-05-04] MEDS: Apixaban 5 MG TAB PO SCH ×2 (10:28→20:38)
[2021-05-04] MEDS: Empagliflozin 10 MG TAB PO SCH (10:29)
[2021-05-04] MEDS: Potassium Chloride 20 MEQ TAB PO SCH ×2 (10:36→16:21)
[2021-05-04] MEDS: cefTRIAXone\\ROCEPHIN 2 GM in Sodium Chloride 0.9% 100 ML IVPB SCH (16:21)
[2021-05-04] MEDS ORDERED: Potassium Chloride 20 MEQ TAB PO SCH (17:00)
[2021-05-04] MEDS: Multivit, Therapeutic 1 TAB PO SCH (20:38)
[2021-05-04] MEDS: Polyethylene Glycol 3350 17 GM Packet PO SCH (20:38)
[2021-05-04] MEDS: Rosuvastatin 20 MG TAB PO SCH (20:38)
[2021-05-05 06:16] LABS: Anion Gap 15 mmol/L (10-20); BUN (Urea Nitrogen) 32 mg/dL (8.4-25.7); Calc. Creatinine Clearance 62 mL/min (70-130); Calcium 8.9 mg/dL (7.8-10.44); Carbon Dioxide 22 mmol/L (23-31); Chloride 103 mmol/L (98-107); Glucose 90 mg/dL (83-110); Potassium 3.6 mmol/L (3.5-5.1); Sodium 136 mmol/L (136-145)
[2021-05-05 06:21] LABS: #Lymphocytes 0.4 thou/uL (1.20-3.40); #Monocytes 0.3 thou/uL (0.11-0.59); #Neutrophils 1.9 thou/uL (1.40-6.50); %Basophils 0.5 % (0.0-1.0); %Eosinophils 0.8 % (0.0-10.0); %Lymphocytes 16.5 % (21.0-51.0); %Monocytes 10.9 % (0.0-10.0); %Neutrophils 71.3 % (42.0-75.0); Anisocytosis SLIGHT = 6-15 cells (100X) (0-5/hpf); Hemoglobin 10.2 g/dL (14.0-18.0); Hypochromia SLIGHT = 6-15 cells (100X) (0-5/hpf); MDiff Complete? YES; Mean Corpuscular HGB CONC 31.4 g/dL (32.0-36.0); Mean Corpuscular Hemoglobin 26.2 pg (27.0-31.0); Mean Corpuscular Volume 83.5 fL (78.0-98.0); Mean Platelet Volume 9.4 fL (7.4-10.4); Platelet Count 139 thou/uL (130-400); Platelet Morphology Comment Appears Adequate; Polychromasia SLIGHT = 2-3 cells (100X) (0-2/hpf); RBC Distribution Width 21.2 % (11.5-14.5); Target Cells SLIGHT = 2-5 cells (100X) (0-1/hpf); White Blood Cell (WBC) Count 2.6 thou/uL (4.8-10.8)
[2021-05-05] MEDS ORDERED: Furosemide 20 MG TAB PO SCH (09:00)
[2021-05-05] MEDS: Empagliflozin 10 MG TAB PO SCH (09:27)
[2021-05-05] MEDS: Aspirin 81 mg Enteric Coated Tablet PO SCH (09:27)
[2021-05-05] MEDS: Senokot S 8.6-50 MG TAB PO SCH ×2 (09:27→20:53)
[2021-05-05] MEDS: Spironolactone 100 MG TAB PO SCH (09:27)
[2021-05-05] MEDS: Allopurinol 100 MG TAB PO SCH (09:27)
[2021-05-05] MEDS: Apixaban 5 MG TAB PO SCH ×2 (09:27→20:52)
[2021-05-05] MEDS: Furosemide 40 MG/4 ML VIAL SLOW IVP SCH ×2 (16:45→17:13)
[2021-05-05] MEDS: Polyethylene Glycol 3350 17 GM Packet PO SCH ×2 (17:10→20:53)
[2021-05-05] MEDS ORDERED: Iron, Sodium Ferric Gluconate 250 MG in Sodium Chloride 0.9% 250 ML 250 ML IVPB SCH (17:15)
[2021-05-05] MEDS: cefTRIAXone\\ROCEPHIN 2 GM in Sodium Chloride 0.9% 100 ML IVPB SCH (18:15)
[2021-05-05] MEDS: Rosuvastatin 20 MG TAB PO SCH (20:52)
[2021-05-05] MEDS: Multivit, Therapeutic 1 TAB PO SCH (20:52)
[2021-05-06 04:37] LABS: #Lymphocytes 0.4 thou/uL (1.20-3.40); #Monocytes 0.3 thou/uL (0.11-0.59); #Neutrophils 2.8 thou/uL (1.40-6.50); %Basophils 0.3 % (0.0-1.0); %Eosinophils 0.9 % (0.0-10.0); %Lymphocytes 11.3 % (21.0-51.0); %Monocytes 9.4 % (0.0-10.0); %Neutrophils 78.1 % (42.0-75.0); Mean Corpuscular HGB CONC 29.8 g/dL (32.0-36.0); Mean Corpuscular Hemoglobin 24.9 pg (27.0-31.0); Mean Corpuscular Volume 83.3 fL (78.0-98.0); Mean Platelet Volume 9.8 fL (7.4-10.4); Platelet Count 157 thou/uL (130-400); RBC Distribution Width 20.9 % (11.5-14.5); Red Blood Cell (RBC) Count 4.04 mill/uL (4.70-6.10); White Blood Cell (WBC) Count 3.6 thou/uL (4.8-10.8)
[2021-05-06 04:56] LABS: Anion Gap 15 mmol/L (10-20); BUN (Urea Nitrogen) 32 mg/dL (8.4-25.7); Calc. Creatinine Clearance 57 mL/min (70-130); Calcium 9.4 mg/dL (7.8-10.44); Carbon Dioxide 25 mmol/L (23-31); Chloride 101 mmol/L (98-107); Glucose 103 mg/dL (83-110); Potassium 3.4 mmol/L (3.5-5.1); Sodium 138 mmol/L (136-145)
[2021-05-06] MEDS: Furosemide 40 MG/4 ML VIAL SLOW IVP SCH (06:19)
[2021-05-06] MEDS: Empagliflozin 10 MG TAB PO SCH (08:39)
[2021-05-06] MEDS: Spironolactone 100 MG TAB PO SCH (08:39)
[2021-05-06] MEDS: Apixaban 5 MG TAB PO SCH ×2 (08:39→21:23)
[2021-05-06] MEDS: Allopurinol 100 MG TAB PO SCH (08:39)
[2021-05-06] MEDS: Aspirin 81 mg Enteric Coated Tablet PO SCH (08:39)
[2021-05-06] MEDS: Polyethylene Glycol 3350 17 GM Packet PO SCH ×2 (08:40→21:24)
[2021-05-06] MEDS: Senokot S 8.6-50 MG TAB PO SCH ×2 (08:40→21:24)
[2021-05-06 09:17] LABS: Hep B Surface AG-Rflx Sendout Negative (Negative); Hepatitis B Core Total Negative (Negative); Hepatitis B Surface AB-Sendout Non Reactive (.)
[2021-05-06 09:38] LABS: ALT (SGPT) 28 U/L (8-55); AST (SGOT) 69 U/L (5-34); Albumin 3.8 g/dL (3.4-4.8); Alkaline Phosphatase 146 U/L (40-110); Bilirubin, Direct 0.6 mg/dL (0.1-0.3); Bilirubin, Total 1.1 mg/dL (0.2-1.2); Protein, Total 7.4 g/dL (5.8-8.1)
[2021-05-06 13:24] LABS: Bilirubin Negative (Negative); Blood, Urine 3+ (Negative); Clarity Turbid (Clear); Glucose, Urine (Dipstick) Greater than 1000 mg/dL (Negative); Ketone, Urine Negative (Negative); Leukocyte Negative Leu/uL (Negative); Nitrite Negative (Negative); Protein, Urine (Dipstick) 100 mg/dL (Neg-Trace); RBC/HPF 0-3 HPF (0-3); Specific Gravity, Urine 1.017 (1.002-1.036); Squamous Epithelial 0-3 HPF (0-3); Urobilinogen Normal mg/dL (Less than 2); pH, Urine 5.5 (5.0-9.0)
[2021-05-06 13:26] LABS: Bacteria/HPF 1+ HPF (None Seen); Urine Culture Reflex Yes Yes
[2021-05-06 13:28] LABS: Creatinine, Urine 66.38 mg/dL (63-166)
[2021-05-06] MEDS: Furosemide 80 MG TAB PO SCH (15:19)
[2021-05-06] MEDS: cefTRIAXone\\ROCEPHIN 2 GM in Sodium Chloride 0.9% 100 ML IVPB SCH (16:48)
[2021-05-06] MEDS: Multivit, Therapeutic 1 TAB PO SCH (21:23)
[2021-05-06] MEDS: Rosuvastatin 20 MG TAB PO SCH (21:24)
[2021-05-07 05:55] LABS: Anion Gap 16 mmol/L (10-20); BUN (Urea Nitrogen) 30 mg/dL (8.4-25.7); Calc. Creatinine Clearance 60 mL/min (70-130); Calcium 9.4 mg/dL (7.8-10.44); Carbon Dioxide 26 mmol/L (23-31); Chloride 100 mmol/L (98-107); Glucose 93 mg/dL (83-110); Potassium 3.3 mmol/L (3.5-5.1); Sodium 139 mmol/L (136-145)
[2021-05-07] MEDS: Allopurinol 100 MG TAB PO SCH (08:46)
[2021-05-07] MEDS: Furosemide 80 MG TAB PO SCH ×2 (08:46→19:38)
[2021-05-07] MEDS: Spironolactone 100 MG TAB PO SCH ×2 (08:46→20:38)
[2021-05-07] MEDS: Apixaban 5 MG TAB PO SCH ×2 (08:47→20:38)
[2021-05-07] MEDS: Empagliflozin 10 MG TAB PO SCH (08:47)
[2021-05-07] MEDS: Polyethylene Glycol 3350 17 GM Packet PO SCH ×2 (08:48→19:40)
[2021-05-07] MEDS: Senokot S 8.6-50 MG TAB PO SCH ×2 (08:48→19:40)
[2021-05-07] MEDS: cefTRIAXone\\ROCEPHIN 2 GM in Sodium Chloride 0.9% 100 ML IVPB SCH (16:53)
[2021-05-07] MEDS: Rosuvastatin 20 MG TAB PO SCH (20:38)
[2021-05-07] MEDS: Multivit, Therapeutic 1 TAB PO SCH (20:38)
[2021-05-08 06:26] LABS: Anion Gap 17 mmol/L (10-20); BUN (Urea Nitrogen) 29 mg/dL (8.4-25.7); Calc. Creatinine Clearance 58 mL/min (70-130); Calcium 9.6 mg/dL (7.8-10.44); Carbon Dioxide 26 mmol/L (23-31); Chloride 98 mmol/L (98-107); Glucose 84 mg/dL (83-110); Potassium 3.1 mmol/L (3.5-5.1); Sodium 138 mmol/L (136-145)
[2021-05-08] MEDS: Allopurinol 100 MG TAB PO SCH (08:45)
[2021-05-08] MEDS: Empagliflozin 10 MG TAB PO SCH (08:45)
[2021-05-08] MEDS: Senokot S 8.6-50 MG TAB PO SCH ×2 (08:46→21:06)
[2021-05-08] MEDS: Polyethylene Glycol 3350 17 GM Packet PO SCH ×2 (08:46→21:05)
[2021-05-08] MEDS: Spironolactone 100 MG TAB PO SCH ×2 (08:46→21:05)
[2021-05-08] MEDS: Apixaban 5 MG TAB PO SCH ×2 (08:46→21:05)
[2021-05-08] MEDS ORDERED: Furosemide 80 MG TAB PO SCH ×2 (09:00)
[2021-05-08] MEDS ORDERED: Torsemide 20 MG TAB PO SCH (09:00)
[2021-05-08] MEDS ORDERED: Potassium Chloride 20 MEQ TAB PO SCH (09:00)
[2021-05-08 10:06] LABS: Magnesium 2.2 mg/dL (1.6-2.6)
[2021-05-08] MEDS ORDERED: Potassium Chloride 40 MEQ in Premix Bag 1 BAG IVPB SCH (10:45)
[2021-05-08 13:23] LABS: SARS-CoV-2 PCR by NAA Not Detected (NotDetected)
[2021-05-08] MEDS: cefTRIAXone\\ROCEPHIN 2 GM in Sodium Chloride 0.9% 100 ML IVPB SCH (16:35)
[2021-05-08] MEDS: Rosuvastatin 20 MG TAB PO SCH (21:05)
[2021-05-08] MEDS: Multivit, Therapeutic 1 TAB PO SCH (21:05)
[2021-05-09 05:35] LABS: #Eosinphils 0.1 thou/uL (0.0-0.7); #Lymphocytes 0.6 thou/uL (1.20-3.40); #Monocytes 0.3 thou/uL (0.11-0.59); #Neutrophils 3.4 thou/uL (1.40-6.50); %Basophils 0.4 % (0.0-1.0); %Lymphocytes 13.8 % (21.0-51.0); %Monocytes 7.7 % (0.0-10.0); %Neutrophils 76.2 % (42.0-75.0); Hemoglobin 10.3 g/dL (14.0-18.0); Mean Corpuscular HGB CONC 30.8 g/dL (32.0-36.0); Mean Corpuscular Hemoglobin 25.4 pg (27.0-31.0); Mean Corpuscular Volume 82.4 fL (78.0-98.0); Mean Platelet Volume 9.4 fL (7.4-10.4); Platelet Count 175 thou/uL (130-400); RBC Distribution Width 20.8 % (11.5-14.5); Red Blood Cell (RBC) Count 4.05 mill/uL (4.70-6.10); White Blood Cell (WBC) Count 4.4 thou/uL (4.8-10.8)
[2021-05-09 05:53] LABS: Anion Gap 13 mmol/L (10-20); BUN (Urea Nitrogen) 33 mg/dL (8.4-25.7); Calc. Creatinine Clearance 54 mL/min (70-130); Calcium 9.9 mg/dL (7.8-10.44); Carbon Dioxide 30 mmol/L (23-31); Chloride 98 mmol/L (98-107); Glucose 107 mg/dL (83-110); Potassium 3.2 mmol/L (3.5-5.1); Sodium 138 mmol/L (136-145)
[2021-05-09] MEDS ORDERED: Potassium Chloride 20 MEQ TAB PO SCH (07:30)
[2021-05-09] MEDS: Spironolactone 100 MG TAB PO SCH ×2 (09:32→21:02)
[2021-05-09] MEDS: Apixaban 5 MG TAB PO SCH ×2 (09:33→21:01)
[2021-05-09] MEDS: Allopurinol 100 MG TAB PO SCH (09:33)
[2021-05-09] MEDS: Empagliflozin 10 MG TAB PO SCH (09:33)
[2021-05-09] MEDS: Polyethylene Glycol 3350 17 GM Packet PO SCH ×2 (09:34→21:03)
[2021-05-09] MEDS: Senokot S 8.6-50 MG TAB PO SCH ×2 (09:34→21:03)
[2021-05-09] MEDS: cefTRIAXone\\ROCEPHIN 2 GM in Sodium Chloride 0.9% 100 ML IVPB SCH (19:40)
[2021-05-09] MEDS: Multivit, Therapeutic 1 TAB PO SCH (21:02)
[2021-05-09] MEDS: Rosuvastatin 20 MG TAB PO SCH (21:02)
[2021-05-10 05:48] LABS: Anion Gap 16 mmol/L (10-20); BUN (Urea Nitrogen) 32 mg/dL (8.4-25.7); Calc. Creatinine Clearance 52 mL/min (70-130); Calcium 9.4 mg/dL (7.8-10.44); Carbon Dioxide 27 mmol/L (23-31); Chloride 97 mmol/L (98-107); Glucose 94 mg/dL (83-110); Potassium 3.2 mmol/L (3.5-5.1); Sodium 137 mmol/L (136-145)
[2021-05-10] MEDS: Polyethylene Glycol 3350 17 GM Packet PO SCH ×2 (09:19→21:18)
[2021-05-10] MEDS: Allopurinol 100 MG TAB PO SCH (09:19)
[2021-05-10] MEDS: Empagliflozin 10 MG TAB PO SCH (09:19)
[2021-05-10] MEDS: Apixaban 5 MG TAB PO SCH ×2 (09:19→21:16)
[2021-05-10] MEDS: Senokot S 8.6-50 MG TAB PO SCH ×2 (09:20→21:18)
[2021-05-10] MEDS: Spironolactone 100 MG TAB PO SCH (09:21)
[2021-05-10] MEDS ORDERED: Calcium Carbonate 500 MG ChewTAB PO PRN (10:22)
[2021-05-10] MEDS ORDERED: GUAIFENESIN SF SOLN 200 MG/10 ML UDCUP PO PRN (10:22)
[2021-05-10] MEDS ORDERED: Loperamide HCl 2 MG CAP PO PRN (10:22)
[2021-05-10] MEDS ORDERED: hydrALAZINE 20 MG/ML VIAL SLOW IVP PRN (10:22)
[2021-05-10] MEDS ORDERED: Loratadine 10 MG TAB PO PRN (10:22)
[2021-05-10] MEDS ORDERED: Artificial Tear Sol 15 ML BOT EA EYE PRN (10:22)
[2021-05-10] MEDS ORDERED: Cepastat Lozenges 1 LOZ PO PRN (10:22)
[2021-05-10] MEDS ORDERED: Hydrocerin (Eucerin) Cream 120 gm Jar TOP PRN (10:22)
[2021-05-10] MEDS ORDERED: HYDROcodone/Acetaminophen 5/325 mg Tablet PO PRN (10:22)
[2021-05-10] MEDS ORDERED: Ondansetron ODT 4 MG TAB PO PRN (10:22)
[2021-05-10] MEDS ORDERED: Potassium Chloride 20 MEQ TAB PO SCH ×2 (11:30→14:45)
[2021-05-10] MEDS: cefTRIAXone\\ROCEPHIN 2 GM in Sodium Chloride 0.9% 100 ML IVPB SCH (17:25)
[2021-05-10] MEDS: Rosuvastatin 20 MG TAB PO SCH (21:16)
[2021-05-10] MEDS: Multivit, Therapeutic 1 TAB PO SCH (21:17)
[2021-05-11 06:18] LABS: Anion Gap 15 mmol/L (10-20); BUN (Urea Nitrogen) 33 mg/dL (8.4-25.7); Calc. Creatinine Clearance 59 mL/min (70-130); Calcium 9.5 mg/dL (7.8-10.44); Carbon Dioxide 26 mmol/L (23-31); Chloride 99 mmol/L (98-107); Glucose 95 mg/dL (83-110); Potassium 3.8 mmol/L (3.5-5.1); Sodium 136 mmol/L (136-145)
[2021-05-11] MEDS: Senokot S 8.6-50 MG TAB PO SCH ×2 (10:30→20:55)
[2021-05-11] MEDS: Empagliflozin 10 MG TAB PO SCH (10:30)
[2021-05-11] MEDS: Allopurinol 100 MG TAB PO SCH (10:30)
[2021-05-11] MEDS: Polyethylene Glycol 3350 17 GM Packet PO SCH ×2 (10:30→20:55)
[2021-05-11] MEDS: Apixaban 5 MG TAB PO SCH ×2 (10:30→20:57)
[2021-05-11] MEDS: cefTRIAXone\\ROCEPHIN 2 GM in Sodium Chloride 0.9% 100 ML IVPB SCH (17:01)
[2021-05-11] MEDS: Rosuvastatin 20 MG TAB PO SCH (20:57)
[2021-05-11] MEDS: Multivit, Therapeutic 1 TAB PO SCH (20:57)
[2021-05-12 06:09] LABS: Anion Gap 13 mmol/L (10-20); BUN (Urea Nitrogen) 36 mg/dL (8.4-25.7); Calc. Creatinine Clearance 50 mL/min (70-130); Calcium 9.6 mg/dL (7.8-10.44); Carbon Dioxide 28 mmol/L (23-31); Chloride 100 mmol/L (98-107); Glucose 102 mg/dL (83-110); Potassium 3.8 mmol/L (3.5-5.1); Sodium 137 mmol/L (136-145)
[2021-05-12 06:11] LABS: ALT (SGPT) 51 U/L (8-55); AST (SGOT) 103 U/L (5-34); Albumin 3.2 g/dL (3.4-4.8); Alkaline Phosphatase 191 U/L (40-110); Bilirubin, Direct 0.5 mg/dL (0.1-0.3); Bilirubin, Total 0.8 mg/dL (0.2-1.2); Protein, Total 7.5 g/dL (5.8-8.1)
[2021-05-12 06:12] LABS: Hemoglobin 9.9 g/dL (14.0-18.0); Mean Corpuscular HGB CONC 31.1 g/dL (32.0-36.0); Mean Corpuscular Hemoglobin 26.2 pg (27.0-31.0); Mean Corpuscular Volume 84.1 fL (78.0-98.0); Mean Platelet Volume 9.7 fL (7.4-10.4); Platelet Count 160 thou/uL (130-400)
[2021-05-12] MEDS: Apixaban 5 MG TAB PO SCH ×2 (09:31→21:44)
[2021-05-12] MEDS: Empagliflozin 10 MG TAB PO SCH (09:31)
[2021-05-12] MEDS: Allopurinol 100 MG TAB PO SCH (09:31)
[2021-05-12] MEDS: Polyethylene Glycol 3350 17 GM Packet PO SCH ×2 (09:32→21:44)
[2021-05-12] MEDS: Senokot S 8.6-50 MG TAB PO SCH ×2 (09:32→21:44)
[2021-05-12 09:47] LABS: #Basophils 0.1 thou/uL (0.0-0.2); #Eosinphils 0.1 thou/uL (0.0-0.7); #Lymphocytes 0.6 thou/uL (1.20-3.40); #Monocytes 0.4 thou/uL (0.11-0.59); #Neutrophils 3.9 thou/uL (1.40-6.50); %Lymphocytes 11.7 % (21.0-51.0); %Monocytes 7.2 % (0.0-10.0); %Neutrophils 79.1 % (42.0-75.0); Anisocytosis SLIGHT = 6-15 cells (100X) (0-5/hpf); Hypochromia SLIGHT = 6-15 cells (100X) (0-5/hpf); MDiff Complete? YES; Platelet Morphology Comment Appears Adequate; Polychromasia SLIGHT = 2-3 cells (100X) (0-2/hpf)
[2021-05-12] MEDS: cefTRIAXone\\ROCEPHIN 2 GM in Sodium Chloride 0.9% 100 ML IVPB SCH (19:13)
[2021-05-12] MEDS: Rosuvastatin 20 MG TAB PO SCH (21:44)
[2021-05-12] MEDS: Multivit, Therapeutic 1 TAB PO SCH (21:44)
[2021-05-13 09:17] LABS: Albumin 3.1 g/dL (3.4-4.8); Anion Gap 12 mmol/L (10-20); BUN (Urea Nitrogen) 33 mg/dL (8.4-25.7); BUN/Creatinine Ratio 16.67; Calc. Creatinine Clearance 48 mL/min (70-130); Calcium 9.3 mg/dL (7.8-10.44); Carbon Dioxide 27 mmol/L (23-31); Chloride 100 mmol/L (98-107); Glucose 142 mg/dL (83-110); Phosphorus 3.1 mg/dL (2.3-4.7); Potassium 3.5 mmol/L (3.5-5.1); Sodium 135 mmol/L (136-145)
[2021-05-13] MEDS: Senokot S 8.6-50 MG TAB PO SCH ×2 (09:24→20:26)
[2021-05-13] MEDS: Polyethylene Glycol 3350 17 GM Packet PO SCH ×2 (09:24→20:25)
[2021-05-13] MEDS: Allopurinol 100 MG TAB PO SCH (09:25)
[2021-05-13] MEDS: Apixaban 5 MG TAB PO SCH ×2 (09:25→20:28)
[2021-05-13] MEDS: Empagliflozin 10 MG TAB PO SCH (09:25)
[2021-05-13 11:07] VITALS: BMI 33.6
[2021-05-13] MEDS: cefTRIAXone\\ROCEPHIN 2 GM in Sodium Chloride 0.9% 100 ML IVPB SCH (18:13)
[2021-05-13] MEDS: Rosuvastatin 20 MG TAB PO SCH (20:27)
[2021-05-13] MEDS: Multivit, Therapeutic 1 TAB PO SCH (20:28)
[2021-05-14] MEDS ORDERED: Spironolactone 25 MG TAB PO SCH (08:00)
[2021-05-14 08:16] LABS: #Eosinphils 0.1 thou/uL (0.0-0.7); #Lymphocytes 0.7 thou/uL (1.20-3.40); #Monocytes 0.3 thou/uL (0.11-0.59); #Neutrophils 3.7 thou/uL (1.40-6.50); %Basophils 0.3 % (0.0-1.0); %Eosinophils 1.1 % (0.0-10.0); %Lymphocytes 14.1 % (21.0-51.0); %Neutrophils 78.4 % (42.0-75.0); Hemoglobin 10.2 g/dL (14.0-18.0); Mean Corpuscular HGB CONC 31.2 g/dL (32.0-36.0); Mean Corpuscular Hemoglobin 26.3 pg (27.0-31.0); Mean Corpuscular Volume 84.2 fL (78.0-98.0); Mean Platelet Volume 9.1 fL (7.4-10.4); Platelet Count 160 thou/uL (130-400); RBC Distribution Width 22.8 % (11.5-14.5); Red Blood Cell (RBC) Count 3.89 mill/uL (4.70-6.10); White Blood Cell (WBC) Count 4.8 thou/uL (4.8-10.8)
[2021-05-14] MEDS: Polyethylene Glycol 3350 17 GM Packet PO SCH (08:18)
[2021-05-14] MEDS: Senokot S 8.6-50 MG TAB PO SCH (08:19)
[2021-05-14] MEDS: Allopurinol 100 MG TAB PO SCH (08:19)
[2021-05-14] MEDS: Apixaban 5 MG TAB PO SCH (08:25)
[2021-05-14] MEDS: Empagliflozin 10 MG TAB PO SCH (08:25)
[2021-05-14 08:29] LABS: Anion Gap 16 mmol/L (10-20); BUN (Urea Nitrogen) 32 mg/dL (8.4-25.7); Calc. Creatinine Clearance 59 mL/min (70-130); Calcium 9.4 mg/dL (7.8-10.44); Carbon Dioxide 25 mmol/L (23-31); Chloride 99 mmol/L (98-107); Glucose 96 mg/dL (83-110); Potassium 3.5 mmol/L (3.5-5.1); Sodium 136 mmol/L (136-145)
[2021-05-14 08:50] VITALS: BP 126/83; TEMP 98.2
== END 2021-05-14 14:50 | DRG 432 ==
LOC: ERS 09:43 → ERHOLD 12:46 → 2NO 18:02 → MSONC 05-06 18:18
PROVIDERS: ADMIT Family Medicine; ATTEND Family Medicine
DX: K74.60 Unspecified cirrhosis of liver (principal); Z51.5 Encounter for palliative care; Z66 Do not resuscitate; Z20.822 Contact with and (suspected) exposure to COVID-19; I50.33 Acute on chronic diastolic (congestive) heart failure; L03.116 Cellulitis of left lower limb; N17.9 Acute kidney failure, unspecified; E87.1 Hypo-osmolality and hyponatremia; C22.0 Liver cell carcinoma; I13.0 Hypertensive heart and chronic kidney disease with heart failure and stage 1 through stage 4 chronic kidney disease, or unspecified chronic kidney disease; I48.11 Longstanding persistent atrial fibrillation; K76.6 Portal hypertension; R18.8 Other ascites; I85.10 Secondary esophageal varices without bleeding; L03.115 Cellulitis of right lower limb; I25.10 Atherosclerotic heart disease of native coronary artery without angina pectoris; E78.5 Hyperlipidemia, unspecified; E78.00 Pure hypercholesterolemia, unspecified; Z96.653 Presence of artificial knee joint, bilateral; M10.9 Gout, unspecified; R74.8 Abnormal levels of other serum enzymes; N18.30 Chronic kidney disease, stage 3 unspecified; D63.1 Anemia in chronic kidney disease; I49.5 Sick sinus syndrome; I87.2 Venous insufficiency (chronic) (peripheral); K75.81 Nonalcoholic steatohepatitis (NASH); D50.9 Iron deficiency anemia, unspecified; E66.01 Morbid (severe) obesity due to excess calories; E11.22 Type 2 diabetes mellitus with diabetic chronic kidney disease; G47.33 Obstructive sleep apnea (adult) (pediatric); D69.59 Other secondary thrombocytopenia; R79.89 Other specified abnormal findings of blood chemistry; E87.6 Hypokalemia; T50.1X5A Adverse effect of loop [high-ceiling] diuretics, initial encounter; T50.8X5A Adverse effect of diagnostic agents, initial encounter; Z95.0 Presence of cardiac pacemaker; Z87.891 Personal history of nicotine dependence; Z95.1 Presence of aortocoronary bypass graft; Z79.899 Other long term (current) drug therapy; Z79.82 Long term (current) use of aspirin; Z79.01 Long term (current) use of anticoagulants; Z68.36 Body mass index [BMI] 36.0-36.9, adult
CPT/HCPCS: 36415; 71045; 74176; 80048; 80053; 80069; 80076; 80202; 81001; 82105; 82140; 82553; 82570; 82607; 82728; 82746; 83540; 83550; 83605; 83735; 83880; 84100; 84156; 84300; 84484; 84540; 85025; 85610; 85730; 86140; 86704; 86705; 86706; 86707; 86803; 87040; 87086; 87340; 87350; 93005; 93970; 96365; 96375; J0692; J0696; J1940; J2405; J2916; J3370; J3490; J7050; P9047; U0003; U0005